=== PATIENT | female | born 1945 | race Caucasian/White ===

== ENCOUNTER 2019-12-23 12:43 | Emergency (ER) | payer MEDICARE ==
--- OUTSIDE RECORDS SUMMARY | 2019-12-23 12:47 | XMS REPORT | Clinical Summary ---
:1945 Author Organization [facility] Address [address] [place] [address] Care Team Providers Name Role Phone Romeo Powell MD Primary Care Provider Allergies No Known Allergies Medications Medication Sig Dispensed Refills Start Date End Date Status Bacillus coagulans Take by mouth 0 Active (PROBIOTIC, B. daily . COAGULANS,) 10 billion cell CpDR ferrous gluconate Take 1 tablet 90 tablet 3 06/13/2018 Active (FERGON) 324 MG (324 mg total) tablet by mouth daily with breakfast. traZODone (DESYREL) Take 100 mg by 0 09/25/2018 Active 100 MG tablet mouth nightly . ZINC ORAL Take 50 mg by 0 Active mouth daily . cholestyramine Take 1 packet by 60 each 5 11/14/2018 Active (QUESTRAN) 4 gram mouth 2 (two) PwPk packet times daily with breakfast and dinner Take other medications 1 hour before or 4-6 hours after cholestyramine. fluticasone 1 spray by Nasal 0 A ctive propionate route daily as (FLONASE) 50 needed . mcg/actuation nasal spray multivitamin Take 1 capsule 0 Ac tive capsule by mouth daily. benzonatate 2 (two) times 0 12/05/2018 Act qing (TESSALON) 100 MG daily as needed capsule . omeprazole Take 20 mg by 0 Activ e (PRILOSEC) 20 MG mouth daily. capsule hydrOXYzine Take 0.5 tablets 30 tablet 2 06/26/2019 Active (ATARAX) 25 MG (12.5 mg total) tablet by mouth every night as needed for Itching. ursodioL (ACTIGALL) Take 0.5 tablets 135 tablet 3 06/26/2019 Active 500 MG tablet (250 mg total) by mouth 3 (three) times daily Take half tablet in the morning and a full tablet in the afternoon.. HYDROcodone-acetami Take 1 tablet by 30 tablet 0 10/22/2019 Active nophen (NORCO mouth every 6 10-325) 10-325 mg (six) hours as per tablet needed. Max Daily Amount: 4 tablets atorvastatin Take 10 mg (1 30 tablet 0 12/11/2019 Ac tive (LIPITOR) 10 MG tablet) daily at tablet bedtime.. ondansetron Take 1 tablet (4 30 tablet 3 12/11/2019 Active (ZOFRAN) 4 MG mg total) by tablet mouth as needed for Nausea. spironolactone Take 1 tablet 30 tablet 3 12/20/2019 12/20/19 Active (ALDACTONE) 25 MG (25 mg total) by 21 tabletIndications: mouth daily. Edema, unspecified type conjugated Place 0.5 g 0 12/19/19 Discont inued estrogens vaginally twice 20 (PREMARIN) 0.625 a week Due on mg/gram vaginal Tuesday. cream HYDROcodone-acetami Take 1 tablet by 0 Discontinued nophen (NORCO mouth every 4 20 10-325) 10-325 mg (four) hours as per tablet needed . ursodiol (ACTIGALL) Take 0.5 tablets 135 tablet 3 06/13/2018 0 06/20/19 Discontinued 500 MG tablet (250 mg total) 20 by mouth 3 (three) times daily Take half tablet three times daily. ondansetron Take 1 tablet (4 30 tablet 3 06/15/2018 06/20/19 Discontinued (ZOFRAN) 4 MG mg total) by 20 tablet mouth as needed for Nausea. hydrOXYzine Take 0.5 tablets 30 tablet 2 11/10/2018 06/20/19 Discontinued (ATARAX) 25 MG (12.5 mg total) 20 tablet by mouth every night as needed for Itching. atorvastatin Take 10 mg (1 30 tablet 6 11/23/2018 06/26/19 Di scontinued (LIPITOR) 10 MG tablet) daily at 20 tablet bedtime.. spironolactone Take 1 tablet 30 tablet 2 12/12/2018 03/27/20 Discontinued (ALDACTONE) 50 MG (50 mg total) by 19 tabletIndications: mouth daily. Edema, unspecified type, Awaiting organ transplant status spironolactone Take 1 tablet 30 tablet 2 03/27/2019 03/29/20 Discontinued (ALDACTONE) 50 MG (50 mg total) by 19 tabletIndications: mouth daily. Edema, unspecified type, Awaiting organ transplant status spironolactone Take 1 tablet 30 tablet 2 03/29/2019 06/20/19 Discontinued (ALDACTONE) 50 MG (50 mg total) by 20 tabletIndications: mouth daily. Edema, unspecified type, Awaiting organ transplant status ondansetron Take 1 tablet (4 30 tablet 3 06/26/2019 12/11/19 Discontinued (ZOFRAN) 4 MG mg total) by 20 tablet mouth as needed for Nausea. spironolactone Take 1 tablet 30 tablet 2 06/26/2019 10/22/19 Discontinued (ALDACTONE) 50 MG (50 mg total) by 20 tabletIndications: mouth daily. Edema, unspecified type, Awaiting organ transplant status atorvastatin Take 10 mg (1 30 tablet 1 06/26/2019 08/31/19 Di scontinued (LIPITOR) 10 MG tablet) daily at 20 tablet bedtime.. atorvastatin Take 10 mg (1 30 tablet 0 08/31/2019 10/05/19 Di scontinued (LIPITOR) 10 MG tablet) daily at 20 tablet bedtime.. atorvastatin Take 10 mg (1 30 tablet 0 10/05/2019 11/09/19 Di scontinued (LIPITOR) 10 MG tablet) daily at 20 tablet bedtime.. amoxicillin-clavula Take 1 tablet by 8 tablet 0 10/22/2019 christine (AUGMENTIN) mouth 2 (two) 20 875-125 mg per times daily for tablet 4 days. spironolactone Take 0.5 tablets 0 10/22/2019 0 Discontinued (ALDACTONE) 50 MG (25 mg total) by 20 tabletIndications: mouth daily. Edema, unspecified type, Awaiting organ transplant status ciprofloxacin-dexam Place 4 drops 7.5 mL 0 10/22/201910/31 ethasone (CIPRODEX) into the right 20 0.3-0.1 % otic ear 2 (two) suspension times daily for 10 days. atorvastatin Take 10 mg (1 30 tablet 0 11/09/2019 12/11/19 Di scontinued (LIPITOR) 10 MG tablet) daily at 20 tablet bedtime.. Active Problems Problem Noted Date Periumbilical abdominal pain 10/20/2019 Fever 10/20/2019 Basal cell carcinoma of skin 08/13/2019 Last Assessment & Plan: She has basal cell carcinoma removed fro m her nose about one year ago. Continue to follow up with Dermatology for skin chec ks as indicated. Pruritus 11/11/2018 Last Assessment & Plan: Due to jaundice. Continued management [facility] Hepatology. Other fatigue 11/11/2018 Last Assessment & Plan: She denies issues with any day to day fu nctioning. She has increased her exercise tolerance to include 30 minutes on the r ecumbent bicycle daily. CMV (cytomegalovirus infection) status negative 2018 Pre-transplant evaluation for liver transplant 019 Last Assessment & Plan: She remains an acceptable candidate for liver transplant, though she is high risk due to age. She was encouraged to continue t o drink supplemental shakes and exercise as tolerated to help with nutritional statu s as she appears thin in clinic. She was able to meet with Lul Galindo in clinic to whitney gomez increasing her weight bearing exercise to increase muscle mass. H/O abdominal surgery 10/18/2018 Last Assessment & Plan: She previously required laparoscopic cho lecystectomy. 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 Hyponatremia 02/22/2018 Elevated alkaline phosphatase level 11/01/2017 Immunity status testing 11/01/2017 Last Assessment & Plan: CDC recommends that all patients with ch ronic liver disease, regardless of etiology, should be immunized to prevent hepatitis A and hepatitis B if they are not already immune. This should be done in addition to other age-appropriate vaccines. We will test for immunity to both viruses - vacc ine recommendations will follow. Screening for malignant neoplasm 11/01/2017 Last Assessment & Plan: She does not currently meet criteria for HCC screening. 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 Elevated liver enzymes 11/01/2017 Last Assessment & Plan: Cholestatic pattern, marked elevated in ALP 1332 (liver isoenzyme 74%) and GGT 683. AMA negative. Unclear etiology suspect DILI vs autoimmune liver disease. MRCP with no evidence of extrahepatic obstr uction. Suspect intrahepatic cholestasis . We ordered comprehensive testing for metabolic, viral, genetic, and autoimmune liver diseases to detect alternative etiologies and all comorbid conditions affec ting hepatic function. We also ordered M RI with and without contrast MRI of the abdomen with and without contrast is ordered to evaluate liver, contours of the liver, the biliary system, rule out liver lesion, and advanced hepatic fibrosis. Losratan is recognized as a causes of elevated liver tests and cholestatic injury. We recommend switching to an alternative class antihypertensive. We also recomm end stopping NSAIDs and all over the cou nter supplements. The maximum daily dose of acetaminophen was discussed with the patient. She was encouraged not to exceed 2,000 mg of acetaminophen during a 24 hour period. Iron deficiency anemia 11/01/2017 Last Assessment & Plan: Microcytic anemia likely iron deficiency anemia. She reports prolonged history of REGLA on iron supplements. Suspect worsening r ecent anemia secondary to blood bowel movements. We sent celiac panel. Plan fo r colonoscopy by Dr. Keen. Encounters Date Type Specialty Care Team Description 12/21/2019 Documentation Transplant Hepatology Annette Suárez 12/20/2019 Orders Only Transplant Hepatology Jacquelyn Babccok Edem a, unspecified RN type (Primary D x) 12/20/2019 Refill Transplant Hepatology Jacquelyn Babcock RN 12/19/2019 Office Visit Cardiology Freddie Denson Pre-operative RMD clearance 12/19/2019 Hospital Encounter Cardiology Pham Slaughter PSC (larry annette sclerosing cholangitis); MD Sebastian Awaiting organ transplant status; Pre-operative c ardiovascular examination, high risk surgery 12/19/2019 Orders Only Lab Freddie Denson PSC (primary sclerosing cholangitis); MD Eusebia Awaiting organ transplant status; Screening for m alignant neoplasm; Hepatic cirrhos is, unspecified hepatic cirrhosis type, unspecified whether ascites present (HCC) 12/19/2019 Travel 12/18/2019 Telephone Transplant Hepatology Bria Suárez (Returned pts c all. Scheduled 12/18 lab appt w/pt. ) 12/18/2019 Orders Only Transplant Hepatology Jacquelyn Babcock PSC (primary sclerosing cholangitis) (Primary Dx); RN Awaiting organ transplant status; Screening for m alignant neoplasm; Hepatic cirrhos is, unspecified hepatic cirrhosis type, unspecified whether ascites present (HCC) 12/14/2019 Documentation Transplant Hepatology Kamini Annette Villalobos 12/11/2019 Refill Transplant Hepatology Robert Terrell MD 12/11/2019 Refill Transplant Hepatology Pham Slaughter MD 12/11/2019 Telephone Transplant Hepatology Bria Suárez Suzanne (Scheduled 04/11 12/30 mri appt w/pt. Also pt said she not go get her meld la bs drawn but she w ill go to [facility] today. Orders released. Bessie carter mailed ot pt.) 12/11/2019 Telephone Central Scheduling Kamini Annette Villalobos 12/11/2019 Orders Only Central Scheduling Kamini PSC (prim josé sclerosing cholangitis); Annette Villalobos Awaiting organ transplant status; Hepatic cirrhos is, unspecified hepatic cirrhosis type, unspecified whether ascites present (HCC) 12/10/2019 Orders Only Transplant Hepatology Jacquelyn Babcock PSC (primary sclerosing cholangitis) (Primary Dx); RN Awaiting organ transplant status; Hepatic cirrhos is, unspecified hepatic cirrhosis type, unspecified whether ascites present (HCC); Screening for m alignant neoplasm 12/10/2019 Orders Only Transplant Hepatology Jacquelyn Babcock PSC (primary sclerosing cholangitis); RN Awaiting organ transplant status; Hepatic cirrhos is, unspecified hepatic cirrhosis type, unspecified whether ascites present (HCC) 12/10/2019 Documentation Transplant Hepatology Dennis Cid 12/03/2019 Telephone Transplant Hepatology Jacquelyn Babcock Foll ow-up RN 11/30/2019 Telephone Transplant Hepatology Jacquelyn Babcock Foll ow-up RN 11/29/2019 Telephone Transplant Hepatology Bria Suárez (Returning pts call. Pt had left a message that aleta villalobos needed to speak w/rn but when she cl d jacquelyn she got a msg that jerry spencer is out. I lvm ask ing the pt to call liver clinic main #[phone] a nd ask to speak wi th the nurse cover ing for jacquelyn.) 11/28/2019 Telephone Transplant Hepatology Jacquelyn Babcock Foll ow-up RN 11/27/2019 Documentation Transplant Hepatology Annette Suárez 11/23/2019 Telephone Transplant Hepatology Kamini Appoin tment Annette Villalobos (Scheduled 9 echo & cardiolo gist appt & 01/21 cl inic appt w/pt. Itinerary arnav ruiz) 11/16/2019 Telephone Transplant Hepatology Jacquelyn Babcock Foll ow-up RN 11/16/2019 Documentation Transplant Hepatology Annette Suárez 11/15/2019 Telephone Hepatology Anneliese Mccallum Procedure (EG D/TIVA) L 11/14/2019 Telephone Transplant Hepatology Jacquelyn Babcock EGD RN 11/13/2019 Follow-Up Transplant Hepatology Pham Slaughter Other cirrhosis of MD Sebastian liver (HCC) 11/13/2019 Telephone Transplant Hepatology Jacquelyn Babcock Foll ow-up RN 11/13/2019 Telephone Transplant Hepatology Jacquelyn Babcock Foll ow-up RN 11/12/2019 Telephone Hepatology Genevieve Ace RN 11/09/2019 Refill Transplant Hepatology Jacquelyn Babcock, POP 11/07/2019 Documentation Transplant Hepatology Annette Suárez 11/07/2019 Documentation Transplant Hepatology Kamini Annette Villalobos 11/06/2019 Telephone Transplant Hepatology Arnaldo Suárezoin tment (Pt Annette Villalobos called and said she needs prescript ion refill for lipi tor. Msg sent to coordinator.) 11/05/2019 Telephone Transplant Hepatology Kamini Appoin tment (Pt Annette Villalobos called and said she is getting labs drawn @ lab [facility] today for meld update. Orders released.) 11/05/2019 Orders Only Transplant Hepatology Kamini, PSC (p rimary sclerosing cholangitis); Annette Villalobos Awaiting organ transplant status; Hepatic cirrhos is, unspecified hepatic cirrhosis type, unspecified whether ascites present (HCC) 11/04/2019 Refill Transplant Hepatology Robert Terrell MD 10/29/2019 Orders Only Transplant Hepatology Kamini, PSC (p rimary sclerosing cholangitis); Annette Villalobos Awaiting organ transplant status; Hepatic cirrhos is, unspecified hepatic cirrhosis type, unspecified whether ascites present (HCC) 10/29/2019 Telephone Transplant Hepatology Kamini Appoin tment (Pt Annette Villalobos called to see i f she is due for meld update. I expl ained she is due now and she said she wo uld go to [facility] on 10/29.) 10/20/2019 Hospital Encounter General Internal Ellisasek, Periu mbilical abdominal pain (Primary Dx); - Medicine MD Jesse Jaundice; 10/22/2019 Dipesh Heard Fever, unspec ified fever cause; MD Guillermo Other cirrhosis of liver (HCC); Jim Dotson In, PSC (primary s clerosing cholangitis); Hyponatremia; Greer Dickey Awaiting organ transplant status; MD Giovana Cholangitis; Changela, Leukocytosis, u nspecified type; Vera Marshall MD Elevated liver enzymes; Edema, unspecif ied type; Biliary strictu re 10/20/2019 Orders Only General Internal Medicine 10/20/2019 Travel 10/19/2019 Travel 10/19/2019 Telephone Transplant Hepatology Cesilia, rtnd c lacho Kaur RN 10/19/2019 Documentation Transplant Hepatology Dennis Cid 10/19/2019 Documentation Transplant Hepatology Dennis Cid 10/05/2019 Refill Transplant Hepatology Robert Terrell MD 09/28/2019 Refill Transplant HepatRobert Stephens MD 09/25/2019 Documentation Transplant Hepatology Dennis Cid 09/25/2019 Orders Only Transplant Hepatology Dennis Cid PSC (primary sclerosing cholangitis); Awaiting organ transplant status; Hepatic cirrhos is, unspecified hepatic cirrhosis type, unspecified whether ascites present (HCC) 09/24/2019 Orders Only Transplant Hepatology Dennis Cid PSC (primary sclerosing cholangitis); Awaiting organ transplant status; Hepatic cirrhos is, unspecified hepatic cirrhosis type, unspecified whether ascites present (HCC) 09/20/2019 Evaluation Transplant Hepatology Pham Slaughter Pre-t ransplant evaluation for liver transplant; MD Sebastian PSC (primary sclerosing cholangitis); Shaun Hernandez Other fatigue Pedro No MD 09/20/2019 Clinic Visit Transplant Hepatology Lul Galindo 09/19/2019 Refill Transplant Hepatology Robert Terrell Edema, unspecified type; MD Marlon Awaiting organ transplant status 09/17/2019 Documentation Transplant Hepatology Nick Pascal, [facility] 09/17/2019 Telephone Transplant Hepatology Kamini, Appoin tment Suzanne (Rescheduled petty rgeon visit appt to 0 09/19 w/Rossi. Itine rary mailed to pt.) 09/14/2019 Telephone Transplant Hepatology Kamini, Appoin tment Suzanne (Rescheduled surgeon visit a ppt w/pt to 09/16. Cov'd Questions done w/pt & Rossi F.) 09/10/2019 Abstract Hepatology Jihan Obregon MA 09/10/2019 Telephone Transplant Hepatology Cid Rocíochente Appo intment 09/04/2019 Telephone Transplant Hepatology Kamini, Arnaldooin sanjaynt Suzanne (Confirmed 1 appt w/pt.) 08/31/2019 Refill Transplant Hepatology Jacquelyn Babcock RN 08/29/2019 Telephone Transplant Hepatology Kamini, Arnaldooin sanjaynt Suzanne (Scheduled 4 appts (clinic & Feghali appt @ 1:30) w/pt. Itinerar y mailed.) 08/27/2019 Orders Only Transplant Hepatology Jacquelyn Babcock, PSC (primary sclerosing cholangitis) (Primary Dx); RN Awaiting organ transplant status; Pre-operative c ardiovascular examination, high risk surgery 08/27/2019 Orders Only Transplant Hepatology Jacquelyn Babcock, PSC (primary sclerosing cholangitis); RN Awaiting organ transplant status; Hepatic cirrhos is, unspecified hepatic cirrhosis type, unspecified whether ascites present (HCC) 08/27/2019 Orders Only Transplant Hepatology Jacquelyn Babcock, PSC (primary sclerosing cholangitis) (Primary Dx); RN Awaiting organ transplant status; Hepatic cirrhos is, unspecified hepatic cirrhosis type, unspecified whether ascites present (HCC) 08/27/2019 Telephone Transplant Hepatology Kamini, Arnaldooin sanjaynt Suzanne (Rescheduled clinic appt w/p t. Scheduled 09/09 surgeon visit a ppt. Itinerary arnav d to pt.) 08/23/2019 Refill Transplant Hepatology Robert Terrell MD 08/20/2019 Telephone Transplant Hepatology Kamini, Arnaldooin sanjaynt Suzanne (Rescheduled appt to 08/26 w/Rossi. Itine rarreta mailed.) 08/17/2019 Telephone Transplant Hepatology Bria Suárez (M. Annette Villalobos Calling to conf irm 08/19 appt w/pt .) 08/14/2019 Telephone Transplant Hepatology Bria Suárez Annette Villalobos (Scheduled 08/09 1 surgeon appt w/ pt. Itinerary arnav ruiz) 08/13/2019 Hospital Encounter Radiology Daquan, Awaiting organ transplant status; Ritchie Melgar MD PSC (primary sc lerosing cholangitis); Screening for m alignant neoplasm; Elevated liver enzymes 08/13/2019 Follow-Up Transplant Hepatology Daquan, Pre-tr ansplant evaluation for liver transplant; Ritchie Melgar MD Pruritus; Enma Woods PSC (primary sc lerosing cholangitis); Desiree Oropeza, H/O abdominal s elizabeth HUSSEIN 08/10/2019 Telephone Transplant Hepatology Bria Suárez Annette Villalobos (Confirmed 4 appts w/pt. ) 08/10/2019 Telephone Transplant Hepatology Bria Suárez Annette Villalobos (Confirmed 4 appt w/pt. ) 07/31/2019 Audio - Transplant Hepatology Logan Chamberlain ensated hepatic cirrhosis (HCC) (Primary Dx); Telemedicine Nancy Woodson MD Hyponatremia; MPH Jaundice; Screening for m alignant neoplasm; Elevated liver enzymes; Portal hyperten christian (HCC); PSC (primary sc lerosing cholangitis); Immunity status testing 07/30/2019 Telephone Transplant Hepatology Bria Suárez (Called Annette Villalobos to confirm 07/11 appt w/pt. Spo rizwana w/Rossi pak pt had requeste d to do a telephone appt because she did not want to risk [place] [facility] so her appt will b e done by telepho radha Richey said she understood.) 07/26/2019 Telephone Transplant Hepatology Bria Suárez (M. Annette Villalobos Called to let p t i spoke w/nurse a nd instead of her rescheduling he r appt they will do a appt by phone.. ) 07/26/2019 Telephone Transplant Hepatology Bria Suárez (See Annette Villalobos Note) 07/23/2019 Documentation Transplant Hepatology Dennis Cid 07/23/2019 Orders Only Transplant Hepatology Dennis Cid Awai ting organ transplant status; Hepatic cirrhos is, unspecified hepatic cirrhosis type, unspecified whether ascites present (HCC) 07/16/2019 Documentation Transplant Hepatology Annette Suárez 07/16/2019 Orders Only Transplant Hepatology Kamini, Awaiti ng organ transplant status; Annette Villalobos Hepatic cirrhos is, unspecified hepatic cirrhosis type, unspecified whether ascites present (HCC) 07/16/2019 Telephone Transplant Hepatology Bria Suárez Annette Villalobos (Scheduled 4 surgeon visit a ppt w/pt. Also explained to pt o'taye is clos ed so 07/30 mri will be done @ [facility] said she did no t want to come to [place] for laura ting so i cancelled mri appt. Pt will be scheduled at a future date.) 07/10/2019 Documentation Transplant Hepatology Quita Christie, RN 07/09/2019 Telephone Transplant Hepatology Bria Suárez Annette Villalobos (Returned pts c all asking to see i f she needed labs dra uriarte for meld spoke w/Rossi explain ed to her pt is due 0 07/10 for her update Rossi said pt would g et labs drawn this afternoon.) 07/09/2019 Orders Only Transplant Hepatology Kamini, Awaiti ng organ transplant status; Annette Villalobos Hepatic cirrhos is, unspecified hepatic cirrhosis type, unspecified whether ascites present (HCC) 07/05/2019 Telephone Transplant Hepatology Bria Suárez (Pt Annette Villalobos called and canc elled 07/08 surgeon v isit appt. She said she would rather wa it right now to co me to this appt but s he will call back to reschedule once she speaks w/lee rubalcava next week.) 07/02/2019 Telephone Transplant Hepatology Bria Suárez Annette Villalobos (Scheduled 06/10 4 meld lab appt w /pt labs to be done @ [facility]. ) 07/02/2019 Orders Only Transplant Hepatology Kamini, Awaiti ng organ transplant status; Annette Villalobos Hepatic cirrhos is, unspecified hepatic cirrhosis type, unspecified whether ascites present (HCC) 06/25/2019 Telephone Transplant Hepatology Kamini, Appoin tment (Pt Annette Villalobos called and rescheduled adrian geon visit appt she said she didn't want to risk coming in today. Appt rescheduled to 07/08. Jonnathan miller. ) 06/25/2019 Orders Only Transplant Hepatology Kamini, Awaiti ng organ transplant status; Annette Villalobos Hepatic cirrhos is, unspecified hepatic cirrhosis type, unspecified whether ascites present (HCC) 06/20/2019 Refill Transplant Hepatology Jacquelyn Babcock Earl a, unspecified type; RN Awaiting organ transplant status 06/20/2019 Orders Only Transplant Hepatology Kamini, Awaiti ng organ transplant status; Annette Villalobos Hepatic cirrhos is, unspecified hepatic cirrhosis type, unspecified whether ascites present (HCC) 06/12/2019 Follow-Up Transplant Hepatology Pham Slaughter Await ing organ transplant status (Primary Dx); MD Sebastian PSC (primary sclerosing cholangitis); Tory De Souza Screening for malignant neoplasm; MD Campos Elevated liver enzymes; Immunity status testing; Other cirrhosis of liver (HCC) 06/12/2019 Documentation Central Scheduling Annette Suárez 06/11/2019 Telephone Transplant Hepatology Kamini, Appoin tment Annette Villalobos (Confirmed 3 appt w/pt.) 06/06/2019 Telephone Transplant Hepatology Jacquelyn Babcock, Card iology follow up RN 05/21/2019 Orders Only Transplant Hepatology Kamini, Awaiti ng organ transplant status; Annette Villalobos Hepatic cirrhos is, unspecified hepatic cirrhosis type, unspecified whether ascites present (HCC) 05/15/2019 Orders Only Lab Pham Slaughter Awaiting organ transplant status; MD Sebastian Other cirrhosis of liver (HCC); PSC (primary sc lerosing cholangitis) 05/15/2019 Telephone Transplant Hepatology Jacquelyn Babcock, MELD RN 05/07/2019 Orders Only Transplant Hepatology Kamini, Awaiti ng organ transplant status; Annette Villalobos Hepatic cirrhos is, unspecified hepatic cirrhosis type, unspecified whether ascites present (HCC) 05/04/2019 Telephone Transplant Hepatology Kamini, Appoin tment (Pt Annette Villalobos called and said she will get meld l abs drawn on sunday 05/07 @ [facility] and also reschedule d 05/15 clinc arnaldo t w/pt (this was cancelled by so meone other than live r clinic) resched uled clinic on 06/11 . itinerary arnav d.) 04/30/2019 Telephone Transplant Hepatology Bria Suárez (LVM. Annette Villalobos Calling to sche dule meld labs due n ow.) 04/25/2019 Orders Only Transplant Hepatology Jacquelyn Babcock Awai ting organ transplant status; RN Hepatic cirrhos is, unspecified hepatic cirrhosis type, unspecified whether ascites present (HCC) 03/29/2019 Refill Transplant Hepatology Jacquelyn Babcock Earl a, unspecified type; RN Awaiting organ transplant status 03/28/2019 Anesthesia Event Gastroenterology Evi Waite, DO 03/28/2019 Surgery Gastroenterology Andrea Lezama,TIMI Allen MD VISUALIZATION S [facility] 03/28/2019 Hospital Encounter Gastroenterology Andrea Lezama MD 03/27/2019 Orders Only Transplant Hepatology Jacquelyn Babcock Edem a, unspecified type; RN Awaiting organ transplant status 03/26/2019 Orders Only Transplant Hepatology Kathi Suárez organ transplant status; Annette Villalobos Hepatic cirrhos is, unspecified hepatic cirrhosis type, unspecified whether ascites present (HCC) 03/05/2019 Telephone Transplant Hepatology Bria Suárez (Called Annette Villalobos to schedule jose francisco d labs due 03/09. Pt said she had la bs drawn today @ [facility].) 03/02/2019 Orders Only Transplant Hepatology Jacquelyn Babcock Awai ting organ transplant status (Primary Dx); RN Hepatic cirrhos is, unspecified hepatic cirrhosis type, unspecified whether ascites present (HCC) 03/02/2019 Orders Only Transplant Hepatology Jacquelyn Babcock, PSC (primary RN sclerosing cholangitis) 03/01/2019 Orders Only Transplant Hepatology Jacquelyn Babcock Awai ting organ transplant status; RN Other cirrhosis of liver (HCC); PSC (primary sc lerosing cholangitis) 02/26/2019 Orders Only Transplant Hepatology Jacquelyn Babcock, Hepa topulmonary shunting (HCC) (Primary Dx); RN Awaiting organ transplant status 02/26/2019 Telephone Transplant Hepatology Jacquelyn Babcock, EGD; Colonoscopy RN 02/26/2019 Orders Only Transplant Hepatology Jacquelyn Babcock, PSC (primary RN sclerosing cholangitis) 02/21/2019 Telephone Transplant Hepatology Bria Suárez Annette Vlilalobos (Scheduled 05/15 appt @ 11 am w/pt. Also confirmed clini c appt on that da y @ 9 am. Pt is peter g to call Miller Garcia to schedule mri ap pt due July.) 02/13/2019 Follow-Up Transplant Hepatology Pham Slaughter Other cirrhosis of liver (HCC) (Primary Dx); MD Sebastian Biliary stricture; Mindurszulaoglu, Elevated liver enzymes; Nancy Woodson MD Pruritus; MPH PSC (primary sc lerosing cholangitis); Screening for m alignant neoplasm; Pedal edema; Jaundice 02/13/2019 Documentation Transplant Hepatology Annette Suárez 02/12/2019 Telephone Transplant Hepatology Bria Suárez Annette Villalobos (Confirmed appt w/[facility].) 02/06/2019 Orders Only Transplant Hepatology Pham Slaughter Await ing organ transplant status; MD Sebastian Other cirrhosis of liver (HCC); PSC (primary sc lerosing cholangitis) 01/31/2019 Hospital Encounter Radiology Pham Slaughter Awaiting organ transplant status; MD Sebastian Other cirrhosis of liver (HCC); PSC (primary sc lerosing cholangitis); Liver disease ; Cancer screenin g 01/30/2019 Orders Only Transplant Hepatology Pham Slaughter Await ing organ transplant status; MD Sebastian Other cirrhosis of liver (HCC); PSC (primary sc lerosing cholangitis) 01/23/2019 Orders Only Transplant Hepatology Pham Slaughter Await ing organ transplant status; MD Sebastian Other cirrhosis of liver (HCC); PSC (primary sc lerosing cholangitis) 01/16/2019 Orders Only Transplant Hepatology Pham Slaughter Await ing organ transplant status; MD Sebastian Other cirrhosis of liver (HCC); PSC (primary sc lerosing cholangitis) 2019 Orders Only Transplant Hepatology Pham Slaughter Await ing organ transplant status; MD Sebastian Other cirrhosis of liver (HCC); PSC (primary sc lerosing cholangitis) 12/27/2018 Telephone Transplant Hepatology Bria Suárez (LVM. Suzanne Need to resched ule 02/13 clinic ap pt to end february also schedule mri ap pt on that day.) 12/27/2018 Orders Only Transplant Hepatology Jacquelyn Babcock Awai ting organ transplant status (Primary Dx); RN Other cirrhosis of liver (HCC); PSC (primary sc lerosing cholangitis) 12/26/2018 Telephone Transplant Hepatology Jacquelyn Babcock Colo noscopy RN 12/26/2018 Orders Only Transplant Hepatology Jacquelyn Babcock Awai ting organ transplant status (Primary Dx); RN Other cirrhosis of liver (HCC); PSC (primary sc lerosing cholangitis); Liver disease ; Cancer screenin g after 12/22/2018 Family History Medical History Relation Name Comments Alcohol abuse Father Alcohol abuse Mother Cancer Mother Hypertension Sister Relation Name Status Comments Father Mother Sister Alive Social History Tobacco Use Types Packs/Day Years Used Date Never Smoker Smokeless Tobacco: Never Used Alcohol Use Drinks/Week oz/Week Comments No quit Sex Assigned at Date Recorded Female 11/05/2018 11:05 AM CDT Job Start Date Occupation Industry Not on file Not on file Not on file Travel History Travel Start Travel End No recent travel history available. Last Filed Vital Signs Vital Sign Reading Time Taken Blood Pressure 117/56 12/19/2019 1:52 PM CDT Pulse 80 12/19/2019 1:52 PM CDT Temperature 36.7 C (98 F) 12/19/2019 1:52 PM CDT Respiratory Rate 18 12/19/2019 1:52 PM CDT Oxygen Saturation 100% 12/19/2019 1:52 PM CDT Inhaled Oxygen Concentration - - Weight 47.6 kg (105 lb) 12/19/2019 1:52 PM CDT Height 162.6 cm (5' 4") 12/19/2019 1:52 PM CDT Body Mass Index 18.02 12/19/2019 1:52 PM CDT Plan of Treatment Date Type Specialty Care Team Description 01/22/2020 Follow-Up Transplant Hepatology Say Slaughter MD [address] [address] [phone] 04/29/2020 Appointment Radiology Pham Slaughter MD [address] [address] [phone] Health Maintenance Due Date Last Done Comments COLON CANCER SCREENING COLONOSCOPY 1945 PNEUMOCOCCAL 65+ HIGH/HIGHEST RISK (1 of 2 - PCV13) 01/08/2009 MEDICARE ANNUAL WELLNESS (YEAR 2 or FIRST YEAR if no 12/11/2009 IPPE) INFLUENZA VACCINE (#1) 2019 Procedures Procedure Name Priority Date/Time Associated Diagnosis Comme nts ECHO W CONTRAST & Routine 12/19/2019 11:55 PSC (primary Result s for this DOPPLER AM CDT sclerosing procedure are i n cholangitis) the results Awaiting organ section. transplant statu s Pre-operative cardiovascular examination, high risk surgery CBC W/PLT COUNT & Routine 12/19/2019 10:44 PSC (primary Result s for this AUTO DIFFERENTIAL AM CDT sclerosing procedure are in cholangitis) the results Awaiting organ section. transplant statu s Hepatic cirrhosis, unspecified hepatic cirrhosis type, unspecified whether ascites present (HCC) CARBOHYDRATE ANTIGEN Routine 12/19/2019 10:44 PSC (primary Res ults for this 19-9 (CA 19-9) AM CDT sclerosing procedure are in cholangitis) the results Awaiting organ section. transplant statu s Screening for malignant neopla sm Hepatic cirrhosis, unspecified hepatic cirrhosis type, unspecified whether ascites present (HCC) PROTHROMBIN TIME/INR Routine 12/19/2019 10:44 PSC (primary Res ults for this AM CDT sclerosing procedure are i n cholangitis) the results Awaiting organ section. transplant statu s Hepatic cirrhosis, unspecified hepatic cirrhosis type, unspecified whether ascites present (HCC) COMPREHENSIVE Routine 12/19/2019 10:44 PSC (primary Results fo r this METABOLIC PANEL AM CDT sclerosing procedure ar e in cholangitis) the results Awaiting organ section. transplant statu s Hepatic cirrhosis, unspecified hepatic cirrhosis type, unspecified whether ascites present (HCC) CBC W/PLT COUNT & Routine 12/19/2019 10:44 PSC (primary Result s for this AUTO DIFFERENTIAL AM CDT sclerosing procedure are in cholangitis) the results Awaiting organ section. transplant statu s Hepatic cirrhosis, unspecified hepatic cirrhosis type, unspecified whether ascites present (HCC) BILIRUBIN, DIRECT Routine 12/19/2019 10:44 PSC (primary Result s for this AM CDT sclerosing procedure are i n cholangitis) the results Awaiting organ section. transplant statu s Hepatic cirrhosis, unspecified hepatic cirrhosis type, unspecified whether ascites present (HCC) ALPHA FETOPROTEIN Routine 12/19/2019 10:44 PSC (primary Result s for this (AFP), TUMOR MARKER AM CDT sclerosing procedur e are in cholangitis) the results Awaiting organ section. transplant statu s Screening for malignant neopla sm Hepatic cirrhosis, unspecified hepatic cirrhosis type, unspecified whether ascites present (HCC) BILIRUBIN, DIRECT Routine 12/11/2019 12:01 PSC (primary Result s for this PM CDT sclerosing procedure are i n cholangitis) the results Awaiting organ section. transplant statu s Hepatic cirrhosis, unspecified hepatic cirrhosis type, unspecified whether ascites present (HCC) CBC W/PLT COUNT & Routine 12/11/2019 12:01 PSC (primary Result s for this AUTO DIFFERENTIAL PM CDT sclerosing procedure are in cholangitis) the results Awaiting organ section. transplant statu s Hepatic cirrhosis, unspecified hepatic cirrhosis type, unspecified whether ascites present (HCC) COMPREHENSIVE Routine 12/11/2019 12:01 PSC (primary Results fo r this METABOLIC PANEL PM CDT sclerosing procedure ar e in cholangitis) the results Awaiting organ section. transplant statu s Hepatic cirrhosis, unspecified hepatic cirrhosis type, unspecified whether ascites present (HCC) PROTHROMBIN TIME/INR Routine 12/11/2019 12:01 PSC (primary Res ults for this PM CDT sclerosing procedure are i n cholangitis) the results Awaiting organ section. transplant statu s Hepatic cirrhosis, unspecified hepatic cirrhosis type, unspecified whether ascites present (HCC) BILIRUBIN, DIRECT Routine 11/05/2019 11:29 PSC (primary Result s for this AM CDT sclerosing procedure are i n cholangitis) the results Awaiting organ section. transplant statu s Hepatic cirrhosis, unspecified hepatic cirrhosis type, unspecified whether ascites present (HCC) CBC W/PLT COUNT & Routine 11/05/2019 11:29 PSC (primary Result s for this AUTO DIFFERENTIAL AM CDT sclerosing procedure are in cholangitis) the results Awaiting organ section. transplant statu s Hepatic cirrhosis, unspecified hepatic cirrhosis type, unspecified whether ascites present (HCC) COMPREHENSIVE Routine 11/05/2019 11:29 PSC (primary Results fo r this METABOLIC PANEL AM CDT sclerosing procedure ar e in cholangitis) the results Awaiting organ section. transplant statu s Hepatic cirrhosis, unspecified hepatic cirrhosis type, unspecified whether ascites present (HCC) PROTHROMBIN TIME/INR Routine 11/05/2019 11:29 PSC (primary Res ults for this AM CDT sclerosing procedure are i n cholangitis) the results Awaiting organ section. transplant statu s Hepatic cirrhosis, unspecified hepatic cirrhosis type, unspecified whether ascites present (HCC) IMMATURE CELLS Routine 10/30/2019 11:11 Results f or this AM CDT procedure are i n the results section. BILIRUBIN, DIRECT Routine 10/30/2019 11:11 PSC (primary Result s for this AM CDT sclerosing procedure are i n cholangitis) the results Awaiting organ section. transplant statu s Hepatic cirrhosis, unspecified hepatic cirrhosis type, unspecified whether ascites present (HCC) CBC W/PLT COUNT & Routine 10/30/2019 11:11 PSC (primary Result s for this AUTO DIFFERENTIAL AM CDT sclerosing procedure are in cholangitis) the results Awaiting organ section. transplant statu s Hepatic cirrhosis, unspecified hepatic cirrhosis type, unspecified whether ascites present (HCC) COMPREHENSIVE Routine 10/30/2019 11:11 PSC (primary Results fo r this METABOLIC PANEL AM CDT sclerosing procedure ar e in cholangitis) the results Awaiting organ section. transplant statu s Hepatic cirrhosis, unspecified hepatic cirrhosis type, unspecified whether ascites present (HCC) PROTHROMBIN TIME/INR Routine 10/30/2019 11:11 PSC (primary Res ults for this AM CDT sclerosing procedure are i n cholangitis) the results Awaiting organ section. transplant statu s Hepatic cirrhosis, unspecified hepatic cirrhosis type, unspecified whether ascites present (HCC) REPORT OF PROCEDURE - 10/22/2019 2:53 ENDOSCOPY SCAN PM CDT CBC W/PLT COUNT & Routine 10/22/2019 8:35 Result s for this AUTO DIFFERENTIAL AM CDT procedure are in the results section. CBC W/PLT COUNT & Routine 10/22/2019 8:35 Result s for this AUTO DIFFERENTIAL AM CDT procedure are in the results section. PROTHROMBIN TIME/INR Routine 10/22/2019 8:35 Res ults for this AM CDT procedure are i n the results section. COMPREHENSIVE Routine 10/22/2019 8:35 Results fo r this METABOLIC PANEL AM CDT procedure ar e in the results section. BLOOD CULTURE Routine 10/21/2019 8:30 Results fo r this PM CDT procedure are i n the results section. BLOOD CULTURE Routine 10/21/2019 1:31 Results fo r this PM CDT procedure are i n the results section. BLOOD CULTURE Routine 10/21/2019 1:27 Results fo r this PM CDT procedure are i n the results section. CBC W/PLT COUNT & Routine 10/21/2019 4:16 Result s for this AUTO DIFFERENTIAL AM CDT procedure are in the results section. CBC W/PLT COUNT & Routine 10/21/2019 4:16 Result s for this AUTO DIFFERENTIAL AM CDT procedure are in the results section. COMPREHENSIVE Routine 10/21/2019 4:16 Results fo r this METABOLIC PANEL AM CDT procedure ar e in the results section. MAGNESIUM Routine 10/21/2019 4:16 Results for this AM CDT procedure are i n the results section. URINALYSIS W/ REFLEX Routine 10/20/2019 11:39 Res ults for this URINE CULTURE AM CDT procedure are in the results section. URINE CULTURE Routine 10/20/2019 11:39 Results fo r this AM CDT procedure are i n the results section. SARS-COV2/RT-PCR STAT 10/20/2019 8:16 Results for this ([facility] & REF LABS) AM CDT procedure are in the results section. AMMONIA STAT 10/20/2019 8:06 Results for this AM CDT procedure are i n the results section. XR CHEST 1 VIEW STAT 10/20/2019 6:20 Results for this PORTABLE/BEDSIDE AM CDT procedure a re in the results section. CT ABDOMEN/PELVIS STAT 10/20/2019 4:53 Result s for this WITH IV CONTRAST AM CDT procedure a re in the results section. BLOOD CULTURE Routine 10/20/2019 1:27 Results fo r this IDENTIFICATION PANEL AM CDT procedu re are in the results section. BLOOD CULTURE STAT 10/20/2019 1:27 Results fo r this AM CDT procedure are i n the results section. BLOOD CULTURE STAT 10/20/2019 12:40 Results fo r this AM CDT procedure are i n the results section. CBC W/PLT COUNT & STAT 10/20/2019 12:39 Result s for this AUTO DIFFERENTIAL AM CDT procedure are in the results section. TROPONIN I STAT 10/20/2019 12:39 Results for this AM CDT procedure are i n the results section. LIPASE STAT 10/20/2019 12:39 Results for this AM CDT procedure are i n the results section. HEPATIC FUNCTION STAT 10/20/2019 12:39 Results for this PANEL AM CDT procedure are i n the results section. BASIC METABOLIC PANEL STAT 10/20/2019 12:39 Re sults for this (7) AM CDT procedure are i n the results section. APTT STAT 10/20/2019 12:39 Results for this AM CDT procedure are i n the results section. PROTHROMBIN TIME/INR STAT 10/20/2019 12:39 Res ults for this AM CDT procedure are i n the results section. LACTIC ACID, VENOUS STAT 10/20/2019 12:39 Resu lts for this AM CDT procedure are i n the results section. CBC W/PLT COUNT & STAT 10/20/2019 12:39 Result s for this AUTO DIFFERENTIAL AM CDT procedure are in the results section. POCT-GLUCOSE METER Routine 10/20/2019 12:26 Resul ts for this AM CDT procedure are i n the results section. ECG 12-LEAD STAT 10/20/2019 12:25 Results for this AM CDT procedure are i n the results section. XR CHEST 2 VIEWS STAT 10/19/2019 8:37 Results for this PM CDT procedure are i n the results section. BILIRUBIN, DIRECT Routine 09/25/2019 11:26 PSC (primary Result s for this AM CDT sclerosing procedure are i n cholangitis) the results Awaiting organ section. transplant statu s Hepatic cirrhosis, unspecified hepatic cirrhosis type, unspecified whether ascites present (HCC) CBC W/PLT COUNT & Routine 09/25/2019 11:26 PSC (primary Result s for this AUTO DIFFERENTIAL AM CDT sclerosing procedure are in cholangitis) the results Awaiting organ section. transplant statu s Hepatic cirrhosis, unspecified hepatic cirrhosis type, unspecified whether ascites present (HCC) COMPREHENSIVE Routine 09/25/2019 11:26 PSC (primary Results fo r this METABOLIC PANEL AM CDT sclerosing procedure ar e in cholangitis) the results Awaiting organ section. transplant statu s Hepatic cirrhosis, unspecified hepatic cirrhosis type, unspecified whether ascites present (HCC) PROTHROMBIN TIME/INR Routine 09/25/2019 11:26 PSC (primary Res ults for this AM CDT sclerosing procedure are i n cholangitis) the results Awaiting organ section. transplant statu s Hepatic cirrhosis, unspecified hepatic cirrhosis type, unspecified whether ascites present (HCC) BILIRUBIN, DIRECT Routine 08/27/2019 9:42 PSC (primary Result s for this AM CDT sclerosing procedure are i n cholangitis) the results Awaiting organ section. transplant statu s Hepatic cirrhosis, unspecified hepatic cirrhosis type, unspecified whether ascites present (HCC) CBC W/PLT COUNT & Routine 08/27/2019 9:42 PSC (primary Result s for this AUTO DIFFERENTIAL AM CDT sclerosing procedure are in cholangitis) the results Awaiting organ section. transplant statu s Hepatic cirrhosis, unspecified hepatic cirrhosis type, unspecified whether ascites present (HCC) COMPREHENSIVE Routine 08/27/2019 9:42 PSC (primary Results fo r this METABOLIC PANEL AM CDT sclerosing procedure ar e in cholangitis) the results Awaiting organ section. transplant statu s Hepatic cirrhosis, unspecified hepatic cirrhosis type, unspecified whether ascites present (HCC) PROTHROMBIN TIME/INR Routine 08/27/2019 9:42 PSC (primary Res ults for this AM CDT sclerosing procedure are i n cholangitis) the results Awaiting organ section. transplant statu s Hepatic cirrhosis, unspecified hepatic cirrhosis type, unspecified whether ascites present (HCC) MR ABDOMEN WITH & Routine 08/13/2019 1:10 Awaiting organ Resu lts for this WITHOUT IV CONTRAST PM CDT transplant s tatus procedure are in PSC (primary the results sclerosing section. cholangitis) Screening for malignant neopla sm Elevated liver enzymes BASIC METABOLIC PANEL Routine 08/06/2019 2:11 Hyponatre dwain Results for this (7) PM CDT Decompensated hepatic proced ure are in cirrhosis (HCC) the results Jaundice section. CBC W/PLT COUNT & Routine 07/23/2019 11:54 Awaiting organ Resu lts for this AUTO DIFFERENTIAL AM CDT transplant sta tus procedure are in Hepatic cirrhosis, the resul ts unspecified hepatic section. cirrhosis type, unspecified whether ascites present (HCC) PROTHROMBIN TIME/INR Routine 07/23/2019 11:54 Awaiting organ R esults for this AM CDT transplant statu s procedure are in Hepatic cirrhosis, the resul ts unspecified hepatic section. cirrhosis type, unspecified whether ascites present (HCC) BASIC METABOLIC PANEL Routine 07/23/2019 11:54 Awaiting organ Results for this (7) AM CDT transplant statu s procedure are in Hepatic cirrhosis, the resul ts unspecified hepatic section. cirrhosis type, unspecified whether ascites present (HCC) HEPATIC FUNCTION Routine 07/23/2019 11:54 Awaiting organ Resul ts for this PANEL AM CDT transplant statu s procedure are in Hepatic cirrhosis, the resul ts unspecified hepatic section. cirrhosis type, unspecified whether ascites present (HCC) HEPATIC FUNCTION Routine 07/17/2019 11:36 Awaiting organ Resul ts for this PANEL AM CDT transplant statu s procedure are in Hepatic cirrhosis, the resul ts unspecified hepatic section. cirrhosis type, unspecified whether ascites present (HCC) BASIC METABOLIC PANEL Routine 07/17/2019 11:36 Awaiting organ Results for this (7) AM CDT transplant statu s procedure are in Hepatic cirrhosis, the resul ts unspecified hepatic section. cirrhosis type, unspecified whether ascites present (HCC) PROTHROMBIN TIME/INR Routine 07/17/2019 11:36 Awaiting organ R esults for this AM CDT transplant statu s procedure are in Hepatic cirrhosis, the resul ts unspecified hepatic section. cirrhosis type, unspecified whether ascites present (HCC) CBC W/PLT COUNT & Routine 07/17/2019 11:36 Awaiting organ Resu lts for this AUTO DIFFERENTIAL AM CDT transplant sta tus procedure are in Hepatic cirrhosis, the resul ts unspecified hepatic section. cirrhosis type, unspecified whether ascites present (HCC) HEPATIC FUNCTION Routine 07/09/2019 2:00 Awaiting organ Resul ts for this PANEL PM CDT transplant statu s procedure are in Hepatic cirrhosis, the resul ts unspecified hepatic section. cirrhosis type, unspecified whether ascites present (HCC) BASIC METABOLIC PANEL Routine 07/09/2019 2:00 Awaiting organ Results for this (7) PM CDT transplant statu s procedure are in Hepatic cirrhosis, the resul ts unspecified hepatic section. cirrhosis type, unspecified whether ascites present (HCC) PROTHROMBIN TIME/INR Routine 07/09/2019 2:00 Awaiting organ R esults for this PM CDT transplant statu s procedure are in Hepatic cirrhosis, the resul ts unspecified hepatic section. cirrhosis type, unspecified whether ascites present (HCC) CBC W/PLT COUNT & Routine 07/09/2019 2:00 Awaiting organ Resu lts for this AUTO DIFFERENTIAL PM CDT transplant sta tus procedure are in Hepatic cirrhosis, the resul ts unspecified hepatic section. cirrhosis type, unspecified whether ascites present (HCC) HEPATIC FUNCTION Routine 07/03/2019 10:41 Awaiting organ Resul ts for this PANEL AM CDT transplant statu s procedure are in Hepatic cirrhosis, the resul ts unspecified hepatic section. cirrhosis type, unspecified whether ascites present (HCC) BASIC METABOLIC PANEL Routine 07/03/2019 10:41 Awaiting organ Results for this (7) AM CDT transplant statu s procedure are in Hepatic cirrhosis, the resul ts unspecified hepatic section. cirrhosis type, unspecified whether ascites present (HCC) PROTHROMBIN TIME/INR Routine 07/03/2019 10:41 Awaiting organ R esults for this AM CDT transplant statu s procedure are in Hepatic cirrhosis, the resul ts unspecified hepatic section. cirrhosis type, unspecified whether ascites present (HCC) CBC W/PLT COUNT & Routine 07/03/2019 10:41 Awaiting organ Resu lts for this AUTO DIFFERENTIAL AM CDT transplant sta tus procedure are in Hepatic cirrhosis, the resul ts unspecified hepatic section. cirrhosis type, unspecified whether ascites present (HCC) HEPATIC FUNCTION Routine 06/25/2019 1:44 Awaiting organ Resul ts for this PANEL PM CDT transplant statu s procedure are in Hepatic cirrhosis, the resul ts unspecified hepatic section. cirrhosis type, unspecified whether ascites present (HCC) BASIC METABOLIC PANEL Routine 06/25/2019 1:44 Awaiting organ Results for this (7) PM CDT transplant statu s procedure are in Hepatic cirrhosis, the resul ts unspecified hepatic section. cirrhosis type, unspecified whether ascites present (HCC) PROTHROMBIN TIME/INR Routine 06/25/2019 1:44 Awaiting organ R esults for this PM CDT transplant statu s procedure are in Hepatic cirrhosis, the resul ts unspecified hepatic section. cirrhosis type, unspecified whether ascites present (HCC) CBC W/PLT COUNT & Routine 06/25/2019 1:44 Awaiting organ Resu lts for this AUTO DIFFERENTIAL PM CDT transplant sta tus procedure are in Hepatic cirrhosis, the resul ts unspecified hepatic section. cirrhosis type, unspecified whether ascites present (HCC) HEPATIC FUNCTION Routine 06/20/2019 2:51 Awaiting organ Resul ts for this PANEL PM CDT transplant statu s procedure are in Hepatic cirrhosis, the resul ts unspecified hepatic section. cirrhosis type, unspecified whether ascites present (HCC) BASIC METABOLIC PANEL Routine 06/20/2019 2:51 Awaiting organ Results for this (7) PM CDT transplant statu s procedure are in Hepatic cirrhosis, the resul ts unspecified hepatic section. cirrhosis type, unspecified whether ascites present (HCC) PROTHROMBIN TIME/INR Routine 06/20/2019 2:51 Awaiting organ R esults for this PM CDT transplant statu s procedure are in Hepatic cirrhosis, the resul ts unspecified hepatic section. cirrhosis type, unspecified whether ascites present (HCC) CBC W/PLT COUNT & Routine 06/20/2019 2:51 Awaiting organ Resu lts for this AUTO DIFFERENTIAL PM CDT transplant sta tus procedure are in Hepatic cirrhosis, the resul ts unspecified hepatic section. cirrhosis type, unspecified whether ascites present (HCC) CBC W/PLT COUNT & Routine 06/12/2019 12:22 Awaiting organ Resu lts for this AUTO DIFFERENTIAL PM MANAGEMENT TECH transplant sta tus procedure are in PSC (primary the results sclerosing section. cholangitis) Elevated liver enzymes CARBOHYDRATE ANTIGEN Routine 06/12/2019 12:22 Awaiting organ R esults for this 19-9 (CA 19-9) PM MANAGEMENT TECH transplant statu s procedure are in PSC (primary the results sclerosing section. cholangitis) Screening for malignant neopla sm Elevated liver enzymes ALPHA FETOPROTEIN Routine 06/12/2019 12:22 Awaiting organ Resu lts for this (AFP), TUMOR MARKER PM MANAGEMENT TECH transplant s tatus procedure are in PSC (primary the results sclerosing section. cholangitis) Screening for malignant neopla sm Elevated liver enzymes PROTHROMBIN TIME/INR Routine 06/12/2019 12:22 Awaiting organ R esults for this PM MANAGEMENT TECH transplant statu s procedure are in PSC (primary the results sclerosing section. cholangitis) Elevated liver enzymes BILIRUBIN, DIRECT Routine 06/12/2019 12:22 Awaiting organ Resu lts for this PM MANAGEMENT TECH transplant statu s procedure are in PSC (primary the results sclerosing section. cholangitis) Elevated liver enzymes CBC W/PLT COUNT & Routine 06/12/2019 12:22 Awaiting organ Resu lts for this AUTO DIFFERENTIAL PM MANAGEMENT TECH transplant sta tus procedure are in PSC (primary the results sclerosing section. cholangitis) Elevated liver enzymes COMPREHENSIVE Routine 06/12/2019 12:22 Awaiting organ Results for this METABOLIC PANEL PM MANAGEMENT TECH transplant statu s procedure are in PSC (primary the results sclerosing section. cholangitis) Elevated liver enzymes HEPATIC FUNCTION Routine 05/21/2019 1:17 Awaiting organ Resul ts for this PANEL PM MANAGEMENT TECH transplant statu s procedure are in Hepatic cirrhosis, the resul ts unspecified hepatic section. cirrhosis type, unspecified whether ascites present (HCC) BASIC METABOLIC PANEL Routine 05/21/2019 1:17 Awaiting organ Results for this (7) PM MANAGEMENT TECH transplant statu s procedure are in Hepatic cirrhosis, the resul ts unspecified hepatic section. cirrhosis type, unspecified whether ascites present (HCC) PROTHROMBIN TIME/INR Routine 05/21/2019 1:17 Awaiting organ R esults for this PM MANAGEMENT TECH transplant statu s procedure are in Hepatic cirrhosis, the resul ts unspecified hepatic section. cirrhosis type, unspecified whether ascites present (HCC) CBC W/PLT COUNT & Routine 05/21/2019 1:17 Awaiting organ Resu lts for this AUTO DIFFERENTIAL PM MANAGEMENT TECH transplant sta tus procedure are in Hepatic cirrhosis, the resul ts unspecified hepatic section. cirrhosis type, unspecified whether ascites present (HCC) CBC W/PLT COUNT & Routine 05/21/2019 1:10 Awaiting organ Resu lts for this AUTO DIFFERENTIAL PM MANAGEMENT TECH transplant sta tus procedure are in Hepatic cirrhosis, the resul ts unspecified hepatic section. 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 PSC (primary sclerosing cholangitis) CBC W/PLT COUNT & Routine 05/15/2019 11:25 Awaiting organ Resu lts for this AUTO DIFFERENTIAL AM MANAGEMENT TECH transplant sta tus procedure are in Other cirrhosis of the resul ts liver (HCC) section. PSC (primary sclerosing cholangitis) COMPREHENSIVE Routine 05/15/2019 11:25 Awaiting organ Results for this METABOLIC PANEL AM MANAGEMENT TECH transplant statu s procedure are in Other cirrhosis of the resul ts liver (HCC) section. PSC (primary sclerosing cholangitis) PROTHROMBIN TIME/INR Routine 05/15/2019 11:25 Awaiting organ R esults for this AM MANAGEMENT TECH transplant statu s procedure are in Other cirrhosis of the resul ts liver (HCC) section. PSC (primary sclerosing cholangitis) HEPATIC FUNCTION Routine 05/08/2019 2:24 Awaiting organ Resul ts for this PANEL PM MANAGEMENT TECH transplant statu s procedure are in Hepatic cirrhosis, the resul ts unspecified hepatic section. cirrhosis type, unspecified whether ascites present (HCC) BASIC METABOLIC PANEL Routine 05/08/2019 2:24 Awaiting organ Results for this (7) PM MANAGEMENT TECH transplant statu s procedure are in Hepatic cirrhosis, the resul ts unspecified hepatic section. cirrhosis type, unspecified whether ascites present (HCC) PROTHROMBIN TIME/INR Routine 05/08/2019 2:24 Awaiting organ R esults for this PM MANAGEMENT TECH transplant statu s procedure are in Hepatic cirrhosis, the resul ts unspecified hepatic section. cirrhosis type, unspecified whether ascites present (HCC) CBC W/PLT COUNT & Routine 05/08/2019 2:24 Awaiting organ Resu lts for this AUTO DIFFERENTIAL PM MANAGEMENT TECH transplant sta tus procedure are in Hepatic cirrhosis, the resul ts unspecified hepatic section. cirrhosis type, unspecified whether ascites present (HCC) BASIC METABOLIC PANEL Routine 04/24/2019 2:34 PSC (primary Re sults for this (7) PM MANAGEMENT TECH sclerosing procedure are i n cholangitis) the results section. HEPATIC FUNCTION Routine 04/24/2019 2:34 PSC (primary Results for this PANEL PM MANAGEMENT TECH sclerosing procedure are i n cholangitis) the results section. CBC W/PLT COUNT & Routine 04/24/2019 2:34 PSC (primary Result s for this AUTO DIFFERENTIAL PM MANAGEMENT TECH sclerosing procedure are in cholangitis) the results section. REPORT OF PROCEDURE - 03/28/2019 3:03 ENDOSCOPY URL PM MANAGEMENT TECH FL ERCP Routine 03/28/2019 2:02 Results for this PM MANAGEMENT TECH procedure are i n the results section. TISSUE EXAM AP Routine 03/28/2019 1:28 Results for this PM MANAGEMENT TECH procedure are i n the results section. ERCP,BALLOON 03/28/2019 11:30 Primary sclerosing DILATATION AM MANAGEMENT TECH cholangitis Special Needs (C-ARM, SPYGLASS) ERCP,BALLOON SWEEPING 03/28/2019 11:30 AM MANAGEMENT TECH Primary sclerosing cholangitis Special Needs (C-ARM, SPYGLASS) PROCEDURE W/ C-ARM 03/28/2019 11:30 AM MANAGEMENT TECH Primary scl erosing cholangitis Special Needs (C-ARM, SPYGLASS) ERCP,DIRECT VISUALIZATION SPY 03/28/2019 11:30 AM MANAGEMENT TECH Primary sclerosing GLASS cholangitis Special Needs (C-ARM, SPYGLASS) BASIC METABOLIC PANEL Routine 03/27/2019 11:03 PSC (primary Re sults for this (7) AM MANAGEMENT TECH sclerosing procedure are i n cholangitis) the results section. HEPATIC FUNCTION PANEL Routine 03/27/2019 11:03 PSC (primary R esults for this AM MANAGEMENT TECH sclerosing procedure are i n cholangitis) the results section. CBC W/PLT COUNT & AUTO Routine 03/27/2019 11:03 PSC (primary R esults for this DIFFERENTIAL AM MANAGEMENT TECH sclerosing procedure are i n cholangitis) the results section. PROTHROMBIN TIME/INR Routine 03/27/2019 11:03 PSC (primary Res ults for this AM MANAGEMENT TECH sclerosing procedure are i n cholangitis) the results section. PROTHROMBIN TIME/INR Routine 03/05/2019 9:49 PSC (primary Res ults for this AM MANAGEMENT TECH sclerosing procedure are i n cholangitis) the results section. HEPATIC FUNCTION PANEL Routine 03/05/2019 9:49 PSC (primary R esults for this AM MANAGEMENT TECH sclerosing procedure are i n cholangitis) the results section. BASIC METABOLIC PANEL Routine 03/05/2019 9:49 PSC (primary Re sults for this (7) AM MANAGEMENT TECH sclerosing procedure are i n cholangitis) the results section. BASIC METABOLIC PANEL Routine 02/26/2019 3:59 PSC (primary Re sults for this (7) PM MANAGEMENT TECH sclerosing procedure are i n cholangitis) the results section. HEPATIC FUNCTION PANEL Routine 02/26/2019 3:59 PSC (primary R esults for this PM MANAGEMENT TECH sclerosing procedure are i n cholangitis) the results section. CBC W/PLT COUNT & AUTO Routine 02/26/2019 3:59 PSC (primary R esults for this DIFFERENTIAL PM MANAGEMENT TECH sclerosing procedure are i n cholangitis) the results section. CBC W/PLT COUNT & AUTO Routine 02/06/2019 3:14 Awaiting organ Results for this DIFFERENTIAL PM CDT transplant statu s procedure are in Other cirrhosis of the resul ts liver (HCC) section. PSC (primary sclerosing cholangitis) BILIRUBIN, DIRECT Routine 02/06/2019 3:14 Awaiting organ Resu lts for this PM CDT transplant statu s procedure are in Other cirrhosis of the resul ts liver (HCC) section. PSC (primary sclerosing cholangitis) PROTHROMBIN TIME/INR Routine 02/06/2019 3:14 Awaiting organ R esults for this PM CDT transplant statu s procedure are in Other cirrhosis of the resul ts liver (HCC) section. PSC (primary sclerosing cholangitis) CBC W/PLT COUNT & AUTO Routine 02/06/2019 3:14 Awaiting organ Results for this DIFFERENTIAL PM CDT transplant statu s procedure are in Other cirrhosis of the resul ts liver (HCC) section. PSC (primary sclerosing cholangitis) COMPREHENSIVE Routine 02/06/2019 3:14 Awaiting organ Results for this METABOLIC PANEL PM CDT transplant statu s procedure are in Other cirrhosis of the resul ts liver (HCC) section. PSC (primary sclerosing cholangitis) MR ABDOMEN WITH & Routine 01/31/2019 2:50 Awaiting organ Resu lts for this WITHOUT IV CONTRAST PM CDT transplant s tatus procedure are in Other cirrhosis of the resul ts liver (HCC) section. PSC (primary sclerosing cholangitis) Liver disease Cancer screening CBC W/PLT COUNT & AUTO Routine 01/30/2019 2:36 Awaiting organ Results for this DIFFERENTIAL PM CDT transplant statu s procedure are in Other cirrhosis of the resul ts liver (HCC) section. PSC (primary sclerosing cholangitis) BILIRUBIN, DIRECT Routine 01/30/2019 2:36 Awaiting organ Resu lts for this PM CDT transplant statu s procedure are in Other cirrhosis of the resul ts liver (HCC) section. PSC (primary sclerosing cholangitis) PROTHROMBIN TIME/INR Routine 01/30/2019 2:36 Awaiting organ R esults for this PM CDT transplant statu s procedure are in Other cirrhosis of the resul ts liver (HCC) section. PSC (primary sclerosing cholangitis) CBC W/PLT COUNT & AUTO Routine 01/30/2019 2:36 Awaiting organ Results for this DIFFERENTIAL PM CDT transplant statu s procedure are in Other cirrhosis of the resul ts liver (HCC) section. PSC (primary sclerosing cholangitis) COMPREHENSIVE Routine 01/30/2019 2:36 Awaiting organ Results for this METABOLIC PANEL PM CDT transplant statu s procedure are in Other cirrhosis of the resul ts liver (HCC) section. PSC (primary sclerosing cholangitis) CBC W/PLT COUNT & AUTO Routine 01/23/2019 2:45 Awaiting organ Results for this DIFFERENTIAL PM CDT transplant statu s procedure are in Other cirrhosis of the resul ts liver (HCC) section. PSC (primary sclerosing cholangitis) BILIRUBIN, DIRECT Routine 01/23/2019 2:45 Awaiting organ Resu lts for this PM CDT transplant statu s procedure are in Other cirrhosis of the resul ts liver (HCC) section. PSC (primary sclerosing cholangitis) PROTHROMBIN TIME/INR Routine 01/23/2019 2:45 Awaiting organ R esults for this PM CDT transplant statu s procedure are in Other cirrhosis of the resul ts liver (HCC) section. PSC (primary sclerosing cholangitis) CBC W/PLT COUNT & AUTO Routine 01/23/2019 2:45 Awaiting organ Results for this DIFFERENTIAL PM CDT transplant statu s procedure are in Other cirrhosis of the resul ts liver (HCC) section. PSC (primary sclerosing cholangitis) COMPREHENSIVE Routine 01/23/2019 2:45 Awaiting organ Results for this METABOLIC PANEL PM CDT transplant statu s procedure are in Other cirrhosis of the resul ts liver (HCC) section. PSC (primary sclerosing cholangitis) CBC W/PLT COUNT & AUTO Routine 01/16/2019 2:05 Awaiting organ Results for this DIFFERENTIAL PM CDT transplant statu s procedure are in Other cirrhosis of the resul ts liver (HCC) section. PSC (primary sclerosing cholangitis) BILIRUBIN, DIRECT Routine 01/16/2019 2:05 Awaiting organ Resu lts for this PM CDT transplant statu s procedure are in Other cirrhosis of the resul ts liver (HCC) section. PSC (primary sclerosing cholangitis) PROTHROMBIN TIME/INR Routine 01/16/2019 2:05 Awaiting organ R esults for this PM CDT transplant statu s procedure are in Other cirrhosis of the resul ts liver (HCC) section. PSC (primary sclerosing cholangitis) CBC W/PLT COUNT & AUTO Routine 01/16/2019 2:05 Awaiting organ Results for this DIFFERENTIAL PM CDT transplant statu s procedure are in Other cirrhosis of the resul ts liver (HCC) section. PSC (primary sclerosing cholangitis) COMPREHENSIVE Routine 01/16/2019 2:05 Awaiting organ Results for this METABOLIC PANEL PM CDT transplant statu s procedure are in Other cirrhosis of the resul ts liver (HCC) section. PSC (primary sclerosing cholangitis) CBC W/PLT COUNT & AUTO Routine 2019 2:29 Awaiting organ Results for this DIFFERENTIAL PM CDT transplant statu s procedure are in Other cirrhosis of the resul ts liver (HCC) section. PSC (primary sclerosing cholangitis) BILIRUBIN, DIRECT Routine 2019 2:29 Awaiting organ Resu lts for this PM CDT transplant statu s procedure are in Other cirrhosis of the resul ts liver (HCC) section. PSC (primary sclerosing cholangitis) PROTHROMBIN TIME/INR Routine 2019 2:29 Awaiting organ R esults for this PM CDT transplant statu s procedure are in Other cirrhosis of the resul ts liver (HCC) section. PSC (primary sclerosing cholangitis) CBC W/PLT COUNT & AUTO Routine 2019 2:29 Awaiting organ Results for this DIFFERENTIAL PM CDT transplant statu s procedure are in Other cirrhosis of the resul ts liver (HCC) section. PSC (primary sclerosing cholangitis) COMPREHENSIVE Routine 2019 2:29 Awaiting organ Results for this METABOLIC PANEL PM CDT transplant statu s procedure are in Other cirrhosis of the resul ts liver (HCC) section. PSC (primary sclerosing cholangitis) after 12/22/2018 Results ECHO W CONTRAST & DOPPLER (12/19/2019 11:55 AM CDT) Ejection Fraction [facility] Specimen Narrative Performed At Transthoracic Echocardiography Report (T TE) [facility] Demographics Patient [place] of Study12/19/2019 FERN Gender Female Visit [id number] Race Unknown Nu mber Number Date of 1945 Mary Cortes Physician Age 74 year(s) SonographerAbed Chas Interpreting Eladio Luna Physician Procedure Type of Study TTE procedure:2DECHO W/CONTRAST & DOPPLER (Routine) Indications:Pre-surgical evaluation of organ transplant. Clinical History HGB 10.2 HCT 30.0 % CIRRHOSIS HTN Contrast Medium: Bubble Study. Height: 64 inches Weight: 47.17 kg (104 lbs) BSA: 1.48 m^2 BMI: 17.85 kg/m^2 HR: 59 bpm BP: 131/64 mmHg Summary The left ventricle is chamber size (by vol index) is normal (female - LVED vol - 29-61ml/m2). All of the LV segments contract normally . LVEF by Jewell's method of disk assessment is normal (>60%) . Estimated peak systolic PA pressure is 20-25 mmHg . IV saline contrast with delayed imaging demonstrates intra pulmonic shunting. The degree of intrapulmonary shunting appears to be slight . Signature Findings Left Ventricle The left ventricle is chamber size (by vol index) is normal (female - LVED vol - 29-61ml/m2). All of th e LV segments contract normally . LVEF b y Si mpson's method of disk assessment is nor mal (> 60%) . Left AtriumLA size is severely enlarged (>48 ml/m2) . Right VentricleThe right ventricular chamber size and systolic fu nction are within normal limits. Right Atrium RA size is normal. Atrial SeptumIV saline contrast injection was negative for a PF O (p atent foramen ovale) at rest and post Va lsalva . IV saline contrast with delayed imaging de monstrates intra pulmonic shunting. The degree of in trapulmonary shunting appears to be slig ht . Aortic Valve Mild AoV cusp thickening. Mitral Valve Mild MV leaflet thickening. Mi ld mitral regurgitation. Tricuspid ValveTV structure is normal. Es timated peak systolic PA pressure is 20- 25 mmHg . Pulmonic Valve Normal PV structure and function by limited views an d Doppler. PericardiumNo pericardial effusion is visualized. IVC/SVC/PA/PV/PleuralThe estimated RA pressure by IVC dynamics 0-5mmHg . Chambers/Structures Left Atrium LA Volume: 86.09 ml LA Area: 24.08 cm^2 LA Vol. Index: 58 ml/m^2 Left Ventricle LVIDd: 3.84 cm LVEDV:63.43 ml LV Septum Diastolic: 0.61 cm LV PW Diastolic: 0.57 cm LVEDV Jewell's:87.75 ml LVESV Jewell's:33.48 ml LVEF Jewell's: 61.9 % LVEDVI: 59 ml/m^2 LVESVI: 23 ml/m^2 LVOT Diameter: 1.97 cm Right Ventricle RVOT VTI: 18.2 cm Doppler/Quantitative Measurements Mitral Valve MV Peak E-Wave: 0.85 m/s MV Peak A-Wave: 0.87 m/s E/A Ratio: 0.98 Peak Gradient: 2.9 mmHg Deceleration Time: 230.9 msec MV Juan David. Peak: Aortic Valve Peak Velocity: 1.02 m/sMean Velocity: 0.59 m/s Peak Gradient: 4.19 mmHg Mean Gradient: 1.73 mmHg AV Area (continuity): 3.2 cm^2 AV VTI: 19.32 cm AV DVI: 1.05 LVOT Peak Velocity: 0.84 m/s Peak Gradient: 2.84 mmHg Mean Velocity: 0.56 m/s Mean Gradient: 1.43 mmHg LVOT Diameter: 1.97 cmLVOT VTI: 20.29 cm LVOT Area: 3.05 cm^2LVOT SV:61.81 ml LVOT CO: 3.65 l/min LVOT CI: 2.47 l/min/m^2 Tricuspid Valve TR Velocity: 2.28 m/s TR Gradient: 20.74 mmHg Procedure Note Interface, External Ris In - 12/20/2019 8:18 AM CDT Transthoracic Echocardiography Report (TTE) Demographics Patient Name OVI BOWENS Date of Study 12/19/2019 [place]ERN [place] Female Visit Number [id number] Race Unknown Room Number Number Date of 1945 Refe ryne vargas Age 74 year(s) Sono grapher Abed Chas Inte rpreting Jani Lopez MD Procedure Type of Study TTE procedure:2DECHO W/CONTRA ST & DOPPLER (Routine) Indications:Pre-surgical evaluation of o rgan transplant. Clinical History HGB 10.2 HCT 30.0 % CIRRHOSIS HTN Contrast Medium: Bubble Study. Height: 64 inches Weight: 47.17 kg (104 lbs) BSA: 1.48 m^2 BMI: 17.85 kg/m^2 HR: 59 bpm BP: 131/64 mmHg Summary The left ventricle is chamber size (by vol index) is normal (female - LVED vol - 29-61ml/m2). All of the LV segmen ts contract normally . LVEF by Jewell's method of disk assessment is normal (>60%) . Estimated peak systolic PA pressure is 20-25 mmHg . IV saline contrast with delayed imaging demonstrates intra pulmonic shunting. The degree of intrapulmonary shunting appears to be slight . Signature Findings Left Ventricle The left ventric le is chamber size (by vol index) is normal (femal e - LVED vol - 29-61ml/m2). All of the LV segments contract normally . LVEF by Jewell's method of disk assessment is normal (>60%) . Left Atrium LA size is sever ricki enlarged (>48 ml/m2) . Right Ventricle The right ventri cular chamber size and systolic function are wit hin normal limits. Right Atrium RA size is gary l. Atrial Septum IV saline contra st injection was negative for a PFO (patent foramen ovale) at rest and post Valsalva . IV saline contra st with delayed imaging demonstrates int ra pulmonic shunting. The degree of intrapulmonary s hunting appears to be slight . Aortic Valve Mild AoV cusp th ickening. Mitral Valve Mild MV leaflet thickening. Mild mitral regu rgitation. Tricuspid Valve TV structure is normal. Estimated peak s ystolic PA pressure is 20-25 mmHg . Pulmonic Valve Normal PV struct ure and function by limited views and Doppler. Pericardium No pericardial e ffusion is visualized. IVC/SVC/PA/PV/Pleural The estimated RA pressure by IVC dynamics 0-5mmHg . Chambers/Structures Left Atrium LA Volume: 86.09 ml LA Area: 24.08 cm^2 LA Vol. Index: 58 ml/m^2 Left Ventricle LVIDd: 3.84 cm LVEDV:63.43 ml LV Septum Diastolic: 0.61 cm LV PW Diastolic: 0.57 cm LVEDV Jewell's:87.75 ml LVESV Jewell's:33.48 ml LVEF Jewell's: 61.9 % LVEDVI: 59 ml/m^2 LVESVI: 23 ml/m^2 LVOT Diameter: 1.97 cm Right Ventricle RVOT VTI: 18.2 cm Doppler/Quantitative Measurements Mitral Valve MV Peak E-Wave: 0.85 m/s MV P eak A-Wave: 0.87 m/s E/A Ratio: 0.98 Peak Gradient: 2.9 mmHg Dece leration Time: 230.9 msec MV Juan David. Peak: Aortic Valve Peak Velocity: 1.02 m/s Mean Velocity: 0.59 m/s Peak Gradient: 4.19 mmHg Mean Gradient: 1.73 mmHg AV Area (continuity): 3.2 cm^2 AV VTI: 19.32 cm AV DVI: 1.05 LVOT Peak Velocity: 0.84 m/s Pea k Gradient: 2.84 mmHg Mean Velocity: 0.56 m/s Nova n Gradient: 1.43 mmHg LVOT Diameter: 1.97 cm LVO T VTI: 20.29 cm LVOT Area: 3.05 cm^2 LVO T SV:61.81 ml LVOT CO: 3.65 l/min LVO T CI: 2.47 l/min/m^2 Tricuspid Valve TR Velocity: 2.28 m/s TR Gradient: 20.74 mmHg Performing Organization Address City/State/Zipcode Phone Number [facility] CBC with platelet count + automated diff (12/19/2019 10:44 AM CDT)Only the most recent of11 resultswithin the time period is included. WBC 10.3 3.5 - 10.5 K/L [facility] RBC 3.19 (L) 3.93 - 5.22 M/L [facility] Hemoglobin 10.2 (L) 11.2 - 15.7 GM/DL [facility] Hematocrit 30.0 (L) 34.1 - 44.9 % [facility] MCV 94.0 79.4 - 94.[address] [facility] MCH 32.0 25.6 - 32.2 pg [facility] MCHC 34.0 32.2 - 35.5 GM/DL [facility] RDW 18.6 (H) 11.7 - 14.4 % [facility] Platelets 167 150 - 450 K/CU MM [facility] MPV 11.1 9.4 - 12.3 fL [facility] nRBC 0 0 - 0 /100 WBC [facility] % Neutros 80 % [facility] % Lymphs 11 % [facility] % Monos 5 % [facility] % Eos 2 % [facility] % Baso 1 % [facility] # Neutros 8.24 (H) 1.56 - 6.13 K/L [facility] # Lymphs 1.12 (L) 1.18 - 3.74 K/L [facility] # Monos 0.56 (H) 0.24 - 0.36 K/L [facility] # Eos 0.22 0.04 - 0.36 K/L [facility] # Baso 0.07 0.01 - 0.08 K/L [facility] Immature Granulocytes-Relative 1 0 - 1 % C [facility] Specimen Blood Performing Organization Address [facility]/Zipcode Phone Number [address] [address] CENTER Carbohydrate antigen 19-9 (CA 19-9) (12/19/2019 10:44 AM CDT)Only the most recent of2 resultswithin the time period is included. CA 19-9 6 <34 U/mL [facility] Comment: This test was performed using the Siemens Chemil uminescent method. Values obtained from different assay methods can not be used interchangeably. CA19-9 levels, regardless of value, should not b e interpreted as absolute evidence of the presence or absence of disease. Specimen Blood Narrative Performed At Performing Lab [facility] [id number] [place] [address] I Christine HUSSEIN, PhD, ROWDY Performing Organization Address [facility] Phone Number [facility] [place] [address] [facility] [id number] [facility] Alpha fetoprotein (AFP), tumor marker (12/19/2019 10:44 AM CDT)Only the most recent of2 resultswithin the time period is included. Alpha-Fetoprotein 6.8 <10.0 ng/mL [facility] Specimen Blood Narrative Performed At Gauge Maker ID - PIAYA L [facility] Performing Organization Address [facility] Hospital[facility] Phone Number [address] [address] CENTER Prothrombin time/INR (12/19/2019 10:44 AM CDT)Only the most recent of25 results within the time period is included. Protime 15.4 (H) 11.9 - 14.2 seconds [facility] INR 1.25 <=5.90 [facility] Specimen Blood Narrative Performed At Effective 09/06/2018: PT Reference Range [facility] Change New: 11.9-14.2Previous: 11.7-14.7 RECOMMENDED COUMADIN/WARFARIN INR THERAPY RANGES STANDARD DOSE: 2.0-3.0Includes: PROPHYLAXIS for venous thrombosis, systemic embolization; TREATMENT for venous thrombosis and/or pulmonary embolus. HIGH RISK: Target INR is 2.5-3.5 for patients wiht mechanical heart valves. Performing Organization Address [facility] Hospital[facility] Phone Number [address] [address] CENTER Bilirubin, direct (12/19/2019 10:44 AM CDT)Only the most recent of13 results within the time period is included. Bilirubin, Direct 10.9 (H) 0.1 - 0.5 mg/dL [facility] Specimen Blood Narrative Performed At Gauge Maker ID - PIAYA L [facility] Performing Organization Address [facility] Phone Number [address] [address] CENTER Comprehensive metabolic panel (12/19/2019 10:44 AM CDT)Only the most recent of15 resultswithin the time period is included. Protein, Total 7.5 6.0 - 8.3 gm/dL [facility] Albumin 3.0 (L) 3.5 - 5.0 g/dL [facility] Alkaline Phosphatase 836 (H) 40 - 150 U/L [facility] Total Bilirubin 14.1 (H) 0.2 - 1.2 mg/dL [facility] Sodium 127 (L) 136 - 145 meq/L [facility] Potassium 4.1 3.5 - 5.1 meq/L [facility] Chloride 95 (L) 98 - 107 meq/L [facility] CO2 25 22 - 29 meq/L [facility] ER BUN 17 7 - 21 mg/dL [facility] ER Creatinine 0.62 0.57 - 1.25 mg/dL [facility] ER Glucose 71 70 - 105 mg/dL [facility] ER Calcium 9.4 8.4 - 10.2 mg/dL [facility] ER AST 183 (H) 5 - 34 U/L [facility] MED[facility] ER ALT 147 (H) 6 - 55 U/L [facility] ER EGFR 94Comment: ESTIMATED GFR mL/min/1.73 sq m [facility] IS NOT ACCURATE [facility] CREATININE CLEARANCE IN PREDICTING GLOMERULAR FILTRATION RATE. ESTIMATED GFR IS NOT APPLICABLE FOR DIALYSIS PATIENTS. Specimen Blood Narrative Performed At Gauge Maker ID - PIAYA Chente [facility] Specimen markedly icteric Performing Organization Address City/State/Zipcode Phone Number [facility] [address] [place] [address] CENTER CBC with platelet count + automated diff (12/11/2019 12:01 PM CDT)Only the most recent of17 resultswithin the time period is included. WBC 8.2 3.4 - 10.8 x10E3/uL [facility] RBC 3.31 (L) 3.77 - 5.28 x10E6/uL [facility] 1 Hemoglobin 10.6 (L) 11.1 - 15.9 g/dL [facility] 1 Hematocrit 30.1 (L) 34.0 - 46.6 % [facility] 1 MCV 91 79 - 97 fL [facility] 1 MCH 32.0 26.6 - 33.0 pg [facility] 1 MCHC 35.2 31.5 - 35.7 g/dL [facility] 1 RDW 15.7 (H) 11.7 - 15.4 % [facility] 1 Platelets 171 150 - 450 x10E3/uL [facility] 1 % Neutros 76 Not Estab. % [facility] 1 % Lymphs 12 Not Estab. % [facility] 1 % Monos 6 Not Estab. % [facility] 1 % Eos 4 Not Estab. % [facility] % Baso 1 Not Estab. % [facility] # Neutros 6.3 1.4 - 7.0 x10E3/uL [facility] # Lymphs 1.0 0.7 - 3.1 x10E3/uL [facility] # Monos 0.5 0.1 - 0.9 x10E3/uL [facility] # Eos 0.4 0.0 - 0.4 x10E3/uL [facility] 1 Baso (Absolute) 0.1 0.0 - 0.2 x10E3/uL [facility] 1 % Immature Grans 1 Not Estab. % [facility] 1 # Immature Grans 0.1 0.0 - 0.1 x10E3/uL [facility] 1 Specimen Blood Narrative Performed At Performed at:[address] [place] [address] Home Health Care Social Worker: James Le MD, Phone:[phone] Performing Organization Address [facility] Phone Number [facility] IMMATURE CELLS (10/30/2019 11:11 AM CDT) % Promyelo (manual) 1 (H) 0 - 0 % [facility] 1 Specimen Narrative Performed At Performed at:[address] [place] [address] Home Health Care Social Worker: James Le MD, Phone:[phone] Performing Organization Address City/[facility]/Zipcode Phone Number [facility] EKG-SCANNED (10/22/2019 2:53 PM CDT) Narrative Performed At This result has an attachment that is no t available. Blood Culture - Routine (Right Venipuncture) (10/21/2019 8:30 PM CDT)Only the most recent of5 resultswithin the time period is included. Result No growth in 5 days [facility] Specimen Blood Performing Organization Address City/[facility]/Zipcode Phone Number [address] [address] CENTER Magnesium (10/21/2019 4:16 AM CDT) Magnesium 1.7 1.6 - 2.6 mg/dL [facility] Specimen Blood Narrative Performed At Gauge Maker ID - BELIARAHUL Chente [facility] Performing Organization Address City/State/Zipcode Phone Number [facility] [address] [place] [address] CENTER Urinalysis w/Microscopic + Reflex to Culture (10/20/2019 11:39 AM CDT) Color, UA Brown [facility] Clarity, UA Hazy [facility] Specific [place], UA 1.047 (H) 1.001 - 1.035 [facility] pH, UA 5.5 5.0 - 8.0 [facility] Protein, UA 20 mg/dL (A) Negative [facility] Glucose, UA Negative Negative [facility] Ketones, UA Negative Negative [facility] Bilirubin, UA Positive (A) Negative [facility] Blood, UA Negative Negative [facility] Nitrite, UA Negative Negative [facility] Leukocytes, UA Moderate (A) Negative [facility] Urobilinogen, UA 2.0 (H) 0.2 - 1.0 mg/dL [facility] RBC, UA 7 /HPF [facility] WBC, UA 13 /HPF [facility] Bacteria, UA Moderate [facility] Mucus Rare [facility] Squam Epithel, UA 7 /HPF [facility] Amorphous Crystals Rare [facility] [place] Specimen Source [facility] Specimen Urine Narrative Performed At Gauge Maker ID - [auto] [facility] Gauge Maker ID - tech Performing Organization Address City/State/Zipcode Phone Number [facility] [address] [place] [address] FELT Urine culture (10/20/2019 11:39 AM CDT) Result See comment [facility] Specimen Urine Narrative Performed At <10,000 col/mL Yeast [facility] Performing Organization Address City/[facility]/Zipcode Phone Number [facility] [address] [place] [address] FELT SARS-CoV2/RT-PCR (Symptomatic ONLY) (10/20/2019 8:16 AM CDT) SARS-COV2/RT-PCR Not Detected Not Detected, Negative [facility] SARS-COV-2 PERFORMING LAB [facility] Specimen Other Narrative Performed At Negative results do not preclude SARS-CoV-2 [facility] infection and should not be used as the sole basis for patient management decisions. Negative results must be combined with clinical observations, patient history, and epidemiological information. A false negative result may occur if a specimen is improperly collected, transported or handled. The limit of detection for this assay is 250 copies/mL. This SARS CoV-2 test is a rapid, real-time RT-PCR test intended for the qualitative detection of nucleic acid from SARS-CoV-2 in a nasopharyngeal swab specimen collected from individuals suspected of COVID-19 by their healthcare provider. This test has not been Food and Drug Administration (FDA) cleared or approved and has been authorized by FDA under an Emergency Use Authorization (EUA). This EUA will be effective until the declaration that circumstances exist justifying the authorization of the emergency use of in vitro diagnostic tests for detection and/or diagnosis of COVID-19 is terminated under Section 564(b)(2) of the Act or the EUA is revoked under Section 564(g) of the Act. Fact Sheet for Healthcare Providers: https://www.[employer].Molecular Templates/Documents/Xpert%20Xpre ss%20SARS%20CoV-2/Fact%20Sheets/302-3802%20SAR S-COV-2%20HEALTHCARE%20PROVIDERS%20FACT%20SHEE T.pdf Fact Sheet for Healthcare Patients: https://www.[employer].Molecular Templates/Documents/Xpert%20Xpre ss%20SARS%20CoV-2/Fact%20Sheets/302-3801%20SAR S-COV-2%20PATIENT%20FACT%20SHEET.pdf Performing Laboratory: [address] [place] [address] Performing Organization Address City/[facility] Phone Number [address] [phone] CENTER Ammonia (10/20/2019 8:06 AM CDT) Ammonia 39 18 - 72 mol/L [facility] Specimen Blood Narrative Performed At Gauge Maker ID - PEREZ Barbosa [facility] Performing Organization Address City/[facility]/Zipcode Phone Number [address] [phone] CENTER XR chest 1 view portable / bedside (10/20/2019 6:20 AM CDT) Specimen Narrative Performed At FINAL REPORT [facility] Chest one view. Clinical history: ABDOMINAL PAIN Comparison: Chest radiograph 10/19/2019. Technique: A single frontal view of the chest was obtained. Findings: The heart is normal size. There is an op acity overlying the left lower hemithorax consistent with a hiata l hernia. There is no focal pulmonary consolidation, pleural effusio n or pneumothorax. There is no pulmonary edema. There are surgical clips in the right up per quadrant. There is a thoracolumbar scoliosis. Impression: Hiatal hernia. No focal pulmonary consol idation. Signed: Brian Garcia MD Report Verified Date/Time:10/20/2019 06:39:59 Procedure Note Interface, External Ris In - 10/20/2019 6:42 AM CDT FINAL REPORT Chest one view. Clinical history: ABDOMINAL PAIN Comparison: Chest radiograph 10/19/2019. Technique: A single frontal view of the chest was obtained. Findings: The heart is normal size. There is an op acity overlying the left lower hemithorax consistent with a hiata l hernia. There is no focal pulmonary consolidation, pleural effusio n or pneumothorax. There is no pulmonary edema. There are surgical clips in the right up per quadrant. There is a thoracolumbar scoliosis. Impression: Hiatal hernia. No focal pulmonary consol idation. Signed: Brian Garcia MD Report Verified Date/Time: 10/20/2019 0 6:39:59 Performing Organization Address City/State/Zipcode Phone Number [facility] CT abdomen pelvis with IV contrast (10/20/2019 4:53 AM CDT) Specimen Narrative Performed At FINAL REPORT [facility] EXAM: CT of the abdomen and pelvis, with contrast CLINICAL HISTORY: Abdominal pain and fev er. TECHNIQUE: CT of the abdomen and pelvis was performed with intravenous contrast administration. This exam was performed according to our departmental dose optim ization program which includes automated exposure control, adj ustment of the mA and/or kV according to patient's size and/or use o f iterative reconstructive technique. COMPARISON:None FINDINGS: LOWER CHEST: Large hiatal hernia. LIVER: Cirrhosis. BILE DUCTS: Within normal limits. GALL BLADDER: Status post cholecystectom y. PANCREAS: Within normal limits. SPLEEN: Splenomegaly. ADRENALS: Within normal limits. KIDNEYS/URETERS: 4.4 cm right parapelvic renal cyst. Subcentimeter left renal hypodensity too small to abena acterize. No hydroureteronephrosis or radiopaque ston es. PELVIC ORGANS: Pessary in place. Unremar kable urinary bladder and uterus. No adnexal mass. BOWEL/MESENTERY: Stool-filled colon. No bowel obstruction or abnormal wall thickening. Normal appendix. PERITONEUM/RETROPERITONEUM: No free air, free fluid or fluid collection. VESSELS: Upper abdominal varices in keep ing with portal hypertension. Calcific atherosclerosis. No abdominal a ortic aneurysm. LYMPH NODES: No abdominal or pelvic lymp hadenopathy. SOFT TISSUES: Within normal limits. BONES: Multilevel degenerative changes o f the visualized spine. Benign-appearing lucent lesion in the L5 vertebral body with mildly sclerotic borders. Lumbar levoscoliosis. IMPRESSION: Status post cholecystectomy. Cirrhosis and evidence of portal hyperte nsion. Large hiatal hernia. Stool-filled colon. Normal appendix. No bowel obstruction, free air or fluid collectio n. Signed: Brian Garcia MD Report Verified Date/Time:10/20/2019 05:06:47 Procedure Note Interface, External Ris In - 10/20/2019 5:10 AM CDT FINAL REPORT EXAM: CT of the abdomen and pelvis, with contrast CLINICAL HISTORY: Abdominal pain and fev er. TECHNIQUE: CT of the abdomen and pelvis was performed with intravenous contrast administration. Th is exam was performed according to our departmental dose optim ization program which includes automated exposure control, adj ustment of the mA and/or kV according to patient's size and/or use o f iterative reconstructive technique. COMPARISON: None FINDINGS: LOWER CHEST: Large hiatal hernia. LIVER: Cirrhosis. BILE DUCTS: Within normal limits. GALL BLADDER: Status post cholecystectom y. PANCREAS: Within normal limits. SPLEEN: Splenomegaly. ADRENALS: Within normal limits. KIDNEYS/URETERS: 4.4 cm right parapelvic renal cyst. Subcentimeter left renal hypodensity too small to abena acterize. No hydroureteronephrosis or radiopaque ston es. PELVIC ORGANS: Pessary in place. Unremar kable urinary bladder and uterus. No adnexal mass. BOWEL/MESENTERY: Stool-filled colon. No bowel obstruction or abnormal wall thickening. Normal appendix. PERITONEUM/RETROPERITONEUM: No free air, free fluid or fluid collection. VESSELS: Upper abdominal varices in keep ing with portal hypertension. Calcific atherosclerosis. No abdominal a ortic aneurysm. LYMPH NODES: No abdominal or pelvic lymp hadenopathy. SOFT TISSUES: Within normal limits. BONES: Multilevel degenerative changes o f the visualized spine. Benign-appearing lucent lesion in the L5 vertebral body with mildly sclerotic borders. Lumbar levoscoliosis. IMPRESSION: Status post cholecystectomy. Cirrhosis and evidence of portal hyperte nsion. Large hiatal hernia. Stool-filled colon. Normal appendix. No bowel obstruction, free air or fluid collectio n. Signed: Brian Garcia MD Report Verified Date/Time: 10/20/2019 0 5:06:47 Performing Organization Address City/State/Zipcode Phone Number [facility] Blood Culture Panel(BioFire) (10/20/2019 1:27 AM CDT) [place] MONOCYTOGENES Not detected Not detected [facility] STAPHYLOCOCCUS Detected (A) Not detected [facility] Comment: [facility] Coagulase negative Staph species (CoNS)- methici llin resistant CENTER First-line therapy: Vancomycin MecA DETECTED Possible contamination. The likelihood of pathogenicity is increased if the organism is observed in multiple blood cultures obtained from separate venipunctures. Reference Range: Not Detected STAPHYLOCOCCUS AUREUS Not detected Not detected [facility] Streptococcus Not detected Not detected [facility] STREPTOCOCCUS AGALACTIAE Not detected Not detected [facility] (GROUP B) [facility] STREPTOCOCCUS PNEUMONIAE Not detected Not detected [facility] Streptococcus pyogenes (Group Not detected Not detected [facility] A) [facility] ACINETOBACTER BAUMANNII Not detected Not detected [facility] HAEMOPHILUS INFLUENZAE Not detected Not detected [facility] NEISSERIA MENINGITIDIS Not detected Not detected [facility] ENTEROBACTERIACEAE Not detected Not detected [facility] ENTEROBACTER CLOACOE COMPLEX Not detected Not detected [facility] KLEBSIELLA OXYTOCA Not detected Not detected [facility] KLEBSIELLA PNEUMONIAE Not detected Not detected [facility] PROTEUS Not detected Not detected [facility] SERRATIA MARCESCENS Not detected Not detected [facility] ANDREINA ALBICANS Not detected Not detected [facility] ANDREINA GLABRATA Not detected Not detected [facility] ANDREINA KRUSEI Not detected Not detected [facility] ANDREINA PARAPSILOSIS Not detected Not detected [facility] ANDREINA TROPICALIS Not detected Not detected [facility] ESCHERICHIA COLI Not detected Not detected [facility] METHICILLIN-RESISTANCE GENE Detected (A) Not detected [facility] VANCOMYCIN-RESISTANCE GENE [facility] CARBAPENEM-RESISTANCE GENE [facility] ENTEROCOCCUS Not detected Not detected [facility] PSEUDOMONAS AERUGINOSA Not detected Not detected [facility] Specimen Blood Narrative Performed At Other bacteria and resistance markers not [facility] targeted by this PCR panel cannot be excluded; therefore clinical correlation and follow up of serology, culture results, and other molecular studies is required. The results are not intended to be used as the sole means for clinical diagnosis or patient management decisions. This sample was tested at the [facility] Molecular Diagnostics Laboratory using the [email or web address] Blood Culture ID Panel. It is FDA cleared and has been verified and approved by the [facility] Molecular Diagnostics Laboratory for clinical use. This laboratory is CLIA-certified and [employer] (CAP)-accredited to perform high complexity testing. Performing Organization Address City/State/Zipcode Phone Number [place] [phone] [place] [address] CENTER Troponin I (not available at [facility] [place]) (10/20/2019 12:39 AM CDT) Troponin I <0.01 0.00 - 0.03 ng/mL [facility] Specimen Blood Narrative Performed At Troponin I (TnI) levels must be interpreted [facility] in the context of the presenting symptoms and the clinical findings. Elevated TnI levels indicate myocardial damage, but are not specific for ischemic heart disease. Elevated TnI levels are seen in patients with other cardiac conditions (including myocarditis and congestive heart failure), and slight TnI elevations occur in patients with other conditions, including sepsis, renal failure, acidosis, acute neurological disease, and persistent tachyarrhythmia. Gauge Maker ID - PEREZ Barbosa Performing Organization Address [facility] Phone Number [address] [phone] [place] Lactic acid, venous TIMED (10/20/2019 12:39 AM CDT) Lactate, Venous 0.91 0.50 - 2.20 mmol/L [facility] Specimen Blood Narrative Performed At Gauge Maker ID - PEREZ L [facility] Specimen markedly icteric Performing Organization Address [facility] Phone Number [address] [address] [place]EL[place] aPTT (10/20/2019 12:39 AM CDT) PTT 39.0 (H) 22.5 - 36.0 seconds [facility] Specimen Blood Performing Organization Address [facility] Phone Number [address] [address] [place]EL[place] Lipase (10/20/2019 12:39 AM CDT) Lipase 23 8 - 78 U/L [facility] Specimen Blood Narrative Performed At Gauge Maker ID - PEREZ L [facility] Specimen markedly icteric Performing Organization Address [facility] Phone Number [address] [address] [place] Liver Panel (10/20/2019 12:39 AM CDT)Only the most recent of13 resultswithin the time period is included. Protein, Total 7.6 6.0 - 8.3 gm/dL [facility] Albumin 3.1 (L) 3.5 - 5.0 g/dL [facility] Total Bilirubin 18.2 (H) 0.2 - 1.2 mg/dL [facility] Bilirubin, Direct 13.6 (H) 0.1 - 0.5 mg/dL [facility] Alkaline Phosphatase 916 (H) 40 - 150 U/L [facility] AST 201 (H) 5 - 34 U/L [facility] ALT 179 (H) 6 - 55 U/L [facility] Specimen Blood Narrative Performed At Gauge Maker ID - PEREZ L [facility] Specimen markedly icteric Performing Organization Address City/[facility]/Zipcode Phone Number [facility] [address] [place] [address] CENTER Basic metabolic panel (Na, K+, Cl, CO2, Glu, Ca, BUN, Cr) (10/20/2019 12:39 AM CDT)Only the most recent of14 resultswithin the time period is included. Sodium 125 (L) 136 - 145 meq/L [facility] Potassium 3.9 3.5 - 5.1 meq/L [facility] Chloride 92 (L) 98 - 107 meq/L [facility] CO2 30 (H) 22 - 29 meq/L [facility] BUN 14 7 - 21 mg/dL [facility] Creatinine 0.69 0.57 - 1.25 mg/dL [facility] Glucose 107 (H) 70 - 105 mg/dL [facility] Calcium 9.4 8.4 - 10.2 mg/dL [facility] EGFR 83Comment: ESTIMATED GFR IS mL/min/1.73 sq m [facility] NOT ACCURATE CREATININE [facility] CLEARANCE IN PREDICTING GLOMERULAR FILTRATION RATE. ESTIMATED GFR IS NOT APPLICABLE FOR DIALYSIS PATIENTS. Specimen Blood Narrative Performed At Gauge Maker ID - PEREZ L [facility] Specimen markedly icteric Performing Organization Address City/[facility]/Zipcode Phone Number [facility] [address] [place] [address] CENTER POC-Glucose meter (10/20/2019 12:26 AM CDT) POC-Glucose Meter 106Comment: : TESTED AT 70 - 110 mg/dL [facility] [address] [facility], [id number]: Gauge Maker/Associate Account Director ID = [id number] for EDWARDO POLLOCK Specimen Blood Performing Organization Address [facility] Phone Number [facility] [address] [place] [address] CENTER ECG 12 lead (10/20/2019 12:25 AM CDT) Specimen Narrative Performed At Ventricular Rate 64 BPM GE MUSE Atrial Rate 64 BPM P-R Interval 152 ms QRS Duration 72 ms Q-T Interval 394 ms QTC Calculation(Bazett) 406 ms P Coker 32 degrees R Coker -20 degrees T Coker 11 degrees Normal sinus rhythm Poor R wave progression No previous ECGs available Confirmed by MD EUBANKS YOCHAI ([id number]) on 10/23/2019 2:06:50 PM Procedure Note Interface, External Ris In - 10/23/2019 2:06 PM CDT Ventricular Rate 64 BPM Atrial Rate 64 BPM P-R Interval 152 ms QRS Duration 72 ms Q-T Interval 394 ms QTC Calculation(Bazett) 406 ms P Coker 32 degrees R Coker -20 degrees T Coker 11 degrees Normal sinus rhythm Poor R wave progression No previous ECGs available Confirmed by MD EUBANKS YOCHAI ([id number]) on 10/23/2019 2:06:50 PM Performing Organization Address City/[facility] Phone Number [facility] [employer] XR chest 2 views (10/19/2019 8:37 PM CDT) Specimen Narrative Performed At FINAL REPORT [facility] RAD, CHEST, 2 VIEWS CLINICAL HISTORY: ABDOMINAL PAIN TECHNIQUE: 2 views of the chest COMPARISON: October 19, 2018 IMPRESSION: Left lung base opacities suggestive of h iatal hernia with basilar scarring or atelectasis is reduced in co nspicuity compared to prior examination. No interval development of suspicious lung consolidation, large effusion or pneumot horax. Cardiomediastinal silhouette is stable. Intact osseous str uctures. Signed: Janak Mccurdy MD Report Verified Date/Time:10/19/2019 21:03:44 Procedure Note Interface, External Ris In - 10/19/2019 9:05 PM CDT FINAL REPORT RAD, CHEST, 2 VIEWS CLINICAL HISTORY: ABDOMINAL PAIN TECHNIQUE: 2 views of the chest COMPARISON: October 19, 2018 IMPRESSION: Left lung base opacities suggestive of h iatal hernia with basilar scarring or atelectasis is reduced in co nspicuity compared to prior examination. No interval development of suspicious lung consolidation, large effusion or pneumot horax. Cardiomediastinal silhouette is stable. Intact osseous str uctures. Signed: Janak Mccurdy MD Report Verified Date/Time: 10/19/2019 2 1:03:44 Performing Organization Address City/State/Zipcode Phone Number [employer] MRI abdomen with and without contrast (08/13/2019 1:10 PM CDT)Only the most recent of2 resultswithin the time period is included. Specimen Narrative Performed At FINAL REPORT [employer] MRI of abdomen dated August 13, 2019 COMPARISON: January 31, 2019 Comment: Multiplanar T1 T2-weighted imag es of the abdomen, postcontrast axial and coronal T1-weight ed images of the abdomen and pelvis were obtained. The large size hiatal hernia is present with herniation segments of the bowel, stomach, and to a segment of the omentum. Liver is cirrhotic in appearance with ir regular margins. No abnormal enhancement or suspicious mass is seen i n the liver. Spleen is enlarged measuring approximately 12.1 x 5.0 x 12 cm. The splenic, superior mesenteric, portal, and hepatic veins are patent. Main portal vein measures 13 mm in diameter. No portal vein thrombosis is seen. Gallbladder is surgically absent. There is minimal intrahepatic and extrahepatic biliary dilatation. 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 Pancreas is normal in caliber. A 6 mm cy stic lesion seen in the neck of the pancreas stable since prior study . No pancreatic duct dilatation or enhancing pancreatic mass is noted. The adrenals are unremarkable. Both kidneys are normal in size and func tioning. A 1.8 x 3.5 cm cyst is seen in the upper pole right kidney. IMPRESSION: 1. Large hiatal hernia. 2. Cirrhosis with splenomegaly without s uspicious hepatic mass. 3. Irregular appearing biliary ducts wit h minimal dilatation compatible with primary sclerosing chola ngitis. 4. Stable cystic lesion in the neck of t he pancreas suggestive of IPMN. 5. Right renal cyst. Signed: Yusef Sultana MD Report Verified Date/Time:08/13/2019 16:34:38 Reading Location: [facility] B1 C013Y CT Body R eading Room Procedure Note Interface, External Ris In - 08/13/2019 4:36 PM CDT FINAL REPORT MRI of abdomen dated August 13, 2019 COMPARISON: January 31, 2019 Comment: Multiplanar T1 T2-weighted imag es of the abdomen, postcontrast axial and coronal T1-weight ed images of the abdomen and pelvis were obtained. The large size hiatal hernia is present with herniation segments of the bowel, stomach, and to a segment of the omentum. Liver is cirrhotic in appearance with ir regular margins. No abnormal enhancement or suspicious mass is seen i n the liver. Spleen is enlarged measuring approximately 12.1 x 5.0 x 12 cm. The splenic, superior mesenteric, portal, and hepatic veins are patent. Main portal vein measures 13 mm in diameter. No portal vein thrombosis is seen. Gallbladder is surgically absent. There is minimal intrahepatic and extrahepatic biliary dilatation. 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 Pancreas is normal in caliber. A 6 mm cy stic lesion seen in the neck of the pancreas stable since prior study . No pancreatic duct dilatation or enhancing pancreatic mass is noted. The adrenals are unremarkable. Both kidneys are normal in size and func tioning. A 1.8 x 3.5 cm cyst is seen in the upper pole right kidney. IMPRESSION: 1. Large hiatal hernia. 2. Cirrhosis with splenomegaly without s uspicious hepatic mass. 3. Irregular appearing biliary ducts wit h minimal dilatation compatible with primary sclerosing chola ngitis. 4. Stable cystic lesion in the neck of t he pancreas suggestive of IPMN. 5. Right renal cyst. Signed: Yusef Sultana MD Report Verified Date/Time: 08/13/2019 1 6:34:38 Reading Location: [facility] B1 C013Y CT Body R eading Room Performing Organization Address City/[facility]/Zipcode Phone Number [facility] REPORT OF PROCEDURE - ENDOSCOPY URL (03/28/2019 3:03 PM MANAGEMENT TECH) Narrative Performed At This result has an attachment that is no t available. [place] Endoscopic Retrograde Cholangiopancreatography (03/28/2019 2:02 PM MANAGEMENT TECH) Specimen Narrative Performed At FINAL REPORT [facility] A fluoroscopic unit was utilized for a p rocedure performed in the operating room. No interpretation was re quested. Please refer to the operative report regarding findings. Ple ase refer to PACS for patient radiation dose information. Signed: Alaina Woody MD Report Verified Date/Time:03/28/2019 16:24:37 Reading Location: [address] Rad[address] Reading Room Procedure Note Interface, External Ris In - 03/28/2019 4:26 PM MANAGEMENT TECH FINAL REPORT A fluoroscopic unit was utilized for a p rocedure performed in the operating room. No interpretation was re quested. Please refer to the operative report regarding findings. Ple ase refer to PACS for patient radiation dose information. Signed: Alaina Woody MD Report Verified Date/Time: 03/28/2019 1 6:24:37 Reading Location: [address] Rad[address] Reading Room Performing Organization Address City/[facility]/Zipcode Phone Number [facility] Tissue Exam (03/28/2019 1:28 PM MANAGEMENT TECH) Case Report Surgical Pathology Report Case: [id number] [facility] Authorizing Provider:Andrea Bledsoe MDCollected: 03/28/2019 1328 [facility]ing [facility] Endoscopy Received:03/28/2019 1446 Services Pathologist: Michael Sosa MD Specimens: A) - Common B ile Duct, CBD stricture bx B) - Hepatic, common hepatic duct bx DIAGNOSIS A. COMMON BILE DUCT STRICTURE CH I [facility] - BLOOD WITH ACUTE AND CHRON IC INFLAMMATION AND EPITHELIAL CELLS WHICH APPEARS TO BE REACTIVE [facility] - FOCAL XANTHOGRANULOMATOUS REACTION - NO ACID FAST BACILLI OR FUNGI IDENTIFIED ON AF B AND GMS STAINS - NEGATIVE FOR DYSPLASIA OR CARCINOMA B. 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 A. [facility] Common bile duct B. Hepatic [facility] GROSS DESCRIPTION A. Received in formalin lab eled with the patient's name, accession number and "common bile duct" is a 0.2 x 0.2 x 0.1 cm beebe-pink tissue fragment which is filtered and submitted in toto in A1. [facility] B. Received in formalin lab eled with the patient's name, accession number and "common hepatic duct" are multiple beebe-pink tissue fragments measuring up to 0.1 cm in greatest dimension which are filtered and submitted in toto in B1. PA/bc MICROSCOPIC DESCRIPTION Microscopic examination is p erformed and the findings are in incorporated in the diagnostic line. [facility] Intradepartmental consultation: Iman Mcpherson MD SPECIAL STUDIES The interpretation of this c ase included the use of immunohistochemistry or special stains. [facility] A. CD68 - stains histiocytes [facility] AE1/AE3- No carcinoma identified AFB - No acid fast bacilli seen GMS - No fungi seen B. CD68 - stains histiocytes AE1/AE3- No carcinoma identified AFB - No acid fast bacilli seen GMS - No fungi seen Control Slides Examined: In -house known positive controls were evaluated along with the test tissue. These control slides run alongside of the patients sample show appropriate staining. Internal posit qing and negative controls when available are ines covarrubias Immunohistochemistry henok neal testing was performed at [facility], Pathology Laboratory where it was developed and its performance characteristics were determined. It has not be en cleared or approved by [facility] [place] Food and Drug Administration. The FDA has determined that such clearance or approval is not necessary. The test is used for clinical purposes. It should not be regarde d as investigational or for research. This laboratory is certified under the Clinical Laboratory Improvement Amendments of 1988 (CLIA-88) as qualified to perform high complexity clinical laboratory testing. Specimen Tissue Tissue - Structure of hepatic vein (body structure) Performing Organization Address City/State/Zipcode Phone Number [facility] [address] [place] [phone] [facility] after 12/22/2018 Insurance Payer Benefit Plan / Subscriber ID Type Phone Address Group [facility] - [facility]/MEDICARE xxxxxxxxx MEDICARE MGD CARE COMPLETE [facility] [place] xxxxxxxxx Transplants [facility] - MEDICARE ONLY MCR REPL MGD CARE CDC REVIEW CDC REVIEW xxxxxxxx [address] [place] [place] [address] Advance Directives Patient has advance care planning documents, and code status on file. For more information, please contact:[address] [phone] Code Status Date Activated Date Inactivated Comments Full Code 10/19/2019 8:01 PM 10/22/2019 8:39 PM This code status was determined by: Patient Full Code 02/22/2018 3:34 PM 04/17/2018 1:07 PM This code status was determined by: Patient
--- OUTSIDE RECORDS SUMMARY | 2019-12-23 12:52 | XMS REPORT | Continuity of Care Document ---
:[address] [facility] [place], [place] t Address [address] [place] [address] Care Team Providers Name Role Phone Romeo Powell MD Primary Care Physician Griselda Suárez Attending Clinician Unavailable Sadiq LORD Attending Clinician Unavailable Sebastian Slaughter MD Attending Clinician Eusebia Denson MD Attending Clinician Eusebia DENSON Attending Clinician Unavailable Giovana Terrell MD. Attending Clinician Jose Roberto Attending Clinician Unavailable Chelsey Mccallum Attending Clinician Unavailable Db LORD, M Attending Clinician Unavailable Yulissa HUSSEIN Attending Clinician Doctor Unassigned, Name Attending Clinician Unavailable VIVI Attending Clinician Unavailable Viiv HUSSEIN Attending Clinician Phani Heard MD. Attending Clinician Nila HUSSEIN, In Attending Clinician Giovana Dickey MD Attending Clinician Darell HUSSEIN, M. Attending Clinician Cesilia LORD Attending Clinician Unavailable Pedro Hernandez MD Attending Clinician Mateo Attending Clinician Unavailable Gwyn LYONS, W Attending Clinician Unavailable Sabas KAMARA Attending Clinician Unavailable Jamie Butt MD. Attending Clinician Peggy HUSSEIN, Desiree Oropeza Attending Clinician Bulmaro HUSSEIN MPH, Kandice Attending Clinician [phone] Pratik LORD, R Attending Clinician Unavailable Campos De Souza MD Attending Clinician SEBASTIAN SLAUGHTER Attending Clinician Unavailable LUIZ CARDOZO Attending Clinician Unavailable Luiz Cardozo MD Attending Clinician Ravindra ENCARNACION Santiago Attending Clinician MIC MEJÍA Attending Clinician Unavailable YUSEF ESPINAL Attending Clinician Unavailable Joanna MURILLO Admitting Clinician Unavailable LUIZ CARDOZO Admitting Clinician Unavailable ALISON Admitting Clinician Unavailable Payers Payer Name Policy Policy Effective Expiration Source Type Number Date Date [facility] - MEDICARE xxxxxxxxx [facility] CAREAARP/MEDICARE Al[facility] - COMPLETExxxxxxxxx [facility] UNITED RESOURCES NETWK - xxxxxxxxx [facility] MEDICARE MGD CAREOPTUM Gwen kes - [facility] Medical REPLxxxxxxxxxTransplants [facility] CDC REVIEWCDC xxxxxxxx [facility] REVIEWxxxxxxxxPO Kris CLAUDIO [facility] [id number] [facility] Problems Condition Condition Condition Status Onset Resolution Last Treating Co mments Source Name Details Category Date Date Treatment Clinician Date Periumbili Periumbili Disease Active [facility] ning ning 10-19 [facility] - abdominal abdominal 00:00: Medi ning pain pain 00 [facility] Fever Fever Disease Active [facility]: Medical 00 Center Basal cell Basal cell Disease Active Last [facility] carcinoma carcinoma 5-04 Ass[facility] Chelsey farias - of skin of skin 00:00: t & Plan: Medic al 00 She has Center basal cell carcinoma removed from her nose about one year ago. Continue to follow up with Dermatolo gy for skin checks as indicated . Pruritus Pruritus Disease Active [facility] & Plan: Medical Due to Center jaundice. Continued managemen t with Hepatolog y. Other Other Disease Active [facility] fatigue fatigue 11-11 [facility] Ponce - 00:00: t & Plan: Medical She Center denies issues with any day to day functioni ng. She has increased her exercise tolerance to include 30 minutes on the recumbent bicycle daily. 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 She was encourage d to continue to drink supplemen kasandra shakes and exercise as tolerated to help with nutrition al status as she appears thin in clinic. She was able to meet with Lul Galindo in clinic to discuss increasin g her weight bearing exercise to increase muscle mass. H/O H/O Disease Active Last [facility] abdominal abdominal 10-18 [facility] farias - surgery surgery 00:00: t & Plan: Medic al 00 She Center previousl y required laparosco pic cholecyst ectomy. 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 Hyponatrem Hyponatrem Disease Active 2017-[address] ia ia 1-14 [facility] - 00:[facility] Medical 00 Center Elevated Elevated Disease Active [facility] alkaline alkaline 11-01 [facility] - phosphatas phosphatas 00:00: Me dical e level e level 00 Center Screening Screening Disease Active Last [facility] for for 11-01 [facility] Ponce - malignant malignant 00:00: t & Plan: M edical neoplasm neoplasm 00 She does Cent er not currently meet criteria for HCC screening . Plan for colon cancer screening with colonosco py by Dr Keen Other Other Disease Active Last [facility] cirrhosis cirrhosis 11-01 Assessleonel farias - of liver of liver 00:00: t & Plan: Med ical 00 Cirrhosis Center secondary to PSC. Elevated Elevated Disease Active [facility] liver liver 11-01 [facility] Ponce - enzymes enzymes 00:00: t & Plan: Medic al 00 Cholestat Center ic pattern, marked elevated in ALP 1332 (liver isoenzyme 74%) and GGT 683. AMA negative. Unclear etiology suspect DILI vs autoimmun e liver disease. MRCP with no evidence of extrahepa tic obstructi on. Suspect intrahepa tic cholestas is. We ordered comprehen sive testing for metabolic , viral, genetic, and autoimmun e liver diseases to detect alternati ve etiologie s and all comorbid condition s affecting hepatic function. We also ordered MRI with and without contrast MRI of the abdomen with and without contrast is ordered to evaluate liver, contours of the liver, the biliary system, rule out liver lesion, and advanced hepatic fibrosis. Losratan is recognize d as a causes of elevated liver tests and cholestat ic injury. We recommend switching to an alternati ve class antihyper tensive. We also recommend stopping NSAIDs and all over the counter supplemen ts. The maximum daily dose of acetamino phen was discussed with the patient. She was encourage d not to exceed 2,000 mg of acetamino phen during a 24 hour period. Iron Iron Disease Active [facility] anemia 00:00: t & Plan: Medical 00 Microcyti Center c anemia likely iron deficienc y anemia. She reports prolonged history of REGLA on iron supplemen ts. Suspect worsening recent anemia secondary to blood bowel movements . We sent celiac panel. Plan for colonosco py by Dr. Keen. Allergies, Adverse Reactions, Alerts This patient has no known allergies or adverse reactions. Family History Family Member Diagnosis Comments Start Date Stop Date Source Natural father Alcohol abuse [facility] Natural mother Alcohol abuse [facility] Natural mother Cancer [facility] Natural sister Hypertension [facility] Social History Social Habit Start Date Stop Date Quantity Comments Source Sex Assigned At F [facility] Alcohol Comment 2018-02-21 2018-02-21 quit [facility] - 00:00:00 00:00:00 [facility] Center Smoking Status Start Date Stop Date Source Never smoker [facility] Medications Ordered Filled Start Stop Current Ordering Indication Dosage Frequency Signature Comments Components Source Medication Medication Date Date Medication? Clinician (SIG) Name Name spironolact 2020- Yes Edema, 25mg QD Take [address] one 12-19 unspecified tablet (25 L ukes - (ALDACTONE) 00:00: 23:59 type mg total) Medical 25 MG 00 :00 by mouth Center tablet daily. conjugated 2019- No .5g Q.5W Place 0.[address] estrogens 12-18 g [facility] - (PREMARIN) 13:54: 00:00 vaginally M edical 0.625 22 :00 twice a Center mg/gram week Due vaginal on Tuesday. cream atorvastati Yes Take [address] n (LIPITOR) 12-10 (1 tablet) Gwen kes - 10 MG 00:00: daily at Medical tablet 00 bedtime.. Center ondansetron Yes 4mg Take [address] [facility] (ZOFRAN) 4 12-10 tablet (4 [facility] - MG tablet 00:00: mg total) Med ical 00 by mouth Center as needed for Nausea. atorvastati 2019- No Take [address] n (LIPITOR) 11-08 (1 tablet) L ukes - 10 MG 00:00: 00:00 daily at Medical tablet 00 :00 bedtime.. Center HYDROcodone 2020- No 1{tbl} Take [address] -acetaminop -10-21 tablet by Gwen lindsay (NORCO 16:34: 00:00 mouth Medic al 10-325) 40 :00 every 4 Center 10-325 mg (four) per tablet hours as needed . HYDROcodone Yes 1{tbl} Take [address] -acetaminop 7-13 tablet by Alida lindsay (NORCO 00:00: mouth Medica l 10-325) 00 every 6 Center 10-325 mg (six) per tablet hours as needed. Max Daily Amount: 4 tablets spironolact 2019- No Awaiting 25mg QD Take 0.[address] [facility] one 10-21 organ tablets [facility] - (ALDACTONE) 00:00: 00:00 transplant (25 mg Medical 50 MG 00 :00 status total) by Center tablet mouth daily. ciprofloxac 2019- No 4[drp] Q.5D Place [address] in-dexameth 10-21 drops into L ukes - asone 00:00: 23:59 the right Medica l (CIPRODEX) 00 :00 ear 2 Center 0.3-0.1 % (two) otic times suspension daily for 10 days. amoxicillin 2019- No 1{tbl} Q.5D Take [address] -clavulanat 10-21 tablet by Gwen wagoners - e 00:00: 23:59 mouth 2 Medical (AUGMENTIN) 00 :00 (two) Center 875-125 mg times per tablet daily for 4 days. atorvastati 2019- No Take [address] [facility] n (LIPITOR) 10-04-31 (1 tablet) L ukes - 10 MG 00:00: 00:00 daily at Medical tablet 00 :00 bedtime.. Center atorvastati 2019- No Take [address] n (LIPITOR) 08-30 06- (1 tablet) L ukes - 10 MG 00:00: 00:00 daily at Medical tablet 00 :00 bedtime.. Center hydrOXYzine Yes 12.5mg Take 0.[address] (ATARAX) 25 3-17 tablets [facility] - MG tablet 00:00: (12.5 mg Medi ning 00 total) by Center mouth every night as needed for Itching. ursodioL Yes 250mg [id number] Take 0.[address] (ACTIGALL) 3-17 [id number] tablets [facility] - 500 MG 00:00: 3D (250 mg Medical tablet 00 total) by Center mouth 3 (three) times daily Take half tablet in the morning and a full tablet in the afternoon. . ondansetron 2019- No 4mg Take [address] [facility] (ZOFRAN) 4 - 09- tablet (4 Alida es - MG tablet 00:00: 00:00 mg total) Me dical 00 :00 by mouth Center as needed for Nausea. spironolact 2019- No Awaiting 50mg QD Take [address] [facility] one 3-17 - organ tablet (50 [facility] - (ALDACTONE) 00:00: 00:00 transplant mg total) Medical 50 MG 00 :00 status by mouth Center tablet daily. atorvastati 2019- No Take [address] [facility] n (LIPITOR) 3-17 05-22 (1 tablet) L ukes - 10 MG 00:00: 00:00 daily at Medical tablet 00 :00 bedtime.. Center spironolact 2018-04- No Awaiting 50mg QD Take [address] [facility] one 2-19 03-11 organ tablet (50 [facility] - (ALDACTONE) 00:00: 00:00 transplant mg total) Medical 50 MG 00 :00 status by mouth Center tablet daily. spironolact 2018-04- No Awaiting 50mg QD Take [address] [facility] one 2-17 12-19 organ tablet (50 [facility] - (ALDACTONE) 00:00: 00:00 transplant mg total) Medical 50 MG 00 :00 status by mouth Center tablet daily. omeprazole 2018-04 Yes 20mg QD Take [address] (PRILOSEC) 1-05 by mouth [facility] - 20 MG 10:00: daily. Medical capsule 07 [facility] ZINC ORAL Yes 50mg QD Take [address] 9- by mouth [facility] - 11:42: daily . Medical 06 [facility] multivitami Yes 1{capsu QD Take [address] n capsule 12-12 le} capsule by [facility] - 11:42: mouth Medical 06 daily. [place] fluticasone Yes 1{spray [address] [facility] propionate 9- } Nasal [facility] - (FLONASE) 11:07: route Medical 50 18 daily as Center mcg/actuati needed . on nasal spray spironolact 2018- No Awaiting 50mg QD Take [address] [facility] one 9-03 12-17 organ tablet (50 [facility] - (ALDACTONE) 00:00: 00:00 transplant mg total) Medical 50 MG 00 :00 status by mouth Center tablet daily. benzonatate Yes 2 (two) [facility] (TESSALON) 8-27 times [facility] - 100 MG 00:00: daily as Medical capsule 00 needed . [facility] atorvastati 2019- No Take [address] n (LIPITOR) 8-15 03-17 (1 tablet) L [facility] - 10 MG 00:00: 00:00 daily at Medical tablet 00 :00 bedtime.. [facility] cholestyram Yes 1{packe Take [address] ine 8-06 t} packet by [facility] - (QUESTRAN) 00:00: mouth 2 Medi ning 4 gram PwPk 00 (two) Center packet times daily with breakfast and dinner Take other medication s 1 hour before or 4-6 hours after cholestyra mine. hydrOXYzine 2020- No 12.5mg Take 0.[address] (ATARAX) 25 8- 03-11 tablets [facility] - MG tablet 00:00: 00:00 (12.5 mg Med ical 00 :00 total) by Center mouth every night as needed for Itching. traZODone Yes 100mg QD Take [address] (DESYREL) 6-17 mg by [facility] - 100 MG 00:00: mouth Medical tablet 00 nightly . Center ondansetron 2020- No 4mg Take [address] [facility] (ZOFRAN) 4 3-10 11-11 tablet (4 [facility] - MG tablet 00:00: 00:00 mg total) Me dical 00 :00 by mouth Center as needed for Nausea. ferrous Yes 324mg Take [address] [facility] gluconate 3-05 tablet [facility] - (FERGON) 00:00: (324 mg Medica l 324 MG 00 total) by Center tablet mouth daily with breakfast. ursodiol 2020- No 250mg Q.[id number] Take 0.[address] (ACTIGALL) 3-05 03-11 [id number] tablets [facility] - 500 MG 00:00: 00:00 3D (250 mg Medical tablet 00 :00 total) by Center mouth 3 (three) times daily Take half tablet three times daily. Bacillus Yes QD Take by [facility] coagulans 1-04 mouth [facility] - (PROBIOTIC, 14:42: daily . Med ical B. 15 Center COAGULANS,) 10 billion cell CpDR Vital Signs Vital Name Observation Time Observation Value Comments Source Systolic blood 2019-12-19 13:52:00 117 mm[Hg] [facility] Diastolic blood 2019-12-19 13:52:00 56 mm[Hg] [facility] Heart rate 2019-12-19 13:52:00 80 /min [facility] Body temperature 2019-12-19 13:52:00 36.67 Maddy [facility] Respiratory rate 2019-12-19 13:52:00 18 /min [facility] Body height 2019-12-19 13:52:00 162.6 cm [facility] Body weight Measured 2019-12-19 13:52:00 47.628 kg [facility] BMI 2019-12-19 13:52:00 18.02 kg/m2 [facility] Oxygen saturation in 2019-12-19 13:52:00 100 /min [facility] Arterial blood by Medical Ce nter Pulse oximetry Procedures Procedure Date / Time Performing Clinician Source Performed ECHO W CONTRAST & DOPPLER 2019-12-19 11:55:30 Pham Slaughter [facility] ALPHA FETOPROTEIN (AFP), 2019-12-19 10:44:00 Pham Slaughter [facility] TUMOR MARKER [facility] BILIRUBIN, DIRECT 2019-12-19 10:44:00 Pham Slaughter [facility] COMPREHENSIVE METABOLIC 2019-12-19 10:44:[address] [facility] PROTHROMBIN TIME/INR 2019-12-19 10:44:00 Pham Slaughter [facility] CARBOHYDRATE ANTIGEN 19-9 2019-12-19 10:44:00 Pham Slaughter [facility] (CA 19-9) [facility] CBC W/PLT COUNT & AUTO 2019-12-19 10:44:00 Pham Slaughter [facility] PROTHROMBIN TIME/INR 2019-12-11 12:01:00 Pham Slaughter [facility] COMPREHENSIVE METABOLIC 2019-12-11 12:01:[address] [facility] CBC W/PLT COUNT & AUTO 2019-12-11 12:01:00 Pham Slaughter [facility] BILIRUBIN, DIRECT 2019-12-11 12:01:00 Pham Slaughter [facility] PROTHROMBIN TIME/INR 2019-11-05 11:29:00 Pham Slaughter [facility] 2019-11-05 11:29:[address] [facility] CBC W/PLT COUNT & AUTO 2019-11-05 11:29:00 Pham Slaughter [facility] BILIRUBIN, DIRECT 2019-11-05 11:29:00 Pham Slaughter [facility] PROTHROMBIN TIME/INR 2019-10-30 11:11:00 Pham Slaughter [facility] 2019-10-30 11:11:[address] [facility] CBC W/PLT COUNT & AUTO 2019-10-30 11:11:00 Pham Slaughter [facility] BILIRUBIN, DIRECT 2019-10-30 11:11:00 Pham Slaughter [facility] IMMATURE CELLS 2019-10-30 11:11:00 Pham Slaughter [facility] REPORT OF PROCEDURE - 2019-10-22 14:53:09 ProviderBeto [facility] ENDOSCOPY SCAN [facility] 2019-10-22 08:35:00 Keri Means [facility] PROTHROMBIN TIME/INR 2019-10-22 08:35:00 [facility] CBC W/PLT COUNT & AUTO 2019-10-22 08:35:00 Keri Means [facility] BLOOD CULTURE 2019-10-21 20:30:00 Kavin Nieto [facility] BLOOD CULTURE 2019-10-21 13:31:00 [facility] 2019-10-21 13:27:00 Ana [facility] MAGNESIUM 2019-10-21 04:16:[address] [facility] 2019-10-21 04:16:[address] [facility] CBC W/PLT COUNT & AUTO 2019-10-21 04:16:00 Dipesh Heard [facility] URINE CULTURE 2019-10-20 11:39:00 Dipesh Heard [facility] URINALYSIS W/ REFLEX URINE 2019-10-20 11:39:00 Dipesh Heard [facility] SARS-COV2/RT-PCR ([facility] & 2019-10-20 08:16:00 Joselito Griffin [facility] - REF LABS) [facility] AMMONIA 2019-10-20 08:06:00 Joselito Griffin [facility] XR CHEST 1 VIEW 2019-10-20 06:20:00 Joselito Griffin [facility] - PORTABLE/BEDSIDE [facility] CT ABDOMEN/PELVIS WITH IV 2019-10-20 04:53:00 [facility] BLOOD CULTURE 2019-10-20 01:27:[address] [facility] BLOOD CULTURE 2019-10-20 01:27:00 Martín [facility] IDENTIFICATION PANEL [facility] BLOOD CULTURE 2019-10-20 00:40:[address] [facility] LACTIC ACID, VENOUS 2019-10-20 00:39:00 [facility] PROTHROMBIN TIME/INR 2019-10-20 00:39:00 [facility] APTT 2019-10-20 00:39:[address] [facility] BASIC METABOLIC PANEL (7) 2019-10-20 00:39:00 [facility] HEPATIC FUNCTION PANEL 2019-10-20 00:39:00 [facility] LIPASE 2019-10-20 00:39:00 [facility] TROPONIN I 2019-10-20 00:39:00 Jesse Trinidad [facility] CBC W/PLT COUNT & AUTO 2019-10-20 00:39:00 Martín [facility] POCT-GLUCOSE METER 2019-10-20 00:26:00 Vivi [facility] ECG 12-LEAD 2019-10-20 00:25:11 Ell[facility]ark[facility]ov[facility] XR CHEST 2 VIEWS 2019-10-19 20:37:[address] [facility] PROTHROMBIN TIME/INR 2019-09-25 11:26:00 Pham Slaughter [facility] COMPREHENSIVE METABOLIC 2019-09-25 11:26:[address] [facility] CBC W/PLT COUNT & AUTO 2019-09-25 11:26:00 Pham Slaughter [facility] BILIRUBIN, DIRECT 2019-09-25 11:26:00 Pham Slaughter [facility] PROTHROMBIN TIME/INR 2019-08-27 09:42:00 Pham Slaughter [facility] COMPREHENSIVE METABOLIC 2019-08-27 09:42:[address] [facility] CBC W/PLT COUNT & AUTO 2019-08-27 09:42:00 Pham Slaughter [facility] BILIRUBIN, DIRECT 2019-08-27 09:42:00 Pham Slaughter [facility] MR ABDOMEN WITH & WITHOUT 2019-08-13 13:10:00 Tory De Souza [facility] BASIC METABOLIC PANEL (7) 2019-08-06 14:11:[address] [facility] HEPATIC FUNCTION PANEL 2019-07-23 11:54:00 Pham Slaughter [facility] BASIC METABOLIC PANEL (7) 2019-07-23 11:54:00 Pham Slaughter [facility] PROTHROMBIN TIME/INR 2019-07-23 11:54:00 Pham Slaughter [facility] CBC W/PLT COUNT & AUTO 2019-07-23 11:54:00 Jalal, Prasun Cortes C [facility] CBC W/PLT COUNT & AUTO 2019-07-17 11:36:00 Pham Slaughter [facility] PROTHROMBIN TIME/INR 2019-07-17 11:36:00 Pham Slaughter [facility] BASIC METABOLIC PANEL (7) 2019-07-17 11:36:00 Pham Slaughter [facility] HEPATIC FUNCTION PANEL 2019-07-17 11:36:00 Pham Slaughter [facility] CBC W/PLT COUNT & AUTO 2019-07-09 14:00:00 Pham Slaughter [facility] PROTHROMBIN TIME/INR 2019-07-09 14:00:00 Pham Slaughter [facility] BASIC METABOLIC PANEL (7) 2019-07-09 14:00:00 Pham Slaughter [facility] HEPATIC FUNCTION PANEL 2019-07-09 14:00:00 Pham Slaughter [facility] CBC W/PLT COUNT & AUTO 2019-07-03 10:41:00 Pham Slaughter [facility] PROTHROMBIN TIME/INR 2019-07-03 10:41:00 Pham Slaughter [facility] BASIC METABOLIC PANEL (7) 2019-07-03 10:41:00 Pham Slaughter [facility] HEPATIC FUNCTION PANEL 2019-07-03 10:41:00 Pham Slaughter [facility] CBC W/PLT COUNT & AUTO 2019-06-25 13:44:00 Pham Slaughter [facility] PROTHROMBIN TIME/INR 2019-06-25 13:44:00 Pham Slaughter [facility] BASIC METABOLIC PANEL (7) 2019-06-25 13:44:00 Pham Slaughter [facility] HEPATIC FUNCTION PANEL 2019-06-25 13:44:00 Pham Slaughter [facility] CBC W/PLT COUNT & AUTO 2019-06-20 14:51:00 Pham Slaughter [facility] PROTHROMBIN TIME/INR 2019-06-20 14:51:00 Pham Slaughter [facility] BASIC METABOLIC PANEL (7) 2019-06-20 14:51:00 Pham Slaughter [facility] HEPATIC FUNCTION PANEL 2019-06-20 14:51:00 Pham Slaughter [facility] COMPREHENSIVE METABOLIC 2019-06-12 12:22:00 Ritchie Butt [facility] BILIRUBIN, DIRECT 2019-06-12 12:22[facility]R 2019-06-12 12:22:00 Ritchie Butt [facility] ALPHA FETOPROTEIN (AFP), 2019-06-12 12:22:[facility] CARBOHYDRATE ANTIGEN 19-9 2019-06-12 12:22:00 [facility] (CA 19-9) [facility] CBC W/PLT COUNT & AUTO 2019-06-12 12:22:00 Ritchie Butt [facility] CBC W/PLT COUNT & AUTO 2019-05-21 13:17:00 Pham Slaughter [facility] PROTHROMBIN TIME/INR 2019-05-21 13:17:00 Pham Slaughter [facility] BASIC METABOLIC PANEL (7) 2019-05-21 13:17:00 Pham Slaughter [facility] HEPATIC FUNCTION PANEL 2019-05-21 13:17:00 Pham Slaughter [facility] CBC W/PLT COUNT & AUTO 2019-05-21 13:10:00 Pham Slaughter [facility] PROTHROMBIN TIME/INR 2019-05-15 11:25:00 Pham Slaughter [facility] COMPREHENSIVE METABOLIC 2019-05-15 11:25:[address] [facility] BILIRUBIN, DIRECT 2019-05-15 11:25:00 Pham Slaughter [facility] CBC W/PLT COUNT & AUTO 2019-05-15 11:25:00 Pham Slaughter [facility] CBC W/PLT COUNT & AUTO 2019-05-08 14:24:00 Pham Slaughter [facility] PROTHROMBIN TIME/INR 2019-05-08 14:24:00 Pham Slaughter [facility] BASIC METABOLIC PANEL (7) 2019-05-08 14:24:00 Pham Slaughter [facility] HEPATIC FUNCTION PANEL 2019-05-08 14:24:00 Pham Slaughter [facility] CBC W/PLT COUNT & AUTO 2019-04-24 14:34:00 Pham Slaughter [facility] HEPATIC FUNCTION PANEL 2019-04-24 14:34:00 Pham Slaughter [facility] BASIC METABOLIC PANEL (7) 2019-04-24 14:34:00 Pham Slaughter [facility] REPORT OF PROCEDURE - 2019-03-28 15:03:08 [facility] [place] [facility]-03-28 14:02[facility] 2019-03-28 13:28:00 [facility],DIRECT VISUALIZATION 2019-03-28 11:30:00 Andrea Cardozo Eugen[facility] PROCEDURE W/ C-ARM 2019-03-28 11:30:00 Mabel Cardozoh Luiz [facility] ERCP,BALLOON SWEEPING 2019-03-28 11:30:00 Andrea Cardozo [facility] ERCP,BALLOON DILATATION 2019-03-28 11:30:00 Andrea Cardozo [facility] PROTHROMBIN TIME/INR 2019-03-27 11:03:00 Pham Slaughter [facility] CBC W/PLT COUNT & AUTO 2019-03-27 11:03:00 Pham Slaughter [facility] HEPATIC FUNCTION PANEL 2019-03-27 11:03:00 Pham Slaughter [facility] [place] BASIC METABOLIC PANEL (7) 2019-03-27 11:03:00 Pham Slaughter [facility] BASIC METABOLIC PANEL (7) 2019-03-05 09:49:00 Pham Slaughter [facility] HEPATIC FUNCTION PANEL 2019-03-05 09:49:00 Pham Slaughter [facility] [place] PROTHROMBIN TIME/INR 2019-03-05 09:49:00 Pham Slaughter [facility] CBC W/PLT COUNT & AUTO 2019-02-26 15:59:00 Pham Slaughter [facility] HEPATIC FUNCTION PANEL 2019-02-26 15:59:00 Pham Slaughter [facility] [place] BASIC METABOLIC PANEL (7) 2019-02-26 15:59:00 Pham Slaughter [facility] COMPREHENSIVE METABOLIC 2019-02-06 15:14:[address] [facility] PROTHROMBIN TIME/INR 2019-02-06 15:14:00 Pham Slaughter [facility] BILIRUBIN, DIRECT 2019-02-06 15:14:00 Pham Slaughter [facility] CBC W/PLT COUNT & AUTO 2019-02-06 15:14:00 Pham Slaughter [facility] MR ABDOMEN WITH & WITHOUT 2019-01-31 14:50:00 Pham Slaughter [facility] COMPREHENSIVE METABOLIC 2019-01-30 14:36:[address] [facility] PROTHROMBIN TIME/INR 2019-01-30 14:36:00 Pham Slaughter [facility] BILIRUBIN, DIRECT 2019-01-30 14:36:00 [facility] CBC W/PLT COUNT & AUTO 2019-01-30 14:36:00 Pham Slaughter [facility] COMPREHENSIVE METABOLIC 2019-01-23 14:45:00 [facility] PROTHROMBIN TIME/INR 2019-01-23 14:45:00 Pham Slaughter [facility] BILIRUBIN, DIRECT 2019-01-23 14:45:00 [facility] CBC W/PLT COUNT & AUTO 2019-01-23 14:45:00 Pham Slaughter [facility] COMPREHENSIVE METABOLIC 2019-01-16 14:05:00 [facility] PROTHROMBIN TIME/INR 2019-01-16 14:05:00 Pham Slaughter [facility] BILIRUBIN, DIRECT 2019-01-16 14:05:00 Pham Slaughter [facility] CBC W/PLT COUNT & AUTO 2019-01-16 14:05:00 Pham Slaughter [facility] COMPREHENSIVE METABOLIC 2019 14:29:00 [facility] PROTHROMBIN TIME/INR 2019 14:29:00 Pham Slaughter [facility] BILIRUBIN, DIRECT 2019 14:29:00 [facility] CBC W/PLT COUNT & AUTO 2019 14:29:00 Pham Slaughter [facility] Plan of Care Planned Activity Planned Date Details Comments Source Future Scheduled 2019-12-11 INFLUENZA VACCINE (#1) [facility]:00 [code = INFLUENZA Medical Ce nter VACCINE (#1)] Future Scheduled 2009-12-[address] [facility] - Test 00:00:00 WELLNESS (YEAR 2 or Medical Center FIRST YEAR if no IPPE) [code = MEDICARE ANNUAL WELLNESS (YEAR 2 or FIRST YEAR if no IPPE)] Future Scheduled 2009-01-08 PNEUMOCOCCAL [address]+ [facility] - Test 00:00:00 HIGH/HIGHEST RISK (1 Medical Center of 2 - PCV13) [code = PNEUMOCOCCAL 65+ HIGH/HIGHEST RISK (1 of 2 - PCV13)] Future Scheduled [address] [facility] - Test 00:00:00 malignant neoplasm [facility] colon (procedure) [code = 062168756] Encounters Start End Encounter Admission Attending Care Care Encounter Source Date/Time Date/Time Type Type Clinicians Facility Department ID 2019-10-29 2019-10-29 Office Yulissa [facility] [id number] 10:25:17 10:40:17 Visit Katarzyna LYONS [id number] [facility] [id number] 2019-10-29 2019-10-29 Orders Doctor CARMITA [id number] 00:00:00 00:00:00 Only Unassigned, ADAN 350.1.13.10 [place] [facility] [id number] Results Test Description Test Time Test Comments Results Result Comments Source Carbohydrate antigen 19-9 (CA 19-9) 2019-12-21 16:36:00 Test Item Value Reference Range Interpretation Comme nts CA 19-9 (test code = 6 U/mL <34 This t est was performed using the 51651-3) Siemens Chemilu minescent method.Values o btained from different assay methods cannot be used interchang eably.CA19-9 levels, regardl ess of value, should not be i nterpreted as absoluteevidenc e of the presence or absence of d isease. JARED (test code = JARED) Performing Lab EZ [facility] [address] [place] [address] Fazal King MD, PhD, ROWDY [facility] W CONTRAST & [id number] 08:18:41 Ejection FractionSLEH ECHO HEARTLAB MKCKESSON CPACSInterface, External Ris In - 12/20/2019 8:18 AM CDTTransthoracic Echocardiography Report (TTE) Demographics Patient Name OVI BOWENS Date of Study 12/19/2019 RADHA Gender Female Visit Number [id number] Race Unknown Room Number Number Date of 1945 Referring Kasandra Cortes Physician Age 74 year(s) Store Protection Specialist Felix Doherty Interpreting Physician JOVITA Lopez Procedure Type of Study TTE procedure:2DECHO W/CONTRAST & DOPPLER (Routine) Indications:Pre-surgical evaluation of organ transplant.Clinical HistoryHGB 10.2HCT 30.0 %CIRRHOSISHTNContrast Medium: Bubble Study.Height: 64 inches Weight: 47.17 kg (104 lbs) BSA:1.48 m^2 BMI: 17.85 kg/m^2HR: 59 bpm BP: 131/64 mmHg Summary The left ventricle is chamber size (by vol index) is normal (female - LVED vol - 29-61ml/m2). All of the LV segments contract normally . LVEF by Jewell's method of disk assessment is normal (>60%) . Estimated peak systolic PA pressure is20-25 mmHg . IV saline contrast with delayed imaging demonstrates intra pulmonic shunting. The degree of intrapulmonary shunting appears to be slight . Signature Findings Left Ventricle The left ventricle is chamber size (by vol index) is normal (female - LVED vol - 29-61ml/m2). All of the LV segments contract normally .LVEF by Jewell's method of disk assessment is normal (>60%) . Left Atrium LA size is severely enlarged (>48 ml/m2) . Right Ventricle The right ventricular chamber size and systolic function are within normal limits. Right Atrium RA size is normal. Atrial Septum IV saline contrast injection was negative for a PFO (patent foramen ovale) at rest and post Valsalva . IV saline contrast with delayed imaging demonstrates intra pulmonic shunting. The degree of intrapulmonary shunting appears to be slight . Aortic Valve Mild AoV cusp thickening. Mitral Valve Mild MV leaflet thickening. Mild mitral regurgitation. Tricuspid Valve TV structure is normal. Estimated peak systolic PA pressure is 20-25 mmHg . Pulmonic Valve Normal PV structure and function by limited views and Doppler. Pericardium No pericardial effusion is visualized. IVC/SVC/PA/PV/Pleural The estimated RA pressure by IVC dynamics 0- 5mmHg . Chambers/Structures Left Atrium LA Volume: 86.09 ml LAArea: 24.08 cm^2 LA Vol. Index: 58 ml/m^2 Left Ventricle LVIDd: 3.84 cm LVEDV:63.43 ml LV Septum Diastolic: 0.61 cm LV PW Diastolic: 0.57 cm LVEDV Jewell's:87.75 ml LVESV Jewell's:33.48 ml LVEF Jewell's: 61.9 % LVEDVI: 59 ml/m^2 LVESVI: 23 ml/m^2 LVOT Diameter: 1.97 cm Right Ventricle RVOTVTI: 18.2 cm Doppler/Quantitative Measurements Mitral Valve MV [...] Mean Gradient: 1.43 mmHg LVOT Diameter: 1.97 cm LVOT VTI: 20.29 cm LVOT Area: 3.05 cm^2 LVOT SV:61.81 ml LVOT CO: 3.65 l/min LVOT CI: 2.47 l/min/m^2 Tricuspid Valve TR Velocity: 2.28 m/s TR Gradient: 20.74 mmHgUCSF Medical CenterAlpha fetoprotein (AFP), tumor [id number] 11:38:00 Test Item Value Reference Range Interpretation Comments Alpha-Fetoprotein (test 6.8 ng/mL <10.0 code = 1834-1) JARED (test code = JARED) Post Doctoral Fellow ID Rio TODD L Lab Interpretation (test Normal code = 37551-8) [facility] Center[facility] FETOP[facility]OTEIN (AFP), TUMOR [id number] 11:38:00 Test Item Value Reference Range Interpretation Comments ALPHA-FETOPROTEIN (BEAKER) (test 6.8 ng/mL <10.0 code = 1094) Post Doctoral Fellow YOSELIN TODD LComprehensive metabolic [id number] 11:21:00 Test Item Value Reference Range Interpretation Comments Protein, Total (test 7.5 6.0- 8.3 gm/dL code = 2885-2) Albumin (test code = 3.0 g/dL 3.5-5 L 94941-7) Alkaline Phosphatase 836 U/L 40-150 H (test code = 6768-6) Total Bilirubin (test 14.1 mg/dL 0.2-1.2 H code = 1974-2) Sodium (test code = 127 meq/L 136-145 L 2951-2) Potassium (test code 4.1 meq/L 3.5-5.1 = 2823-3) Chloride (test code = 95 meq/L 98-107 L 5-0) CO2 (test code = 25 meq/L 22-29 8-9) BUN (test code = 17 mg/dL 7-21 3094-0) Creatinine (test code 0.62 mg/dL 0.57-1.25 = 2160-0) Glucose (test code = 71 mg/dL 70-105 2345-7) Calcium (test code = 9.4 mg/dL 8.4-10.2 69797-2) AST (test code = 183 U/L 5-34 H 1920-8) ALT (test code = 147 U/L 6-55 H 1742-6) EGFR (test code = 94 mL/min/1.73 [place] [address]-2) NOT ACCURATE CREATININE CLEARANCE IN PREDICTING GLOMERULAR FILTRATION RATE . ESTIMATED GFR I S NOT APPLICABLE FOR DIALYSIS PATIENTS. JARED (test code = JARED) Post Doctoral Fellow ID - PEREZ LSpecimen markedly icteric Lab Interpretation Abnormal (test code = 86713-3) [facility] CenterBilirubin, [id number] 11:21:00 Test Item Value Reference Range Interpretation Comments Bilirubin, Direct (test 10.9 mg/dL 0.1-0.5 H code = 1968-7) JARED (test code = JARED) Post Doctoral Fellow ID - PEREZ L Lab Interpretation (test Abnormal code = 77826-9) [facility] Center[facility]PRE[facility]ENSIVE MET[facility]OLIC [id number] 11:21:00 Test Item Value Reference Range Interpretation Comments TOTAL PROTEIN 7.5 gm/dL 6.0-8.3 (BEAKER) (test code = 770) ALBUMIN (BEAKER) 3.0 g/dL 3.5-5.0 L (test code = 1145) ALKALINE PHOSPHATASE 836 U/L 40-150 H (BEAKER) (test code = 346) BILIRUBIN TOTAL 14.1 mg/dL 0.2-1.2 H (BEAKER) (test code = 377) SODIUM (BEAKER) (test 127 meq/L 136-145 L code = 381) POTASSIUM (BEAKER) 4.1 meq/L 3.5-5.1 (test code = 379) CHLORIDE (BEAKER) 95 meq/L 98-107 L (test code = 382) CO2 (BEAKER) (test 25 meq/L 22-29 code = 355) BLOOD UREA NITROGEN 17 mg/dL 7-21 (BEAKER) (test code = 354) CREATININE (BEAKER) 0.62 mg/dL 0.57-1.25 (test code = 358) GLUCOSE RANDOM 71 mg/dL 70-105 (BEAKER) (test code = 652) CALCIUM (BEAKER) 9.4 mg/dL 8.4-10.2 (test code = 697) AST (SGOT) (BEAKER) 183 U/L 5-34 H (test code = 353) ALT (SGPT) (BEAKER) 147 U/L 6-55 H (test code = 347) EGFR (BEAKER) (test 94 mL/min/1.73 ESTIMA TONNY GFR IS code = 1092) sq m NOT ACCURATE CREATININE CLEARANCE IN PREDICTING GLOMERULAR FILTRATION RATE . ESTIMATED GFR I S NOT APPLICABLE FOR DIALYSIS PATIEN TS. Post Doctoral Fellow ID - PEREZ LSpecimen markedly ictericBILIRUBIN, [id number] 11:21:00 Test Item Value Reference Range Interpretation Comments BILIRUBIN DIRECT (BEAKER) (test 10.9 mg/dL 0.1-0.5 H code = 706) Post Doctoral Fellow ID Rio TODD LProthrombin time/[id number] 11:05:00 Test Item Value Reference Range Interpretation Comments Protime (test code = 15.4 11.9- 14.2 H 5902-2) seconds INR (test code = 1.25 <=5.90 6301-6) JARED (test code = JARED) Effective 09/06/2018: PT Reference Range ChangeNew: 11.9-14.2 Previous: 11.7-14.7 RECOMMENDED COUMADIN/WARFARIN INR THERAPY RANGESSTANDARD DOSE: 2.0-3.0 Includes: PROPHYLAXIS for venous thrombosis, systemic embolization; TREATMENT for venous thrombosis and/or pulmonary embolus.HIGH RISK: Target INR is 2.5-3.5 for patients wiht mechanical heart valves. Lab Interpretation Abnormal (test code = 54809-2) [facility] CenterPROTHROMBIN TIME/[id number] 11:05:00 Test Item Value Reference Range Interpretation Comments PROTIME (BEAKER) (test code = 15.4 seconds 11.9-14.2 H 759) INR (BEAKER) (test code = 370) 1.25 <=5.90 Effective 09/06/2018: PT Reference Range ChangeNew: 11.9-14.2 Previous: 11.7- 14.7RECOMMENDED COUMADIN/WARFARIN INR THERAPY RANGESSTANDARD DOSE: 2.0-3.0 Includes: PROPHYLAXIS for venous thrombosis, systemic embolization; TREATMENT for venous thrombosis and/or pulmonary embolus.HIGH RISK: Target INR is2.5-3.5 for patients wiht mechanical heart valves.CBC with platelet count + automated [id number] 11:01:00 Test Item Value Reference Range Interpretation Comments WBC (test code = 6690-2) 10.3 3.5- 10.5 K/L RBC (test code = 789-8) 3.19 3.93- 5.22 M/L L MCHC (test code = 786-4) 34.0 32.2- 35.5 GM/DL L Hematocrit (test code = 4544-3) 30.0 % 34.1-44.9 L MCV (test code = 787-2) 94.0 fL 79.4-94.8 MCH (test code = 785-6) 32.0 pg 25.6-32.2 RDW (test code = 788-0) 18.6 % 11.7-14.4 H Platelets (test code = 777-3) 167 150- 450 K/CU MM MPV (test code = 65424-1) 11.1 fL 9.4-12.3 nRBC (test code = 413) 0 0- 0 /100 WBC % Neutros (test code = 429) 80 % % Lymphs (test code = 430) 11 % % Monos (test code = 431) 5 % % Eos (test code = 432) 2 % % Baso (test code = 437) 1 % # Neutros (test code = 670) 8.24 1.56- 6.13 K/L H # Lymphs (test code = 414) 1.12 1.18- 3.74 K/L L # Monos (test code = 415) 0.56 0.24- 0.36 K/L H # Eos (test code = 416) 0.22 0.04- 0.36 K/L # Baso (test code = 417) 0.07 0.01- 0.08 K/L Immature Granulocytes-Relative 1 % 0-1 (test code = 2801) Lab Interpretation (test code = Abnormal 70297-7) [facility] W/PLT COUNT & AUTO [id number] 11:01:00 Test Item Value Reference Range Interpretation Comments WHITE BLOOD CELL COUNT (BEAKER) 10.3 K/ L 3.5-10.5 (test code = 775) RED BLOOD CELL COUNT (BEAKER) 3.19 M/ L 3.93-5.22 L (test code = 761) HEMOGLOBIN (BEAKER) (test code = 10.2 GM/DL 11.2-15.7 L 410) HEMATOCRIT (BEAKER) (test code = 30.0 % 34.1-44.9 L 411) MEAN CORPUSCULAR VOLUME (BEAKER) 94.0 fL 79.4-94.8 (test code = 753) MEAN CORPUSCULAR HEMOGLOBIN 32.0 pg 25.6-32.2 (BEAKER) (test code = 751) MEAN CORPUSCULAR HEMOGLOBIN CONC 34.0 GM/DL 32.2-35.5 (BEAKER) (test code = 752) RED CELL DISTRIBUTION WIDTH 18.6 % 11.7-14.4 H (BEAKER) (test code = 412) PLATELET COUNT (BEAKER) (test 167 K/CU MM 150-450 code = 756) MEAN PLATELET VOLUME (BEAKER) 11.1 fL 9.4-12.3 (test code = 754) NUCLEATED RED BLOOD CELLS 0 /100 WBC 0-0 (BEAKER) (test code = 413) NEUTROPHILS RELATIVE PERCENT 80 % (BEAKER) (test code = 429) LYMPHOCYTES RELATIVE PERCENT 11 % (BEAKER) (test code = 430) MONOCYTES RELATIVE PERCENT 5 % (BEAKER) (test code = 431) EOSINOPHILS RELATIVE PERCENT 2 % (BEAKER) (test code = 432) BASOPHILS RELATIVE PERCENT 1 % (BEAKER) (test code = 437) NEUTROPHILS ABSOLUTE COUNT 8.24 K/ L 1.56-6.13 H (BEAKER) (test code = 670) LYMPHOCYTES ABSOLUTE COUNT 1.12 K/ L 1.18-3.74 L (BEAKER) (test code = 414) MONOCYTES ABSOLUTE COUNT (BEAKER) 0.56 K/ L 0.24-0.36 H (test code = 415) EOSINOPHILS ABSOLUTE COUNT 0.22 K/ L 0.04-0.36 (BEAKER) (test code = 416) BASOPHILS ABSOLUTE COUNT (BEAKER) 0.07 K/ L 0.01-0.08 (test code = 417) IMMATURE GRANULOCYTES-RELATIVE 1 % 0-1 PERCENT (BEAKER) (test code = 2801) CBC with platelet count + automated [id number] 08:36:00 Test Item Value Reference Range Interpretation Comments WBC (test code = 8.2 3.4- 10.8 x10E3/uL 6121708) RBC (test code = 789-8) 3.31 3.77- 5.28 L x10E6/uL Hemoglobin (test code = 10.6 g/dL 11.1-15.9 L ) Hematocrit (test code = 30.1 % 34-46.6 L ) MCV (test code = 91 fL 79-97 ) MCH (test code = 32.0 pg 26.6-33 ) MCHC (test code = 35.2 g/dL 31.5-35.7 ) RDW (test code = 15.7 % 11.7-15.4 H ) Platelets (test code = 171 150- 450 x10E3/uL ) % Neutros (test code = 76 % Not Estab. ) % Lymphs (test code = 12 % Not Estab. ) % Monos (test code = 6 % Not Estab. ) % Eos (test code = 4 % Not Estab. ) % Baso (test code = 1 % Not Estab. ) # Neutros (test code = 6.3 1.4- 7.0 x10E3/uL ) # Lymphs (test code = 1.0 0.7- 3.1 x10E3/uL ) # Monos (test code = 0.5 0.1- 0.9 x10E3/uL ) # Eos (test code = 0.4 0.0- 0.4 x10E3/uL ) Baso (Absolute) (test 0.1 0.0- 0.2 x10E3/uL code = ) % Immature Grans (test 1 % Not Estab. code = ) # Immature Grans (test 0.1 0.0- 0.1 x10E3/uL code = ) JARED (test code = JARED) Performed at: [address] [place] [address] [id number] Director: James Le MD, Phone: [phone] Lab Interpretation (test Abnormal code = 24259-7) [facility] [id number] 12:09:00 Test Item Value Reference Range Interpretation Comments % Promyelo (manual) (test 1 % 0-0 H code = 7032166) JARED (test code = JARED) Performed at: [facility] [place], [place] [id number] Director: James Le MD, Phone: [phone] Lab Interpretation (test Abnormal code = 19920-2) [facility] Culture - Routine (Right Venipuncture) 2019-10-26 21:00:00 Test Item Value Reference Range Interpretation Comments Result (test code = No growth in 5 days 6463-4) [facility] [id number] 21:00:00 Test Item Value Reference Range Interpretation Comments CULTURE (BEAKER) (test No growth in 5 days code = 1095) BLOOD [id number] 16:01:00 Test Item Value Reference Range Interpretation Comments CULTURE (BEAKER) (test No growth in 5 days code = 1095) BLOOD [id number] 15:00:00 Test Item Value Reference Range Interpretation Comments CULTURE (BEAKER) (test No growth in 5 days code = 1095) BLOOD [id number] 02:01:00 Test Item Value Reference Range Interpretation Comments CULTURE (BEAKER) (test No growth in 5 days code = 1095) ECG 12 [id number] 14:06:52Interface, External Ris In - 10/23/2019 2:06 PM CDTVentricular Rate 64 BPMAtrial Rate 64 BPMP-R Interval 152 msQRS Duration 72 msQ-T Interval 394 msQTC Calculation(Bazett) 406 msP [place] 32 degreesR [place] -20 degreesT [place] 11 degreesNormal sinus rhythmPoor R wave progressionNo previous ECGs availableConfirmed by MD CHA, EDITH ([id number]) on 10/23/2019 2:06:50 PM [facility] [id number] 11:58:00 Test Item Value Reference Range Interpretation Comments CULTURE Positive; see A From Aerobic A nd (BEAKER) (test gram stain Anaerobic Bot tles code = 1095) results. Coagulase negat qing Staphylococcus GRAM STAIN From aerobic and RESULT (BEAKER) anaerobic (test code = bottles: gram 1123) positive cocci in clusters COMPREHENSIVE METABOLIC [id number] 09:09:00 Test Item Value Reference Range Interpretation Comments TOTAL PROTEIN 6.5 gm/dL 6.0-8.3 (BEAKER) (test code = 770) ALBUMIN (BEAKER) 2.6 g/dL 3.5-5.0 L (test code = 1145) ALKALINE PHOSPHATASE 762 U/L 40-150 H (BEAKER) (test code = 346) BILIRUBIN TOTAL 16.4 mg/dL 0.2-1.2 H (BEAKER) (test code = 377) SODIUM (BEAKER) (test 129 meq/L 136-145 L code = 381) POTASSIUM (BEAKER) 4.2 meq/L 3.5-5.1 (test code = 379) CHLORIDE (BEAKER) 99 meq/L 98-107 (test code = 382) CO2 (BEAKER) (test 24 meq/L 22-29 code = 355) BLOOD UREA NITROGEN 10 mg/dL 7-21 (BEAKER) (test code = 354) CREATININE (BEAKER) 0.63 mg/dL 0.57-1.25 (test code = 358) GLUCOSE RANDOM 83 mg/dL 70-105 (BEAKER) (test code = 652) CALCIUM (BEAKER) 9.0 mg/dL 8.4-10.2 (test code = 697) AST (SGOT) (BEAKER) 145 U/L 5-34 H (test code = 353) ALT (SGPT) (BEAKER) 138 U/L 6-55 H (test code = 347) EGFR (BEAKER) (test 92 mL/min/1.73 ESTIMA TONNY GFR IS code = 1092) sq m NOT ACCURATE CREATININE CLEARANCE IN PREDICTING GLOMERULAR FILTRATION RATE . ESTIMATED GFR I S NOT APPLICABLE FOR DIALYSIS PATIEN TS. Post Doctoral Fellow ID - PIAYA LSpecimen markedly ictericPROTHROMBIN [id number] 08:58:00 Test Item Value Reference Range Interpretation Comments PROTIME (BEAKER) (test code = 16.5 seconds 11.9-14.2 H 759) INR (BEAKER) (test code = 370) 1.4 <=5.9 Effective 09/06/2018: PT Reference Range ChangeNew: 11.9-14.2 Previous: 11.7- 14.7RECOMMENDED COUMADIN/WARFARIN INR THERAPY RANGESSTANDARD DOSE: 2.0-3.0 Includes: PROPHYLAXIS for venous thrombosis, systemic embolization; TREATMENT for venous thrombosis and/or pulmonary embolus.HIGH RISK: Target INR is2.5-3.5 for patients wiht mechanical heart valves.CBC W/PLT COUNT & AUTO [id number] 08:51:00 Test Item Value Reference Range Interpretation Comments WHITE BLOOD CELL COUNT (BEAKER) 4.6 K/ L 3.5-10.5 (test code = 775) RED BLOOD CELL COUNT (BEAKER) 3.13 M/ L 3.93-5.22 L (test code = 761) HEMOGLOBIN (BEAKER) (test code = 10.0 GM/DL 11.2-15.7 L 410) HEMATOCRIT (BEAKER) (test code = 29.2 % 34.1-44.9 L 411) MEAN CORPUSCULAR VOLUME (BEAKER) 93.3 fL 79.4-94.8 (test code = 753) MEAN CORPUSCULAR HEMOGLOBIN 31.9 pg 25.6-32.2 (BEAKER) (test code = 751) MEAN CORPUSCULAR HEMOGLOBIN CONC 34.2 GM/DL 32.2-35.5 (BEAKER) (test code = 752) RED CELL DISTRIBUTION WIDTH 17.9 % 11.7-14.4 H (BEAKER) (test code = 412) PLATELET COUNT (BEAKER) (test 119 K/CU MM 150-450 L code = 756) MEAN PLATELET VOLUME (BEAKER) 9.9 fL 9.4-12.3 (test code = 754) NUCLEATED RED BLOOD CELLS 0 /100 WBC 0-0 (BEAKER) (test code = 413) NEUTROPHILS RELATIVE PERCENT 68 % (BEAKER) (test code = 429) LYMPHOCYTES RELATIVE PERCENT 20 % (BEAKER) (test code = 430) MONOCYTES RELATIVE PERCENT 6 % (BEAKER) (test code = 431) EOSINOPHILS RELATIVE PERCENT 4 % (BEAKER) (test code = 432) BASOPHILS RELATIVE PERCENT 1 % (BEAKER) (test code = 437) NEUTROPHILS ABSOLUTE COUNT 3.14 K/ L 1.56-6.13 (BEAKER) (test code = 670) LYMPHOCYTES ABSOLUTE COUNT 0.92 K/ L 1.18-3.74 L (BEAKER) (test code = 414) MONOCYTES ABSOLUTE COUNT (BEAKER) 0.28 K/ L 0.24-0.36 (test code = 415) EOSINOPHILS ABSOLUTE COUNT 0.20 K/ L 0.04-0.36 (BEAKER) (test code = 416) BASOPHILS ABSOLUTE COUNT (BEAKER) 0.04 K/ L 0.01-0.08 (test code = 417) IMMATURE GRANULOCYTES-RELATIVE 1 % 0-1 PERCENT (BEAKER) (test code = 2801) Urine [id number] 14:11:00 Test Item Value Reference Range Interpretation Comments Result (test code = See comment 6463-4) JARED (test code = JARED) <10,000 col/mL [facility] 05:34:00 Test Item Value Reference Range Interpretation Comments Magnesium (test code = 1.7 mg/dL 1.6-2.6 56050-7) JARED (test code = JARED) Post Doctoral Fellow ID - PEREZ L Lab Interpretation (test Normal code = 16853-4) [facility]2020-07-12 05:34:00 Test Item Value Reference Range Interpretation Comments MAGNESIUM (BEAKER) (test code = 1.7 mg/dL 1.6-2.6 627) Post Doctoral Fellow ID - PIAYA LCOMPREHENSIVE METABOLIC [id number] 05:34:00 Test Item Value Reference Range Interpretation Comments TOTAL PROTEIN 6.0 gm/dL 6.0-8.3 (BEAKER) (test code = 770) ALBUMIN (BEAKER) 2.5 g/dL 3.5-5.0 L (test code = 1145) ALKALINE PHOSPHATASE 725 U/L 40-150 H (BEAKER) (test code = 346) BILIRUBIN TOTAL 15.6 mg/dL 0.2-1.2 H (BEAKER) (test code = 377) SODIUM (BEAKER) (test 125 meq/L 136-145 L code = 381) POTASSIUM (BEAKER) 4.0 meq/L 3.5-5.1 (test code = 379) CHLORIDE (BEAKER) 95 meq/L 98-107 L (test code = 382) CO2 (BEAKER) (test 24 meq/L 22-29 code = 355) BLOOD UREA NITROGEN 12 mg/dL 7-21 (BEAKER) (test code = 354) CREATININE (BEAKER) 0.60 mg/dL 0.57-1.25 (test code = 358) GLUCOSE RANDOM 87 mg/dL 70-105 (BEAKER) (test code = 652) CALCIUM (BEAKER) 8.7 mg/dL 8.4-10.2 (test code = 697) AST (SGOT) (BEAKER) 172 U/L 5-34 H (test code = 353) ALT (SGPT) (BEAKER) 152 U/L 6-55 H (test code = 347) EGFR (BEAKER) (test 97 mL/min/1.73 ESTIMA TONNY GFR IS code = 1092) sq m NOT ACCURATE CREATININE CLEARANCE IN PREDICTING GLOMERULAR FILTRATION RATE . ESTIMATED GFR I S NOT APPLICABLE FOR DIALYSIS PATIEN TS. Post Doctoral Fellow ID - PIAYA LSpecimen markedly ictericCBC W/PLT COUNT & AUTO [id number] 04:52:00 Test Item Value Reference Range Interpretation Comments WHITE BLOOD CELL COUNT (BEAKER) 6.6 K/ L 3.5-10.5 (test code = 775) RED BLOOD CELL COUNT (BEAKER) 2.76 M/ L 3.93-5.22 L (test code = 761) HEMOGLOBIN (BEAKER) (test code = 9.2 GM/DL 11.2-15.7 L 410) HEMATOCRIT (BEAKER) (test code = 25.6 % 34.1-44.9 L 411) MEAN CORPUSCULAR VOLUME (BEAKER) 92.8 fL 79.4-94.8 (test code = 753) MEAN CORPUSCULAR HEMOGLOBIN 33.3 pg 25.6-32.2 H (BEAKER) (test code = 751) MEAN CORPUSCULAR HEMOGLOBIN CONC 35.9 GM/DL 32.2-35.5 H (BEAKER) (test code = 752) RED CELL DISTRIBUTION WIDTH 17.8 % 11.7-14.4 H (BEAKER) (test code = 412) PLATELET COUNT (BEAKER) (test 111 K/CU MM 150-450 L code = 756) MEAN PLATELET VOLUME (BEAKER) 10.4 fL 9.4-12.3 (test code = 754) NUCLEATED RED BLOOD CELLS 0 /100 WBC 0-0 (BEAKER) (test code = 413) NEUTROPHILS RELATIVE PERCENT 74 % (BEAKER) (test code = 429) LYMPHOCYTES RELATIVE PERCENT 15 % (BEAKER) (test code = 430) MONOCYTES RELATIVE PERCENT 7 % (BEAKER) (test code = 431) EOSINOPHILS RELATIVE PERCENT 3 % (BEAKER) (test code = 432) BASOPHILS RELATIVE PERCENT 1 % (BEAKER) (test code = 437) NEUTROPHILS ABSOLUTE COUNT 4.90 K/ L 1.56-6.13 (BEAKER) (test code = 670) LYMPHOCYTES ABSOLUTE COUNT 0.96 K/ L 1.18-3.74 L (BEAKER) (test code = 414) MONOCYTES ABSOLUTE COUNT (BEAKER) 0.47 K/ L 0.24-0.36 H (test code = 415) EOSINOPHILS ABSOLUTE COUNT 0.22 K/ L 0.04-0.36 (BEAKER) (test code = 416) BASOPHILS ABSOLUTE COUNT (BEAKER) 0.04 K/ L 0.01-0.08 (test code = 417) IMMATURE GRANULOCYTES-RELATIVE 1 % 0-1 PERCENT (BEAKER) (test code = 2801) Blood Culture Panel([employer])2019-10-21 01:08:00 Test Item Value Reference Interpretation Comments Range LISTERIA MONOCYTOGENES Not detected Not detected (test code = 68173-0) STAPHYLOCOCCUS (test Detected Not detected A Coagula se code = 43080-1) negative Sta ph species (CoNS)- methicillin resistantFirst- li ne therapy: Vancomycin MecA DETECTED Possib le contamination. The likelihood of pathogenicity i s increased if th e organism is observed in multiple blood cultures obtain ed from separate venipunctures. Reference Range : Not Detected STAPHYLOCOCCUS AUREUS Not detected Not detected (test code = 21428-4) Streptococcus (test Not detected Not detected code = 34499-8) STREPTOCOCCUS Not detected Not detected AGALACTIAE (GROUP B) (test code = 41626-7) STREPTOCOCCUS Not detected Not detected PNEUMONIAE (test code = 14434-4) Streptococcus pyogenes Not detected Not detected (Group A) (test code = 85076-6) ACINETOBACTER BAUMANNII Not detected Not detected (test code = 96301-0) HAEMOPHILUS INFLUENZAE Not detected Not detected (test code = 01308-7) NEISSERIA MENINGITIDIS Not detected Not detected (test code = 52867-6) ENTEROBACTERIACEAE Not detected Not detected (test code = 77886-0) ENTEROBACTER CLOACOE Not detected Not detected COMPLEX (test code = 04177-8) KLEBSIELLA OXYTOCA Not detected Not detected (test code = 60531-6) KLEBSIELLA PNEUMONIAE Not detected Not detected (test code = 93377-3) PROTEUS (test code = Not detected Not detected 82980-3) SERRATIA MARCESCENS Not detected Not detected (test code = 62148-5) ANDREINA ALBICANS (test Not detected Not detected code = 84995-2) ANDREINA GLABRATA (test Not detected Not detected code = 83024-9) ANDREINA KRUSEI (test Not detected Not detected code = 43349-3) ANDREINA PARAPSILOSIS Not detected Not detected (test code = 02982-4) ANDREINA TROPICALIS Not detected Not detected (test code = 12536-4) ESCHERICHIA COLI (test Not detected Not detected code = 01986-8) METHICILLIN-RESISTANCE Detected Not detected A GENE (test code = 79456-5) VANCOMYCIN-RESISTANCE GENE (test code = 68087-1) CARBAPENEM-RESISTANCE GENE (test code = 59112-6) ENTEROCOCCUS (test code Not detected Not detected = 36235-5) PSEUDOMONAS AERUGINOSA Not detected Not detected (test code = 02041-3) JARED (test code = JARED) Other bacteria and resistance markers not targeted by this PCR panel cannot be excluded; therefore clinical correlation and follow up of serology, culture results, and other molecular studies is required. The results are not intended to be used as the sole means for clinical diagnosis or patient management decisions. This sample was tested at the [facility] using the [employer] Blood Culture ID Panel. It is FDA cleared and has been verified and approved by the [facility] for clinical use. This laboratory is CLIA-certified and [employer] [place] [employer] (CAP)-accredited to perform high complexity testing. Lab Interpretation Abnormal (test code = 51410-3) [facility] [id number] 01:08:00 Test Item Value Reference Range Interpretation Comments LISTERIA MONOCYTOGENES Not detected Not detected (test code = 6649727) STAPHYLOCOCCUS (test Detected Not detected A Coagula se negative code = 3866986) Staph specie s (CoNS)- methicillin resistantFirst- genesis e therapy: Vancomycin MecA DETECTED Possib le contamination. The likelihood of pathogenicity i s increased if th e organism is observed in multiple blood cultures obtain ed from separate venipunctures. Reference Range : Not Detected STAPHYLOCOCCUS AUREUS Not detected Not detected (test code = 9050750) STREPTOCOCCUS (test code Not detected Not detected = 7054915) STREPTOCOCCUS AGALACTIAE Not detected Not detected (GROUP B) (test code = 4646900) STREPTOCOCCUS PNEUMONIAE Not detected Not detected (test code = 5243847) STREPTOCOCCUS PYOGENES Not detected Not detected (GROUP A) (test code = 1231983) ACINETOBACTER BAUMANNII Not detected Not detected (test code = 5587879) HAEMOPHILUS INFLUENZAE Not detected Not detected (test code = 3276200) NEISSERIA MENINGITIDIS Not detected Not detected (test code = 2387496) ENTEROBACTERIACEAE (test Not detected Not detected code = 1774279) ENTEROBACTER CLOACOE Not detected Not detected COMPLEX (test code = 1421830) KLEBSIELLA OXYTOCA (test Not detected Not detected code = 7550880) KLEBSIELLA PNEUMONIAE Not detected Not detected (test code = 1650) PROTEUS (test code = Not detected Not detected 8858021) SERRATIA MARCESCENS Not detected Not detected (test code = 4800781) ANDREINA ALBICANS (test Not detected Not detected code = 8810749) ANDREINA GLABRATA (test Not detected Not detected code = 5884457) ANDREINA KRUSEI (test Not detected Not detected code = 2612798) ANDREINA PARAPSILOSIS Not detected Not detected (test code = 1241126) ANDREINA TROPICALIS (test Not detected Not detected code = 0081168) ESCHERICHIA COLI (test Not detected Not detected code = 0022480) METHICILLIN-RESISTANCE Detected Not detected A GENE (test code = 2921293) VANCOMYCIN-RESISTANCE GENE (test code = 4831733) CARBAPENEM-RESISTANCE GENE (test code = 6637060) ENTEROCOCCUS-BEAKER Not detected Not detected (test code = 4350916) PSEUDOMONAS Not detected Not detected AERUGINOSA-BEAKER (test code = 0857284) Other bacteria and resistance markers not targeted by this PCR panel cannot be excluded; therefore clinical correlation and follow up of serology, culture results, and other molecular studies is required. The results are not intended to be used as the sole means for clinical diagnosis or patient management decisions. This sample was tested at the [facility] using the [employer] Blood Culture ID Panel. It is FDA cleared and has been verified and approved by the [facility] for clinical use. This laboratory is CLIA-certified and College ofAmerican Pathologists (CAP)-accredited to perform high complexity testing.Urinalysis w/Microscopic + Reflex to [id number] 12:08:00 Test Item Value Reference Range Interpretation Comments Color, UA (test code = Brown 5778-6) Clarity, UA (test code = Hazy 5767-9) Specific Baskin, UA (test 1.047 1.001-1.035 H code = 5811-5) pH, UA (test code = 5.5 5.0-8.0 5803-2) Protein, UA (test code = 20 mg/dL Negative A 72902-1) Glucose, UA (test code = Negative Negative 365) Ketones, UA (test code = Negative Negative 2514-8) Bilirubin, UA (test code = Positive Negative A 98135-8) Blood, UA (test code = Negative Negative 06855-8) Nitrite, UA (test code = Negative Negative 5802-4) Leukocytes, UA (test code Moderate Negative A = 5799-2) Urobilinogen, UA (test 2.0 mg/dL 0.2-1 H code = 91114-7) RBC, UA (test code = 7 /HPF 28728-2) WBC, UA (test code = 13 /HPF 5821-4) Bacteria, UA (test code = Moderate 55798-9) Mucus (test code = 8247-9) Rare Squam Epithel, UA (test 7 /HPF code = 59132-6) Amorphous Crystals (test Rare code = 43776-7) Specimen Source (test code = 2795) JARED (test code = JARED) Post Doctoral Fellow ID - [auto]Post Doctoral Fellow ID - tech Lab Interpretation (test Abnormal code = 08696-8) [facility] URINE [id number] 12:08:00 Test Item Value Reference Range Interpretation Comments COLOR (BEAKER) (test code = 470) Brown CLARITY (BEAKER) (test code = 469) Hazy SPECIFIC GRAVITY UA (BEAKER) (test 1.047 1.001-1.035 H code = 468) PH UA (BEAKER) (test code = 467) 5.5 5.0-8.0 PROTEIN UA (BEAKER) (test code = 20 mg/dL Negative A 464) GLUCOSE UA (BEAKER) (test code = Negative Negative 365) KETONES UA (BEAKER) (test code = Negative Negative 371) BILIRUBIN UA (BEAKER) (test code = Positive Negative A 462) BLOOD UA (BEAKER) (test code = 461) Negative Negative NITRITE UA (BEAKER) (test code = Negative Negative 465) LEUKOCYTE ESTERASE UA (BEAKER) Moderate Negative A (test code = 466) UROBILINOGEN UA (BEAKER) (test code 2.0 mg/dL 0.2-1.0 H = 463) RBC UA (BEAKER) (test code = 519) 7 /HPF WBC UA (BEAKER) (test code = 520) 13 /HPF BACTERIA (BEAKER) (test code = 517) Moderate MUCUS (BEAKER) (test code = 1574) Rare SQUAMOUS EPITHELIAL (BEAKER) (test 7 /HPF code = 516) AMORPHOUS CRYSTALS (BEAKER) (test Rare code = 1584) SOURCE(BEAKER) (test code = 2795) Post Doctoral Fellow ID - [auto]Post Doctoral Fellow ID - techSARS-CoV2/RT-PCR (Symptomatic ONLY) 2019-10-20 09:48:00 Test Item Value Reference Range Interpretation Comments SARS-COV2/RT-PCR Not Detected Not Detected, (test code = Negative 02622-7) SARS-COV-2 [facility] (test code = 31305-0) JARED (test code = Negative results do not JARED) preclude SARS-CoV-2 infection and should not be used as [...] of the Act. Fact Sheet for Healthcare Providers:https://www.[employer]/Documents/Xper t%20Xpress%20SARS%20CoV- 2/Fact%20Sheets/302-3802 %48TIDU-VPY-0%20HEALTHCA RE%20PROVIDERS%20FACT%20 SHEET.pdf Fact Sheet for Healthcare Patients:https://www.[employer]/Documents/Xpert %20Xpress%20SARS%20CoV-2 /Fact%20Sheets/302-3801% 23GAGU-VCG-0%20PATIENT%2 0FACT%20SHEET.pdf Performing Laboratory:[facility] [address] [facility])2019-10-20 09:48:00 Test Item Value Reference Range Interpretation Comments SARS-COV2/RT-PCR (test Not Detected Not Detected, Negative code = 8223386) SARS-COV-[address] [facility] (test code = 6527062) Negative results do not preclude SARS-CoV-2 infection and should not be used as the sole basis for patient management decisions. Negative results must be combined with clinical observations, patient history, and epidemiological information. A false negative result may occur if a specimen is improperly collected, transported or handled.The limit of detection for this assay is 250 copies/mL.This SARS CoV-2 test is a rapid, real-time RT-PCR test intended for the qualitative detection of nucleic acid from SARS-CoV-2 in a nasopharyngeal swab specimen collected from individuals suspected of COVID-19 by their healthcare provider.This test has not been Food and Drug [...] is revoked under Section 564(g) of the Act.Fact Sheet for Healthcare Pro viders:https://www.[employer]Documents/Xpert%20Xpress%20SARS%20CoV-2/Fact%20Sh eets/302-3802%02CGCA-FJD-5%20HEALTHCARE%20PROVIDERS%20FACT%20SHEET.pdfFact Sheet for Healthcare Patients:https://www.[employer]/Documents/Xpert%20Xpress%20SARS%20CoV-2/Fact%20Sheets/302-3801%20SARS-COV -2%20PATIENT%20FACT%20SHEET.pdfPerforming Laboratory:[facility], [place] [id number] 08:30:00 Test Item Value Reference Range Interpretation Comments Ammonia (test code = 39 18- 72 mol/L 77800-6) JARED (test code = JARED) Post Doctoral Fellow ID - PEREZ L Lab Interpretation (test Normal code = 75259-8) [facility]2020-07-11 08:30:00 Test Item Value Reference Range Interpretation Comments AMMONIA (BEAKER) (test code = 348) 39 mol/L 18-72 Post Doctoral Fellow ID - PEREZ LRAD, CHEST, 1 VIEW, NON [id number] 06:39:00Referring: Dr. Casper Allen for exam:->ABDOMINAL PAINShould this be performed at the bedside?->YesFINAL REPORT Chest one view. Clinical history: ABDOMINAL PAIN Comparison: Chest radiograph 10/19/2019. Technique: A single frontal view of the chest was obtained. Findings: The heart is normal size. There is an opacity overlying the left lower hemithorax consistent with a hiatal hernia. There is no focal pulmonary consolidation, pleural effusion or pneumothorax. There is no pulmonary edema.There are surgical clips in the right upper quadrant.There is a thoracolumbar scoliosis. Impression:Hiatal hernia. No focal pulmonary consolidation. Signed: Brian Garcia MDReport VerifiedDate/Time: 10/20/2019 06:39:59 06:39 AMXR chest 1 view portable / [id number] 06:39:00Interface, External Ris In - 10/20/2019 6:42 AM CDTFINAL REPORT Chest one view. Clinical history: ABDOMINAL PAIN Comparison: Chest radiograph 10/19/2019. Technique: A single frontal view of the chest was obtained. Findings: The heart is normal size. There is an opacity overlying the left lower hemithorax consistent with a hiatal hernia. There is no focal pulmonary consolidation, pleural effusion or pneumothorax. There is no pulmonary edema.There are surgical clips in the right upper quadrant.There is a thoracolumbar scoliosis. Impression:Hiatal hernia. No focal pulmonary consolidation. Signed: Brian Garcia MDReport Verified Date/Time: 10/20/2019 06:39:59 [facility] 05:06:00Referring: Dr. Casper Allen for exam:- >ABDOMINAL PAINWhat is the patient's sedation requirement?->No Sedation FINAL REPORT EXAM: CT of the abdomen and pelvis, with contrast CLINICAL HISTORY: Abdominal pain and fever. TECHNIQUE: CT of the abdomen and pelvis was performed with intravenous contrast administration. This exam was performed according to our departmental dose optimization program which includes automated exposure control, adjustment of the mA and/or kV according to patient'ssize and/or use of iterative reconstructive technique. COMPARISON: None FINDINGS: LOWER CHEST: Large hiatal hernia.LIVER: Cirrhosis.BILE DUCTS: Within normal limits.GALL BLADDER: Status post cholecyste ctomy.PANCREAS: Within normal limits.SPLEEN: Splenomegaly.ADRENALS: Within normal limits.KIDNEYS/URETERS: 4.4 cm right parapelvic renal cyst. Subcentimeter left renal hypodensity too small to characterize. No hydroureteronephrosis or radiopaque stones. PELVIC ORGANS: Pessary in place. Unremarkable urinary bladder and uterus. No adnexal mass. BOWEL/MESENTERY: Stool-filled colon. No bowel obstruction or abnormal wall thickening. Normal appendix.PERITONEUM/RETROPERITONEUM: No free air, free fluid or fluid collection. VESSELS: Upper abdominal varices in keeping with portal hypertension. Calcific atherosclerosis. No abdominal aortic aneurysm. LYMPH NODES: No abdominal or pelvic lymphadenopathy.SOFT TISSUES: Within normal limits.BONES: Multilevel degenerative changes of the visualized spine. Benign-appearing lucent lesion in the L5 vertebral body with mildly sclerotic borders. Lumbar levoscoliosis.IMPRESSION:Status post cholecystectomy.Cirrhosis and evidence of portal hypertension.Large hiatal hernia. Stool-filled colon. Normal appendix. No bowel obstruction, free air or fluid collection. Signed: Brian Garcia Verified Date/Time: 10/20/2019 05:06:47 CT abdomen pelvis with IV [id number] 05:06:00Interface, External Ris In - 10/20/2019 5:10 AM CDTFINAL REPORT EXAM: CT of the abdomen and pelvis, with contrast CLINICAL HISTORY: Abdominal pain and fever. TECHNIQUE: CT of the abdomen and pelvis was performed with intravenous contrast administration. This exam was performedaccording to our departmental dose optimization program which includes automated exposure control, adjustment of the mA and/or kV according to patient's size and/or use of iterative reconstructive technique. COMPARISON: None FINDINGS: LOWER CHEST: Large hiatal hernia.LIVER: Cirrhosis.BILE DUCTS: Within normal limits.GALL BLADDER: Status post cholecystectomy.PANCREAS: Within normal limits.SPLEEN: Sple nomegaly.ADRENALS: Within normal limits.KIDNEYS/URETERS: 4.4 cm right parapelvic renal cyst. Subcentimeter left renal hypodensity too small to characterize. No hydroureteronephrosis or radiopaque stones. PELVIC ORGANS: Pessary in place. Unremarkable urinary bladder and uterus. No adnexal mass. BOWEL/MESENTERY: Stool-filled colon. No bowel obstruction or abnormal wall thickening. Normal appendix.PERITONEUM/RETROPERITONEUM: No free air, free fluid or fluid collection. VESSELS: Upper abdominal varicesin keeping with portal hypertension. Calcific atherosclerosis. No abdominal aortic aneurysm. LYMPH NODES: No abdominal or pelvic lymphadenopathy.SOFT TISSUES: Within normal limits.BONES: Multilevel degenerative changes of the visualized spine. Benign-appearing lucent lesion in the L5 vertebral body with mildly sclerotic borders. Lumbar levoscoliosis. IMPRESSION:Status post cholecystectomy.Cirrhosisand evidence of portal hypertension.Large hiatal hernia. Stool-filled colon. Normal appendix. No bowel obstruction, free air or fluid collection. Signed: Brian Garcia Verified Date/Time: 10/20/2019 05:06:47 [facility] Troponin I (not available at [facility] [place])2019-10-20 01:36:00 Test Item Value Reference Range Interpretation Comments Troponin I (test code = <0.01 0-0.03 69800-8) JARED (test code = JARED) Troponin I (TnI) levels must be interpreted in the context of the presenting symptoms and the clinical findings. Elevated TnI levels indicate myocardial damage, but are not specific for ischemic heart disease. Elevated TnI levels are seen in patients with other cardiac conditions (including myocarditis and congestive heart failure), and slight TnI elevations occur in patients with other conditions, including sepsis, renal failure, acidosis, acute neurological disease, and persistent tachyarrhythmia.Opera tor ID - PIAYA L Lab Interpretation (test Normal code = 53366-4) [facility]OP[facility] [id number] 01:36:00 Test Item Value Reference Range Interpretation Comments TROPONIN I (BEAKER) (test code = 397) < ng/mL 0.00-0.03 Troponin I (TnI) levels must be interpreted in the context of the presenting symptoms and the clinical findings. Elevated TnI levels indicate myocardial damage, but are not specific for ischemic heart disease. Elevated TnI levels are seen in patients with other cardiac conditions (including myocarditis and congestive heart failure), and slight TnI elevations occur in patients with other conditions, including sepsis, renal failure, acidosis, acute neurological disease, and persistent tachyarrhythmia.Post Doctoral Fellow ID - PIAYA LBasic metabolic panel (Na, K+, Cl, CO2, Glu, Ca, BUN, Cr)2019-10-20 01:29:00 Test Item Value Reference Range Interpretation Comments Sodium (test code = 125 meq/L 136-145 L 2951-2) Potassium (test code 3.9 meq/L 3.5-5.1 = 2823-3) Chloride (test code = 92 meq/L 98-107 L 2075-0) CO2 (test code = 30 meq/L 22-29 H 8-9) BUN (test code = 14 mg/dL 7-21 3094-0) Creatinine (test code 0.69 mg/dL 0.57-1.25 = 2160-0) Glucose (test code = 107 mg/dL 70-105 H 2345-7) Calcium (test code = 9.4 mg/dL 8.4-10.2 17748-9) EGFR (test code = 83 mL/min/1.73 [place] [address]-2) NOT ACCURATE CREATININE CLEARANCE IN PREDICTING GLOMERULAR FILTRATION RATE . ESTIMATED GFR I S NOT APPLICABLE FOR DIALYSIS PATIENTS. JARED (test code = JARED) Post Doctoral Fellow ID - PEREZ Malik markedly icteric Lab Interpretation Abnormal (test code = 50905-4) [facility] CenterLiver [id number] 01:29:00 Test Item Value Reference Range Interpretation Comments Protein, Total (test code 7.6 6.0- 8.3 gm/dL = 2885-2) Albumin (test code = 3.1 g/dL 3.5-5 L 08955-9) Total Bilirubin (test 18.2 mg/dL 0.2-1.2 H code = 1974-2) Bilirubin, Direct (test 13.6 mg/dL 0.1-0.5 H code = 1967-7) Alkaline Phosphatase 916 U/L 40-150 H (test code = 6768-6) AST (test code = 1920-8) 201 U/L 5-34 H ALT (test code = 1742-6) 179 U/L 6-55 H JARED (test code = JARED) Post Doctoral Fellow ID - PEREZ Malik markedly icteric Lab Interpretation (test Abnormal code = 38646-6) [facility] 01:29:00 Test Item Value Reference Range Interpretation Comments Lipase (test code = 23 U/L 8-78 3040-3) JARED (test code = JARED) Post Doctoral Fellow ID - PEREZ JUNEpecimetj markedly icteric Lab Interpretation (test Normal code = 00245-9) [facility] Center[facility]IC METABOLIC [id number] 01:29:00 Test Item Value Reference Range Interpretation Comments SODIUM (BEAKER) 125 meq/L 136-145 L (test code = 381) POTASSIUM (BEAKER) 3.9 meq/L 3.5-5.1 (test code = 379) CHLORIDE (BEAKER) 92 meq/L 98-107 L (test code = 382) CO2 (BEAKER) (test 30 meq/L 22-29 H code = 355) BLOOD UREA NITROGEN 14 mg/dL 7-21 (BEAKER) (test code = 354) CREATININE (BEAKER) 0.69 mg/dL 0.57-1.25 (test code = 358) GLUCOSE RANDOM 107 mg/dL 70-105 H (BEAKER) (test code = 652) CALCIUM (BEAKER) 9.4 mg/dL 8.4-10.2 (test code = 697) EGFR (BEAKER) (test 83 mL/min/1.73 ESTIMA TONNY GFR IS code = 1092) sq m NOT ACCURATE CREATININE CLEARANCE IN PREDICTING GLOMERULAR FILTRATION RATE . ESTIMATED GFR I S NOT APPLICABLE FOR DIALYSIS PATIEN TS. Post Doctoral Fellow ID Rio Malik markedly ictericHEPATIC FUNCTION [id number] 01:29:00 Test Item Value Reference Range Interpretation Comments TOTAL PROTEIN (BEAKER) (test code 7.6 gm/dL 6.0-8.3 = 770) ALBUMIN (BEAKER) (test code = 3.1 g/dL 3.5-5.0 L 1145) BILIRUBIN TOTAL (BEAKER) (test 18.2 mg/dL 0.2-1.2 H code = 377) BILIRUBIN DIRECT (BEAKER) (test 13.6 mg/dL 0.1-0.5 H code = 706) ALKALINE PHOSPHATASE (BEAKER) 916 U/L 40-150 H (test code = 346) AST (SGOT) (BEAKER) (test code = 201 U/L 5-34 H 353) ALT (SGPT) (BEAKER) (test code = 179 U/L 6-55 H 347) Post Doctoral Fellow ID - PEREZ Malik markedly [id number] 01:29:00 Test Item Value Reference Range Interpretation Comments LIPASE (BEAKER) (test code = 749) 23 U/L 8-78 Post Doctoral Fellow ID iRo Anthonyimen markedly [id number] 01:13:00 Test Item Value Reference Range Interpretation Comments PTT (test code = 34613-4) 39.0 22.5- 36.0 seconds H Lab Interpretation (test code = Abnormal 59795-3) [facility] 01:13:00 Test Item Value Reference Range Interpretation Comments PARTIAL THROMBOPLASTIN TIME 39.0 seconds 22.5-36.0 H (BEAKER) (test code = 760) Lactic acid, venous [id number] 01:12:00 Test Item Value Reference Range Interpretation Comments Lactate, Venous (test 0.91 mmol/L 0.5-2.2 code = 2872) JARED (test code = JARED) Post Doctoral Fellow ID - PEREZ JUNEarnollali markedly icteric Lab Interpretation (test Normal code = 38711-3) [facility] CenterPROTHROMBIN TIME/[id number] 01:12:00 Test Item Value Reference Range Interpretation Comments PROTIME (BEAKER) (test code = 19.0 seconds 11.9-14.2 H 759) INR (BEAKER) (test code = 370) 1.6 <=5.9 Effective 09/06/2018: PT Reference Range ChangeNew: 11.9-14.2 Previous: 11.7- 14.7RECOMMENDED COUMADIN/WARFARIN INR THERAPY RANGESSTANDARD DOSE: 2.0-3.0 Includes: PROPHYLAXIS for venous thrombosis, systemic embolization; TREATMENT for venous thrombosis and/or pulmonary embolus.HIGH RISK: Target INR is2.5-3.5 for patients wiht mechanical heart valves.LACTIC ACID, [id number] 01:12:00 Test Item Value Reference Range Interpretation Comments LACTATE BLOOD VENOUS (2) (BEAKER) 0.91 mmol/L 0.50-2.20 (test code = 2872) Post Doctoral Fellow ID - PEREZ Malik markedly ictericCBC W/PLT COUNT & AUTO [id number] 01:06:00 Test Item Value Reference Range Interpretation Comments WHITE BLOOD CELL COUNT (BEAKER) 14.0 K/ L 3.5-10.5 H (test code = 775) RED BLOOD CELL COUNT (BEAKER) 3.52 M/ L 3.93-5.22 L (test code = 761) HEMOGLOBIN (BEAKER) (test code = 11.5 GM/DL 11.2-15.7 410) HEMATOCRIT (BEAKER) (test code = 33.0 % 34.1-44.9 L 411) MEAN CORPUSCULAR VOLUME (BEAKER) 93.8 fL 79.4-94.8 (test code = 753) MEAN CORPUSCULAR HEMOGLOBIN 32.7 pg 25.6-32.2 H (BEAKER) (test code = 751) MEAN CORPUSCULAR HEMOGLOBIN CONC 34.8 GM/DL 32.2-35.5 (BEAKER) (test code = 752) RED CELL DISTRIBUTION WIDTH 18.1 % 11.7-14.4 H (BEAKER) (test code = 412) PLATELET COUNT (BEAKER) (test 154 K/CU MM 150-450 code = 756) MEAN PLATELET VOLUME (BEAKER) 10.7 fL 9.4-12.3 (test code = 754) NUCLEATED RED BLOOD CELLS 0 /100 WBC 0-0 (BEAKER) (test code = 413) NEUTROPHILS RELATIVE PERCENT 85 % (BEAKER) (test code = 429) LYMPHOCYTES RELATIVE PERCENT 7 % (BEAKER) (test code = 430) MONOCYTES RELATIVE PERCENT 5 % (BEAKER) (test code = 431) EOSINOPHILS RELATIVE PERCENT 1 % (BEAKER) (test code = 432) BASOPHILS RELATIVE PERCENT 0 % (BEAKER) (test code = 437) NEUTROPHILS ABSOLUTE COUNT 11.96 K/ L 1.56-6.13 H (BEAKER) (test code = 670) LYMPHOCYTES ABSOLUTE COUNT 1.04 K/ L 1.18-3.74 L (BEAKER) (test code = 414) MONOCYTES ABSOLUTE COUNT (BEAKER) 0.73 K/ L 0.24-0.36 H (test code = 415) EOSINOPHILS ABSOLUTE COUNT 0.08 K/ L 0.04-0.36 (BEAKER) (test code = 416) BASOPHILS ABSOLUTE COUNT (BEAKER) 0.05 K/ L 0.01-0.08 (test code = 417) IMMATURE GRANULOCYTES-RELATIVE 1 % 0-1 PERCENT (BEAKER) (test code = 2801) POC-Glucose [id number] 00:37:00 Test Item Value Reference Range Interpretation Comments POC-Glucose Meter (test 106 mg/dL 70-110 : TE STED AT [facility] code = 1538) [address] [facility], 770 30: Post Doctoral Fellow/Techni santhosh ID = [id number] for EDGAR POLLOCK Lab Interpretation (test Normal code = 94306-0) [facility] [id number] 00:37:00 Test Item Value Reference Range Interpretation Comments POC-GLUCOSE METER 106 mg/dL 70-110 : TESTED A T [facility] 67[address] ([place]) (test code = [place], 1538) [address]: Post Doctoral Fellow/Techni santhosh ID = [id number] for EDWARDO JACOBSON RAD, CHEST, 2 [id number] 21:03:00Referring: Dr. Casper Allen for exam:->ABDOMINAL PAINFINAL REPORT RAD, CHEST, 2 VIEWS CLINICAL HISTORY: ABDOMINAL PAIN TECHNIQUE: 2 views of the chest COMPARISON: October 19, 2018 IMPRESSION: Left lung base opacities suggestive of hiatal hernia with basilar scarring or atelectasis is reduced in conspicuity compared to prior examination. No interval development of suspicious lung consolidation, large effusion or pneumothorax. Cardiomediastinal silhouette is stable. Intact osseous structures. Signed: Janak Mccurdy MDReport VerifiedDate/Time: 10/19/2019 21:03:44 XR chest 2 [id number] 21:03:00Interface, External Ris In - 10/19/2019 9:05 PM CDTFINAL REPORT RAD, CHEST, 2 VIEWS CLINICAL HISTORY: ABDOMINAL PAIN TECHNIQUE: 2 views of the chest COMPARISON: October 19, 2018 IMPRESSION: Left lung base opacities suggestive of hiatal hernia with basilar scarring or atelectasis is reduced in conspicuity compared to prior examination. No interval development of suspicious lung consolidation, large effusion or pneumothorax. Cardiomediastinal silhouette is stable. Intact osseous structures. Signed: Janak Mccurdy MDReport Verified Date/Time: 10/19/2019 21:03:44 [facility] [id number] 16:34:00 Referring: Dr. Casper KeenWITH MRCPInclude Abdominal VesselsWITH MRCPLocation: For [place] Only->WITH MRCPFINAL REPORT MRI of abdomen dated August 13, 2019 COMPARISON: January 31, 2019 Comment: Multiplanar T1 T2-weighted images of the abdomen, postcontrast axial and coronal T1-weighted images of the abdomen and pelvis were obtained. The large size hiatal hernia is present with herniation segments of the bowel, stomach, and to a segment of the omentum. Liver is cirrhotic in appearance with irregular margins. No abnormal enhancement or suspicious mass is seen in the liver. Spleen is enlarged measuring approximately 12.1 x 5.0 x 12 cm. The splenic, superior mesenteric, portal, and hepatic veins are patent. Main portal vein measures 13 mm in diameter. No portal vein thrombosis is seen. Gallbladder is surgically absent. There is minimal intrahepatic and extrahepatic biliary dilatation. 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 Pancreas is normal in caliber. A 6 mm cystic lesion seen in the neck of the pancreas stable sinceprior study. No pancreatic duct dilatation or enhancing pancreatic mass is noted. The adrenals are unremarkable. Both kidneys are normal in size and functioning. A 1.8 x 3.5 cm cyst is seen in the upper pole right kidney. IMPRESSION:1. Large hiatal hernia.2. Cirrhosis with splenomegaly without suspicious hepatic mass.3. Irregular appearing biliary ducts with minimal dilatation compatible with primarysclerosing cholangitis.4. Stable cystic lesion in the neck of the pancreas suggestive of IPMN.5. Right renal cyst. Signed: Yusef Sultana MDReport Verified Date/Time: 08/13/2019 16:34:38 Reading Location: [address] Body Reading Room MRI abdomen with and without [id number] 16:34:00Interface, External Ris In - 08/13/2019 4:36 PM CDTFINAL REPORT MRI of abdomen dated August 13, 2019 COMPARISON: January 31, 2019 Comment: Multiplanar T1 T2-weighted images of the abdomen, postcontrast axial and coronal T1-weighted images of the abdomen and pelvis were obtained. The large size hiatal hernia is present with herniation segments of the bowel, stomach, and to a segment of the omentum. Liver is cirrhotic in appearance with irregular margins. No abnormal enhancement or suspicious mass is seen in the liver. Spleen is enlarged measuring approximately 12.1 x 5.0 x 12 cm.The splenic, superior mesenteric, portal, and hepatic veins are patent. Main portal vein measures 13mm in diameter. No portal vein thrombosis is seen. Gallbladder is surgically absent. There is minimal intrahepatic and extrahepatic biliary dilatation. 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 Pancreas is normal in caliber. A 6 mm cystic lesion seen in the neck of the pancreas stable since prior study. No pancreatic duct dilatation or enhancing pancreatic mass is noted. The adrenals are unremarkable. Both kidneys are normal in size and functioning. A 1.8 x 3.5 cm cyst is seen in the upper pole right kidney. IMPRESSION:1. Large hiatal hernia.2. Cirrhosis with splenomegaly without suspicious hepatic mass.3. Irregular appearing biliary du cts with minimal dilatation compatible with primary sclerosing cholangitis.4. Stable cystic lesion in the neck of the pancreas suggestive of IPMN.5. Right renal cyst. Signed: Yusef Sultana MDReport Verified Date/Time: 08/13/2019 16:34:38 Reading Location: [address] Body Reading Room [facility]AL[facility]ET[facility] (AFP), TUMOR [id number] 14:29:00 Test Item Value Reference Range Interpretation Comments ALPHA-FETOPROTEIN (BEAKER) (test 5.9 ng/mL <10.0 code = 1094) Post Doctoral Fellow ID - NTPCOMPREHENSIVE METABOLIC [id number] 14:05:00 Test Item Value Reference Range Interpretation Comments TOTAL PROTEIN 8.1 gm/dL 6.0-8.3 (BEAKER) (test code = 770) ALBUMIN (BEAKER) 3.2 g/dL 3.5-5.0 L (test code = 1145) ALKALINE PHOSPHATASE 971 U/L 40-150 H (BEAKER) (test code = 346) BILIRUBIN TOTAL 15.1 mg/dL 0.2-1.2 H (BEAKER) (test code = 377) SODIUM (BEAKER) (test 127 meq/L 136-145 L code = 381) POTASSIUM (BEAKER) 4.4 meq/L 3.5-5.1 (test code = 379) CHLORIDE (BEAKER) 95 meq/L 98-107 L (test code = 382) CO2 (BEAKER) (test 22 meq/L 22-29 code = 355) BLOOD UREA NITROGEN 16 mg/dL 7-21 (BEAKER) (test code = 354) CREATININE (BEAKER) 0.65 mg/dL 0.57-1.25 (test code = 358) GLUCOSE RANDOM 85 mg/dL 70-105 (BEAKER) (test code = 652) CALCIUM (BEAKER) 9.8 mg/dL 8.4-10.2 (test code = 697) AST (SGOT) (BEAKER) 194 U/L 5-34 H (test code = 353) ALT (SGPT) (BEAKER) 165 U/L 6-55 H (test code = 347) EGFR (BEAKER) (test 89 mL/min/1.73 ESTIMA TONNY GFR IS code = 1092) sq m NOT ACCURATE CREATININE CLEARANCE IN PREDICTING GLOMERULAR FILTRATION RATE . ESTIMATED GFR I S NOT APPLICABLE FOR DIALYSIS PATIEN TS. Post Doctoral Fellow ID - NTPSpecimen markedly ictericBILIRUBIN, [id number] 14:05:00 Test Item Value Reference Range Interpretation Comments BILIRUBIN DIRECT (BEAKER) (test 11.2 mg/dL 0.1-0.5 H code = 706) Post Doctoral Fellow ID - NTPPROTHROMBIN TIME/[id number] 13:58:00 Test Item Value Reference Range Interpretation Comments PROTIME (BEAKER) (test code = 15.1 seconds 11.9-14.2 H 759) INR (BEAKER) (test code = 370) 1.2 <=5.9 Effective 09/06/2018: PT Reference Range ChangeNew: 11.9-14.2 Previous: 11.7- 14.7RECOMMENDED COUMADIN/WARFARIN INR THERAPY RANGESSTANDARD DOSE: 2.0-3.0 Includes: PROPHYLAXIS for venous thrombosis, systemic embolization; TREATMENT for venous thrombosis and/or pulmonary embolus.HIGH RISK: Target INR is2.5-3.5 for patients wiht mechanical heart valves.CBC W/PLT COUNT & AUTO [id number] 13:46:00 Test Item Value Reference Range Interpretation Comments WHITE BLOOD CELL COUNT (BEAKER) 8.5 K/ L 3.5-10.5 (test code = 775) RED BLOOD CELL COUNT (BEAKER) 3.53 M/ L 3.93-5.22 L (test code = 761) HEMOGLOBIN (BEAKER) (test code = 11.3 GM/DL 11.2-15.7 410) HEMATOCRIT (BEAKER) (test code = 33.3 % 34.1-44.9 L 411) MEAN CORPUSCULAR VOLUME (BEAKER) 94.3 fL 79.4-94.8 (test code = 753) MEAN CORPUSCULAR HEMOGLOBIN 32.0 pg 25.6-32.2 (BEAKER) (test code = 751) MEAN CORPUSCULAR HEMOGLOBIN CONC 33.9 GM/DL 32.2-35.5 (BEAKER) (test code = 752) RED CELL DISTRIBUTION WIDTH 18.6 % 11.7-14.4 H (BEAKER) (test code = 412) PLATELET COUNT (BEAKER) (test 167 K/CU MM 150-450 code = 756) MEAN PLATELET VOLUME (BEAKER) 11.0 fL 9.4-12.3 (test code = 754) NUCLEATED RED BLOOD CELLS 0 /100 WBC 0-0 (BEAKER) (test code = 413) NEUTROPHILS RELATIVE PERCENT 81 % (BEAKER) (test code = 429) LYMPHOCYTES RELATIVE PERCENT 11 % (BEAKER) (test code = 430) MONOCYTES RELATIVE PERCENT 6 % (BEAKER) (test code = 431) EOSINOPHILS RELATIVE PERCENT 1 % (BEAKER) (test code = 432) BASOPHILS RELATIVE PERCENT 1 % (BEAKER) (test code = 437) NEUTROPHILS ABSOLUTE COUNT 6.89 K/ L 1.56-6.13 H (BEAKER) (test code = 670) LYMPHOCYTES ABSOLUTE COUNT 0.91 K/ L 1.18-3.74 L (BEAKER) (test code = 414) MONOCYTES ABSOLUTE COUNT (BEAKER) 0.54 K/ L 0.24-0.36 H (test code = 415) EOSINOPHILS ABSOLUTE COUNT 0.08 K/ L 0.04-0.36 (BEAKER) (test code = 416) BASOPHILS ABSOLUTE COUNT (BEAKER) 0.04 K/ L 0.01-0.08 (test code = 417) IMMATURE GRANULOCYTES-RELATIVE 1 % 0-1 PERCENT (BEAKER) (test code = 2801) COMPREHENSIVE METABOLIC [id number] 12:09:00 Test Item Value Reference Range Interpretation Comments TOTAL PROTEIN 7.7 gm/dL 6.0-8.3 (BEAKER) (test code = 770) ALBUMIN (BEAKER) 3.0 g/dL 3.5-5.0 L (test code = 1145) ALKALINE PHOSPHATASE 853 U/L 40-150 H (BEAKER) (test code = 346) BILIRUBIN TOTAL 13.0 mg/dL 0.2-1.2 H (BEAKER) (test code = 377) SODIUM (BEAKER) (test 127 meq/L 136-145 L code = 381) POTASSIUM (BEAKER) 4.4 meq/L 3.5-5.1 (test code = 379) CHLORIDE (BEAKER) 95 meq/L 98-107 L (test code = 382) CO2 (BEAKER) (test 24 meq/L 22-29 code = 355) BLOOD UREA NITROGEN 16 mg/dL 7-21 (BEAKER) (test code = 354) CREATININE (BEAKER) 0.60 mg/dL 0.57-1.25 (test code = 358) GLUCOSE RANDOM 80 mg/dL 70-105 (BEAKER) (test code = 652) CALCIUM (BEAKER) 9.7 mg/dL 8.4-10.2 (test code = 697) AST (SGOT) (BEAKER) 162 U/L 5-34 H (test code = 353) ALT (SGPT) (BEAKER) 142 U/L 6-55 H (test code = 347) EGFR (BEAKER) (test 97 mL/min/1.73 ESTIMA TONNY GFR IS code = 1092) sq m NOT ACCURATE CREATININE CLEARANCE IN PREDICTING GLOMERULAR FILTRATION RATE . ESTIMATED GFR I S NOT APPLICABLE FOR DIALYSIS PATIEN TS. Post Doctoral Fellow ID - SALVADOR MSpecimen markedly ictericBILIRUBIN, [id number] 11:57:00 Test Item Value Reference Range Interpretation Comments BILIRUBIN DIRECT (BEAKER) (test 9.5 mg/dL 0.1-0.5 H code = 706) Post Doctoral Fellow ID - SALVADOR MPROTHROMBIN TIME/[id number] 11:46:00 Test Item Value Reference Range Interpretation Comments PROTIME (BEAKER) (test code = 16.5 seconds 11.9-14.2 H 759) INR (BEAKER) (test code = 370) 1.4 <=5.9 Effective 09/06/2018: PT Reference Range ChangeNew: 11.9-14.2 Previous: 11.7- 14.7RECOMMENDED COUMADIN/WARFARIN INR THERAPY RANGESSTANDARD DOSE: 2.0-3.0 Includes: PROPHYLAXIS for venous thrombosis, systemic embolization; TREATMENT for venous thrombosis and/or pulmonary embolus.HIGH RISK: Target INR is2.5-3.5 for patients wiht mechanical heart valves.CBC W/PLT COUNT & AUTO [id number] 11:44:00 Test Item Value Reference Range Interpretation Comments WHITE BLOOD CELL COUNT (BEAKER) 7.3 K/ L 3.5-10.5 (test code = 775) RED BLOOD CELL COUNT (BEAKER) 3.54 M/ L 3.93-5.22 L (test code = 761) HEMOGLOBIN (BEAKER) (test code = 11.1 GM/DL 11.2-15.7 L 410) HEMATOCRIT (BEAKER) (test code = 32.5 % 34.1-44.9 L 411) MEAN CORPUSCULAR VOLUME (BEAKER) 91.8 fL 79.4-94.8 (test code = 753) MEAN CORPUSCULAR HEMOGLOBIN 31.4 pg 25.6-32.2 (BEAKER) (test code = 751) MEAN CORPUSCULAR HEMOGLOBIN CONC 34.2 GM/DL 32.2-35.5 (BEAKER) (test code = 752) RED CELL DISTRIBUTION WIDTH 19.1 % 11.7-14.4 H (BEAKER) (test code = 412) PLATELET COUNT (BEAKER) (test 171 K/CU MM 150-450 code = 756) MEAN PLATELET VOLUME (BEAKER) 11.1 fL 9.4-12.3 (test code = 754) NUCLEATED RED BLOOD CELLS 0 /100 WBC 0-0 (BEAKER) (test code = 413) NEUTROPHILS RELATIVE PERCENT 79 % (BEAKER) (test code = 429) LYMPHOCYTES RELATIVE PERCENT 11 % (BEAKER) (test code = 430) MONOCYTES RELATIVE PERCENT 7 % (BEAKER) (test code = 431) EOSINOPHILS RELATIVE PERCENT 1 % (BEAKER) (test code = 432) BASOPHILS RELATIVE PERCENT 1 % (BEAKER) (test code = 437) NEUTROPHILS ABSOLUTE COUNT 5.76 K/ L 1.56-6.13 (BEAKER) (test code = 670) LYMPHOCYTES ABSOLUTE COUNT 0.83 K/ L 1.18-3.74 L (BEAKER) (test code = 414) MONOCYTES ABSOLUTE COUNT (BEAKER) 0.51 K/ L 0.24-0.36 H (test code = 415) EOSINOPHILS ABSOLUTE COUNT 0.09 K/ L 0.04-0.36 (BEAKER) (test code = 416) BASOPHILS ABSOLUTE COUNT (BEAKER) 0.05 K/ L 0.01-0.08 (test code = 417) IMMATURE GRANULOCYTES-RELATIVE 1 % 0-1 PERCENT (BEAKER) (test code = 2801) Tissue [id number] 12:30:00 Test Item Value Reference Range Interpretation Comments Case Report (test code Surgical Pathology = 104) Report Case: [id number] Authorizing Provider: Andrea Cardozo MD Collected: 03/28/2019 1328 Ordering Location: [facility] Endoscopy Received: 03/28/2019 1446 Services Pathologist: Michael Sosa MD Specimens: A) - Common Bile Duct, CBD stricture bx B) - Hepatic, common hepatic duct bx DIAGNOSIS (test code = [id number] 3220) FuZzEwMzNcZnRuYmpcdWMx UMkemmNqKFlln9LjW7EbZa AwMFxhbnNpXGRlZmxhbmcx PVMyMUT5juCdWRFuKKnzNQ GmSVhhYg6gfIBqdJyiRiYs FCMhi3ogrtXLkdlobKb4e6 taYBXzOiFueBBcGErsN6wz chBmvCMaDVHpJQv8wXdoMu LzFEUxl8tbzoJcObLoNEDv BNFrFTHlpBNdN126PETpKB wiwyflGMBxoHUwDN5yrqCT a78fjnv4vCbgZ06in7A0Ni qcY4buZEUpTWNwK5EhKZ1c HHCaMbn6MYI2PBX2VUQkGG SjI4SoDM2vXXXsgPMsPBw4 l9kmhTauWILeSPM8e2pqSB eqdoNpGA8ahb1phBi9u6pm czEgRGVmYXVsdCBQYXJhZ3 OxzZntOu8nbAs9h7opJeho lyM7fXShEpUmClGzYJlokL fcMHwpaBZqR96umEP7vEAr fBTtWPCiGBvux1VxNPLmMP ptRFJvS777b3tjPZYfgpRf tTfMxdxzh5heB603OPKanU VydzEyMjQwXHBhcGVyaDE1 AIUiZL5uxohzViSsIH8kgy umAzYmSG6vfzt5WnNlKQ0d cmdiNzIwXGhlYWRlcnkwXG Jdo6LjsvxvVZ3gT5Tpq7Y8 oC5xdCGoOWFskYNaErVxTJ Plhf5czKBbBKomk7RtMFD2 smK7uFTsaCHrAITuUB10Vt wom7IgEtkog8DeK93puVF4 OKvbm5baDS5gNgK7tuSrBU glj4mdaI4nKhL1FMqbDT6w wr84JKLwNLB3tb0mcGKbbU jkowJbfLRnJDmhO3NqKLOl t948FVPcL5UaWMFco3Z6hj DzXoFmSXBxgYT7tuB6RWBx YEn4gJGunzZ5ccYglBHrR8 hobR07YlZajKZlB7WnwW27 NkHzaAMnC8SqvG42BoJzsP EdM5EbsI81TgGmeOTqDQMe kKDsYt1fwQXzzANcf1VrcQ LdKAqwE99ae929RSTcjyTv K9oszBKdckdetPJqxxvpUG fssvH5IYKpegZgt5WsEIEp RNG0WGbyVodcwJCuFWYsdJ zkP90uaHN0aFCblHQtAKRy MCklCEB6pYSpmjcbsWEbjd xmMVxmczIwXGxhbmcxMDMz CVmaR0rhOzHdKWNrhNliLR oul5KqJHKsVTBgCkUgOR6w XHBsYWluXGYxXGZzMjBcbG FuZzEwMzNcaGljaFxmMVxk PyFkMRWrINkkI5adRiTjS6 LwISDuDsOgkZAkT4oeM21Y XA8EXWRQOCLeJPLTRHPXJE GMV5OLDnIhPWQfzdbssXBl blxmMVxmczIwXGxhbmcxMD YdNUwpH6zsXgVaIXUrlXey BAnff3KwZLNyQKUgErAkYV ShbPlqrB8lPyBxYhCvEPfo MQ6fENCxL4oadNEmYJMiVX ReN6oyFfIckC4ihUkuIUla ZjJcZnMyMFxsdHJjaCBCTE 9PRCBXSVRIIEFDVVRFIEFO RCBDSFJPTklDIElORkxBTU 1BVElPTiBBTkQgRVBJVEhF TElBTCBDRUxMUyBXSElDSC BBUFBFQVJTIFRPIEJFXHBs YWluXGYxXGZzMjBcbGFuZz EwMzNcaGljaFxmMVxkYmNo TJYwVElwW2qoVrAiHiLjKL AgXHBsYWluXGYxXGZzMjBc bGFuZzEwMzNcaGljaFxmMV xqSyQvXMGwKPibY4cgDrWh F5KjHQCmFzQfeIMdG3ncUr GEE7PXTpHeOHVeuhufIYSp ITAckZHtMGF6qFArnpCmvR y9DBAksRWbeOBvYZUkMTSj ppSmfWK5KXanuSDwFOj8lB PjcRdzZSOlsLiteC2vFyOm ZnMyNFxwbGFpblxmMVxmcz YrMCtiogfwCCOgZVeyV2ie PvGoJNYqpLjtUAoos3QzMT UcZKRgHmQaDLLymGnhdY2z PhElUwCsXIriXU1cWTAfU6 rfgKMdGIZiTGUwO2adHwSb lC7iqOkfCDbtHtUzRhUiHG imxBIqtYBFQ5TOXAPYYJ5R VS7KNpSMOIcTSGKDW4WWKM ZUCIKVFB0VCWlnhVJyzpoe MVxmczIwXGxhbmcxMDMzXG dtG4okNcTcDXZglYtaWEbp a9DdAEEjEWWsXtQgnGAePL 0gXHBsYWluXGYxXGZzMjBc bGFuZzEwMzNcaGljaFxmMV afFqCvGDUfCUghU1mzAmLp J6HfLEWiHpWmhSZsV7kqXc 8gXHBsYWluXGYxXGZzMjBc bGFuZzEwMzNcaGljaFxmMV ovVnJhXUZdWRmxP6hnRhCg HqRmGJERY4jBBNZGW5GdWm CSQYkYJBRKQbNgyQganX8c CdBnXpFuOXcuMF7aFLMfG1 akyNNrRTBeXKPaS3uhNvDi sL2erTxbCLxzQuYuXvVpHJ ivmOOqqEFPFS5EADOaVIgh XGYxXGZzMjBcbGFuZzEwMz NcaGljaFxmMVxkYmNoXGYx JUviB8ruVuMfPkQrBSCLNJ BsYWluXGYxXGZzMjBcbGFu ZzEwMzNcaGljaFxmMVxkYm KwAGYaOBjmM2orLeRvE5Zd QWHiSyCelEOdM7kbTBjRAB 3OYLRJMIWqP69nQMIxHOps XGYxXGZzMjBcbGFuZzEwMz NcaGljaFxmMVxkYmNoXGYx ODdpC4nzLbWaPxRjFHPGEs JkEQ1JKYsyvKUkwhqgQYjf czIwXGxhbmcxMDMzXGhpY2 klDpQzIHYbaKbcQArim8Nr CRHrXBMwKfffvzQtEFi5dg NoIEdNUyBTVEFJTlxwbGFp blxmMVxmczIwXGxhbmcxMD JzQAwaI0xsMzUlYQCspNse ISvhy8OxNJVtSWSgFtSdQ5 xwbGFpblxmMVxmczIwXGxh dndkVLOxXFoxV9tjFmOkTP GndBjwALtsp5FiGHFnHUHf KboazbArFBh1igXpPLQlfa ycQCJiDJLziHOaWPG9nOSu uaMjcCx9FPTbbHMyhIJySC IgHZLuucBjaPJ2EBcugXHs QJh3mEWurGezOWJuiTypyM 5cZjBcZnMyNFxwbGFpblxm MVxmczIwXGxhbmcxMDMzXG paU8gaNyUfRAHgnKhwFYdu o2XfXLMlQEQiUpEhCBTkiU sgbO4vGwXoIbEhIGrnEU1i RNYfX7hoqOJoKBVeIMVjL6 esKcAkjR7ioUdpBGbnHjGq ZnMyMFxsdHJjaCBORUdBVE aSNJPGV8GzIRoBILrYS8gN RK7DPQZHWwEZFr5JKPMcgU uqhG0xDgHcBfLvKWpgAU2u JEDrQ0qtrFDhGRNlHSDpW6 qhMpBmeC8djHsoGXzyqwMi XHBhclxwYXJkXHNzcGFyYW F1yFHrqlQznBw3WSRaeIYk kIZgLGOaCDSfhlUlaZI3SF nymTKkVJi1oLCxtMnoEXVx gIzcvK2lDoSmXhNfPBhauK FpblxmMVxmczIwXGxhbmcx HZBrGXivG9dlOkTuGBXyjB hxFJdtk1DkSIQfCSRcPbXl cGFyXGxpMFxwbGFpblxmMF blsmX5MSVwDRblWOOrNDPh MjBcbGFuZzEwMzNcaGljaF biQVaiNeNdLAXhJPivX1mv ZjFcZnMyMCBCLiBccGxhaW 0aLrGcQzKeCJkvTY7yIJCl M8btsGYqTOWyESFiD4gdWb GjfF1psAkpPNuvSlMjCmIq MBgryHDjwNULQ70ER84iTZ IXCPDAYvSHYNTPQBRHEF6U O1nnUBImueZbXZ6NEyhSSK BDSFJPTklDIEFDVElWRSBY WZ9GBT8HDaOVJEcWTS7TFD MBBGFnBpWQE8YLB48jI0fT SCBTVVJGQUNFIERFTlVEQV BDF42fEMNuWQhnEBXjBCTb BcbGFuZzEwMzNcaGljaF qyKWywJyHdAOEzAPerS1iz ZjFcZnMyMFxwYXJccGFyZF uhzLPhbpdqSAejorN3WOMq YWluXGYxXGZzMjBcbGFuZz EwMzNcaGljaFxmMVxkYmNo TWXqXQgeK1fcZbNeGrHsPQ AtIFxwbGFpblxmMlxmczIw WVyafdixDACiCCryJ1rdUf VzYFRljEveJjvlo0VxESFy SKDkYwomhqGcDDy0trHsMA 5PIFxwbGFpblxmMVxmczIw PWwnevwwFOLdBVsaN6shTu ZkOMRvfUkoLCkss8FyMDPc XGZzMjAgQUNJRCBGQVNUIE FXX4sCYRhqX7ZaHVFsRHlf XGYyXGZzMjBcbGFuZzEwMz NcaGljaFxmMlxkYmNoXGYy NYuaS1gqJjXmL8ZcYNDxFk ZjjCOpW3tiGxZJS9bmlXFt blxmMVxmczIwXGxhbmcxMD MsKMufF5xsHbVdKMPdvNfd YGcvb6PoUUYhSILyUwRgBB xwbGFpblxmMlxmczIwXGxh fksaBCPjMMnjI3osFlTgCG GzrNrbQacic4HdGKHbAOGj QpkifgAlOYx6wzMbRKRMWN GDSEbJPMZPVX1DSPohjCVa blxmMVxmczIwXGxhbmcxMD DePJjpR6egSvGoDXMeoSdj MLwqk1FrZFAxVPWnOySaQD HLXHTRXQNoaMlpsP5hVxKw MzGmSYloPX4mIBKsK7mtvH FzHRYpODRkJ4kpSjBkhS0z aFxmMlxjZjJcZnMyMFxsdH HxeTHRKCEtG4VSLC7btIns jH1pXtAsPsQlPJuvRG6wEE LrZ7uzmPDqQSWvUEOnN6zt DgNfdG1gaQylPGdfukAdKZ JmeGlqyF1yNjNbVcMaPTyz BT4sTXIwH1kwdHNwKBUxBH PiG4vuSgYnzA4pxKaoXtxb ZjJcZnMyMFxsdHJjaFxwYX XruWPxBVgyg9LdxfZpcJrw SVJxFNu6gvUpmpoxtOcqj2 72VCj2qUQjc1PoW4Wve7qn R9WsfQMtASNtSGvhCCAjEJ UpWkKmsZcwlU7iLhYmVhEc GEcbRK8xLCKoY3nukFWpRW GcQRSdM6vsSaHqkB7koDip MVxjZjJcZnMyMFxsdHJjaC OzHM2ML7FXSVALMBXYGzLV CQZADJHEJBCqZ6ZnG2WPE6 pPK68YHQUsiu99OOA6JcGb j6H3YMM8UCPsBBAin7lbHY VmbGFuZzEwMzNcZnRuYmpc sFJsOOLrAsUoy5ocv637lU Ilz8pwCTHzXsT3uFVvIASz cYRgN212GGFxELdpq3gji8 YcFQNemXEvg1N8TFBLjlib eKv0tNigT05pa7O6EhshL3 sgSXYqPCWuE7XyUV5rXUQp Cmo3YSF9NRT3NLHgWHTdB4 PgUM2qOJLphETgTXw7t3vo uGorIXLrTWV0g8qiFXlwiq AcNI6ako2slQj5l8gppjFp FODgHWZrhANWQCKfI3DrrB ckOm6mwKc4iRupMkaqOST4 Xkb0RY5pyd91prm2uIzsST GjticbIqQ5PRxbWZPgesfm XEx2AUfxHYRmzFD8MJZwlQ EzJ1FfQNUeLQ2huvg6UYY1 GIeeOFEuNsX0MGOepYOiBZ XelYiyVHtqf601YTF4OjUb MW2hT3Gyi9N1kA9qpGKkJA IgmJLdYqBiPYVghh2mwTIe JMmad7EaKHW5jvR3jSNmdL TcGUKuBaJ3JVtnNZ6zgf57 HQLiXQC4zh2hlZKppQrznm KzhZYkOCamV7WhYFAzx122 TQRqK9DzPXUdh6O9rwLrTb OfHIExkRW5xiB8CYFrWE4n lfkfq0ulRLfmJYrqQRXjto Q7abJ3YVPikZUpS8QlmC0s ZREgXO4viviwz3eoORR6GX emUEDrAZP9OsDbXCClo5St rcn8ZdUhx4FemODaVSprO9 9wa300JPPhpaBmX6mjaTEn oubonEXkneqvBPupmcM0GM PeQBftguwcHNVcNJfyM2hk RsXyXPWzjAhdORswc8EpLJ YxXGZzMjJcdGFiXHRhYlx0 UXMiiUXuLYNsIdEqI3sbzq ihLdHRKGDkh0rbR0gguPOF gDHzB4DjRHxqzzHkFIveCF rhZrirZLSwJq38LTHxUIUo cn19 CPT Code(s) (test code v1tldKAdAHVrnTQkXjXpIY = 3358) GdZNIhc9xgLURstSNuFhUh MzNcZnRuYmpcdWMxXGRlZm Wss9tpv454mTUwc6rsJPPr RwY8hZKoITZpcONfF093y5 rgo3vbakHobMU6CHNbFMF7 MXezmkDcusL7KPuhsIWaOn M1VXzldjSpYMyqyfXezfKd Dau8JFYeV085TRA5fFapw9 rkPLH1HTPgZILgQqDuLi7b cLTaM791JINjRSAPDDRjbA h5AHCmzcCzzqQfcFQSo715 L721c0ekEZIrlqKbqTcCwy vph7jrZ765LEMzzZTrxkQq MjLzBMBmiNRbgVH9NNDcGM 3smcdjPmPtUX5xqonaUfKo SC2fpdm4NyLlEN6dnuqqDx OwVXwhILYbvtmeOUNlg3Mp yyedRJ1qT5Vae6O6bT6suD CoMCCfwYPfYlNiSNDbuq0u jHZzTNtje4LzDVY3xoM6iR AzpXMjCVBjTY09Qghvm9Zf VphcJCZ9NFHhjaZtx5Ohx0 pgKuNzyxBkS5kxU6AyTPLa TEPxAIAjVxFpowQsf3Bsv2 NgzLSwfUl3n9imYCNuAZYg gGssu7ttYAD1YWOxN3Z7cT Elp0hwTMybKAZwpIQ5tttb QZycAAPluzO9bzhfYDogHC JgeLV6hpuyDVhlMIIjXjW0 wuvgTWzoJDLwIVH1BNdrh2 83CGR2VKovZjlmRVusPUJf bmNvbnRccGduZGVjXHBsYW luXHBsYWluXGYwXGZzMjRc vSzzkQehuR9hJgTmNkDkSZ oyIK4iTLRdJ6picWEzZIPh LDPsC6wkSsKcyW4zjZyoEO vgawYvEIj7QmL3AAquCvsf JSobDCCilWEbLBI7NSV2DH F3YVHeQXt4SlEcFHwrMWfi YXJ9 CLINICAL HISTORY (test x8hdrQApGRQicXRbFwFwFC code = 3356) TeTYLoo2leSZChjZNwNtMo MzNcZnRuYmpcdWMxXGRlZm Cul4bdd177qPNod6dqCUIw YlX8jZJzSQWsqQByE661l2 qlv0hsjqHoxYN3PUDiISR7 CCecgxBaydH7ZJkrtYBsFm M7URpshvDgVSrfamDgftMr Icr8BZNwS837OUG9pWufs1 hsUCN1KEVfHNYwPpJwTv4b nEDyM343KHCiYEWNUKPytP m5HXJqpdEsnsTvwUCRn648 I292r4hbXNTgnsCicImXut env4mjF907GGUraOGbmiRc KjMsQBLxlYTozFB3UVKhTI 0hfzbhApErYX2jbwoeHiXz PH3ggqj4LrSwXY1knvdcBb BgXAikKLEcfnwiEINud4Gd fdnyKX7yM9Xta6B8kW9bwV ScRKOzkQGaFoIjKBPsta9l aDLwZRjmt8XjHAI2abF7cL MgcEPqQDZgJS43Cdsfp3Sd LyvcSYJ8ZAYwzyFao6Dnv8 loXtFdvyAgU5wdV1IzFJGs KFWuRLUmYvRfmrZpx4Usl1 DecDLbkUr8z0lfMOHuCXTu qAqco7ccCSR9EXErJ6F7rT Rzc9ukATldQLAafER1rymo TJqgTMOhuxF5rmqaGCnkIJ EwqCK4bmhvLUqlNJZqGgG1 iewhVMmzQHJjQIC4BRmzc2 80GRX9WPbkRepjVJimQZVs bmNvbnRccGduZGVjXHBsYW luXHBsYWluXGYwXGZzMjRc iWebiMdbbN0lIlSzSrGyUB ilDA6pPUCyP3jcdTKoRKPx UUHoV6kqKoZykK2ssOgbPV lgqeLpIWGuWZ7gZSCcOGqi n2WrhhvePIXpkV3ifkrct3 FfFKVxv3mzEwXbzW2mXP5h yQOcn4odJYF4 SPECIMEN SOURCE (test j5weaZVvNXEkcXUhGbWaRC code = 3377) UvTOIim8ofSHYhlXUrLcKc MzNcZnRuYmpcdWMxXGRlZm Ibf2wkn523nLWax3emNXPx NnB5pQCxNAXyfKQbR503z8 cwh1xyxsLbaVN6WCUsQAT4 OGqguwJjzxU2XOrucXAjGn O9FVeoksLpYXdwjsUsspVh Adj1CBRnH453NGL2tIdzh2 weFFN4IEVkORWnTbOpOm8s rHPiA302GWLhEDSIBNVrnO m9NMKeerCcqqXakXMCx593 J761u1ulZXMnfmBfrDnCuf sej8fbO219MLUnaTSxnbBg LoSkRRFogIOacJL1ODLnWA 5jdxouAnOcDY9lrgedSrFt SI9hbxy1WwFdJE9vvdgcAk BsCXmuWKCyzzbtQTBzo5Cp wrqgLB2wW8Rqq5G5sH2gzE EsSTBtuBGbBmBrENPbyr9r sDKlWYxsy5OcYIU3zsN0cG YygSGuGVGmJE49Nycju0Qy WlerSGF4SYMmluWzc6Jhl3 dfKfDmkvAwK5peA7OiIKOq USTiZITxRwEcefGfk3Oix9 SjgWJcqJk4g7jpRZIkFBHv jDgfn7zkPZR8MYJkH8C5zM Gfe7gzAIgcWIXawEX6lcft SUljPCJwcuB7pzxoNKmzWX ExtCR8ugenIBvrHPJtNfK1 hremJEokIISxGEM6VFkui4 77AUD1IWcuBvowBDfsNVHg bmNvbnRccGduZGVjXHBsYW luXHBsYWluXGYwXGZzMjRc tCittRzzoW9xQmFnHiDxBG owJT7qHJBlY6cbjVEzVVFb SDQjI6zbLcZtoW5atJtpYQ tcjmFqEREhfUCnY7BkNAUa YXMgdHdvIHBhcnRzLiBBLi TBz56vt78nZeziAFYhyYX5 ICBCLiAgSGVwYXRpYyBccG FyfQ== GROSS DESCRIPTION (test y9mxvPMmSXDcyYNpLgSbIE code = 3366) AaHGHgb3tfEVWvgIGnZxUd MzNcZnRuYmpcdWMxXGRlZm Ztx6dod639dAOpt9vmBKEf QzN6xRBcGASwiBYhS961r9 wev2bdjvQrnIP3UAYdSMC5 TZqwbaQuqfF0OSyitRVeJp P4KGxajkFpGGbgphLnilXc Muh0USEoX218RZM5zDamj5 hnREW1AKLmIOVaQsLuSd8v xIMnT887YEUuUTGMMSSnzF p9ITSfdvLlncLpxDBSy327 S464n5uvDGPwcaHgqHtXte lmy2jlY140UHZrgMZzwySd OoPcCCZhbUFvkNE2HGCfVV 5ricctDdZlQQ7tbjatLoSk UH4pidq0OzUdBO1qyxddFq AeUWvuUQSmuvwjOCAwi7Aw buraJB2kR0Cfr3B2dP0utO HnCSBihYSdStDvDJKfax8j uMXpJJawm4JtGVG1cbT8wO UphWJeTHXfFR38Zmjmu0Cq DcuaDRF0QYDobzRyj8Xee5 ekUqEnqhWhQ2jnI1LjVRGj ITLpXWYkEqRdsdArn9Jyb9 RdeWEzlVd9y1anMWKlEEEe yRfqi2qqZUE3QTKzX4E7iR Gnd5dmNFanVUVhlAC8effn QPsdGDZxkfK9gjawLOnmVX PhoBH7plcnAVixLBLpUjB8 hhixOOucXUNvGHF3ZXdpt5 09FLY4XHjnXrpkRIrqDVVh bmNvbnRccGduZGVjXHBsYW luXHBsYWluXGYwXGZzMjRc yQywkDjvaB1wDqAeTqIeKB uaQV0wMXTiZ6xsaHDoETEg ATEmD1ooAwGpsI2ooQpkJG xmczIwIEEuICBSZWNlaXZl NOOmxpPfa4MbOEiwdwCsIT JlbGVkIHdpdGggdGhlIHBh xIandpBanzUpGG0jSAQeS8 Ucg6Uhn13pjzAlGxYfLAJy ZOYsW71ylC0jAPLlwMWkMS VjdCIgaXMgYSAwLjIgeCAw GvNomLZcBvVfU29ssBHgZL YlhlrzwImln0UvCFQrZGpa WT71BGkfpEDsPBsdLBZqdW RlcmVkIGFuZCBzdWJtaXR0 IEPpxK5imA07gmLpyrRBZI 4gIFxwYXJccGFyIEIuICBS MAXvhLOvAKLojcTjh4NdGZ xpbiBsYWJlbGVkIHdpdGgg dGhlIHBhdGllbnQncyBuYW 6bDVZsF8Sdx3Ntw78vnsLs QfVaEDGnXTXwD00fnQ0vLI ttpLS6hNZbAFKhcLHcRSPg IO66aXTlkTdySGCvsn4uvY 0lPPFnj1E7FJJilzUgkXFz jBMjuMAvf3JyjM2dZTUcPD RvIDAuMSBjbSBpbiBncmVh kVXwtCWpyB8eheXsg58km8 taU7ieBJVvHOWbiSJrcaRu ZBMiWBBhfDUohKJ4HMZgqV 9obM84fsNondZLKI7sAZGZ B4XgUNglYSL1 MICROSCOPIC DESCRIPTION s8spdHTbWFLgkZZiEzMoGK (test code = 3371) DpZCYfh3viXOIevSSyHgFe MzNcZnRuYmpcdWMxXGRlZm Rgz7ogg302kCKyd9moUVOk FpK1pPMtYCHphGTuR005PE ZlJBsfa5zgd0WuJFTwlYRp m6U2NNDIbbickBo4cHsoR5 8fc3F4JwuoE5ypQKMbLLXu A0DlSR0dRZMhFuj1DTT7GQ P1NLIuGTWmQ0MiUN0xJVPd wDDvRXf2s7gaiBzyXEBtUF L1j4apYMhbfrWcGY2ccv7x iCt5h9qjgkQpOAOeKCSpxO NNGZXaY4AvtGomZl5doDq3 gOqlMtwmVRD5Mje0BF2euq 72brt8cBblWWRuorfaCbG5 EEowCMKloqbvZYf0CNbqVB JnbDcyMFxtYXJncjcyMFxt YXJndDcyMFxtYXJnYjcyMF jfQPTmPXE0RFufv568CRG7 UNalg0fxg8avgILxWhs2CU YlUuTkDaqiIInxq0Agr2il NYAbnd1bOAJ4dZHovGdan2 V8cWXtRFWysNTqdqEiIYDf BmG8VKayXM3uez67EXUmSF V3ls2roQYrpNpscrVojBIj GXktQ0CmXPLpt181ASPfI3 HcENHdw9K2zoDcWgAcWXEp lFN3szX5RGLdXGe5yQXtau J7eeXtySCwL5vobB25ExZm qZWdK7YrxY38WpGflFAzJ4 YzlS99LrXebOMnB6PafR44 TpJkhOEmBRLbbXPhXz4wgL XmdLLqt4IfvSMuXBppL41r z828ZIKgqpIoT4mfiIBygz snhIJnvfnlALjknwZ2MOIk XHBsYWluXGYxXGZzMjBcbG FuZzEwMzNcaGljaFxmMVxk DnHsFRRxIYwbI3rrJbNeHz BlJMXRqMPwc3Axw3MmFzAf cXVvzU8iaVwwatChhfPdGL Tsd9CgKIDkLB1dQLEcMDTe cS7qhM8onmMmfvAsmL2bnV 8uj3Lfj3CxfHAoIQekVMWa QPSrpHSezz9vmXmuFFqaqe UuICBccGFyXHBhciBJbnRy BAZlnJCddG4abvLquIYum9 8uvUy8JKHci165WAWijIeg YSBKYWluLCBNRFxwYXJ9 SPECIAL STUDIES (test j2mrqYUvKUMwkQOgSzYhPB code = 3376) WcRAQhp5bgLIByrVJbYyIy MzNcZnRuYmpcdWMxXGRlZm Zph0npu999lJSho5puLESt PdJ4dGZhSDRkySLhN440NZ GrBUbml7kzy5DuVBEllUVh h7V2URXVRPrdInRtP474HY IfTGmch4npd3KfDQNzfOAs e2V5WLOLrtqguPj5pJvcC3 2xz5O2JeneR4qjHTBfIQNc H0NpGZ5lLLTrKmj5XKD3AA F3AJGnWJLnV0EvTC6vKBTl oBZiONm1t5izqVkrTHAnRT D6v5bfGDgjhrT0DG1hsj1b pKo1x7xclxOgVDJgEZJcqR GUOGOoE2ExwCjcWb9cwFh6 o9myWgbexcA9pBHkRqXnMd MyMFxsaTBccmkwIENvUGF0 nHGDWZh8P964l1whFTTtgo YibIiZtitxv6cjJ532MPPy cGVydzEyMjQwXHBhcGVyaD P0RCWqQG3dqdwsLoHkIQ1r egegRsBiTB5uyez6NyKsGR 1hcmdiNzIwXGhlYWRlcnkw RLVot1QqhtcfWN2rZ7Bdo0 P8dT5mzAMwPZWqrFEkEtAg SLWaso6apKZoLXyyUCI4OE WundApk6Jbs6fwSoOnebGm F5enS7JzAGIaZPSdFJNfGm ZrmgEdq3Cbb2McpIHhrXj7 u9hnTTNrDVJekVvin4efXM T8OGJjV7J8iVQnl8eoOUpo GDXenOS8ycfwRGptDREkdl F6vizzKKhkTEGofPM2rgop DWiiDOFgIkL1keonOGxtTJ FqDBI4MEeun587QTE1IYsa YmtwYWdlXHBnbmNvbnRccG duZGVjXHBsYWluXHBsYWlu XGYwXGZzMjRccWxccGxhaW 9uNjJgFiLcYmtwSV6vICOz O2xymUXvDSQdPYWeT5gdEc QeeC9ttDefXZyoBtZhZoAw MvQHjCTnrM98UZHjrkZ3ZL Qcc47uy8TtuUntbeBcHXMp IZvxC6n9STEhLBCxLMN6y2 Kkd4GxaT5qiU6tzMmezN9e uKPkjZY1wfesq0Fij2VdD7 lhbCBzdGFpbnMuXHBhciBB XkRWAUO1WO4qd6ZqlA7nVA yyn2Orb8D0uBYeCJDznuWo EZMfTAIWZY2MBSJeZW3jJU CgdmPpyb9yUJGpPPCviYhq aWVkXHBhciAgICAgIEFGQi ShDE7gRPWlgZGdMoPrnJAl RFWhqOyrGPSaWK2qpHNfCJ TzRLHyPAbOWqZjWF8rIFH0 brtiSRNfVF0oxVUpIZDgJJ NENjggLSBzdGFpbnMgaGlz mFgsW6u8NJFxvFIuSOGwDU RfCNRxG7QFCf6eBy0bE5Rk L3mnv23kKHwvFP84pKZnVT ZxxJFcTEPmNWKzZDHZSI2p Hi4dFOAhUBOiCSQ2EVPyU2 ntgLlda4AoiwrzKWAcRMKz CSYrI25TKZ0iXf4aSaMxX8 ztm5RpjxarcIOjtmotSWxb czIyXGxhbmcxMDMzXGhpY2 dpIvLnAYFaeLpgJHcjk3Bd AREhUMZsCyyxmoPwPSv6ba NoXHBhclxwbGFpblxmMVxm czIyXGxhbmcxMDMzXGhpY2 gxNcZoFGZsuMcgTDnxb1Qk XGYxXGNmMlxmczIyIENvbn Eoa0hqX6peWKVnFEU2HH0s hlEgGeQgMT4vwB76v0Oec0 9mw81huM8dzDVkrlBqM60x rSTiwHOgh2VhZLMdxtNeeX K7CSRhRByvvdqph3y4zKL5 gUTicTHesNP1dFDdvWOgOZ EGpUErSZGux990lk8lGDZq hNPxwmWupO2aKWuashtxkU GjCA2aLFVxJEVoRPXrDX99 onGzJK0kmWPxq6ltyxAucV Gkm1PfiAT6IMLlpESkqyyl Zk1dSS23JNVrAKhzjU5csU PfsqTaIO0nHF9jM6Q5qYQc LQQwazJmo8bvWKosBY7eKV ZhaWxhYmxlIGFyZSBldmFs lCK2GHZbxRbyxI1rNnFbKf YyKhhvUH8yLLTzD2krmCOw QLLkDKDqK5jnUaOwlP6gcJ xmMVxjZjJcZnMyMlxsdHJj eXkjNNXrlIrrqJ3nJuItZq LfXbjcWS6uKFSjU4palFKi VJKjQOQzU8zuXzVgbC6rdT xmMVxjZjJcZnMyMiAgXHBs YWluXGYxXGZzMjJcbGFuZz EwMzNcaGljaFxmMVxkYmNo FVBcIJwtG7ksThSvV1YeCT RtVfFenCZhJ5ybfIIcZIFb YWluXGYxXGZzMjJcbGFuZz EwMzNcaGljaFxmMVxkYmNo FTFtOZjaE5wyQbQwA6IwBS YrFrWsAA3pfK1qjRxbdY0m oPGdcSI9yutxkEAuaK0zI8 HwJNTry0Kogjedq8RqQYZo wuIemf2lZILbyAUFJByzo9 ArG9KvUPp1x4LwsRkajM5p YuUyEzUgOnpbFQ0zMIXuZ1 tplJJsTMYiCQAzJ4keQqTy fX9ttZeoRPtdPlUqZuZqFn d7SYJgMtLuMjqnZBAbMFuu XGYxXGZzMjJcbGFuZzEwMz NcaGljaFxmMVxkYmNoXGYx NLyaZ9txWvZkT4RsKETvAn YhomHIDQXwR3SzLVQznzNs zttqQNA2aQ2sy6e4HHzcFh 7iZHPuaflem0hahiEfbHAj t6ZsEKGckeToe6NtZWPnxv CcpKOmAYZvymOthn5iwrHv UWSrWHVdE1HsaaxifTipra X4UUOlQGPciVEacTglPAKs DOa6LAmkkqQcw9ZfAdXhrg HenVTvdbIcQR2pATBtxSVc tzQrKNA7HPJaLSPTBfZuMD Ijk8FxVH3eSSBijQwjGMYq cU5lz2JpXFHsu37iSNOfFW BGREEgaGFzIGRldGVybWlu ZWQgdGhhdCBzdWNoIGNsZW FjOY0uTDErhtMzkPEmt8Kh lVAncsVdy9OrzpTwBVMuMY M5XqQBnPTawJWefXWnziG8 b7XzZUVadcHybJlakKBztX SslEYef2Vhre3gHJFms3vp xFazYM8wsIFiKNQkNIkuwp QxULIztxOtgyLbv4VbH1P7 cM3gMMbhv3KzBn7zUPQqn5 HdtiHqRpNOjXwbXNuhHw6x IDShbvvbwMGwH8CjjPbyyV VkIHVuZGVyIHRoZSBDbGlu fNCstMCAQADkjcB4w6F7UM bacEEwcuLgPY00VHPxVD0w sIIkmRMqh3GaCYa2RIWjG7 dCBX37MHmfEHVsoBOuwPym xZIqOXOjPGHafyHneq2ibU hasOTrb09vbON2xTO1LVWd lL1qB0ZmRDdlHg3eQSLgfj ixeEHdjHybGb0imMqhkC2f LuOcEkVgRmseGZ1uAKFqY2 ojwNTtRPApMJGfE8gqYkAl hM4snBsaYticehZkPCYmmg 0= [facility] [id number] 12:30:00Surgical Pathology Report Case: [id number] Authorizing Provider: Andrea Cardozo MD Collected: 03/28/2019 1328 Ordering Location: [facility] Endoscopy Received: 03/28/2019 1446 Services Pathologist: Michael Sosa MD Specimens: A) - Common Bile Duct, CBD stricture bx B) -Hepatic, common hepatic duct bx A. COMMON BILE DUCT STRICTURE - BLOOD WITH ACUTE AND CHRONIC INFLAMMATION AND EPITHELIAL CELLS WHICH APPEARS TO BE REACTIVE - FOCAL XANTHOGRANULOMATOUS REACTION - NO ACID FAST BACILLI OR FUNGI IDENTIFIED ON AFB AND GMS STAINS- NEGATIVE FOR DYSPLASIA OR CARCINOMA B. COMMON HEPATIC DUCT, BIOPSY - MARKED CHRONIC ACTIVE XANTHOGRANULATOMATOUS REACTION WITH SURFACE DENUDATION - NO ACID FAST BACILLI OR FUNGI IDENTIFIED ON AFB AND GMS STAINS- NEGATIVE FOR DYSPLASIA OR CARCINOMA Signing Pathologist Direct Phone Line: [phone] signed by Michael Sosa MD on 04/05/2019 at 12:30 [id number] x 2, [id number] x 2, 36922 x 2, 11065 x 4Preop Diagnosis: Primary sclerosing cholangitisThis case has two parts. A. Commonbile duct B. Hepatic A. Received in formalin labeled with the patient's name, accession number and "common bile duct" is a 0.2 x 0.2 x 0.1 cm beebe-pink tissue fragment which is filtered and submittedin toto in A1. B. Received in formalin labeled with the patient's name, accession number and "common hepatic duct" are multiple beebe-pink tissue fragments measuring up to 0.1 cm in greatest dimension which are filtered and submitted in toto in B1. PA/bc Microscopic examination is performed and the findings are in incorporated in the diagnostic line. Intradepartmental consultation: Iman Mcpherson MDThe interpretation of this case included the use of immunohistochemistry or special stains.A. CD68 - stains histiocytes AE1/AE3- No carcinoma identified AFB - No acid fast bacilli seen GMS -No fungi seenB. CD68 - stains histiocytes AE1/AE3- No carcinoma identified AFB - No acid fast bacilli seen GMS - No fungi seenControl Slides Examined: In-house known positive controls were evaluated along with the test tissue. These control slides run alongside of the patients sample show appropriate staining. Internal positive and negative controls when available are evaluated Immunohistochemistry technical testing was performed at [facility], Pathology Laboratory where it was developed and its performance characteristics were determined. It has not been cleared or approved by the U.S. Food and Drug Administration. The FDA has determined that such clearance orapproval is not necessary. The test is used for clinical purposes. It should not be regarded as investigational or for research. This laboratory is certified under the Clinical Laboratory Improvement Amendments of 1988 (CLIA-88) as qualified to perform high complexity clinical laboratory testing.PA, [id number] 16:24:00Referring: Dr. Casper Allen for exam:->abnormal ct scanFINAL REPORT A fluoroscopic unit was utilized for a procedure performed in the operating room. No interpretation was requested. Please refer to the operative report regarding findings. Please refer to PACS for patient radiation dose information. Signed: Alaina Woody MDReport Verified Date/Time: 03/28/2019 16:24:37 Reading Location: [address] Radiology Reading Room [place] Endoscopic Retrograde [id number] 16:24:00Interface, External Ris In - 03/28/2019 4:26 PM CSTFINAL REPORT A fluoroscopic unit was utilized for a procedure performed in the operating room. No interpretation was requested. Please refer to the operative report regarding findings. Please refer to PACS for patient radiationdose information. Signed: Alaina Woody Verified Date/Time: 03/28/2019 16:24:37 Reading Location: [address] Radiology Reading Room [facility] [id number] 17:44:00 Test Item Value Reference Range Interpretation Comments TOTAL PROTEIN 7.8 gm/dL 6.0-8.3 (BEAKER) (test code = 770) ALBUMIN (BEAKER) 3.1 g/dL 3.5-5.0 L (test code = 1145) ALKALINE PHOSPHATASE 986 U/L 40-150 H (BEAKER) (test code = 346) BILIRUBIN TOTAL 13.4 mg/dL 0.2-1.2 H (BEAKER) (test code = 377) SODIUM (BEAKER) (test 132 meq/L 136-145 L code = 381) POTASSIUM (BEAKER) 4.0 meq/L 3.5-5.1 (test code = 379) CHLORIDE (BEAKER) 100 meq/L 98-107 (test code = 382) CO2 (BEAKER) (test 25 meq/L 22-29 code = 355) BLOOD UREA NITROGEN 13 mg/dL 7-21 (BEAKER) (test code = 354) CREATININE (BEAKER) 0.63 mg/dL 0.57-1.25 (test code = 358) GLUCOSE RANDOM 89 mg/dL 70-105 (BEAKER) (test code = 652) CALCIUM (BEAKER) 9.7 mg/dL 8.4-10.2 (test code = 697) AST (SGOT) (BEAKER) 226 U/L 5-34 H (test code = 353) ALT (SGPT) (BEAKER) 176 U/L 6-55 H (test code = 347) EGFR (BEAKER) (test 92 mL/min/1.73 ESTIMA TONNY GFR IS code = 1092) sq m NOT ACCURATE CREATININE CLEARANCE IN PREDICTING GLOMERULAR FILTRATION RATE . ESTIMATED GFR I S NOT APPLICABLE FOR DIALYSIS PATIEN TS. Specimen markedly ictericBILIRUBIN, [id number] 17:44:00 Test Item Value Reference Range Interpretation Comments BILIRUBIN DIRECT (BEAKER) (test 10.1 mg/dL 0.1-0.5 H code = 706) PROTHROMBIN TIME/[id number] 17:32:00 Test Item Value Reference Range Interpretation Comments PROTIME (BEAKER) (test code = 16.5 seconds 11.9-14.2 H 759) INR (BEAKER) (test code = 370) 1.4 <=5.9 Effective 09/06/2018: PT Reference Range ChangeNew: 11.9-14.2 Previous: 11.7- 14.7RECOMMENDED COUMADIN/WARFARIN INR THERAPY RANGESSTANDARD DOSE: 2.0-3.0 Includes: PROPHYLAXIS for venous thrombosis, systemic embolization; TREATMENT for venous thrombosis and/or pulmonary embolus.HIGH RISK: Target INR is2.5-3.5 for patients wiht mechanical heart valves.CBC W/PLT COUNT & AUTO [id number] 17:22:00 Test Item Value Reference Range Interpretation Comments WHITE BLOOD CELL COUNT (BEAKER) 8.6 K/ L 3.5-10.5 (test code = 775) RED BLOOD CELL COUNT (BEAKER) 3.61 M/ L 3.93-5.22 L (test code = 761) HEMOGLOBIN (BEAKER) (test code = 11.0 GM/DL 11.2-15.7 L 410) HEMATOCRIT (BEAKER) (test code = 33.4 % 34.1-44.9 L 411) MEAN CORPUSCULAR VOLUME (BEAKER) 92.5 fL 79.4-94.8 (test code = 753) MEAN CORPUSCULAR HEMOGLOBIN 30.5 pg 25.6-32.2 (BEAKER) (test code = 751) MEAN CORPUSCULAR HEMOGLOBIN CONC 32.9 GM/DL 32.2-35.5 (BEAKER) (test code = 752) RED CELL DISTRIBUTION WIDTH 17.4 % 11.7-14.4 H (BEAKER) (test code = 412) PLATELET COUNT (BEAKER) (test 229 K/CU MM 150-450 code = 756) MEAN PLATELET VOLUME (BEAKER) 11.1 fL 9.4-12.3 (test code = 754) NUCLEATED RED BLOOD CELLS 0 /100 WBC 0-0 (BEAKER) (test code = 413) NEUTROPHILS RELATIVE PERCENT 79 % (BEAKER) (test code = 429) LYMPHOCYTES RELATIVE PERCENT 14 % (BEAKER) (test code = 430) MONOCYTES RELATIVE PERCENT 5 % (BEAKER) (test code = 431) EOSINOPHILS RELATIVE PERCENT 1 % (BEAKER) (test code = 432) BASOPHILS RELATIVE PERCENT 1 % (BEAKER) (test code = 437) NEUTROPHILS ABSOLUTE COUNT 6.75 K/ L 1.56-6.13 H (BEAKER) (test code = 670) LYMPHOCYTES ABSOLUTE COUNT 1.16 K/ L 1.18-3.74 L (BEAKER) (test code = 414) MONOCYTES ABSOLUTE COUNT (BEAKER) 0.44 K/ L 0.24-0.36 H (test code = 415) EOSINOPHILS ABSOLUTE COUNT 0.10 K/ L 0.04-0.36 (BEAKER) (test code = 416) BASOPHILS ABSOLUTE COUNT (BEAKER) 0.06 K/ L 0.01-0.08 (test code = 417) IMMATURE GRANULOCYTES-RELATIVE 1 % 0-1 PERCENT (BEAKER) (test code = 2801) MR, ABDOMEN, [id number] 20:56:00Referring: Dr. Casper Keen Include Abdominal Vessels Reason for Exam:->cirrhosis, on liver transplant listFINAL REPORT TECHNIQUE: MRI of the abdomen WITHOUT and WITH intravenous contrast. INDICATION: cirrhosis, on liver transplant listcirrhosis, on liver transplant list. COMPARISON: MRI from 59 06/28/2018. FINDINGS: LOWER THORAX: Unremarkable. LIVER: Nodular, cirrhotic liver. No focal hepatic lesions. BILIARY: Prior cholecystectomy. The appearance of the intrahepatic bile ducts is unchanged from the prior with an area of stricture at the hepatic hilum. The dilation of the common bile duct has increased to 0.8 cm from 0.3 cm. In addition, there is new dilation of the cystic duct.SPLEEN: The spleen measures near the upper limit of normal in size.PANCREAS: No focal masses or ductal dilatation. ADRENALS: No adrenal nodules.KIDNEYS/URETERS: No hydronephrosis or solid mass lesions. Aright upper pole parapelvic renal cyst measures 4.3 cm. A left upper pole simple renal cyst measures0.7 cm. PERITONEUM/RETROPERITONEUM: No free fluid.LYMPH NODES: No lymphadenopathy.VESSELS: Prominentcollateral vessels around the stomach. The main portal vein is patent and measures 1.3 cm in diameter. GI TRACT: No distention or wall thickening. A large hiatal hernia contains nearly the entire stomach. BONES AND SOFT TISSUES: Several lesions in the lower lumbar spine which are hyperintense on T2-weighted imaging appears nonaggressive and are most likely hemangiomas. The for convex curvature of the lumbar spine. 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 Consider further evaluation with ERCP. 2.No suspicious focal hepatic lesions. 3.Cirrhosis with prominent collateral vessels around the stomach, suggesting portal hypertension. Signed: Kiara Humphreys MDReport Verified Date/Time: 01/31/2019 20:56:35 Reading Location: [facility] C013Y CT Body Reading Room COMPREHENSIVE METABOLIC [id number] 16:33:00 Test Item Value Reference Range Interpretation Comments TOTAL PROTEIN 7.4 gm/dL 6.0-8.3 (BEAKER) (test code = 770) ALBUMIN (BEAKER) 3.0 g/dL 3.5-5.0 L (test code = 1145) ALKALINE PHOSPHATASE 968 U/L 40-150 H (BEAKER) (test code = 346) BILIRUBIN TOTAL 12.5 mg/dL 0.2-1.2 H (BEAKER) (test code = 377) SODIUM (BEAKER) (test 129 meq/L 136-145 L code = 381) POTASSIUM (BEAKER) 3.9 meq/L 3.5-5.1 (test code = 379) CHLORIDE (BEAKER) 98 meq/L 98-107 (test code = 382) CO2 (BEAKER) (test 25 meq/L 22-29 code = 355) BLOOD UREA NITROGEN 12 mg/dL 7-21 (BEAKER) (test code = 354) CREATININE (BEAKER) 0.61 mg/dL 0.57-1.25 (test code = 358) GLUCOSE RANDOM 116 mg/dL 70-105 H (BEAKER) (test code = 652) CALCIUM (BEAKER) 9.4 mg/dL 8.4-10.2 (test code = 697) AST (SGOT) (BEAKER) 198 U/L 5-34 H (test code = 353) ALT (SGPT) (BEAKER) 141 U/L 6-55 H (test code = 347) EGFR (BEAKER) (test 96 mL/min/1.73 ESTIMA TONNY GFR IS code = 1092) sq m NOT ACCURATE CREATININE CLEARANCE IN PREDICTING GLOMERULAR FILTRATION RATE . ESTIMATED GFR I S NOT APPLICABLE FOR DIALYSIS PATIEN TS. Specimen moderately ictericBILIRUBIN, [id number] 16:33:00 Test Item Value Reference Range Interpretation Comments BILIRUBIN DIRECT (BEAKER) (test 9.5 mg/dL 0.1-0.5 H code = 706) PROTHROMBIN TIME/[id number] 16:12:00 Test Item Value Reference Range Interpretation Comments PROTIME (BEAKER) (test code = 16.1 seconds 11.9-14.2 H 759) INR (BEAKER) (test code = 370) 1.4 <=5.9 Effective 09/06/2018: PT Reference Range ChangeNew: 11.9-14.2 Previous: 11.7- 14.7RECOMMENDED COUMADIN/WARFARIN INR THERAPY RANGESSTANDARD DOSE: 2.0-3.0 Includes: PROPHYLAXIS for venous thrombosis, systemic embolization; TREATMENT for venous thrombosis and/or pulmonary embolus.HIGH RISK: Target INR is2.5-3.5 for patients wiht mechanical heart valves.CBC W/PLT COUNT & AUTO [id number] 16:02:00 Test Item Value Reference Range Interpretation Comments WHITE BLOOD CELL COUNT (BEAKER) 8.0 K/ L 3.5-10.5 (test code = 775) RED BLOOD CELL COUNT (BEAKER) 3.44 M/ L 3.93-5.22 L (test code = 761) HEMOGLOBIN (BEAKER) (test code = 11.0 GM/DL 11.2-15.7 L 410) HEMATOCRIT (BEAKER) (test code = 32.4 % 34.1-44.9 L 411) MEAN CORPUSCULAR VOLUME (BEAKER) 94.2 fL 79.4-94.8 (test code = 753) MEAN CORPUSCULAR HEMOGLOBIN 32.0 pg 25.6-32.2 (BEAKER) (test code = 751) MEAN CORPUSCULAR HEMOGLOBIN CONC 34.0 GM/DL 32.2-35.5 (BEAKER) (test code = 752) RED CELL DISTRIBUTION WIDTH 17.8 % 11.7-14.4 H (BEAKER) (test code = 412) PLATELET COUNT (BEAKER) (test 220 K/CU MM 150-450 code = 756) MEAN PLATELET VOLUME (BEAKER) 10.8 fL 9.4-12.3 (test code = 754) NUCLEATED RED BLOOD CELLS 0 /100 WBC 0-0 (BEAKER) (test code = 413) NEUTROPHILS RELATIVE PERCENT 79 % (BEAKER) (test code = 429) LYMPHOCYTES RELATIVE PERCENT 11 % (BEAKER) (test code = 430) MONOCYTES RELATIVE PERCENT 6 % (BEAKER) (test code = 431) EOSINOPHILS RELATIVE PERCENT 2 % (BEAKER) (test code = 432) BASOPHILS RELATIVE PERCENT 1 % (BEAKER) (test code = 437) NEUTROPHILS ABSOLUTE COUNT 6.36 K/ L 1.56-6.13 H (BEAKER) (test code = 670) LYMPHOCYTES ABSOLUTE COUNT 0.89 K/ L 1.18-3.74 L (BEAKER) (test code = 414) MONOCYTES ABSOLUTE COUNT (BEAKER) 0.49 K/ L 0.24-0.36 H (test code = 415) EOSINOPHILS ABSOLUTE COUNT 0.15 K/ L 0.04-0.36 (BEAKER) (test code = 416) BASOPHILS ABSOLUTE COUNT (BEAKER) 0.05 K/ L 0.01-0.08 (test code = 417) IMMATURE GRANULOCYTES-RELATIVE 1 % 0-1 PERCENT (BEAKER) (test code = 2801) COMPREHENSIVE METABOLIC [id number] 16:14:00 Test Item Value Reference Range Interpretation Comments TOTAL PROTEIN 7.0 gm/dL 6.0-8.3 (BEAKER) (test code = 770) ALBUMIN (BEAKER) 2.8 g/dL 3.5-5.0 L (test code = 1145) ALKALINE PHOSPHATASE 892 U/L 40-150 H (BEAKER) (test code = 346) BILIRUBIN TOTAL 11.1 mg/dL 0.2-1.2 H (BEAKER) (test code = 377) SODIUM (BEAKER) (test 128 meq/L 136-145 L code = 381) POTASSIUM (BEAKER) 4.1 meq/L 3.5-5.1 (test code = 379) CHLORIDE (BEAKER) 98 meq/L 98-107 (test code = 382) CO2 (BEAKER) (test 25 meq/L 22-29 code = 355) BLOOD UREA NITROGEN 7 mg/dL 7-21 (BEAKER) (test code = 354) CREATININE (BEAKER) 0.65 mg/dL 0.57-1.25 (test code = 358) GLUCOSE RANDOM 114 mg/dL 70-105 H (BEAKER) (test code = 652) CALCIUM (BEAKER) 9.3 mg/dL 8.4-10.2 (test code = 697) AST (SGOT) (BEAKER) 172 U/L 5-34 H (test code = 353) ALT (SGPT) (BEAKER) 116 U/L 6-55 H (test code = 347) EGFR (BEAKER) (test 89 mL/min/1.73 ESTIMA TONNY GFR IS code = 1092) sq m NOT ACCURATE CREATININE CLEARANCE IN PREDICTING GLOMERULAR FILTRATION RATE . ESTIMATED GFR I S NOT APPLICABLE FOR DIALYSIS PATIEN TS. Specimen moderately ictericBILIRUBIN, [id number] 16:14:00 Test Item Value Reference Range Interpretation Comments BILIRUBIN DIRECT (BEAKER) (test 8.6 mg/dL 0.1-0.5 H code = 706) PROTHROMBIN [id number] 16:02:00 Test Item Value Reference Range Interpretation Comments PROTIME (BEAKER) (test code = 18.6 seconds 11.9-14.2 H 759) INR (BEAKER) (test code = 370) 1.6 <=5.9 Effective 09/06/2018: PT Reference Range ChangeNew: 11.9-14.2 Previous: 11.7- 14.7RECOMMENDED COUMADIN/WARFARIN INR THERAPY RANGESSTANDARD DOSE: 2.0-3.0 Includes: PROPHYLAXIS for venous thrombosis, systemic embolization; TREATMENT for venous thrombosis and/or pulmonary embolus.HIGH RISK: Target INR is2.5-3.5 for patients wiht mechanical heart valves.CBC W/PLT COUNT & AUTO [id number] 15:41:00 Test Item Value Reference Range Interpretation Comments WHITE BLOOD CELL COUNT (BEAKER) 6.8 K/ L 3.5-10.5 (test code = 775) RED BLOOD CELL COUNT (BEAKER) 3.43 M/ L 3.93-5.22 L (test code = 761) HEMOGLOBIN (BEAKER) (test code = 10.8 GM/DL 11.2-15.7 L 410) HEMATOCRIT (BEAKER) (test code = 31.7 % 34.1-44.9 L 411) MEAN CORPUSCULAR VOLUME (BEAKER) 92.4 fL 79.4-94.8 (test code = 753) MEAN CORPUSCULAR HEMOGLOBIN 31.5 pg 25.6-32.2 (BEAKER) (test code = 751) MEAN CORPUSCULAR HEMOGLOBIN CONC 34.1 GM/DL 32.2-35.5 (BEAKER) (test code = 752) RED CELL DISTRIBUTION WIDTH 18.0 % 11.7-14.4 H (BEAKER) (test code = 412) PLATELET COUNT (BEAKER) (test 215 K/CU MM 150-450 code = 756) MEAN PLATELET VOLUME (BEAKER) 10.2 fL 9.4-12.3 (test code = 754) NUCLEATED RED BLOOD CELLS 0 /100 WBC 0-0 (BEAKER) (test code = 413) NEUTROPHILS RELATIVE PERCENT 79 % (BEAKER) (test code = 429) LYMPHOCYTES RELATIVE PERCENT 13 % (BEAKER) (test code = 430) MONOCYTES RELATIVE PERCENT 7 % (BEAKER) (test code = 431) EOSINOPHILS RELATIVE PERCENT 2 % (BEAKER) (test code = 432) BASOPHILS RELATIVE PERCENT 0 % (BEAKER) (test code = 437) NEUTROPHILS ABSOLUTE COUNT 5.34 K/ L 1.56-6.13 (BEAKER) (test code = 670) LYMPHOCYTES ABSOLUTE COUNT 0.85 K/ L 1.18-3.74 L (BEAKER) (test code = 414) MONOCYTES ABSOLUTE COUNT (BEAKER) 0.45 K/ L 0.24-0.36 H (test code = 415) EOSINOPHILS ABSOLUTE COUNT 0.10 K/ L 0.04-0.36 (BEAKER) (test code = 416) BASOPHILS ABSOLUTE COUNT (BEAKER) 0.03 K/ L 0.01-0.08 (test code = 417) IMMATURE GRANULOCYTES-RELATIVE 0 % 0-1 PERCENT (BEAKER) (test code = 2801) COMPREHENSIVE METABOLIC [id number] 16:06:00 Test Item Value Reference Range Interpretation Comments TOTAL PROTEIN 7.7 gm/dL 6.0-8.3 (BEAKER) (test code = 770) ALBUMIN (BEAKER) 3.1 g/dL 3.5-5.0 L (test code = 1145) ALKALINE PHOSPHATASE 884 U/L 40-150 H (BEAKER) (test code = 346) BILIRUBIN TOTAL 12.5 mg/dL 0.2-1.2 H (BEAKER) (test code = 377) SODIUM (BEAKER) (test 126 meq/L 136-145 L code = 381) POTASSIUM (BEAKER) 3.6 meq/L 3.5-5.1 (test code = 379) CHLORIDE (BEAKER) 96 meq/L 98-107 L (test code = 382) CO2 (BEAKER) (test 24 meq/L 22-29 code = 355) BLOOD UREA NITROGEN 9 mg/dL 7-21 (BEAKER) (test code = 354) CREATININE (BEAKER) 0.60 mg/dL 0.57-1.25 (test code = 358) GLUCOSE RANDOM 97 mg/dL 70-105 (BEAKER) (test code = 652) CALCIUM (BEAKER) 9.6 mg/dL 8.4-10.2 (test code = 697) AST (SGOT) (BEAKER) 154 U/L 5-34 H (test code = 353) ALT (SGPT) (BEAKER) 128 U/L 6-55 H (test code = 347) EGFR (BEAKER) (test 97 mL/min/1.73 ESTIMA TONNY GFR IS code = 1092) sq m NOT ACCURATE CREATININE CLEARANCE IN PREDICTING GLOMERULAR FILTRATION RATE . ESTIMATED GFR I S NOT APPLICABLE FOR DIALYSIS PATIEN TS. Specimen moderately ictericBILIRUBIN, [id number] 16:06:00 Test Item Value Reference Range Interpretation Comments BILIRUBIN DIRECT (BEAKER) (test 9.3 mg/dL 0.1-0.5 H code = 706) PROTHROMBIN [id number] 15:52:00 Test Item Value Reference Range Interpretation Comments PROTIME (BEAKER) (test code = 19.1 seconds 11.9-14.2 H 759) INR (BEAKER) (test code = 370) 1.7 <=5.9 Effective 09/06/2018: PT Reference Range ChangeNew: 11.9-14.2 Previous: 11.7- 14.7RECOMMENDED COUMADIN/WARFARIN INR THERAPY RANGESSTANDARD DOSE: 2.0-3.0 Includes: PROPHYLAXIS for venous thrombosis, systemic embolization; TREATMENT for venous thrombosis and/or pulmonary embolus.HIGH RISK: Target INR is2.5-3.5 for patients wiht mechanical heart valves.CBC W/PLT COUNT & AUTO [id number] 15:44:00 Test Item Value Reference Range Interpretation Comments WHITE BLOOD CELL COUNT (BEAKER) 7.9 K/ L 3.5-10.5 (test code = 775) RED BLOOD CELL COUNT (BEAKER) 3.47 M/ L 3.93-5.22 L (test code = 761) HEMOGLOBIN (BEAKER) (test code = 10.8 GM/DL 11.2-15.7 L 410) HEMATOCRIT (BEAKER) (test code = 31.9 % 34.1-44.9 L 411) MEAN CORPUSCULAR VOLUME (BEAKER) 91.9 fL 79.4-94.8 (test code = 753) MEAN CORPUSCULAR HEMOGLOBIN 31.1 pg 25.6-32.2 (BEAKER) (test code = 751) MEAN CORPUSCULAR HEMOGLOBIN CONC 33.9 GM/DL 32.2-35.5 (BEAKER) (test code = 752) RED CELL DISTRIBUTION WIDTH 18.2 % 11.7-14.4 H (BEAKER) (test code = 412) PLATELET COUNT (BEAKER) (test 231 K/CU MM 150-450 code = 756) MEAN PLATELET VOLUME (BEAKER) 11.0 fL 9.4-12.3 (test code = 754) NUCLEATED RED BLOOD CELLS 0 /100 WBC 0-0 (BEAKER) (test code = 413) NEUTROPHILS RELATIVE PERCENT 79 % (BEAKER) (test code = 429) LYMPHOCYTES RELATIVE PERCENT 11 % (BEAKER) (test code = 430) MONOCYTES RELATIVE PERCENT 6 % (BEAKER) (test code = 431) EOSINOPHILS RELATIVE PERCENT 2 % (BEAKER) (test code = 432) BASOPHILS RELATIVE PERCENT 1 % (BEAKER) (test code = 437) NEUTROPHILS ABSOLUTE COUNT 6.22 K/ L 1.56-6.13 H (BEAKER) (test code = 670) LYMPHOCYTES ABSOLUTE COUNT 0.88 K/ L 1.18-3.74 L (BEAKER) (test code = 414) MONOCYTES ABSOLUTE COUNT (BEAKER) 0.50 K/ L 0.24-0.36 H (test code = 415) EOSINOPHILS ABSOLUTE COUNT 0.18 K/ L 0.04-0.36 (BEAKER) (test code = 416) BASOPHILS ABSOLUTE COUNT (BEAKER) 0.05 K/ L 0.01-0.08 (test code = 417) IMMATURE GRANULOCYTES-RELATIVE 1 % 0-1 PERCENT (BEAKER) (test code = 2801) PROTHROMBIN TIME/[id number] 18:48:00 Test Item Value Reference Range Interpretation Comments PROTIME (BEAKER) 15.8 seconds 11.9-14.2 H Test perfor med at (test code = 759) TCH. See s canned report. Referen ce 10.5-15.7 sec INR (BEAKER) (test 1.3 <=5.9 code = 370) Effective 09/06/2018: PT Reference Range ChangeNew: 11.9-14.2 Previous: 11.7- 14.7RECOMMENDED COUMADIN/WARFARIN INR THERAPY RANGESSTANDARD DOSE: 2.0-3.0 Includes: PROPHYLAXIS for venous thrombosis, systemic embolization; TREATMENT for venous thrombosis and/or pulmonary embolus.HIGH RISK: Target INR is2.5-3.5 for patients wiht mechanical heart valves.COMPREHENSIVE METABOLIC PANEL 2019 16:37:00 Test Item Value Reference Range Interpretation Comments TOTAL PROTEIN 7.7 gm/dL 6.0-8.3 (BEAKER) (test code = 770) ALBUMIN (BEAKER) 3.1 g/dL 3.5-5.0 L (test code = 1145) ALKALINE PHOSPHATASE 836 U/L 40-150 H (BEAKER) (test code = 346) BILIRUBIN TOTAL 13.0 mg/dL 0.2-1.2 H (BEAKER) (test code = 377) SODIUM (BEAKER) (test 127 meq/L 136-145 L code = 381) POTASSIUM (BEAKER) 4.4 meq/L 3.5-5.1 (test code = 379) CHLORIDE (BEAKER) 95 meq/L 98-107 L (test code = 382) CO2 (BEAKER) (test 23 meq/L 22-29 code = 355) BLOOD UREA NITROGEN 11 mg/dL 7-21 (BEAKER) (test code = 354) CREATININE (BEAKER) 0.63 mg/dL 0.57-1.25 (test code = 358) GLUCOSE RANDOM 79 mg/dL 70-105 (BEAKER) (test code = 652) CALCIUM (BEAKER) 9.8 mg/dL 8.4-10.2 (test code = 697) AST (SGOT) (BEAKER) 165 U/L 5-34 H (test code = 353) ALT (SGPT) (BEAKER) 142 U/L 6-55 H (test code = 347) EGFR (BEAKER) (test 92 mL/min/1.73 ESTIMA TONNY GFR IS code = 1092) sq m NOT ACCURATE CREATININE CLEARANCE IN PREDICTING GLOMERULAR FILTRATION RATE . ESTIMATED GFR I S NOT APPLICABLE FOR DIALYSIS PATIEN TS. Specimen markedly ictericBILIRUBIN, [id number] 16:37:00 Test Item Value Reference Range Interpretation Comments BILIRUBIN DIRECT (BEAKER) (test 9.7 mg/dL 0.1-0.5 H code = 706) CBC W/PLT COUNT & AUTO [id number] 15:45:00 Test Item Value Reference Range Interpretation Comments WHITE BLOOD CELL COUNT (BEAKER) 10.3 K/ L 3.5-10.5 (test code = 775) RED BLOOD CELL COUNT (BEAKER) 3.26 M/ L 3.93-5.22 L (test code = 761) HEMOGLOBIN (BEAKER) (test code = 10.4 GM/DL 11.2-15.7 L 410) HEMATOCRIT (BEAKER) (test code = 30.3 % 34.1-44.9 L 411) MEAN CORPUSCULAR VOLUME (BEAKER) 92.9 fL 79.4-94.8 (test code = 753) MEAN CORPUSCULAR HEMOGLOBIN 31.9 pg 25.6-32.2 (BEAKER) (test code = 751) MEAN CORPUSCULAR HEMOGLOBIN CONC 34.3 GM/DL 32.2-35.5 (BEAKER) (test code = 752) RED CELL DISTRIBUTION WIDTH 18.9 % 11.7-14.4 H (BEAKER) (test code = 412) PLATELET COUNT (BEAKER) (test 221 K/CU MM 150-450 code = 756) MEAN PLATELET VOLUME (BEAKER) 11.3 fL 9.4-12.3 (test code = 754) NUCLEATED RED BLOOD CELLS 0 /100 WBC 0-0 (BEAKER) (test code = 413) NEUTROPHILS RELATIVE PERCENT 81 % (BEAKER) (test code = 429) LYMPHOCYTES RELATIVE PERCENT 10 % (BEAKER) (test code = 430) MONOCYTES RELATIVE PERCENT 5 % (BEAKER) (test code = 431) EOSINOPHILS RELATIVE PERCENT 2 % (BEAKER) (test code = 432) BASOPHILS RELATIVE PERCENT 1 % (BEAKER) (test code = 437) NEUTROPHILS ABSOLUTE COUNT 8.37 K/ L 1.56-6.13 H (BEAKER) (test code = 670) LYMPHOCYTES ABSOLUTE COUNT 1.04 K/ L 1.18-3.74 L (BEAKER) (test code = 414) MONOCYTES ABSOLUTE COUNT (BEAKER) 0.54 K/ L 0.24-0.36 H (test code = 415) EOSINOPHILS ABSOLUTE COUNT 0.18 K/ L 0.04-0.36 (BEAKER) (test code = 416) BASOPHILS ABSOLUTE COUNT (BEAKER) 0.07 K/ L 0.01-0.08 (test code = 417) IMMATURE GRANULOCYTES-RELATIVE 1 % 0-1 PERCENT (BEAKER) (test code = 2801) BASIC METABOLIC [id number] 12:50:00 Test Item Value Reference Range Interpretation Comments SODIUM (BEAKER) 130 meq/L 136-145 L (test code = 381) POTASSIUM (BEAKER) 3.5 meq/L 3.5-5.1 (test code = 379) CHLORIDE (BEAKER) 97 meq/L 98-107 L (test code = 382) CO2 (BEAKER) (test 24 meq/L 22-29 code = 355) BLOOD UREA NITROGEN 10 mg/dL 7-21 (BEAKER) (test code = 354) CREATININE (BEAKER) 0.57 mg/dL 0.57-1.25 (test code = 358) GLUCOSE RANDOM 119 mg/dL 70-105 H (BEAKER) (test code = 652) CALCIUM (BEAKER) 9.5 mg/dL 8.4-10.2 (test code = 697) EGFR (BEAKER) (test 104 mL/min/1.73 ESTIM ATED GFR IS code = 1092) sq m NOT ACCURATE CREATININE CLEARANCE IN PREDICTING GLOMERULAR FILTRATION RATE . ESTIMATED GFR I S NOT APPLICABLE FOR DIALYSIS PATIEN TS. Specimen markedly ictericHEPATIC FUNCTION [id number] 12:50:00 Test Item Value Reference Range Interpretation Comments TOTAL PROTEIN (BEAKER) (test code 7.9 gm/dL 6.0-8.3 = 770) ALBUMIN (BEAKER) (test code = 3.2 g/dL 3.5-5.0 L 1145) BILIRUBIN TOTAL (BEAKER) (test 11.6 mg/dL 0.2-1.2 H code = 377) BILIRUBIN DIRECT (BEAKER) (test 9.3 mg/dL 0.1-0.5 H code = 706) ALKALINE PHOSPHATASE (BEAKER) 898 U/L 40-150 H (test code = 346) AST (SGOT) (BEAKER) (test code = 231 U/L 5-34 H 353) ALT (SGPT) (BEAKER) (test code = 148 U/L 6-55 H 347) Specimen markedly ictericPROTHROMBIN TIME/[id number] 12:33:00 Test Item Value Reference Range Interpretation Comments PROTIME (BEAKER) (test code = 15.4 seconds 11.9-14.2 H 759) INR (BEAKER) (test code = 370) 1.3 <=5.9 Effective 09/06/2018: PT Reference Range ChangeNew: 11.9-14.2 Previous: 11.7- 14.7RECOMMENDED COUMADIN/WARFARIN INR THERAPY RANGESSTANDARD DOSE: 2.0-3.0 Includes: PROPHYLAXIS for venous thrombosis, systemic embolization; TREATMENT for venous thrombosis and/or pulmonary embolus.HIGH RISK: Target INR is2.5-3.5 for patients wiht mechanical heart valves.RAD, SPINE, CERVICAL, 2 OR 3 VIEWS 2018-11-23 16:58:00Referring: Dr. Casper Allen for Exam:->cervical dystoniaLocation->[facility] HospitalFINAL REPORT TECHNIQUE: Frontal and lateral views of the cervical spine. INDICATION: 73-year-old woman with cervical dystonia. COMPARISON: None. FINDINGS:Normal cervical lordosis.No acute fractures.Disc space narrowing at at C4-C5 and C5-C6 with anterior osteophyte and posteriordisc osteophyte complex formation at these levels.Questionable mild retrolisthesis of C5 on C6.Mild bilateral facet arthrosis throughout the cervical spine.Soft tissues are grossly unremarkable. IMPRESSION:No acute osseous abnormalities of the cervical spine. Degenerative changes of the cervical spine, as detailed above. Signed: Alaina Woody MDReport Verified Date/Time: 11/23/2018 16:58:03 Reading Location: [address] Radiology Reading Room URINE [id number] 08:16:00 Test Item Value Reference Range Interpretation Comments CULTURE (BEAKER) (test >100,000 col/mL skin code = 1095) basilio <10,000 col/mL Gram Negative RodsVITAMIN D, [id number] 16:05:00 Test Item Value Reference Range Interpretation Comments VITAMIN D 25-OH (BEAKER) (test 28.3 ng/mL 6.6-49.9 code = 2764) Effective 01/19/2017: Reference Range ChangeNew: 6.6-49.9 ng/mL Previous: 13.0-47.8 ng/mLRecommended Vitamin D Target Range: 30.0-40.0 ng/mLCOMPREHENSIVE METABOLIC [id number] 15:16:00 Test Item Value Reference Range Interpretation Comments TOTAL PROTEIN 7.8 gm/dL 6.0-8.3 (BEAKER) (test code = 770) ALBUMIN (BEAKER) 3.1 g/dL 3.5-5.0 L (test code = 1145) ALKALINE PHOSPHATASE 885 U/L 40-150 H (BEAKER) (test code = 346) BILIRUBIN TOTAL 11.8 mg/dL 0.2-1.2 H (BEAKER) (test code = 377) SODIUM (BEAKER) (test 125 meq/L 136-145 L code = 381) POTASSIUM (BEAKER) 3.5 meq/L 3.5-5.1 (test code = 379) CHLORIDE (BEAKER) 94 meq/L 98-107 L (test code = 382) CO2 (BEAKER) (test 23 meq/L 22-29 code = 355) BLOOD UREA NITROGEN 13 mg/dL 7-21 (BEAKER) (test code = 354) CREATININE (BEAKER) 0.59 mg/dL 0.57-1.25 (test code = 358) GLUCOSE RANDOM 79 mg/dL 70-105 (BEAKER) (test code = 652) CALCIUM (BEAKER) 9.9 mg/dL 8.4-10.2 (test code = 697) AST (SGOT) (BEAKER) 162 U/L 5-34 H (test code = 353) ALT (SGPT) (BEAKER) 148 U/L 6-55 H (test code = 347) EGFR (BEAKER) (test 100 ESTIMATE D GFR IS code = 1092) mL/min/1.73 sq NOT ACCURA TE m CREATININE CLEARANCE IN PREDICTING GLOMERULAR FILTRATION RATE . ESTIMATED GFR I S NOT APPLICABLE FOR DIALYSIS PATIEN TS. Specimen moderately ictericBILIRUBIN, [id number] 15:16:00 Test Item Value Reference Range Interpretation Comments BILIRUBIN DIRECT (BEAKER) (test 8.6 mg/dL 0.1-0.5 H code = 706) CBC W/PLT COUNT & AUTO [id number] 14:57:00 Test Item Value Reference Range Interpretation Comments WHITE BLOOD CELL COUNT (BEAKER) 14.1 K/ L 3.5-10.5 H (test code = 775) RED BLOOD CELL COUNT (BEAKER) 3.40 M/ L 3.93-5.22 L (test code = 761) HEMOGLOBIN (BEAKER) (test code = 10.7 GM/DL 11.2-15.7 L 410) HEMATOCRIT (BEAKER) (test code = 32.0 % 34.1-44.9 L 411) MEAN CORPUSCULAR VOLUME (BEAKER) 94.1 fL 79.4-94.8 (test code = 753) MEAN CORPUSCULAR HEMOGLOBIN 31.5 pg 25.6-32.2 (BEAKER) (test code = 751) MEAN CORPUSCULAR HEMOGLOBIN CONC 33.4 GM/DL 32.2-35.5 (BEAKER) (test code = 752) RED CELL DISTRIBUTION WIDTH 17.2 % 11.7-14.4 H (BEAKER) (test code = 412) PLATELET COUNT (BEAKER) (test 315 K/CU MM 150-450 code = 756) MEAN PLATELET VOLUME (BEAKER) 10.5 fL 9.4-12.3 (test code = 754) NUCLEATED RED BLOOD CELLS 0 /100 WBC 0-0 (BEAKER) (test code = 413) NEUTROPHILS RELATIVE PERCENT 79 % (BEAKER) (test code = 429) LYMPHOCYTES RELATIVE PERCENT 11 % (BEAKER) (test code = 430) MONOCYTES RELATIVE PERCENT 5 % (BEAKER) (test code = 431) EOSINOPHILS RELATIVE PERCENT 1 % (BEAKER) (test code = 432) BASOPHILS RELATIVE PERCENT 1 % (BEAKER) (test code = 437) NEUTROPHILS ABSOLUTE COUNT 11.10 K/ L 1.56-6.13 H (BEAKER) (test code = 670) LYMPHOCYTES ABSOLUTE COUNT 1.48 K/ L 1.18-3.74 (BEAKER) (test code = 414) MONOCYTES ABSOLUTE COUNT (BEAKER) 0.74 K/ L 0.24-0.36 H (test code = 415) EOSINOPHILS ABSOLUTE COUNT 0.17 K/ L 0.04-0.36 (BEAKER) (test code = 416) BASOPHILS ABSOLUTE COUNT (BEAKER) 0.10 K/ L 0.01-0.08 H (test code = 417) IMMATURE GRANULOCYTES-RELATIVE 3 % 0-1 H PERCENT (BEAKER) (test code = 2801) PROTHROMBIN [id number] 14:57:00 Test Item Value Reference Range Interpretation Comments PROTIME (BEAKER) (test code = 13.7 seconds 11.9-14.2 759) INR (BEAKER) (test code = 370) 1.1 <=5.9 Effective 09/06/2018: PT Reference Range ChangeNew: 11.9-14.2 Previous: 11.7- 14.7RECOMMENDED COUMADIN/WARFARIN INR THERAPY RANGESSTANDARD DOSE: 2.0-3.0 Includes: PROPHYLAXIS for venous thrombosis, systemic embolization; TREATMENT for venous thrombosis and/or pulmonary embolus.HIGH RISK: Target INR is2.5-3.5 for patients wiht mechanical heart valves.URINALYSIS W/ [id number] 14:54:00 Test Item Value Reference Range Interpretation Comments COLOR (BEAKER) (test code = 470) Yellow CLARITY (BEAKER) (test code = 469) Clear SPECIFIC GRAVITY UA (BEAKER) (test 1.003 1.001-1.035 code = 468) PH UA (BEAKER) (test code = 467) 6.0 5.0-8.0 PROTEIN UA (BEAKER) (test code = Negative Negative 464) GLUCOSE UA (BEAKER) (test code = Negative Negative 365) KETONES UA (BEAKER) (test code = Negative Negative 371) BILIRUBIN UA (BEAKER) (test code = Positive Negative A 462) BLOOD UA (BEAKER) (test code = 461) Negative Negative NITRITE UA (BEAKER) (test code = Negative Negative 465) LEUKOCYTE ESTERASE UA (BEAKER) Negative Negative (test code = 466) UROBILINOGEN UA (BEAKER) (test code 0.2 mg/dL 0.2-1.0 = 463) RBC UA (BEAKER) (test code = 519) < /HPF WBC UA (BEAKER) (test code = 520) 4 /HPF SQUAMOUS EPITHELIAL (BEAKER) (test 1 /HPF code = 516) SOURCE(BEAKER) (test code = 2795) MM, U/S, BREAST, UNILATERAL, [id number] 14:15:00Referring: Dr. Casper KeenDiagnostic workup per radiologist?->YesReason for Exam:->R92.8N#: [id number] - MM, U/S, BREAST, UNILATERAL, LEFTULTRASOUND OF LEFT BREAST: 11/06/2018Comparison is made to exams dated: 11/06/2018 mammogram and 10/19/2018 mammogram - [facility]. Ultrasound of all four quadrants and the retroareolar right breast was performed. Ultrasound of the right axilla was also performed. There is normal fibroglandular tissue without evidence of a suspicious solid or cystic mass. No abnormal lymph nodes are seen in the right axilla. IMPRESSION: NEGATIVE There is no sonographic evidence of malignancy. A 1 year screening mammogram is recommended. Talia Rizvi M.D. /:11/06/2018 14:15:30 Normal Exam Ultrasound BI-RADS: 1 Negative [id number] MM, DIGITAL MAMMO, DIAGNOSTIC, WITH GE, LEFT INCLUDING [id number] 13:56:00Referring: Dr. Casper KeenDiagnostic workup per radiologist?->YesReason for Exam:->R92.8N#: [id number] - MM, DIGITAL MAMMO, DIAGNOSTIC, WITH GE, LEFT INCLUDING CADUNILATERAL LEFT DIGITAL DIAGNOSTIC MAMMOGRAM 3D/2D WITH CAD: 11/06/2018Comparison is made to exam dated: 10/19/2018 mammogram - [facility]. There are scattered fibroglandular elements in the left breast that could obscure a lesion on mammography. Tomosynthesis 3D imaging of the breast was also performed. Current study was also evaluated with a Computer Aided Detection (CAD) system. Additional imaging was obtained. Focal area in question in the left breast in prior mammography is not reproduced and presumably represents superimposed breast tissue. No significant masses, calcifications, or other findings are seen in the breast. IMPRESSION: BENIGNThere is no mammographic evidence of malignancy. Talia Rizvi M.D. /penrad:11/06/2018 13:56:12 [place] Opener: Florecita TRACEY(Eusebia)(Jana), [facility] Mammogram BI-RADS: 2 Benign [id number] 14:12:00 Test Item Value Reference Range Interpretation Comments T3 TOTAL (BEAKER) (test code = 656) 133 ng/dL 48-159 [id number] 22:07:00 Test Item Value Reference Range Interpretation Comments FERRITIN (BEAKER) (test code = 361) 212 ng/mL 5-275 CYTOMEGALOVIRUS ANTIBODY, [id number] 13:01:00 Test Item Value Reference Range Interpretation Comments CYTOMEGALOVIRUS, IGG (BEAKER) Negative Negative, Equivocal (test code = 3429) CMV IgG Result Interpretation: </= 0.8 Al Negative 0.9-1.0 Al Equivocal >/=1.1 Al PositiveCYTOMEGALOVIRUS ANTIBODY, [id number] 13:01:00 Test Item Value Reference Range Interpretation Comments CYTOMEGALOVIRUS IGM ANTIBODY Negative Negative, Equivocal (BEAKER) (test code = 3437) CMV IgM Result Interpretation: </= 0.8 Al Negative 0.9-1.0 Al Equivocal >/= 1.1 Al PositiveEBV ANTIBODY, [id number] 12:59:00 Test Item Value Reference Range Interpretation Comments SAW HASKINS VIRAL CAPSID Positive Negative, Equivocal A ANTIGEN IGG (BEAKER) (test code = 3415) Saw Haskins Viral Capsid Antigen IgG Result Interpretation: </= 0.8 Al Negative 0.9-1.0 Al Equivocal >/= 1.1 Al PositiveEBV ANTIBODY, IGM 2018-10-19 12:59:00 Test Item Value Reference Range Interpretation Comments SAW HASKINS VIRAL CAPSID Negative Negative, Equivocal ANTIGEN IGM (BEAKER) (test code = 3418) Saw Haskins Viral Capsid Antigen IgM Result Interpretation: </= 0.8 Al Negative 0.9-1.0 Al Equivocal >/= 1.1 Al PositiveVARICELLA ZOSTER ANTIBODY, [id number] 12:59:00 Test Item Value Reference Range Interpretation Comments VARICELLA ZOSTER IGG (AL) (BEAKER) 8.0 (test code = 3197) VARICELLA ZOSTER RESULT INTERPRETATIONS: <=0.8 Al Nonreactive: Presumed non-immune to VZV 0.9-1.0 Al Equivocal >=1.1 Al Reactive: Presumed immune to [id number] 12:02:00 Test Item Value Reference Range Interpretation Comments T4 TOTAL (BEAKER) (test code = 10.5 ug/dL 4.9-11.7 895) HEMOGLOBIN [id number] 12:00:00 Test Item Value Reference Range Interpretation Comments HEMOGLOBIN A1C (BEAKER) (test code = 4.4 % 4.3-6.1 368) CRYPTOCOCCAL [id number] 11:53:00 Test Item Value Reference Range Interpretation Comments CRYPTOCOCCAL ANTIGEN, SERUM Negative Negative, Interference (BEAKER) (test code = 1828) [id number] 11:52:00 Test Item Value Reference Range Interpretation Comments RPR SCREEN (BEAKER) (test code = Nonreactive Nonreactive 420) CALCIUM, [id number] 11:25:00 Test Item Value Reference Range Interpretation Comments CALCIUM IONIZED (BEAKER) (test 1.17 mmol/L 1.12-1.27 code = 698) PH, BLOOD (BEAKER) (test code = 7.34 1810) [id number] 11:25:00 Test Item Value Reference Range Interpretation Comments THYROID STIMULATING HORMONE 1.50 uIU/mL 0.35-4.94 (BEAKER) (test code = 772) CARCINOEMBRYONIC ANTIGEN (CEA)2018-10-19 11:22:00 Test Item Value Reference Range Interpretation Comments CARCINOEMBRYONIC ANTIGEN (BEAKER) 4.7 ng/mL 0.0-5.0 (test code = 685) HEPATITIS B CORE ANTIBODY, [id number] 11:22:00 Test Item Value Reference Range Interpretation Comments HEPATITIS B CORE IGM ANTIBODY Nonreactive Nonreactive (BEAKER) (test code = 645) HEPATITIS A ANTIBODY, [id number] 11:22:00 Test Item Value Reference Range Interpretation Comments HEPATITIS A IGM ANTIBODY (BEAKER) Nonreactive Nonreactive (test code = 498) HIV-1 ANTIGEN WITH HIV-1/2 [id number] 11:22:00 Test Item Value Reference Range Interpretation Comments HIV-1 ANTIGEN WITH HIV 1\\T\\2 Nonreactive Nonreactive ANTIBODY (2) (BEAKER) (test code = 2586) BLOOD GAS, [id number] 11:14:00 Test Item Value Reference Range Interpretation Comments PH ARTERIAL (BEAKER) (test code = 7.48 7.35-7.45 H 383) PCO2 ARTERIAL (BEAKER) (test code 33 mmHg 35-45 L = 384) PO2 ARTERIAL (BEAKER) (test code = 116 mmHg 80-90 H 385) O2 SATURATION ARTERIAL (BEAKER) 98.5 % 96.0-97.0 H (test code = 386) HCO3 ARTERIAL (BEAKER) (test code 24 mmol/L 21-29 = 388) BASE EXCESS ARTERIAL (BEAKER) 1.0 mmol/L -2.0-3.0 (test code = 387) PATIENT TEMPERATURE (BEAKER) (test 37.0 C code = 1818) FIO2 (BEAKER) (test code = 1819) 21.0 % [id number] 11:04:00 Test Item Value Reference Range Interpretation Comments TRANSFERRIN (BEAKER) (test code = 362 mg/dL 174-382 541) Specimen moderately ictericIRON, TIBC, % SAT. (WITHOUT FERRITIN)2018-10-19 11:04:00 Test Item Value Reference Range Interpretation Comments IRON (BEAKER) (test code = 547) 82.0 ug/dL 40.0-160.0 TOTAL IRON BINDING CAPACITY 453 ug/dL 250-450 H (BEAKER) (test code = 769) IRON % SATURATION (2) (BEAKER) 18 % 20-55 L (test code = 2590) LIPID [id number] 11:03:00 Test Item Value Reference Range Interpretation Comments TRIGLYCERIDES (BEAKER) (test code = 78 mg/dL 540) CHOLESTEROL (BEAKER) (test code = 354 mg/dL 631) HDL CHOLESTEROL (BEAKER) (test code 30 mg/dL = 976) LDL CHOLESTEROL CALCULATED (BEAKER) 308 mg/dL (test code = 633) Triglyceride Reference Range: Low Risk <150 Borderline 150-199 High Risk 200-499 Very High Risk >=500Cholesterol Reference Range: Low Risk <200 Borderline 200-239 High Risk >240HDL Cholesterol Reference Range: Low Risk >=60 High Risk <40LDL Cholesterol Reference Range: Optimal <100 Near Optimal 100-129 Borderline 130-159 High 160-189 Very High >=190 Specimen [id number] 11:00:00 Test Item Value Reference Range Interpretation Comments ETHANOL (BEAKER) (test code = 400) < mg/dL <=10 MM, DIGITAL, MAMMO, SCREENING, BILATERAL INCLUDING [id number] 10:59:00 Referring: Dr. Casper KeenDiagnostic workup per radiologist?->YesReason for Exam:->screening for malignant neoplasmMRN#: [id number] - MM, DIGITAL, MAMMO, SCREENING, BILATERAL INCLUDING CADBILATERAL DIGITAL SCREENING MAMMOGRAM WITH CAD: 10/19/2018No prior exams were available for comparison. The tissue of both breasts is heterogeneously dense. This may lower the sensitivity of mammography. Current study wasalso evaluated with a Computer Aided Detection (CAD) system. Benign appearing vascular calcifications and benign appearing calcifications are present in both breasts. Examination indicates an intramam annette lymph node in the right breast. There is ?architectural distortion in the left breast middle depth lateral region seen on the craniocaudal view only. No other significant findings are seen in either breast. IMPRESSION: INCOMPLETE: NEEDS ADDITIONAL IMAGING EVALUATIONThe ?architectural distortion in the left breast is indeterminate. 3D imaging (CC, ML views) as well as an ultrasound are recommended. Amrik Nichols M.D. pth/:10/19/2018 10:59:42 Addional Imaging Needed Mammogram BI-RADS: 0 Indeterminate G0202 [id number] 10:57:00 Test Item Value Reference Range Interpretation Comments MAGNESIUM (BEAKER) (test code = 1.9 mg/dL 1.6-2.6 627) [id number] 10:57:00 Test Item Value Reference Range Interpretation Comments PHOSPHORUS (BEAKER) (test code = 3.3 mg/dL 2.3-4.7 604) URIC [id number] 10:57:00 Test Item Value Reference Range Interpretation Comments URIC ACID (BEAKER) (test code = 2.4 mg/dL 2.6-7.2 L 773) Specimen moderately ictericCOMPREHENSIVE METABOLIC [id number] 10:57:00 Test Item Value Reference Range Interpretation Comments TOTAL PROTEIN 7.9 gm/dL 6.0-8.3 (BEAKER) (test code = 770) ALBUMIN (BEAKER) 3.5 g/dL 3.5-5.0 (test code = 1145) ALKALINE PHOSPHATASE 1003 U/L 40-150 H (BEAKER) (test code = 346) BILIRUBIN TOTAL 7.4 mg/dL 0.2-1.2 H (BEAKER) (test code = 377) SODIUM (BEAKER) (test 125 meq/L 136-145 L code = 381) POTASSIUM (BEAKER) 3.9 meq/L 3.5-5.1 (test code = 379) CHLORIDE (BEAKER) 91 meq/L 98-107 L (test code = 382) CO2 (BEAKER) (test 24 meq/L 22-29 code = 355) BLOOD UREA NITROGEN 9 mg/dL 7-21 (BEAKER) (test code = 354) CREATININE (BEAKER) 0.61 mg/dL 0.57-1.25 (test code = 358) GLUCOSE RANDOM 98 mg/dL 70-105 (BEAKER) (test code = 652) CALCIUM (BEAKER) 10.3 mg/dL 8.4-10.2 H (test code = 697) AST (SGOT) (BEAKER) 173 U/L 5-34 H (test code = 353) ALT (SGPT) (BEAKER) 204 U/L 6-55 H (test code = 347) EGFR (BEAKER) (test 96 mL/min/1.73 ESTIMA TONNY GFR IS code = 1092) sq m NOT ACCURATE CREATININE CLEARANCE IN PREDICTING GLOMERULAR FILTRATION RATE . ESTIMATED GFR I S NOT APPLICABLE FOR DIALYSIS PATIEN TS. Specimen moderately ictericBILIRUBIN, [id number] 10:57:00 Test Item Value Reference Range Interpretation Comments BILIRUBIN DIRECT (BEAKER) (test 5.6 mg/dL 0.1-0.5 H code = 706) GAMMA GLUTAMYL TRANSFERASE (GGT)2018-10-19 10:57:00 Test Item Value Reference Range Interpretation Comments GAMMA GLUTAMYL TRANSFERASE (BEAKER) 512 U/L 9-64 H (test code = 364) Specimen moderately [id number] 10:51:00 Test Item Value Reference Range Interpretation Comments PARTIAL THROMBOPLASTIN TIME 32.8 seconds 22.5-36.0 (BEAKER) (test code = 760) PROTHROMBIN TIME/[id number] 10:50:00 Test Item Value Reference Range Interpretation Comments PROTIME (BEAKER) (test code = 12.7 seconds 11.9-14.2 759) INR (BEAKER) (test code = 370) 1.0 <=5.9 Effective 09/06/2018: PT Reference Range ChangeNew: 11.9-14.2 Previous: 11.7- 14.7RECOMMENDED COUMADIN/WARFARIN INR THERAPY RANGESSTANDARD DOSE: 2.0-3.0 Includes: PROPHYLAXIS for venous thrombosis, systemic embolization; TREATMENT for venous thrombosis and/or pulmonary embolus.HIGH RISK: Target INR is2.5-3.5 for patients wiht mechanical heart valves.[id number] 10:50:00 Test Item Value Reference Range Interpretation Comments FIBRINOGEN LEVEL (BEAKER) (test 708 mg/dl 225-434 H code = 658) CBC W/PLT COUNT & AUTO [id number] 10:47:00 Test Item Value Reference Range Interpretation Comments WHITE BLOOD CELL COUNT (BEAKER) 8.2 K/ L 3.5-10.5 (test code = 775) RED BLOOD CELL COUNT (BEAKER) 3.56 M/ L 3.93-5.22 L (test code = 761) HEMOGLOBIN (BEAKER) (test code = 11.2 GM/DL 11.2-15.7 410) HEMATOCRIT (BEAKER) (test code = 33.3 % 34.1-44.9 L 411) MEAN CORPUSCULAR VOLUME (BEAKER) 93.5 fL 79.4-94.8 (test code = 753) MEAN CORPUSCULAR HEMOGLOBIN 31.5 pg 25.6-32.2 (BEAKER) (test code = 751) MEAN CORPUSCULAR HEMOGLOBIN CONC 33.6 GM/DL 32.2-35.5 (BEAKER) (test code = 752) RED CELL DISTRIBUTION WIDTH 16.1 % 11.7-14.4 H (BEAKER) (test code = 412) PLATELET COUNT (BEAKER) (test 196 K/CU MM 150-450 code = 756) MEAN PLATELET VOLUME (BEAKER) 10.9 fL 9.4-12.3 (test code = 754) NUCLEATED RED BLOOD CELLS 0 /100 WBC 0-0 (BEAKER) (test code = 413) NEUTROPHILS RELATIVE PERCENT 76 % (BEAKER) (test code = 429) LYMPHOCYTES RELATIVE PERCENT 12 % (BEAKER) (test code = 430) MONOCYTES RELATIVE PERCENT 8 % (BEAKER) (test code = 431) EOSINOPHILS RELATIVE PERCENT 2 % (BEAKER) (test code = 432) BASOPHILS RELATIVE PERCENT 1 % (BEAKER) (test code = 437) NEUTROPHILS ABSOLUTE COUNT 6.26 K/ L 1.56-6.13 H (BEAKER) (test code = 670) LYMPHOCYTES ABSOLUTE COUNT 1.01 K/ L 1.18-3.74 L (BEAKER) (test code = 414) MONOCYTES ABSOLUTE COUNT (BEAKER) 0.62 K/ L 0.24-0.36 H (test code = 415) EOSINOPHILS ABSOLUTE COUNT 0.15 K/ L 0.04-0.36 (BEAKER) (test code = 416) BASOPHILS ABSOLUTE COUNT (BEAKER) 0.06 K/ L 0.01-0.08 (test code = 417) IMMATURE GRANULOCYTES-RELATIVE 2 % 0-1 H PERCENT (BEAKER) (test code = 2801) RAD, BONE DENSITY [id number] 10:29:00Referring: Dr. Casper Allen for Exam:->screening for malinant neoplasm, Pre-transplantevaluation for liver transplantFINAL REPORT Bone mineral density study, 10/19/2018. CLINICAL INDICATION: Liver transplant evaluation. COMPARISON: None. FINDINGS: Bone densitometry of the femoral necks was performed. The left femoral neck bone mineral density is 0.638 gm/cm2, the T-score is -2.9, and the Z-score is 0.7. The right femoral neck total bone mineral density is 0.752 gm/cm2, the T-score is -2.1, and the Z-score is 0.1. Evaluation of the lumbar spine is nondiagnostic due to scoliosis and associated degenerative changes. IMPRESSION: 1. WHO classification of osteoporosis for the left femoral neck with a high risk of fracture. 2. WHO classification of osteopenia for the right femoral neck with an increased risk of fracture. Signed: Talia Rizvi MDReport Verified Date/Time: 10/19/2018 10:29:03 Reading Location: [facility] Mammo Reading Room Electronically signed by: TALIA RIZVI M.D.on 10/19/2018 10:29 AMRAD, CHEST, 2 [id number] 10:25:00Referring: Dr. Casper Allen for Exam:->screening for malignant neoplasmFINAL REPORT TECHNIQUE: Frontal and lateral views of the chest. INDICATION: screening for malignant neoplasm. COMPARISON: None. FINDINGS: LINES/TUBES: None. LUNGS: There is somemild patchy opacity adjacent to lateral hernia. No consolidation or pulmonary edema. Mild biapical scarring. PLEURA: No pleural effusion or pneumothorax. HEART AND MEDIASTINUM: The cardiomediastinal silhouette is within normal limits. There is a structure with an air-fluid level in the middle mediastinum SOFT TISSUES AND BONES: Cholecystectomy clips in the right upper quadrant. S-shaped curvature of the thoracolumbar spine IMPRESSION: Moderate to large hiatal hernia with some adjacent atelectasis. Signed: Kiara Humphreys Verified Date/Time: 10/19/2018 10:25:38 Reading Location: [address] adiology Reading Room RAD, MANDIBLE, MIN 4 [id number] 10:19:00Referring: Dr. Casper Allen for Exam:->Screening for malignant neoplasmFINAL REPORT TECHNIQUE: Minimal four views of the mandible. INDICATION: Screening for malignant neoplasm. COMPARISON: None. FINDINGS:No fracture or dislocation. Large amount of dental amalgam. No periapical lucencies.At least moderate degenerative changes of the cervical spine with grade 1 anterolisthesis of C3 on C4. 4 mm retrolisthesis of C5 on C6. There is a nonaggressive appearing sclerotic density over the left skull which measures 0.8 cm. IMPRESSION: No periapical lucencies. There is a nonaggressive appearing sclerotic density of the left skull which measures 0.8 cm. This is most likely a bone island. However, if the patient does have a known primary malignancy, a bonescan could be considered for confirmation. Signed: Kiara Humphreysort Verified Date/Time: 10/19/2018 10:19:41 Reading Location: [address] Radiology Reading Room URINALYSIS W/ [id number] 10:12:00 Test Item Value Reference Range Interpretation Comments COLOR (BEAKER) (test code = 470) Dark Yellow CLARITY (BEAKER) (test code = Hazy 469) SPECIFIC GRAVITY UA (BEAKER) 1.013 1.001-1.035 (test code = 468) PH UA (BEAKER) (test code = 467) 7.0 5.0-8.0 PROTEIN UA (BEAKER) (test code = 10 mg/dL Negative A 464) GLUCOSE UA (BEAKER) (test code = Negative Negative 365) KETONES UA (BEAKER) (test code = Negative Negative 371) BILIRUBIN UA (BEAKER) (test code Positive Negative A = 462) BLOOD UA (BEAKER) (test code = Negative Negative 461) NITRITE UA (BEAKER) (test code = Negative Negative 465) LEUKOCYTE ESTERASE UA (BEAKER) Negative Negative (test code = 466) UROBILINOGEN UA (BEAKER) (test 6.0 mg/dL 0.2-1.0 H code = 463) RBC UA (BEAKER) (test code = 519) 2 /HPF WBC UA (BEAKER) (test code = 520) 0 /HPF SQUAMOUS EPITHELIAL (BEAKER) 14 /HPF (test code = 516) HYALINE CASTS (BEAKER) (test code 2 /LPF = 514) CALCIUM OXALATE CRYSTALS (BEAKER) Rare (test code = 518) SOURCE(BEAKER) (test code = 2795) MR, ABDOMEN, [id number] 14:07:00Referring: Dr. Casper Mccain SweattFINAL REPORT TECHNIQUE: MRI of the abdomen and MRCP WITHOUT and WITH intravenous contrast. 3-D volume reconstructions were obtained to evaluate the biliary ductal system. INDICATION: 73-year-old woman with primary sclerosing cholangitis. COMPARISON: Abdomen MRI 05/16/2018. FINDINGS: LOWER THORAX: Unremarkable. LIVER: Chronic morphology of the liver. No suspicious hepatic lesions. BILIARY: Prior cholecystectomy. No significant change in caliber or beaded appearance of the intrahepatic and extrahepatic bile ducts.SPLEEN: No splenomegaly.PANCREAS: No focal masses or ductal dilatation. ADRENALS: No adrenal nodules.KIDNEYS/URETERS: No hydronephrosis or solid mass lesions. Unchanged right parapelvic cyst measures 1.6 x 3.5 cm. Unchanged subcentimeter left renal cyst. PERITONEUM/RETROPERITONEUM: No free fluid.LYMPH NODES: No lymphadenopathy.VESSELS: Portal system and hepatic veinsare patent. Main portal vein measures 1.3 cm in diameter. Abdominal aorta is normal in caliber. GI TR ACT: No distention or wall thickening. Large hiatal hernia. BONES AND SOFT TISSUES: Degenerative changes of the visualized spine with leftward convex curvature of the lumbar spine. Soft tissues are unremarkable. IMPRESSION:Cirrhosis. No suspicious liver lesion. Unchanged appearance of the biliary system, consistent with primary sclerosing cholangitis. Large hiatal hernia. Signed: Alaina Woody MDReport Verified Date/Time: 09/11/2018 14:07:32 Reading Location: [facility] B1 C013Y CT Body Reading Room CARBOHYDRATE ANTIGEN 19-9 (CA 19-9)2018-08-21 09:02:00 Test Item Value Reference Range Interpretation Comments SCAN RESULT (test code = 2722945) CA 19-9 (test code = 2554349) CARCINOEMBRYONIC ANTIGEN (CEA)2018-08-15 16:23:00 Test Item Value Reference Range Interpretation Comments CARCINOEMBRYONIC ANTIGEN (BEAKER) 4.1 ng/mL 0.0-5.0 (test code = 685) ALPHA FETOPROTEIN (AFP), TUMOR [id number] 16:23:00 Test Item Value Reference Range Interpretation Comments ALPHA-FETOPROTEIN (BEAKER) (test 6.7 ng/mL <10.0 code = 1094) BASIC METABOLIC [id number] 16:22:00 Test Item Value Reference Range Interpretation Comments SODIUM (BEAKER) 127 meq/L 136-145 L (test code = 381) POTASSIUM (BEAKER) 4.0 meq/L 3.5-5.1 (test code = 379) CHLORIDE (BEAKER) 94 meq/L 98-107 L (test code = 382) CO2 (BEAKER) (test 27 meq/L 22-29 code = 355) BLOOD UREA NITROGEN 17 mg/dL 7-21 (BEAKER) (test code = 354) CREATININE (BEAKER) 0.57 mg/dL 0.57-1.25 (test code = 358) GLUCOSE RANDOM 88 mg/dL 70-105 (BEAKER) (test code = 652) CALCIUM (BEAKER) 10.2 mg/dL 8.4-10.2 (test code = 697) EGFR (BEAKER) (test 104 mL/min/1.73 ESTIM ATED GFR IS code = 1092) sq m NOT ACCURATE CREATININE CLEARANCE IN PREDICTING GLOMERULAR FILTRATION RATE . ESTIMATED GFR I S NOT APPLICABLE FOR DIALYSIS PATIEN TS. Specimen slightly ictericHEPATIC FUNCTION [id number] 16:22:00 Test Item Value Reference Range Interpretation Comments TOTAL PROTEIN (BEAKER) (test code = 8.4 gm/dL 6.0-8.3 H 770) ALBUMIN (BEAKER) (test code = 1145) 3.5 g/dL 3.5-5.0 BILIRUBIN TOTAL (BEAKER) (test code 5.9 mg/dL 0.2-1.2 H = 377) BILIRUBIN DIRECT (BEAKER) (test 4.6 mg/dL 0.1-0.5 H code = 706) ALKALINE PHOSPHATASE (BEAKER) (test 947 U/L 40-150 H code = 346) AST (SGOT) (BEAKER) (test code = 135 U/L 5-34 H 353) ALT (SGPT) (BEAKER) (test code = 143 U/L 6-55 H 347) Specimen slightly ictericPROTHROMBIN [id number] 16:00:00 Test Item Value Reference Range Interpretation Comments PROTIME (BEAKER) (test code = 12.7 seconds 11.7-14.7 759) INR (BEAKER) (test code = 370) 1.0 <=5.9 RECOMMENDED COUMADIN/WARFARIN INR THERAPY RANGESSTANDARD DOSE: 2.0 - 3.0 Includes: PROPHYLAXIS forvenous thrombosis, systemic embolization; TREATMENT for venous thrombosis and/or pulmonary embolus.HIGH RISK: Target INR is 2.5-3.5 for patients with mechanical heart valves.CBC W/PLT COUNT & AUTO DIFFERENTIAL 2018-08-15 15:47:00 Test Item Value Reference Range Interpretation Comments WHITE BLOOD CELL COUNT (BEAKER) 6.6 K/ L 3.5-10.5 (test code = 775) RED BLOOD CELL COUNT (BEAKER) 3.52 M/ L 3.93-5.22 L (test code = 761) HEMOGLOBIN (BEAKER) (test code = 11.3 GM/DL 11.2-15.7 410) HEMATOCRIT (BEAKER) (test code = 33.5 % 34.1-44.9 L 411) MEAN CORPUSCULAR VOLUME (BEAKER) 95.2 fL 79.4-94.8 H (test code = 753) MEAN CORPUSCULAR HEMOGLOBIN 32.1 pg 25.6-32.2 (BEAKER) (test code = 751) MEAN CORPUSCULAR HEMOGLOBIN CONC 33.7 GM/DL 32.2-35.5 (BEAKER) (test code = 752) RED CELL DISTRIBUTION WIDTH 14.8 % 11.7-14.4 H (BEAKER) (test code = 412) PLATELET COUNT (BEAKER) (test 223 K/CU MM 150-450 code = 756) MEAN PLATELET VOLUME (BEAKER) 10.7 fL 9.4-12.3 (test code = 754) NUCLEATED RED BLOOD CELLS 0 /100 WBC 0-0 (BEAKER) (test code = 413) NEUTROPHILS RELATIVE PERCENT 69 % (BEAKER) (test code = 429) LYMPHOCYTES RELATIVE PERCENT 20 % (BEAKER) (test code = 430) MONOCYTES RELATIVE PERCENT 7 % (BEAKER) (test code = 431) EOSINOPHILS RELATIVE PERCENT 3 % (BEAKER) (test code = 432) BASOPHILS RELATIVE PERCENT 1 % (BEAKER) (test code = 437) NEUTROPHILS ABSOLUTE COUNT 4.59 K/ L 1.56-6.13 (BEAKER) (test code = 670) LYMPHOCYTES ABSOLUTE COUNT 1.29 K/ L 1.18-3.74 (BEAKER) (test code = 414) MONOCYTES ABSOLUTE COUNT (BEAKER) 0.43 K/ L 0.24-0.36 H (test code = 415) EOSINOPHILS ABSOLUTE COUNT 0.21 K/ L 0.04-0.36 (BEAKER) (test code = 416) BASOPHILS ABSOLUTE COUNT (BEAKER) 0.04 K/ L 0.01-0.08 (test code = 417) IMMATURE GRANULOCYTES-RELATIVE 1 % 0-1 PERCENT (BEAKER) (test code = 2801) BASIC METABOLIC [id number] 14:11:00 Test Item Value Reference Range Interpretation Comments SODIUM (BEAKER) 128 meq/L 136-145 L (test code = 381) POTASSIUM (BEAKER) 3.6 meq/L 3.5-5.1 (test code = 379) CHLORIDE (BEAKER) 94 meq/L 98-107 L (test code = 382) CO2 (BEAKER) (test 28 meq/L 22-29 code = 355) BLOOD UREA NITROGEN 16 mg/dL 7-21 (BEAKER) (test code = 354) CREATININE (BEAKER) 0.58 mg/dL 0.57-1.25 (test code = 358) GLUCOSE RANDOM 92 mg/dL 70-105 (BEAKER) (test code = 652) CALCIUM (BEAKER) 10.1 mg/dL 8.4-10.2 (test code = 697) EGFR (BEAKER) (test 102 mL/min/1.73 ESTIM ATED GFR IS code = 1092) sq m NOT ACCURATE CREATININE CLEARANCE IN PREDICTING GLOMERULAR FILTRATION RATE . ESTIMATED GFR I S NOT APPLICABLE FOR DIALYSIS PATIEN TS. Specimen moderately ictericHEPATIC FUNCTION [id number] 14:11:00 Test Item Value Reference Range Interpretation Comments TOTAL PROTEIN (BEAKER) (test code = 8.1 gm/dL 6.0-8.3 770) ALBUMIN (BEAKER) (test code = 1145) 3.5 g/dL 3.5-5.0 BILIRUBIN TOTAL (BEAKER) (test code 4.9 mg/dL 0.2-1.2 H = 377) BILIRUBIN DIRECT (BEAKER) (test 3.8 mg/dL 0.1-0.5 H code = 706) ALKALINE PHOSPHATASE (BEAKER) (test 949 U/L 40-150 H code = 346) AST (SGOT) (BEAKER) (test code = 169 U/L 5-34 H 353) ALT (SGPT) (BEAKER) (test code = 162 U/L 6-55 H 347) Specimen moderately ictericPROTHROMBIN [id number] 14:09:00 Test Item Value Reference Range Interpretation Comments PROTIME (BEAKER) (test code = 12.6 seconds 11.7-14.7 759) INR (BEAKER) (test code = 370) 0.9 <=5.9 RECOMMENDED COUMADIN/WARFARIN INR THERAPY RANGESSTANDARD DOSE: 2.0 - 3.0 Includes: PROPHYLAXIS forvenous thrombosis, systemic embolization; TREATMENT for venous thrombosis and/or pulmonary embolus.HIGH RISK: Target INR is 2.5-3.5 for patients with mechanical heart valves.CBC W/PLT COUNT & AUTO DIFFERENTIAL 2018-06-15 14:05:00 Test Item Value Reference Range Interpretation Comments WHITE BLOOD CELL COUNT (BEAKER) 6.2 K/ L 3.5-10.5 (test code = 775) RED BLOOD CELL COUNT (BEAKER) 3.67 M/ L 3.93-5.22 L (test code = 761) HEMOGLOBIN (BEAKER) (test code = 11.4 GM/DL 11.2-15.7 410) HEMATOCRIT (BEAKER) (test code = 34.6 % 34.1-44.9 411) MEAN CORPUSCULAR VOLUME (BEAKER) 94.3 fL 79.4-94.8 (test code = 753) MEAN CORPUSCULAR HEMOGLOBIN 31.1 pg 25.6-32.2 (BEAKER) (test code = 751) MEAN CORPUSCULAR HEMOGLOBIN CONC 32.9 GM/DL 32.2-35.5 (BEAKER) (test code = 752) RED CELL DISTRIBUTION WIDTH 15.9 % 11.7-14.4 H (BEAKER) (test code = 412) PLATELET COUNT (BEAKER) (test 183 K/CU MM 150-450 code = 756) MEAN PLATELET VOLUME (BEAKER) 10.7 fL 9.4-12.3 (test code = 754) NUCLEATED RED BLOOD CELLS 0 /100 WBC 0-0 (BEAKER) (test code = 413) NEUTROPHILS RELATIVE PERCENT 72 % (BEAKER) (test code = 429) LYMPHOCYTES RELATIVE PERCENT 18 % (BEAKER) (test code = 430) MONOCYTES RELATIVE PERCENT 6 % (BEAKER) (test code = 431) EOSINOPHILS RELATIVE PERCENT 2 % (BEAKER) (test code = 432) BASOPHILS RELATIVE PERCENT 1 % (BEAKER) (test code = 437) NEUTROPHILS ABSOLUTE COUNT 4.46 K/ L 1.56-6.13 (BEAKER) (test code = 670) LYMPHOCYTES ABSOLUTE COUNT 1.13 K/ L 1.18-3.74 L (BEAKER) (test code = 414) MONOCYTES ABSOLUTE COUNT (BEAKER) 0.39 K/ L 0.24-0.36 H (test code = 415) EOSINOPHILS ABSOLUTE COUNT 0.12 K/ L 0.04-0.36 (BEAKER) (test code = 416) BASOPHILS ABSOLUTE COUNT (BEAKER) 0.04 K/ L 0.01-0.08 (test code = 417) IMMATURE GRANULOCYTES-RELATIVE 1 % 0-1 PERCENT (BEAKER) (test code = 2801) MR, ABDOMEN, [id number] 13:26:00Referring: Dr. Casper Keen Please evaluated with MRCPFINAL REPORT MRI abdomen without and with contrast. MRCP. INDICATION: PSC w jaundice COMPARISON: 11/11/2017 TECHNIQUE: Multiplanar multisequence MRI examination of the abdomen was performed before and after the administration of intravenous contrast in a dynamic fashion. 3 dimensional reconstructions of the hepatobiliary system were generated on an independent workstation for optimal visualization of the hepatobiliary anatomy and pathology. FINDINGS: The liver demonstrates cirrhotic morphology. No suspicious enhancing hepatic mass is visualized. The gallbladder is absent. Thereis no biliary dilatation. The hepatic veins, portal vein, SMV, and splenic vein are patent. The mainportal vein measures 13 mm in maximum diameter. The spleen is prominent measuring 13 cm. The pancreas and adrenal glands are unremarkable. Again seen are prominent right parapelvic renal cysts. The osseous structures demonstrate degenerative changes. There is no ascites. There is no fluid collection or hematoma. There is no lymphadenopathy. There is no bowel obstruction. MRCP demonstrate areas of stricture and beaded appearance of the intrahepatic extrahepatic biliary system, consistent with patient's known primary sclerosing cholangitis. Again seen is a large hiatus hernia. The osseous structures demonstrate degenerative changes and scoliosis. IMPRESSION:1. Cirrhosis without suspicious hepatic mass.2. MRCP findings consistent with primary sclerosing cholangitis as above.3. Large hiatus hernia. Signed: Goldy Antonio MDReport Verified Date/Time: 05/16/2018 13:26:36 Reading Location: [address] Ortho Consult Reading Room [id number] 11:20:00 Test Item Value Reference Range Interpretation Comments POC-CREATININE 0.4 mg/dL 0.6-1.3 L TESTED AT [facility] ([facility]) (test [address] [facility] code = 1859) [facility] 7703 0 POC-EGFR 156 mL/min/1.73M2 (BEAKER) (test code = 1860) TISSUE [id number] 12:33:00Surgical Pathology Report Case: [id number] Authorizing Provider: Andrea Cardozo MD Collected: 04/17/2018 1438 Ordering Location: [facility] Endoscopy Received: 04/17/2018 1554 Services Pathologist: Jean Paul Walker MD Specimens: A) - Common Bile Duct, RIGHT HEPATIC DUCT SPYBITE BX FOR REGULAR PATHOLOGY B) -Common Bile Duct, COMMON HEPATIC DUCT SPYBITE BX FOR REGULAR PATHOLOGY C) - Common Bile Duct, CBD SPYBITE BX FOR REGULAR PATHOLOGY PART A RIGHT HEPATIC DUCT, ENDOSCOPIC BIOPSY:ULCERATED GLANDULAR TISSUE WITH ACUTE INFLAMMATION.NEGATIVE FOR DYSPLASIA OR INVASIVE CARCINOMA.PART B COMMON HEPATIC DUCT, ENDOSCOPIC BIOPSY:ULCERATED GLANDULAR TISSUE WITH ACUTE I NFLAMMATION.NEGATIVE FOR DYSPLASIA OR INVASIVE CARCINOMA.PART C COMMON BILE DUCT, ENDOSCOPIC BIOPSY:ULCERATED GLANDULAR TISSUE WITH ACUTE INFLAMMATION.NEGATIVE FOR DYSPLASIA OR INVASIVE CARCINOMA.Signing Pathologist Direct Phone Line: [phone] signed by Jean Paul Walker MD on 04/19/2018 at 12:33 [id number] of the liver without ascites. Primary sclerosing cholangitis. Biliary obstruction.A. Right hepatic duct spybite biopsy B. Common hepatic duct spybite biopsy C. Common bile duct spybite biopsy Specimens are received in three containers of formalin all labeledwith the patient's information.Part A labeled "right hepatic duct spybite biopsy" consists of two fragments of red soft tissue ranging from less than 0.1 to 0.1 cm submitted A1.Part B labeled "common hepatic duct spybite biopsy" consists of two ragged fragments of red soft tissue measuring less than 0.1 to 0.2 cm subm B1.Part C labeled "common bile duct spybite biopsy" consists of three fragments of red soft tissue ranging from less than 0.1 to 0.1 cm submitted entirely C1. CG/bc PERFORMED.PA, [id number] 15:29:00Referring: Dr. Casper Willoughby OP IMAGINGReason for exam:->primary sclerosing cholangitisFINAL REPORT ERCP, 04/17/2018 Clinical History: Primary sclerosing cholangitisImpression: Intraoperative images are obtained. The radiologist is not present during the procedure.Fluoroscopy was not performed by the undersigned. Images are presented for interpretation at the completion of the procedure. Please refer to the procedure report for more details. 10 images are submitted demonstrating interrogation of the biliary system. Fluoroscopy time is 7.1 minutes. Signed: Talia Rizvi MDReport Verified Date/Time: 04/17/2018 15:29:54 Reading Location: [address] Radiology Reading Room CARCINOEMBRYONIC ANTIGEN (CEA)2018-04-13 19:43:00 Test Item Value Reference Range Interpretation Comments CARCINOEMBRYONIC ANTIGEN (BEAKER) 3.9 ng/mL 0.0-5.0 (test code = 685) ALPHA FETOPROTEIN (AFP), TUMOR [id number] 19:43:00 Test Item Value Reference Range Interpretation Comments ALPHA-FETOPROTEIN (BEAKER) (test 6.4 ng/mL <10.0 code = 1094) BASIC METABOLIC [id number] 18:52:00 Test Item Value Reference Range Interpretation Comments SODIUM (BEAKER) 133 meq/L 136-145 L (test code = 381) POTASSIUM (BEAKER) 3.8 meq/L 3.5-5.1 (test code = 379) CHLORIDE (BEAKER) 95 meq/L 98-107 L (test code = 382) CO2 (BEAKER) (test 28 meq/L 22-29 code = 355) BLOOD UREA NITROGEN 15 mg/dL 7-21 (BEAKER) (test code = 354) CREATININE (BEAKER) 0.61 mg/dL 0.57-1.25 (test code = 358) GLUCOSE RANDOM 80 mg/dL 70-105 (BEAKER) (test code = 652) CALCIUM (BEAKER) 10.3 mg/dL 8.4-10.2 H (test code = 697) EGFR (BEAKER) (test 96 mL/min/1.73 ESTIMA TONNY GFR IS code = 1092) sq m NOT ACCURATE CREATININE CLEARANCE IN PREDICTING GLOMERULAR FILTRATION RATE . ESTIMATED GFR I S NOT APPLICABLE FOR DIALYSIS PATIEN TS. Specimen slightly ictericHEPATIC FUNCTION [id number] 18:52:00 Test Item Value Reference Range Interpretation Comments TOTAL PROTEIN (BEAKER) (test code = 8.1 gm/dL 6.0-8.3 770) ALBUMIN (BEAKER) (test code = 1145) 3.5 g/dL 3.5-5.0 BILIRUBIN TOTAL (BEAKER) (test code 4.1 mg/dL 0.2-1.2 H = 377) BILIRUBIN DIRECT (BEAKER) (test 3.1 mg/dL 0.1-0.5 H code = 706) ALKALINE PHOSPHATASE (BEAKER) (test 722 U/L 40-150 H code = 346) AST (SGOT) (BEAKER) (test code = 115 U/L 5-34 H 353) ALT (SGPT) (BEAKER) (test code = 110 U/L 6-55 H 347) Specimen slightly ictericPROTHROMBIN [id number] 18:48:00 Test Item Value Reference Range Interpretation Comments PROTIME (BEAKER) (test code = 12.7 seconds 11.7-14.7 759) INR (BEAKER) (test code = 370) 0.9 <=5.9 RECOMMENDED COUMADIN/WARFARIN INR THERAPY RANGESSTANDARD DOSE: 2.0 - 3.0 Includes: PROPHYLAXIS forvenous thrombosis, systemic embolization; TREATMENT for venous thrombosis and/or pulmonary embolus.HIGH RISK: Target INR is 2.5-3.5 for patients with mechanical heart valves.CBC W/PLT COUNT & AUTO DIFFERENTIAL 2018-04-13 18:34:00 Test Item Value Reference Range Interpretation Comments WHITE BLOOD CELL COUNT (BEAKER) 6.1 K/ L 3.5-10.5 (test code = 775) RED BLOOD CELL COUNT (BEAKER) 3.66 M/ L 3.93-5.22 L (test code = 761) HEMOGLOBIN (BEAKER) (test code = 11.6 GM/DL 11.2-15.7 410) HEMATOCRIT (BEAKER) (test code = 35.8 % 34.1-44.9 411) MEAN CORPUSCULAR VOLUME (BEAKER) 97.8 fL 79.4-94.8 H (test code = 753) MEAN CORPUSCULAR HEMOGLOBIN 31.7 pg 25.6-32.2 (BEAKER) (test code = 751) MEAN CORPUSCULAR HEMOGLOBIN CONC 32.4 GM/DL 32.2-35.5 (BEAKER) (test code = 752) RED CELL DISTRIBUTION WIDTH 14.6 % 11.7-14.4 H (BEAKER) (test code = 412) PLATELET COUNT (BEAKER) (test 242 K/CU MM 150-450 code = 756) MEAN PLATELET VOLUME (BEAKER) 11.3 fL 9.4-12.3 (test code = 754) NUCLEATED RED BLOOD CELLS 0 /100 WBC 0-0 (BEAKER) (test code = 413) NEUTROPHILS RELATIVE PERCENT 67 % (BEAKER) (test code = 429) LYMPHOCYTES RELATIVE PERCENT 23 % (BEAKER) (test code = 430) MONOCYTES RELATIVE PERCENT 7 % (BEAKER) (test code = 431) EOSINOPHILS RELATIVE PERCENT 2 % (BEAKER) (test code = 432) BASOPHILS RELATIVE PERCENT 1 % (BEAKER) (test code = 437) NEUTROPHILS ABSOLUTE COUNT 4.07 K/ L 1.56-6.13 (BEAKER) (test code = 670) LYMPHOCYTES ABSOLUTE COUNT 1.38 K/ L 1.18-3.74 (BEAKER) (test code = 414) MONOCYTES ABSOLUTE COUNT (BEAKER) 0.40 K/ L 0.24-0.36 H (test code = 415) EOSINOPHILS ABSOLUTE COUNT 0.12 K/ L 0.04-0.36 (BEAKER) (test code = 416) BASOPHILS ABSOLUTE COUNT (BEAKER) 0.05 K/ L 0.01-0.08 (test code = 417) IMMATURE GRANULOCYTES-RELATIVE 1 % 0-1 PERCENT (BEAKER) (test code = 2801) BASIC METABOLIC [id number] 18:21:00 Test Item Value Reference Range Interpretation Comments SODIUM (BEAKER) 130 meq/L 136-145 L (test code = 381) POTASSIUM (BEAKER) 3.6 meq/L 3.5-5.1 (test code = 379) CHLORIDE (BEAKER) 98 meq/L 98-107 (test code = 382) CO2 (BEAKER) (test 24 meq/L 22-29 code = 355) BLOOD UREA NITROGEN 8 mg/dL 7-21 (BEAKER) (test code = 354) CREATININE (BEAKER) 0.57 mg/dL 0.57-1.25 (test code = 358) GLUCOSE RANDOM 95 mg/dL 70-105 (BEAKER) (test code = 652) CALCIUM (BEAKER) 9.7 mg/dL 8.4-10.2 (test code = 697) EGFR (BEAKER) (test 104 mL/min/1.73 ESTIM ATED GFR IS code = 1092) sq m NOT ACCURATE CREATININE CLEARANCE IN PREDICTING GLOMERULAR FILTRATION RATE . ESTIMATED GFR I S NOT APPLICABLE FOR DIALYSIS PATIEN TS. Specimen moderately ictericHEPATIC FUNCTION [id number] 18:21:00 Test Item Value Reference Range Interpretation Comments TOTAL PROTEIN (BEAKER) (test code 7.1 gm/dL 6.0-8.3 = 770) ALBUMIN (BEAKER) (test code = 3.1 g/dL 3.5-5.0 L 1145) BILIRUBIN TOTAL (BEAKER) (test 10.1 mg/dL 0.2-1.2 H code = 377) BILIRUBIN DIRECT (BEAKER) (test 7.2 mg/dL 0.1-0.5 H code = 706) ALKALINE PHOSPHATASE (BEAKER) 852 U/L 40-150 H (test code = 346) AST (SGOT) (BEAKER) (test code = 172 U/L 5-34 H 353) ALT (SGPT) (BEAKER) (test code = 134 U/L 6-55 H 347) Specimen moderately ictericCBC W/PLT COUNT & AUTO [id number] 17:56:00 Test Item Value Reference Range Interpretation Comments WHITE BLOOD CELL COUNT (BEAKER) 8.7 K/ L 3.5-10.5 (test code = 775) RED BLOOD CELL COUNT (BEAKER) 2.85 M/ L 3.93-5.22 L (test code = 761) HEMOGLOBIN (BEAKER) (test code = 9.0 GM/DL 11.2-15.7 L 410) HEMATOCRIT (BEAKER) (test code = 27.5 % 34.1-44.9 L 411) MEAN CORPUSCULAR VOLUME (BEAKER) 96.5 fL 79.4-94.8 H (test code = 753) MEAN CORPUSCULAR HEMOGLOBIN 31.6 pg 25.6-32.2 (BEAKER) (test code = 751) MEAN CORPUSCULAR HEMOGLOBIN CONC 32.7 GM/DL 32.2-35.5 (BEAKER) (test code = 752) RED CELL DISTRIBUTION WIDTH 18.7 % 11.7-14.4 H (BEAKER) (test code = 412) PLATELET COUNT (BEAKER) (test 269 K/CU MM 150-450 code = 756) MEAN PLATELET VOLUME (BEAKER) 10.8 fL 9.4-12.3 (test code = 754) NUCLEATED RED BLOOD CELLS 0 /100 WBC 0-0 (BEAKER) (test code = 413) NEUTROPHILS RELATIVE PERCENT 75 % (BEAKER) (test code = 429) LYMPHOCYTES RELATIVE PERCENT 16 % (BEAKER) (test code = 430) MONOCYTES RELATIVE PERCENT 6 % (BEAKER) (test code = 431) EOSINOPHILS RELATIVE PERCENT 1 % (BEAKER) (test code = 432) BASOPHILS RELATIVE PERCENT 1 % (BEAKER) (test code = 437) NEUTROPHILS ABSOLUTE COUNT 6.56 K/ L 1.56-6.13 H (BEAKER) (test code = 670) LYMPHOCYTES ABSOLUTE COUNT 1.36 K/ L 1.18-3.74 (BEAKER) (test code = 414) MONOCYTES ABSOLUTE COUNT (BEAKER) 0.51 K/ L 0.24-0.36 H (test code = 415) EOSINOPHILS ABSOLUTE COUNT 0.11 K/ L 0.04-0.36 (BEAKER) (test code = 416) BASOPHILS ABSOLUTE COUNT (BEAKER) 0.06 K/ L 0.01-0.08 (test code = 417) IMMATURE GRANULOCYTES-RELATIVE 2 % 0-1 H PERCENT (BEAKER) (test code = 2801) TISSUE [id number] 16:20:00Surgical Pathology Report Case: [id number] Authorizing Provider: Andrea Cardozo MD Collected: 02/23/2018 1517 Ordering Location: [address] Received: 02/24/2018 0834 Service Pathologist: Annette Cavazos MD Specimens: A) - Hepatic, COMMON HEPATIC DUCT BX - SPY BITE B) -Common Bile Duct, COMMON BILE DUCT BX - SPY BITE A. COMMON HEPATIC DUCT, BIOPSY: - ACUTE INFLAMMATORY COAGULUM, PROMINENT ELEMENT REACTIVE BILE DUCT -TYPE EPITHELIUM, CONSISTENT WITH ULCER (SEE COMMENT) - NEGATIVE FOR MALIGNANCY B. COMMON BILE DUCT, BIOPSY: - SCANT AND MINIMALLY REACTIVE BILE DUCT EPITHELIUM; - FRAGMENT FIBROSIS AND LYMPHOPLASMACYTIC INFILTRATE (SEE COMMENT) - NEGATIVE FOR MALIGNANCY Signing Pathologist Direct Phone Line: [phone] signed by Annette Cavazos MD on 02/27/2018 at 4:20 PMA-B. These findings areconsistent with clinical picture of primary sclerosing cholangitis, a common bile duct stricture andwith an ulcerated, and/or inflamed mucosa.. No atypia, dysplasia or malignancy is identified in examined sections. Most of the material consists of an inflammatory type coagulum.The features here and are identical to those noted in the corresponding cytologic study, [id number] m6Hegownug LFTsA. Common hepatic duct SpyBite biopsy.Part A. Labeled "common hepatic duct SpyBite biopsy" consists of five fragments of beebe soft tissue ranging from less than 0.1 to 0.2 cm submitted in A1.Part B. Labeled "common bile duct SpyBite biopsy" consists of five fragments of beebe tissue ranging from less than 0.1 to 0.1 cm submitted in B1. CG/Diane-B. Performed.[id number] 17:20:00Medical Cytology Report Case: [id number] Authorizing Provider: Andrea Cardozo MD Collected: 02/23/2018 1531 Ordering Location: [address] Received: 02/24/2018 0855 Service Pathologist: Sanjay Mujica MD Specimen: Common Bile Duct, common bile duct stricture brushing COMMON BILE DUCT B RUSHING (CYTOSPINS): - NEGATIVE FOR MALIGNANCY - REACTIVE CHANGES Signing Pathologist Direct Phone Line: [phone] signed by Sanjay Mujica MD on 02/24/2018 at 5:20 PMFew distorted and crushed cells are also present with benign epithelium.[id number] bile duct stricture, elevated LFTsCOMMON BILE DUCT BRUSHING1 brush tip in cytorich red; 2 cytospinsCollected: [id number]: [id number].[facility], Department of Pathology, [address] [place] [address], [facility], Department of [facility], [address] [place] [address], [facility], Department of Pathology, [address] [place] [address], TRJIMYHO [id number] 10:00:00 Test Item Value Reference Range Interpretation Comments CYTOLOGY RESULT POINTER See Separate Report (BEAKER) (test code = 2629) [place], [id number] 06:57:00Referring: Dr. Casper Willoughby OP IMAGINGReason for exam:->jaundice, cirrhosisFLUOROSCOPIC UNIT UTILIZED-NO INTERPRETATION REQUESTED. [id number] 03:47:00 Test Item Value Reference Range Interpretation Comments MAGNESIUM (BEAKER) 1.8 mg/dL 1.6-2.6 Specimen slightly (test code = 627) hemolyzed BASIC METABOLIC [id number] 03:47:00 Test Item Value Reference Range Interpretation Comments SODIUM (BEAKER) 127 meq/L 136-145 L (test code = 381) POTASSIUM (BEAKER) 3.7 meq/L 3.5-5.1 Specimen slightly (test code = 379) hemolyzed CHLORIDE (BEAKER) 97 meq/L 98-107 L (test code = 382) CO2 (BEAKER) (test 19 meq/L 22-29 L code = 355) BLOOD UREA NITROGEN 10 mg/dL 7-21 (BEAKER) (test code = 354) CREATININE (BEAKER) 0.50 mg/dL 0.57-1.25 L Specimen slightly (test code = 358) hemolyzed GLUCOSE RANDOM 94 mg/dL 70-105 (BEAKER) (test code = 652) CALCIUM (BEAKER) 9.2 mg/dL 8.4-10.2 (test code = 697) EGFR (BEAKER) (test 121 mL/min/1.73 ESTIM ATED GFR IS code = 1092) sq m NOT ACCURATE CREATININE CLEARANCE IN PREDICTING GLOMERULAR FILTRATION RATE . ESTIMATED GFR I S NOT APPLICABLE FOR DIALYSIS PATIEN TS. Specimen moderately ictericHEPATIC FUNCTION [id number] 03:47:00 Test Item Value Reference Range Interpretation Comments TOTAL PROTEIN (BEAKER) 6.6 gm/dL 6.0-8.3 Speci men slightly (test code = 770) hemolyzed ALBUMIN (BEAKER) (test 2.7 g/dL 3.5-5.0 L Speci men slightly code = 1145) hemolyzed BILIRUBIN TOTAL 9.9 mg/dL 0.2-1.2 H Specimen sli ghtly (BEAKER) (test code = hemoly zed 377) BILIRUBIN DIRECT 6.8 mg/dL 0.1-0.5 H Specimen sl ightly (BEAKER) (test code = hemoly zed 706) ALKALINE PHOSPHATASE 769 U/L 40-150 H (BEAKER) (test code = 346) AST (SGOT) (BEAKER) 175 U/L 5-34 H Specimen slightly (test code = 353) hemolyzed ALT (SGPT) (BEAKER) 141 U/L 6-55 H Specimen slightly (test code = 347) hemolyzed Specimen moderately ictericPROTHROMBIN [id number] 03:45:00 Test Item Value Reference Range Interpretation Comments PROTIME (BEAKER) (test code = 15.0 seconds 11.7-14.7 H 759) INR (BEAKER) (test code = 370) 1.2 <=5.9 RECOMMENDED COUMADIN/WARFARIN INR THERAPY RANGESSTANDARD DOSE: 2.0 - 3.0 Includes: PROPHYLAXIS forvenous thrombosis, systemic embolization; TREATMENT for venous thrombosis and/or pulmonary embolus.HIGH RISK: Target INR is 2.5-3.5 for patients with mechanical heart valves.CBC W/PLT COUNT & AUTO DIFFERENTIAL 2018-02-24 03:34:00 Test Item Value Reference Range Interpretation Comments WHITE BLOOD CELL COUNT (BEAKER) 10.6 K/ L 3.5-10.5 H (test code = 775) RED BLOOD CELL COUNT (BEAKER) 2.70 M/ L 3.93-5.22 L (test code = 761) HEMOGLOBIN (BEAKER) (test code = 8.6 GM/DL 11.2-15.7 L 410) HEMATOCRIT (BEAKER) (test code = 24.8 % 34.1-44.9 L 411) MEAN CORPUSCULAR VOLUME (BEAKER) 91.9 fL 79.4-94.8 (test code = 753) MEAN CORPUSCULAR HEMOGLOBIN 31.9 pg 25.6-32.2 (BEAKER) (test code = 751) MEAN CORPUSCULAR HEMOGLOBIN CONC 34.7 GM/DL 32.2-35.5 (BEAKER) (test code = 752) RED CELL DISTRIBUTION WIDTH 17.0 % 11.7-14.4 H (BEAKER) (test code = 412) PLATELET COUNT (BEAKER) (test 286 K/CU MM 150-450 code = 756) MEAN PLATELET VOLUME (BEAKER) 10.6 fL 9.4-12.3 (test code = 754) NUCLEATED RED BLOOD CELLS 0 /100 WBC 0-0 (BEAKER) (test code = 413) NEUTROPHILS RELATIVE PERCENT 84 % (BEAKER) (test code = 429) LYMPHOCYTES RELATIVE PERCENT 10 % (BEAKER) (test code = 430) MONOCYTES RELATIVE PERCENT 5 % (BEAKER) (test code = 431) EOSINOPHILS RELATIVE PERCENT 0 % (BEAKER) (test code = 432) BASOPHILS RELATIVE PERCENT 0 % (BEAKER) (test code = 437) NEUTROPHILS ABSOLUTE COUNT 8.92 K/ L 1.56-6.13 H (BEAKER) (test code = 670) LYMPHOCYTES ABSOLUTE COUNT 1.01 K/ L 1.18-3.74 L (BEAKER) (test code = 414) MONOCYTES ABSOLUTE COUNT (BEAKER) 0.53 K/ L 0.24-0.36 H (test code = 415) EOSINOPHILS ABSOLUTE COUNT 0.02 K/ L 0.04-0.36 L (BEAKER) (test code = 416) BASOPHILS ABSOLUTE COUNT (BEAKER) 0.03 K/ L 0.01-0.08 (test code = 417) IMMATURE GRANULOCYTES-RELATIVE 1 % 0-1 PERCENT (BEAKER) (test code = 2801) HEMOGLOBIN [id number] 11:58:00 Test Item Value Reference Range Interpretation Comments HEMOGLOBIN A1C (BEAKER) (test code = 4.1 % 4.3-6.1 L 368) [id number] 06:45:00 Test Item Value Reference Range Interpretation Comments MAGNESIUM (BEAKER) (test code = 1.6 mg/dL 1.6-2.6 627) BASIC METABOLIC [id number] 06:45:00 Test Item Value Reference Range Interpretation Comments SODIUM (BEAKER) 130 meq/L 136-145 L (test code = 381) POTASSIUM (BEAKER) 3.8 meq/L 3.5-5.1 (test code = 379) CHLORIDE (BEAKER) 101 meq/L 98-107 (test code = 382) CO2 (BEAKER) (test 21 meq/L 22-29 L code = 355) BLOOD UREA NITROGEN 14 mg/dL 7-21 (BEAKER) (test code = 354) CREATININE (BEAKER) 0.49 mg/dL 0.57-1.25 L (test code = 358) GLUCOSE RANDOM 89 mg/dL 70-105 (BEAKER) (test code = 652) CALCIUM (BEAKER) 9.8 mg/dL 8.4-10.2 (test code = 697) EGFR (BEAKER) (test 123 mL/min/1.73 ESTIM ATED GFR IS code = 1092) sq m NOT ACCURATE CREATININE CLEARANCE IN PREDICTING GLOMERULAR FILTRATION RATE . ESTIMATED GFR I S NOT APPLICABLE FOR DIALYSIS PATIEN TS. Specimen moderately ictericHEPATIC FUNCTION [id number] 06:45:00 Test Item Value Reference Range Interpretation Comments TOTAL PROTEIN (BEAKER) (test code = 6.7 gm/dL 6.0-8.3 770) ALBUMIN (BEAKER) (test code = 1145) 2.8 g/dL 3.5-5.0 L BILIRUBIN TOTAL (BEAKER) (test code 8.3 mg/dL 0.2-1.2 H = 377) BILIRUBIN DIRECT (BEAKER) (test 6.3 mg/dL 0.1-0.5 H code = 706) ALKALINE PHOSPHATASE (BEAKER) (test 757 U/L 40-150 H code = 346) AST (SGOT) (BEAKER) (test code = 138 U/L 5-34 H 353) ALT (SGPT) (BEAKER) (test code = 130 U/L 6-55 H 347) Specimen moderately ictericPROTHROMBIN [id number] 06:28:00 Test Item Value Reference Range Interpretation Comments PROTIME (BEAKER) (test code = 14.0 seconds 11.7-14.7 759) INR (BEAKER) (test code = 370) 1.1 <=5.9 RECOMMENDED COUMADIN/WARFARIN INR THERAPY RANGESSTANDARD DOSE: 2.0 - 3.0 Includes: PROPHYLAXIS forvenous thrombosis, systemic embolization; TREATMENT for venous thrombosis and/or pulmonary embolus.HIGH RISK: Target INR is 2.5-3.5 for patients with mechanical heart valves.CBC W/PLT COUNT & AUTO DIFFERENTIAL 2018-02-23 06:18:00 Test Item Value Reference Range Interpretation Comments WHITE BLOOD CELL COUNT (BEAKER) 6.9 K/ L 3.5-10.5 (test code = 775) RED BLOOD CELL COUNT (BEAKER) 2.88 M/ L 3.93-5.22 L (test code = 761) HEMOGLOBIN (BEAKER) (test code = 9.1 GM/DL 11.2-15.7 L 410) HEMATOCRIT (BEAKER) (test code = 26.7 % 34.1-44.9 L 411) MEAN CORPUSCULAR VOLUME (BEAKER) 92.7 fL 79.4-94.8 (test code = 753) MEAN CORPUSCULAR HEMOGLOBIN 31.6 pg 25.6-32.2 (BEAKER) (test code = 751) MEAN CORPUSCULAR HEMOGLOBIN CONC 34.1 GM/DL 32.2-35.5 (BEAKER) (test code = 752) RED CELL DISTRIBUTION WIDTH 17.0 % 11.7-14.4 H (BEAKER) (test code = 412) PLATELET COUNT (BEAKER) (test 280 K/CU MM 150-450 code = 756) MEAN PLATELET VOLUME (BEAKER) 10.4 fL 9.4-12.3 (test code = 754) NUCLEATED RED BLOOD CELLS 0 /100 WBC 0-0 (BEAKER) (test code = 413) NEUTROPHILS RELATIVE PERCENT 70 % (BEAKER) (test code = 429) LYMPHOCYTES RELATIVE PERCENT 20 % (BEAKER) (test code = 430) MONOCYTES RELATIVE PERCENT 6 % (BEAKER) (test code = 431) EOSINOPHILS RELATIVE PERCENT 2 % (BEAKER) (test code = 432) BASOPHILS RELATIVE PERCENT 1 % (BEAKER) (test code = 437) NEUTROPHILS ABSOLUTE COUNT 4.82 K/ L 1.56-6.13 (BEAKER) (test code = 670) LYMPHOCYTES ABSOLUTE COUNT 1.38 K/ L 1.18-3.74 (BEAKER) (test code = 414) MONOCYTES ABSOLUTE COUNT (BEAKER) 0.43 K/ L 0.24-0.36 H (test code = 415) EOSINOPHILS ABSOLUTE COUNT 0.14 K/ L 0.04-0.36 (BEAKER) (test code = 416) BASOPHILS ABSOLUTE COUNT (BEAKER) 0.06 K/ L 0.01-0.08 (test code = 417) IMMATURE GRANULOCYTES-RELATIVE 1 % 0-1 PERCENT (BEAKER) (test code = 2801) BASIC METABOLIC [id number] 14:31:00 Test Item Value Reference Range Interpretation Comments SODIUM (BEAKER) 127 meq/L 136-145 L (test code = 381) POTASSIUM (BEAKER) 3.6 meq/L 3.5-5.1 (test code = 379) CHLORIDE (BEAKER) 94 meq/L 98-107 L (test code = 382) CO2 (BEAKER) (test 25 meq/L 22-29 code = 355) BLOOD UREA NITROGEN 15 mg/dL 7-21 (BEAKER) (test code = 354) CREATININE (BEAKER) 0.61 mg/dL 0.57-1.25 (test code = 358) GLUCOSE RANDOM 112 mg/dL 70-105 H (BEAKER) (test code = 652) CALCIUM (BEAKER) 10.4 mg/dL 8.4-10.2 H (test code = 697) EGFR (BEAKER) (test 96 mL/min/1.73 ESTIMA TONNY GFR IS code = 1092) sq m NOT ACCURATE CREATININE CLEARANCE IN PREDICTING GLOMERULAR FILTRATION RATE . ESTIMATED GFR I S NOT APPLICABLE FOR DIALYSIS PATIEN TS. Specimen moderately ictericHEPATIC FUNCTION [id number] 14:31:00 Test Item Value Reference Range Interpretation Comments TOTAL PROTEIN (BEAKER) (test code 8.2 gm/dL 6.0-8.3 = 770) ALBUMIN (BEAKER) (test code = 3.4 g/dL 3.5-5.0 L 1145) BILIRUBIN TOTAL (BEAKER) (test 10.1 mg/dL 0.2-1.2 H code = 377) BILIRUBIN DIRECT (BEAKER) (test 7.7 mg/dL 0.1-0.5 H code = 706) ALKALINE PHOSPHATASE (BEAKER) 930 U/L 40-150 H (test code = 346) AST (SGOT) (BEAKER) (test code = 176 U/L 5-34 H 353) ALT (SGPT) (BEAKER) (test code = 167 U/L 6-55 H 347) Specimen moderately [id number] 14:31:00 Test Item Value Reference Range Interpretation Comments LIPASE (BEAKER) (test code = 749) 18 U/L 8-78 Specimen moderately ictericURINALYSIS W/ [id number] 14:28:00 Test Item Value Reference Range Interpretation Comments COLOR (BEAKER) (test code Dark Yellow = 470) CLARITY (BEAKER) (test Clear code = 469) SPECIFIC GRAVITY UA 1.015 1.001-1.035 (BEAKER) (test code = 468) PH UA (BEAKER) (test code 6.5 5.0-8.0 = 467) PROTEIN UA (BEAKER) (test Negative Negative code = 464) GLUCOSE UA (BEAKER) (test Negative Negative code = 365) KETONES UA (BEAKER) (test Negative Negative code = 371) BILIRUBIN UA (BEAKER) Positive Negative A (test code = 462) BLOOD UA (BEAKER) (test Negative Negative code = 461) NITRITE UA (BEAKER) (test Negative Negative code = 465) LEUKOCYTE ESTERASE UA Negative Negative (BEAKER) (test code = 466) UROBILINOGEN UA (BEAKER) 0.2 mg/dL 0.2-1.0 (test code = 463) RBC UA (BEAKER) (test code < /HPF = 519) WBC UA (BEAKER) (test code 2 /HPF = 520) BACTERIA (BEAKER) (test Few code = 517) MUCUS (BEAKER) (test code Rare = 1574) SQUAMOUS EPITHELIAL 2 /HPF (BEAKER) (test code = 516) SOURCE(BEAKER) (test code Urine, Clean Catch = 2795) [id number] 14:28:00 Test Item Value Reference Range Interpretation Comments PROTIME (BEAKER) (test code = 13.7 seconds 11.7-14.7 759) INR (BEAKER) (test code = 370) 1.1 <=5.9 PARTIAL THROMBOPLASTIN TIME 26.9 seconds 22.5-36.0 (BEAKER) (test code = 760) RECOMMENDED COUMADIN/WARFARIN INR THERAPY RANGESSTANDARD DOSE: 2.0 - 3.0 Includes: PROPHYLAXIS forvenous thrombosis, systemic embolization; TREATMENT for venous thrombosis and/or pulmonary embolus.HIGH RISK: Target INR is 2.5-3.5 for patients with mechanical heart valves.CBC W/PLT COUNT & AUTO DIFFERENTIAL 2018-02-22 14:12:00 Test Item Value Reference Range Interpretation Comments WHITE BLOOD CELL COUNT (BEAKER) 9.4 K/ L 3.5-10.5 (test code = 775) RED BLOOD CELL COUNT (BEAKER) 3.33 M/ L 3.93-5.22 L (test code = 761) HEMOGLOBIN (BEAKER) (test code = 10.6 GM/DL 11.2-15.7 L 410) HEMATOCRIT (BEAKER) (test code = 30.7 % 34.1-44.9 L 411) MEAN CORPUSCULAR VOLUME (BEAKER) 92.2 fL 79.4-94.8 (test code = 753) MEAN CORPUSCULAR HEMOGLOBIN 31.8 pg 25.6-32.2 (BEAKER) (test code = 751) MEAN CORPUSCULAR HEMOGLOBIN CONC 34.5 GM/DL 32.2-35.5 (BEAKER) (test code = 752) RED CELL DISTRIBUTION WIDTH 16.9 % 11.7-14.4 H (BEAKER) (test code = 412) PLATELET COUNT (BEAKER) (test 370 K/CU MM 150-450 code = 756) MEAN PLATELET VOLUME (BEAKER) 10.2 fL 9.4-12.3 (test code = 754) NUCLEATED RED BLOOD CELLS 0 /100 WBC 0-0 (BEAKER) (test code = 413) NEUTROPHILS RELATIVE PERCENT 77 % (BEAKER) (test code = 429) LYMPHOCYTES RELATIVE PERCENT 14 % (BEAKER) (test code = 430) MONOCYTES RELATIVE PERCENT 6 % (BEAKER) (test code = 431) EOSINOPHILS RELATIVE PERCENT 1 % (BEAKER) (test code = 432) BASOPHILS RELATIVE PERCENT 1 % (BEAKER) (test code = 437) NEUTROPHILS ABSOLUTE COUNT 7.25 K/ L 1.56-6.13 H (BEAKER) (test code = 670) LYMPHOCYTES ABSOLUTE COUNT 1.35 K/ L 1.18-3.74 (BEAKER) (test code = 414) MONOCYTES ABSOLUTE COUNT (BEAKER) 0.54 K/ L 0.24-0.36 H (test code = 415) EOSINOPHILS ABSOLUTE COUNT 0.10 K/ L 0.04-0.36 (BEAKER) (test code = 416) BASOPHILS ABSOLUTE COUNT (BEAKER) 0.06 K/ L 0.01-0.08 (test code = 417) IMMATURE GRANULOCYTES-RELATIVE 1 % 0-1 PERCENT (BEAKER) (test code = 2801) MR, ABDOMEN, [id number] 13:15:00Referring: Dr. Casper Keen Include Abdominal VesselsFINAL REPORT History: Elevated alkaline phosphatase, evaluate for intrahepatic cholestasis Comparison: None Technique : Multiplanar imaging with multiple sequences of the abdomenwas performed utilizing a 1.0 ellen magnet with and without the administration of gadolinium contrast. In addition, thin and thick slab 3-D MRCP images were obtained. Comment: The lung bases are clear.There is levoscoliosis of the lumbar spine. The subcutaneous soft tissues as well as the musculatureare within normal limits. The spleen, adrenal glands, pancreas, stomach, and duodenum are within normal limits. There is no abdominal or retroperitoneal lymphadenopathy. The visualized portions of the large and small bowel are within normal limits. There is a right renal cyst. There is cirrhotic morphology of the liver. The patient is status post cholecystectomy. No ascites is identified. The portal vein measures up to a maximum of 1.4 cm in diameter. There is no portal, splenic, or superior mesenteric vein thrombosis. There is a large sized hiatal hernia containing the entire stomach as well as a portion of the colon. There is no extrahepatic ductal dilatation. The common bile duct measures up to0.5 cm in diameter. There is irregularity of both the intrahepatic and extrahepatic delivery ducts with areas of some narrowing/stricturing. The findings are nonspecific. Findings could be due to a process such as primary sclerosing cholangitis among other cholangitis process. The findings can be bestassessed with ERCP. Underlying masses cannot be entirely excluded. Impression: 1. Cirrhotic morphology of the liver. No suspicious enhancing hepatic lesions are seen. 2. Irregularity with areas of suspected stricturing of the intrahepatic and extrahepatic biliary system. Correlation with an ERCP is advised. A process such as primary sclerosing cholangitis is a consideration. 3. Hiatal hernia containing a large portion of the stomach as well as a portion of the colon. Signed: Brittni Avilez MDReport Verified Date/Time: 11/11/2017 13:15:08 Reading Location: [facility] C0Y CT Body Reading Room ANA TITER AND [id number] 05:34:00 Test Item Value Reference Range Interpretation Comments GUSTAVO TITER >:2560 (BEAKER) (test code = 1541) GUSTAVO PATTERN Cytoplasmic/Anti-mi Cytoplas vijaya (BEAKER) (test tochondrial staining is p resent code = 1781) antibodies - see suggestive of comment Anti-mitochondr ial antibodies. If clinically indicated, recommend testi ng for Anti-mitochondr ial antibodies. ANTI-NUCLEAR ANTIBODY (GUSTAVO)2017-11-03 05:33:00 Test Item Value Reference Range Interpretation Comments ANTI-NUCLEAR ANTIBODY (GUSTAVO) (BEAKER) Negative Negative (test code = 418) Test performed by IFA method.[id number] 17:36:00 Test Item Value Reference Range Interpretation Comments THYROID STIMULATING HORMONE 1.25 uIU/mL 0.35-4.94 (BEAKER) (test code = 772) [id number] 17:36:00 Test Item Value Reference Range Interpretation Comments FERRITIN (BEAKER) (test code = 361) 44 ng/mL 5-275 HEPATITIS B SURFACE [id number] 16:46:00 Test Item Value Reference Range Interpretation Comments HEPATITIS B SURFACE ANTIGEN (2) Nonreactive Nonreactive (BEAKER) (test code = 2585) HEPATITIS B SURFACE [id number] 16:46:00 Test Item Value Reference Range Interpretation Comments HEPATITIS B SURFACE ANTIBODY 165.8 mIU/mL <8.0 H (BEAKER) (test code = 647) HEPATITIS B CORE ANTIBODY, [id number] 16:46:00 Test Item Value Reference Range Interpretation Comments HEPATITIS B CORE TOTAL ANTIBODY Nonreactive Nonreactive (BEAKER) (test code = 497) HEPATITIS A ANTIBODY, [id number] 16:46:00 Test Item Value Reference Range Interpretation Comments HEPATITIS A IGG ANTIBODY (BEAKER) Nonreactive Nonreactive (test code = 2797) HEPATITIS C [id number] 16:45:00 Test Item Value Reference Range Interpretation Comments HEPATITIS C ANTIBODY (BEAKER) Nonreactive Nonreactive (test code = 367) VITAMIN D, [id number] 16:32:00 Test Item Value Reference Range Interpretation Comments VITAMIN D 25-OH (BEAKER) (test 45.4 ng/mL 6.6-49.9 code = 2764) Effective 01/19/2017: Reference Range ChangeNew: 6.6-49.9 ng/mL Previous: 13.0-47.8 ng/mLRecommended Vitamin D Target Range: 30.0-40.0 ng/mLIMMUNOGLOBULIN G (IGG)2017-11-01 16:20:00 Test Item Value Reference Range Interpretation Comments IMMUNOGLOBULIN G (IGG) (BEAKER) 1323 mg/dL 540-1822 (test code = 427) IMMUNOGLOBULIN M (IGM)2017-11-01 16:20:00 Test Item Value Reference Range Interpretation Comments IMMUNOGLOBULIN M (IGM) (BEAKER) 157 mg/dL 22-293 (test code = 638) IRON, TIBC, % SAT. (WITHOUT FERRITIN)2017-11-01 16:20:00 Test Item Value Reference Range Interpretation Comments IRON (BEAKER) (test code = 547) 31 ug/dL 40-160 L TOTAL IRON BINDING CAPACITY 536 ug/dL 250-450 H (BEAKER) (test code = 769) IRON % SATURATION (2) (BEAKER) 6 % 20-55 L (test code = 2590) [id number] 16:17:00 Test Item Value Reference Range Interpretation Comments ALPHA-1 ANTITRYPSIN (BEAKER) 230.90 mg/dL 90.00-200.00 H (test code = 502) COMPREHENSIVE METABOLIC [id number] 16:16:00 Test Item Value Reference Range Interpretation Comments TOTAL PROTEIN 8.0 gm/dL 6.0-8.3 (BEAKER) (test code = 770) ALBUMIN (BEAKER) 3.8 g/dL 3.5-5.0 (test code = 1145) ALKALINE PHOSPHATASE 1466 U/L 40-150 H (BEAKER) (test code = 346) BILIRUBIN TOTAL 1.5 mg/dL 0.2-1.2 H (BEAKER) (test code = 377) SODIUM (BEAKER) (test 128 meq/L 136-145 L code = 381) POTASSIUM (BEAKER) 3.7 meq/L 3.5-5.1 (test code = 379) CHLORIDE (BEAKER) 95 meq/L 98-107 L (test code = 382) CO2 (BEAKER) (test 22 meq/L 22-29 code = 355) BLOOD UREA NITROGEN 12 mg/dL 7-21 (BEAKER) (test code = 354) CREATININE (BEAKER) 0.63 mg/dL 0.57-1.25 (test code = 358) GLUCOSE RANDOM 83 mg/dL 70-105 (BEAKER) (test code = 652) CALCIUM (BEAKER) 10.2 mg/dL 8.4-10.2 (test code = 697) AST (SGOT) (BEAKER) 214 U/L 5-34 H (test code = 353) ALT (SGPT) (BEAKER) 217 U/L 6-55 H (test code = 347) EGFR (BEAKER) (test 93 mL/min/1.73 ESTIMA TONNY GFR IS code = 1092) sq m NOT ACCURATE CREATININE CLEARANCE IN PREDICTING GLOMERULAR FILTRATION RATE . ESTIMATED GFR I S NOT APPLICABLE FOR DIALYSIS PATIEN TS. BILIRUBIN, [id number] 16:16:00 Test Item Value Reference Range Interpretation Comments BILIRUBIN DIRECT (BEAKER) (test 1.0 mg/dL 0.1-0.5 H code = 706) PROTHROMBIN TIME/[id number] 16:06:00 Test Item Value Reference Range Interpretation Comments PROTIME (BEAKER) (test code = 13.2 seconds 11.7-14.7 759) INR (BEAKER) (test code = 370) 1.0 <=5.9 RECOMMENDED COUMADIN/WARFARIN INR THERAPY RANGESSTANDARD DOSE: 2.0 - 3.0 Includes: PROPHYLAXIS forvenous thrombosis, systemic embolization; TREATMENT for venous thrombosis and/or pulmonary embolus.HIGH RISK: Target INR is 2.5-3.5 for patients with mechanical heart valves.CBC W/PLT COUNT & AUTO DIFFERENTIAL 2017-11-01 15:58:00 Test Item Value Reference Range Interpretation Comments WHITE BLOOD CELL COUNT (BEAKER) 8.7 K/ L 3.5-10.5 (test code = 775) RED BLOOD CELL COUNT (BEAKER) 3.45 M/ L 3.93-5.22 L (test code = 761) HEMOGLOBIN (BEAKER) (test code = 10.4 GM/DL 11.2-15.7 L 410) HEMATOCRIT (BEAKER) (test code = 32.4 % 34.1-44.9 L 411) MEAN CORPUSCULAR VOLUME (BEAKER) 93.9 fL 79.4-94.8 (test code = 753) MEAN CORPUSCULAR HEMOGLOBIN 30.1 pg 25.6-32.2 (BEAKER) (test code = 751) MEAN CORPUSCULAR HEMOGLOBIN CONC 32.1 GM/DL 32.2-35.5 L (BEAKER) (test code = 752) RED CELL DISTRIBUTION WIDTH 15.2 % 11.7-14.4 H (BEAKER) (test code = 412) PLATELET COUNT (BEAKER) (test 387 K/CU MM 150-450 code = 756) MEAN PLATELET VOLUME (BEAKER) 10.6 fL 9.4-12.3 (test code = 754) NUCLEATED RED BLOOD CELLS 0 /100 WBC 0-0 (BEAKER) (test code = 413) NEUTROPHILS RELATIVE PERCENT 70 % (BEAKER) (test code = 429) LYMPHOCYTES RELATIVE PERCENT 20 % (BEAKER) (test code = 430) MONOCYTES RELATIVE PERCENT 6 % (BEAKER) (test code = 431) EOSINOPHILS RELATIVE PERCENT 2 % (BEAKER) (test code = 432) BASOPHILS RELATIVE PERCENT 1 % (BEAKER) (test code = 437) NEUTROPHILS ABSOLUTE COUNT 6.09 K/ L 1.56-6.13 (BEAKER) (test code = 670) LYMPHOCYTES ABSOLUTE COUNT 1.75 K/ L 1.18-3.74 (BEAKER) (test code = 414) MONOCYTES ABSOLUTE COUNT (BEAKER) 0.50 K/ L 0.24-0.36 H (test code = 415) EOSINOPHILS ABSOLUTE COUNT 0.21 K/ L 0.04-0.36 (BEAKER) (test code = 416) BASOPHILS ABSOLUTE COUNT (BEAKER) 0.06 K/ L 0.01-0.08 (test code = 417) IMMATURE GRANULOCYTES-RELATIVE 1 % 0-1 PERCENT (BEAKER) (test code = 6456)
--- OUTSIDE RECORDS SUMMARY | 2019-12-23 12:53 | XMS REPORT | Summary of Care ---
:1945 Author Organization [facility] Address [address] [place] [address] Care Team Providers Name Role Phone Pcp, Does Not Have A Primary Care Provider Aileen Conrad MD Unavailable Unavailable Reason for Visit Reason Comments New Evaluation right ear clogged/ can't hea r x 2 wks (Routine) Status Reason Specialty Diagnoses / Referred By Referred To Procedures Contact Contact Authorized [facility]-OTOLARYNGOLOGY / Diagnoses Ears clogged *screening cleared, visitor & mask policy noted (caregiver to come in due to memory issues) [id number] // mcs Casper Powell, Otolaryngology Procedures CONSULT/REFERRAL OTOLARYNGOLOGY NEW VISIT E MD Katarzyna [address] [address] [address] [place] [id number] [place] [address] Phone: Fax: Encounter Details Date Type Department Care Team Description 10/29/2019 Office Visit [facility] Ear, Nose Makishima, Other infective acute otitis externa of both ears (Primary Dx); and Throat-League ty MD Katarzyna Bilateral impacted cerumen; [address] Otorrhea of both ears; [place] [address] [id number] Sensation of [place] [address] Allergies No Known Allergiesdocumented as of this encounter (statuses as of 10/29/2019) Medications Medication Sig Dispensed Refills Start Date End Date Status traZODONE 100 mg tablet 0 05/24/2017 Active ferrous gluconate 324 Take 324 mg by 0 Active mg (38 mg iron) tablet mouth. HYDROcodone-acetaminoph Take 1 tablet 0 Active en 10-325 mg tablet by mouth. URSODIOL ORAL Take 750 mg by 0 A ctive mouth. ZINC ORAL Take by mouth. 0 Acti ve atorvastatin 10 mg Take 10 mg (1 0 11/23/2018 Active tablet tablet) daily at bedtime.. BACILLUS COAGULANS ORAL Take by mouth. 0 Active fluticasone propionate Use 1 [place] in 0 Active 50 mcg/actuation nasal each nostril. spray hydrOXYzine 25 mg Take 12.5 mg by 0 11/10/2018 Active tablet mouth. Multivitamins-Iron Tab Take 1 tablet 0 Active by mouth. ondansetron 4 mg tablet Take 4 mg by 0 06/15/2018 Active mouth. ZINC ORAL Take 50 mg by 0 Active mouth. gabapentin 100 mg 0 05/18/2019 A ctive capsule NARCAN 4 mg/actuation 0 05/18/2019 Active [place] omeprazole 20 mg Take 20 mg by 0 Active capsule mouth. spironolactone Take 50 mg by 0 03/29/2019 Active (ALDACTONE) 50 mg mouth. tablet triamcinolone acetonide 0 04/16/2019 Active 0.1 % cream multivitamin capsule Take 1 capsule 0 Active by mouth. benzonatate 100 mg 2 (two) times 0 12/05/2018 Active capsule daily as needed . PREMARIN 0.625 mg/gram INSERT ONE (1) 30 g 0 09/17/2019 Active creamIndications: GRAM INTO Recurrent UTI, VAGINA TWO Uterovaginal prolapse, TIMES PER WEEK incomplete FOR ITCHING. psyllium seed (PSYLLIUM Take by mouth. 0 Active ORAL) ciprofloxacin-dexametha 4 Drops. 0 10/22/201910/31 Active sone 0.3-0.1 % otic drops ciprofloxacin-dexametha Place 4 Drops 1 Bottle 0 10/29/2019 Active sone (CIPRODEX) 0.3-0.1 in both ears 2 % otic (two) times dropsIndications: Other daily. infective acute otitis externa of both ears documented as of this encounter (statuses as of 10/29/2019) Active Problems Problem Noted Date Senile nuclear cataract, left 07/06/2017 Overview: Added automatically from request for adrian fulton [id number] Senile nuclear cataract, right 05/06/2017 Overview: Added automatically from request for adrian fulton [id number] documented as of this encounter (statuses as of 10/29/2019) Social History Tobacco Use Types Packs/Day Years Used Date Never Smoker Smokeless Tobacco: Never Used Sex Assigned at Date Recorded Not on file Job Start Date Occupation Industry Not on file Not on file Not on file Travel History Travel Start Travel End No recent travel history available. COVID-19 Exposure Response Date Recorded In the last month, have you been in contact with No / Unsure 10/29/2019 10:23 AM CDT someone who was confirmed or suspected to have Coronavirus / COVID-19? documented as of this encounter Last Filed Vital Signs Vital Sign Reading Time Taken Comments Blood Pressure - - Pulse - - Temperature 37.1 C (98.7 F) 10/29/2019 10:43 AM CDT Respiratory Rate - - Oxygen Saturation - - Inhaled Oxygen Concentration - - Weight 47.9 kg (105 lb 8 oz) 10/29/2019 10:43 AM CDT Height 162.6 cm (5' 4") 10/29/2019 10:43 AM CDT Body Mass Index 18.11 10/29/2019 10:43 AM CDT documented in this encounter Progress Notes Daly Martinez PA-C - 10/29/2019 10:15 AM CDT Otolaryngology New Patient Clinic Visit Name: Yokasta Winter Date: 10/29/2019 12:00 Chief Complaint: Clogged ear History of Present Illness: Yokasta Winter is a 74 year old 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 Patient reports onset of sx a few weeks ago. Sx are in the R ear primarily. She reports some muffled hearing. Denies otorrhea, otalgia, tinnitus or vertigo. She did see her PCP 2 weeks ago who prescribed Ciprodex which hasn't seemed to make much difference. No other ENT complaints or concerns voiced bypatient today. No history of ear surgeries. No FHx of ear issues. Past Medical Hx: Past Medical History: Diagnosis Date Cervical dystonia Primary sclerosing cholangitis 2017 Past Surgical Hx: Past Surgical History: Procedure Laterality Date CHG PERCUT TRANSHEPAT DILAT,BILE DUCT STRICT 2018 PHACOEMULSIFICATION OF CATARACT WITH INTRAOCULAR LENS IMPLANT Right 07/05/2017 Surgeon: Gaby Hernandez; Location: [place] [facility] PHACOEMULSIFICATION OF CATARACT WITH INTRAOCULAR LENS IMPLANT Left 08/02/2017 Surgeon: Gaby Hernandez; Location: [place] [facility] Social History: Social History Tobacco Use Smoking status: Never Smoker Smokeless tobacco: Never Used Substance Use Topics Alcohol use: Not on file Drug use: Not on file Family History: No family history on file. Allergies: Patient has no known allergies. Medications: Current Outpatient Medications Medication Sig ciprofloxacin-dexamethasone (CIPRODEX) 0.3-0.1 % otic drops Place 4 Drops in both ears 2 (two) times daily. ciprofloxacin-dexamethasone 0.3-0.1 % otic drops 4 Drops. psyllium seed (PSYLLIUM ORAL) Take by mouth. multivitamin capsule Take 1 capsule by mouth. PREMARIN 0.625 mg/gram cream INSERT ONE (1) GRAM INTO VAGINA TWO TIMES PER WEEK FOR ITCHING. benzonatate 100 mg capsule 2 (two) times daily as needed . gabapentin 100 mg capsule NARCAN 4 mg/actuation [place] omeprazole 20 mg capsule Take 20 mg by mouth. spironolactone (ALDACTONE) 50 mg tablet Take 50 mg by mouth. triamcinolone acetonide 0.1 % cream ZINC ORAL Take 50 mg by mouth. atorvastatin 10 mg tablet Take 10 mg (1 tablet) daily at bedtime.. BACILLUS COAGULANS ORAL Take by mouth. fluticasone propionate 50 mcg/actuation nasal spray Use 1 [place] in each nostril. hydrOXYzine 25 mg tablet Take 12.5 mg by mouth. Multivitamins-Iron Tab Take 1 tablet by mouth. ondansetron 4 mg tablet Take 4 mg by mouth. ZINC ORAL Take by mouth. ferrous gluconate 324 mg (38 mg iron) tablet Take 324 mg by mouth. HYDROcodone-acetaminophen 10-325 mg tablet Take 1 tablet by mouth. URSODIOL ORAL Take 750 mg by mouth. traZODONE 100 mg tablet Review of Systems Positive issues in the Review of Systems will be BOLD Constitutional: fevers, chills, sweats, fatigue, weight loss, change in appetite Eyes: vision changes, diplopia, eye pain Ears: hearing loss, otalgia, otorrhea, tinnitus, vertigo, ear fullness, muffled hearing Nose: rhinorrhea, nasal congestion, epistaxis Throat: dysphagia, odynophagia, dysphonia Cardiovascular: chest pain, palpitations, dyspnea on exertion Respiratory: cough, wheeze, shortness of breath; hx asthma or COPD Gastrointestinal: nausea, vomiting, diarrhea, abdominal pain, heartburn, indigestion Genitourinary: recent infections, ESRD, dysuria, oliguria, frequent urination Musculoskeletal: arthritis, joint pain, mobility problems Integumentary: skin infection, rashes or skin changes Neurologic: seizures, headaches, weakness Psychiatric: ADHD, anxiety, depressed mood, substance abuse Endocrine: thyroid problems, diabetes Hematologic: bleeding disorders, easy bruising Allergy/Immunology: food allergy, environmental allergy, immunosuppressed, eczema Physical Exam: Temp 37.1 C (98.7 F) (Tympanic) | Ht 5' 4" (1.626 m) | Wt 105 lb 8 oz (47.9 kg) | LMP (LMP Unknown) | BMI 18.11 kg/m GENERAL: 74 year old female in NAD. Normal voice. No dyspnea or stridor. Jaundiced HEAD/FACE: Normocephalic, atraumatic. Facial nerve intact and bilaterally symmetric. Submandibular and parotid glands non-tender and without masses. EYES: EOMI; conjunctivae clear EARS: binocular microscopy Right: Auricle normal. Canal coated with soft cerumen-- -- see procedure note Left: Auricle normal. Canal with dense cerumen impaction-- see procedure note NOSE: no external deviation; nares patent, nasal mucosa normal; septum midline; inferior turbinates not hypertrophied. No polyps, purulence, or mass. OC/OP: No trismus; oral mucosa is wnl, no mass or lesion; normal dentition, normal tongue mobility;no erythema or exudate; tonsils present and not enlarged; uvula midline; palate intact and elevates symmetrically. NECK: Neck is supple; trachea midline; no obvious goiter or thyroid nodules appreciated. LYMPH: Unable to appreciate gross cervical lymphadenopathy. SKIN: No concerning rash, lesion, pigmentation changes on head/neck. NEUROLOGICAL: Cranial nerves II-XII grossly intact. PSYCHIATRIC: Oriented to person, place, time. Appropriate affect for age. RESPIRATORY: Good respiratory effort; symmetrical expansion of thoracic cavity. CARDIOVASCULAR: Extremities well perfused. No cyanosis. Cerumen removal under Microscopy: Binocular microscopy was performed for better visualization of the tympanic membrane and middle ear.Patient was seen to have significant cerumen impaction of the ear canal bilaterally. Cerumen was removed as noted below: Right: Canal irritated with scant purulent otorrhea; TM intact, middle ear clear Left: Canal irritated with some purulent otorrhea. TM intact, middle ear clear DATA REVIEW: Comprehensive chart review performed today of clinic notes, labs, imaging, and referrals. DIAGNOSES: ICD-10-CM ICD-9-CM 1. Other infective acute otitis externa of both ears H60.393 380.10 2. Bilateral impacted cerumen H61.23 380.4 3. Otorrhea of both ears H92.13 388.60 4. Sensation of plugged ear on right side H93.8X1 388.8 Assessment/Plan: Yokasta Winter is a 74 year old female with PMHx as listed above who presents for R clogged ear. On PE she had bilateral cerumen impactions which were cleaned in-office. Patient noted resolution of ear fullness and muffled hearing after cleaning. She did have some scant purulent otorrhea and irritation of the bilateral canals after cleaning. Advised her to continue Ciprodex drops to bilateral canals for ~5 more days to resolve infection. She should follow-up with us as needed if she reaccumulates ear wax or any new ear problems arise. - Ear cleaned in-clinic - C/W Ciprodex for 5 more days RTC PRN if she needs an ear cleaning or sooner if new problems arise I discussed at length the exam findings, diagnoses, and treatment options with the patient. Questions have been answered to satisfaction. PA Attestation: Daly Diehl PA-C was involved in this patient's care as directed by the physician, who evaluated the patient, performed the services, participated in the procedure(s) and formulatedthe plan of care. Daly Martinez PA-C [facility] Department of Otolaryngology documented in this encounter Plan of Treatment Date Type Specialty Care Team Description 11/29/2019 Office Visit Obstetrics & Gynecology Dionne Saucedo, DNP, HIGH VOLTAGE ELECTRICIAN, CNP -BC [address] [place] [address] 12/06/2019 Office Visit Ophthalmology Avinash Hernandez MD [address] [facility] [address] [place], [place] [address] Health Maintenance Due Date Last Done Comments Breast Cancer Screening 1984 (MAMMOGRAM) COLONOSCOPY 05/21/2020 Postponed from 0 01/08/1994 (Refused) DTaP,Tdap,and Td Vaccines (1 - 05/21/2020 P ostponed from 01/08/1955 Tdap) (Refused) INFLUENZA VACCINE (#1) 2020 Postponed from 12/11/2019 (Refused) Medicare Wellness Visit 05/21/2020 Postpone d from 01/08/2009 (Refused) Osteoporosis Screening 05/21/2020 Postponed from 01/08/2009 (Refused) PNEUMOCOCCAL VACCINES 65+ (1 of 2 05/21/2020 Postponed from 01/08/2009 - PCV13) (Refused) Zoster Recombinant Vaccine 05/21/2020 Postp oned from 01/08/1994 (SHINGRIX) (1 of 2) (Refused) Depression Screening 06/07/2020 06/07/2019 documented as of this encounter Implants Implanted Type Area Associate Professor Of Biblical Studies Device Shelf Model / Serial Identifier Expiration / Lot Date Lens, Roosevelt #Sn60wf 14.5d - [id number] LENS Right: [place] 06/08/2021 SN60WF 14.5D / Implanted: Qty: 1 on 07/05/2017 by Gaby Uriostegui MD at [facility] [place] [facility] Eye [id number] / 0 Lens, [place] #Sn60wf 15.5d - [id number] LENS Left: Eye [place] 12/09/2020 SN60WF 15.5D / Implanted: Qty: 1 on 08/02/2017 by Gaby Uriostegui MD at [facility] [id number] / NA documented as of this encounter Results Not on filedocumented in this encounter Visit Diagnoses Diagnosis Other infective acute otitis externa of both ears - Primary Bilateral impacted cerumen Impacted cerumen Otorrhea of both ears Otorrhea, unspecified Sensation of plugged ear on right side documented in this encounter Insurance Payer Benefit Plan / Subscriber ID Effective Phone Address T e Group [facility] [id number] 2019-Sarah Beth tipton [facility] - MEDICARE HMO MANAGED MEDICARE ADVANTAGE documented as of this encounter
--- OUTSIDE RECORDS SUMMARY | 2019-12-23 12:53 | XMS REPORT | Summary of Care ---
:1945 Author Organization [facility] - Health Address [address] [place] [address] Care Team Providers Name Role Phone Pcp, Does Not Have A Primary Care Provider Aileen Conrad MD Unavailable Unavailable Encounter Details Date Type Department Care Team Description 10/29/2019 Orders Only [facility] Doctor Unassigned, No 301 [facility] [place] [address] [address] [place] [address] Allergies No Known Allergiesdocumented as of this encounter (statuses as of 10/31/2019) Medications Medication Sig Dispensed Refills Start Date [...] mouth. 0 Active fluticasone propionate Use 1 [place] in 0 Active 50 mcg/actuation nasal each [...] capsule NARCAN 4 mg/actuation 0 05/18/2019 Active [place] omeprazole 20 mg Take 20 mg by [...] as of this encounter (statuses as of 10/31/2019) Active Problems Problem Noted Date Senile nuclear cataract, left 07/06/2017 Overview: Added automatically from request for adrian fulton [id number] Senile nuclear cataract, right 05/06/2017 Overview: Added automatically from request for adrian fulton [id number] documented as of this encounter (statuses as of 10/31/2019) Social History Tobacco Use Types Packs/Day Years [...] of this encounter Last Filed Vital Signs Not on filedocumented in this encounter Plan of Treatment Date Type Specialty Care Team Description 11/29/2019 Office Visit Obstetrics & Gynecology Dionne Saucedo, DNP, LIBRARY SERVICES ASSISTANT, WHCNP -BC [address] [place] [address] [phone] 12/06/2019 Office Visit Ophthalmology Avinash Hernandez MD [address] [place], [place] [address] Health Maintenance Due Date [...] of this encounter Implants Implanted Type Area Operating Room Specialist Device Shelf Model / Serial Identifier Expiration / Lot Date Lens, [place] #Sn60wf 14.5d - [id number] LENS Right: [place] 06/08/2021 SN60WF 14.5D / Implanted: Qty: 1 on 07/05/2017 by Gaby Uriostegui MD at [facility] Eye [id number] / 0 Lens, [place] #Sn60wf 15.5d - [id number] LENS Left: Eye [place] 12/09/2020 SN60WF 15.5D / Implanted: Qty: 1 on 08/02/2017 by Gaby Uriostegui MD at [facility] [id number] / NA documented as of this encounter Procedures Procedure Name Priority Date/Time Associated Diagnosis Comme nts REFERRAL- Routine 10/29/2019 12:01 AM CDT REQUEST/RESPONSE documented in this encounter Results Not on filedocumented in this encounter Insurance Payer Benefit Plan / Subscriber ID Effective Phone Address T [facility] Dates [facility] [id number] 2019-Sarah Beth tipton [facility] - MEDICARE nt HMO MANAGED MEDICARE ADVANTAGE documented as of this encounter
--- OUTSIDE RECORDS SUMMARY | 2019-12-23 12:53 | XMS REPORT | Summary of Care ---
:1945 Author Organization [facility] Address [address] [place] [id number] Care Team Providers Name Role Phone Pcp, [...] to come in due to memory issues) [id number] // mcs Casper Powell, Otolaryngology Procedures CONSULT/REFERRAL OTOLARYNGOLOGY NEW VISIT E MD Katarzyna [address] [address] [address] [place] [id number] [place] [address] Phone: Fax: Encounter Details Date Type Department Care Team Description 10/29/2019 Office Visit [facility] Ear, Nose Makishima, Other infective acute otitis externa of both ears (Primary Dx); and Throat-League ty MD Katarzyna Bilateral impacted cerumen; [address] Otorrhea of both ears; [place] [address] [id number] Sensation of plugged [place] [address] Allergies No Known Allergiesdocumented [...] mouth. 0 Active fluticasone propionate Use 1 [place] in 0 Active 50 mcg/actuation nasal each [...] capsule NARCAN 4 mg/actuation 0 05/18/2019 Active [place] omeprazole 20 mg Take 20 mg by [...] Added automatically from request for adrian fulton [id number] Senile nuclear cataract, right 05/06/2017 Overview: Added automatically from request for adrian fulton [id number] documented as of this encounter (statuses as [...] IMPLANT Right 07/05/2017 Surgeon: Gaby Hernandez; Location: [place] [facility] PHACOEMULSIFICATION OF CATARACT WITH INTRAOCULAR LENS IMPLANT Left 08/02/2017 Surgeon: Gaby Hernandez; Location: [place] [facility] Social History: Social History Tobacco Use [...] gabapentin 100 mg capsule NARCAN 4 mg/actuation [place] omeprazole 20 mg capsule Take 20 mg by mouth. spironolactone (ALDACTONE) 50 mg tablet Take 50 mg by mouth. triamcinolone acetonide 0.1 % cream ZINC ORAL Take 50 mg by mouth. atorvastatin 10 mg tablet Take 10 mg (1 tablet) daily at bedtime.. BACILLUS COAGULANS ORAL Take by mouth. fluticasone propionate 50 mcg/actuation nasal spray Use 1 [place] in each nostril. hydrOXYzine 25 mg tablet [...] formulatedthe plan of care. Daly Martinez PA-C [facility] Department of Otolaryngology documented in this encounter Plan of Treatment Date Type Specialty Care Team Description 11/29/2019 Office Visit Obstetrics & Gynecology Dionne Saucedo, DNP, CREPE LAMINATOR OPERATOR, CNP -BC [address] [place] [address] 12/06/2019 Office Visit Ophthalmology Avinash Hernandez MD [address] [facility] [address] [place], [place] [address] Health Maintenance Due Date [...] of this encounter Implants Implanted Type Area Feed Mill Supervisor Device Shelf Model / Serial Identifier Expiration / Lot Date Lens, [place] #Sn60wf 14.5d - [id number] LENS Right: [place] 06/08/2021 SN60WF 14.5D / Implanted: Qty: 1 on 07/05/2017 by Gaby Uriostegui MD at [facility] [place] [facility] Eye [id number] / 0 Lens, [place] #Sn60wf 15.5d - [id number] LENS Left: Eye [place] 12/09/2020 SN60WF 15.5D / Implanted: Qty: 1 on 08/02/2017 by Gaby Uriostegui MD at [facility] [id number] / NA documented as of this encounter Results Not on filedocumented in this encounter Visit Diagnoses Diagnosis Other infective acute otitis externa of both ears - Primary Bilateral impacted cerumen Impacted cerumen Otorrhea of both ears Otorrhea, unspecified Sensation of plugged ear on right side documented in this encounter Insurance Payer Benefit Plan / Subscriber ID Effective Phone Address T e Group [facility] [id number] 2019-Sarah Beth tipton [facility] - MEDICARE HMO MANAGED MEDICARE ADVANTAGE documented as of this encounter
[2019-12-23] MEDS ORDERED: PANTOPRAZOLE 40 MG INJ ONE (13:27)
[2019-12-23] MEDS ORDERED: ONDANSETRON 4 MG/2 ML VIAL ONE (13:27)
[2019-12-23] MEDS ORDERED: NA CHLORIDE 0.9% 250 ML ONE (13:27)
[2019-12-23] MEDS ORDERED: OCTREOTIDE ACETATE 100 MCG/ML ONE (13:28)
[2019-12-23] MEDS ORDERED: NA CHLORIDE 0.9% 1,000 ML ONE ×2 (13:28→15:37)
[2019-12-23] MEDS ORDERED: NA CHLORIDE 0.9% 100 ML IV ONE (13:29)
[2019-12-23 13:31] LABS: Absolute Lymphocytes (CBC) 2.2 K/uL (0.7-4.9); Basophils % 0.4 % (0-1.3); Hematocrit 26.4 % (36.0-45.0); Lymphocytes % 16.7 % (15.3-44.8); RBC Red Blood Cell Count 2.76 M/uL (3.86-4.86)
[2019-12-23 13:36] LABS: Protime INR 1.45
[2019-12-23 14:21] LABS: AST/SGOT 192 U/L (15-37); Albumin 1.8 g/dL (3.4-5.0); Alkaline Phosphatase 776 U/L (45-117); BUN Blood Urea Nitrogen 25 mg/dL (7-18); Bicarbonate 23 mmol/L (21-32); Glucose Level 151 mg/dL (74-106); Lipase 155 U/L (73-393); Potassium 4.2 mmol/L (3.5-5.1); Protein, Total 6.4 g/dL (6.4-8.2); Sodium Level 134 mmol/L (136-145)
--- NOTE | 2019-12-23 14:37 | EDPHYS ---
Physician Documentation [facility] Name: Yokasta Winter Age: 74 yrs Sex: Female : 1945 Arrival Date: 12/23/2019 Time: 12:43 Bed 18 Private MD: LEYDA Physician Chaparro Mast HPI: 12/22 12:54 This 74 yrs old Female presents to ER via EMS with complaints of pm1 Nausea/Vomiting. 12:54 The patient presents to the emergency department with nausea, vomiting. Onset: The pm1 symptoms/episode began/occurred just prior to arrival. Possible causes: unknown, history of primary biliary cirrhosis. The symptoms are aggravated by nothing. The symptoms are alleviated by nothing. Associated signs and symptoms: Pertinent positives: vomiting, blood, Pertinent negatives: abdominal pain, dysuria, fever. Severity of symptoms: in the emergency department the symptoms have improved. The patient has not experienced similar symptoms in the past, denies any history of esophageal varices. Historical: - Allergies: 12:54 No Known Drug Allergies; ls4 - PSHx: 12:54 Cholecystectomy; Tonsillectomy; ls4 - Immunization history:: Adult Immunizations up to date. - Social history:: Smoking status: Patient denies any tobacco usage or history of. ROS: 12:54 Constitutional: Negative for fever, chills, and weight loss, Eyes: Negative for injury, pm1 pain, redness, and discharge, ENT: Negative for injury, pain, and discharge, Cardiovascular: Negative for chest pain, palpitations, and edema. 12:54 Respiratory: Negative for shortness of breath, cough, wheezing, and pleuritic chest pain. 12:54 Back: Negative for injury and pain, : Negative for injury, bleeding, discharge, and swelling, MS/Extremity: Negative for injury and deformity, Skin: Negative for injury, rash, and discoloration, Neuro: Negative for headache, weakness, numbness, tingling, and seizure. 12:54 Neck: Positive for baseline chronic neck pain, Negative for injury or acute deformity, stiffness. 12:54 Abdomen/GI: Positive for nausea, hematemesis, Negative for abdominal pain, diarrhea, constipation, black/tarry stool. Exam: 12:54 Head/Face: Normocephalic, atraumatic. pm1 12:54 Back: No spinal tenderness. No costovertebral tenderness. Full range of motion. 12:54 Constitutional: The patient appears alert, awake, non-diaphoretic, non-toxic, well developed, well groomed, frail. 12:54 Eyes: Extraocular movements: intact throughout, Sclera: icterus, is present. 12:54 Cardiovascular: Exam negative for acute changes, Rate: normal, Rhythm: regular, Pulses: no pulse deficits are appreciated. 12:54 Respiratory: Exam negative for acute changes, respiratory distress, shortness of breath, wheezing. 12:54 Abdomen/GI: Inspection: abdomen appears normal, Palpation: abdomen is soft and non-tender, in all quadrants, mass, is not appreciated. 12:54 Skin: Appearance: normal except for affected area, Color: jaundiced. 12:54 Neuro: Exam negative for acute changes, Orientation: is normal, Mentation: is normal, Motor: is normal, moves all fours. 13:54 Abdomen/GI: Rectal exam: Stool: guaiac negative, small, hard, grayish balls of fecal pm1 matter. Vital Signs: 12:46 BP 80 / 42; Pulse 87; Resp 16; Temp 97.5(O); Pulse Ox 99% on R/A; Weight 47.63 kg; ls4 Height 5 ft. 4 in. (162.56 cm); Pain 5/10; 13:42 BP 120 / 59; Pulse 77; Resp 16; Pulse Ox 99% on R/A; Pain 5/10; ls4 19:49 BP 96 / 47; Pulse 74; Resp 16; Temp 97.6(O); Pulse Ox 100% ; Pain 3/10; ls4 12:46 Body Mass Index 18.02 (47.63 kg, 162.56 cm) ls4 MDM: 12:47 Patient medically screened. pm1 14:34 Data reviewed: vital signs. Data interpreted: Pulse oximetry: on room air is 99 %. pm1 Interpretation: normal. 14:34 Counseling: I had a detailed discussion with the patient and/or guardian regarding: the pm1 historical points, exam findings, and any diagnostic results supporting the discharge/admit diagnosis, lab results, the need to transfer to another facility, [facility] does not immediately have the required specialist, Patient sees Dr. Slaughter at [facility]. 15:25 Physician consultation: Ellis Manager Community Development [facility] was contacted at 15:26, pm1 regarding regarding transfer, patient's condition, and will see patient No blood transfusion at the moment since patient's is not actively vomiting blood now and vital signs stable. Patient's hemoglobin is 9.2 with recommendations of transfusion below 7.0. I will continue to monitor patient and update physicians with any changes in stability and treatment. 12/22 12:53 Order name: Basic Metabolic Panel; Complete Time: 15:32 pm12/22 12:53 Order name: CBC with Diff; Complete Time: 13:44 pm1 12/22 12:53 Order name: Hepatic Function; Complete Time: 15:32 pm12/22 12:53 Order name: Lipase; Complete Time: 15:32 pm12/22 12:53 Order name: PT-INR; Complete Time: 13:44 pm1 12/22 12:53 Order name: Ptt, Activated; Complete Time: 13:44 pm1 12/22 12:53 Order name: Type And Screen [facility] 12/22 16:08 Order name: ABO/RH no charge [facility] 12/22 16:08 Order name: Antibody Identification [facility] 12/22 17:40 Order name: Direct Antiglobulin Test [facility] 12/22 12:53 Order name: IV Saline Lock; Complete Time: 13:27 pm1 12/22 12:53 Order name: Labs collected and sent; Complete Time: 13:27 pm1 Administered Medications: 13:20 Drug: ProTONIX 40 mg Route: IVP; Site: right wrist; ls4 14:00 Follow up: BP 96 / 47; Pulse 74 bpm; Resp 16 bpm; Temp 97.6 Oral; Pulse Ox 100% ; Pain ls4 3/10 Adult 19:49 Follow up: BP 96 / 47; Pulse 74 bpm; Resp 16 bpm; Temp 97.6 Oral; Pulse Ox 100% ; Pain ls4 3/10; Response: No adverse reaction; Marked relief of symptoms 13:20 Drug: ProTONIX 8 mg/hr Route: IV; Rate: 25 ml/hr; Site: right wrist; ls4 19:49 Follow up: IV Status: Completed infusion; IV Intake: 70ml ls4 13:20 Drug: SandoSTATIN 100 mcg Route: IV; Rate: calculated rate; Site: right wrist; ls4 15:20 Follow up: Response: No adverse reaction; Marked relief of symptoms; IV Status: ls4 Completed infusion; IV Intake: 100ml 13:20 Drug: SandoSTATIN 50 mcg Route: IV; Rate: calculated rate; Site: right wrist; ls4 19:48 Follow up: Response: No adverse reaction ls4 13:20 Drug: Zofran (Ondansetron) 4 mg Route: IVP; Site: right wrist; ls4 13:40 Follow up: Response: No adverse reaction; Marked relief of symptoms ls4 13:20 Drug: NS 0.9% 1000 ml Route: IV; Rate: 1000 ml; Site: right wrist; ls4 14:20 Follow up: IV Status: Completed infusion; IV Intake: 1000ml ls4 14:52 CANCELLED (Physician Discretion): Lactated Ringers Solution 1000 ml IV at 100 ml/hr pm1 continuous 14:59 Drug: NS 0.9% 1000 ml Route: IV; Rate: 100 ml/hr; Site: right antecubital; ls4 18:00 Follow up: IV Status: Completed infusion; IV Intake: 300ml ls4 Point of Care Testing: Guaiac: 13:43 Stool Guaiac: Negative; Stool Hemoccult Control: Pass; ls4 Disposition: 12/23 10:58 Co-signature as Attending Physician, Chaparro Mast MD I agree with the assessment and kayley plan of care. Disposition: 12/23/19 14:36 Transfer ordered to [facility]. Diagnosis is Gastrointestinal hemorrhage, unspecified. - Reason for transfer: Higher level of care. - Accepting physician is [facility]. - Condition is Stable. - Problem is new. - Symptoms have improved. Signatures: Dispatcher [employer] Chaparro Barreto MD MD cha Marinas, Patrick, TRUST MANAGER ASSISTANT TRUST MANAGER ASSISTANT pm1 Zuleima Dunham, POP RN hb Morenita Resendiz RN RN ls4 Corrections: (The following items were deleted from the chart) 12/22 14:52 14:51 Lactated Ringers Solution 1000 ml IV at 100 ml/hr continuous ordered. pm1 pm1 17:56 14:36 12/23/2019 14:36 Transfer ordered to [facility]. hb Diagnosis is Gastrointestinal hemorrhage, unspecified. Reason for transfer: Higher level of care. Accepting physician is [facility]. Condition is Stable. Problem is new. Symptoms have improved. pm1
--- NOTE | 2019-12-23 14:37 | ER ---
Nurse's Notes [facility] Name: Yokasta Winter Age: 74 yrs Sex: Female : 1945 Arrival Date: 12/23/2019 Time: 12:43 Bed 18 Private MD: Diagnosis: Gastrointestinal hemorrhage, unspecified Presentation: 12/22 12:46 Chief complaint: EMS states: CALLED TO PT HOME. PT STATES SHE BEGAN FEELING ILL LAST ls4 NIGHT. WOKE UP STILL NAUSEATED. TOOK ZOFRAN WITH NO RELIEF. Coronavirus screen: At this time, the client does not indicate any symptoms associated with coronavirus-19. Ebola Screen: No symptoms or risks identified at this time. Initial Sepsis Screen: Does the patient meet any 2 criteria? No. Patient's initial sepsis screen is negative. Does the patient have a suspected source of infection? No. Patient's initial sepsis screen is negative. Risk Assessment: Do you want to hurt yourself or someone else? Patient reports no desire to harm self or others. Onset of symptoms was December 22, 2019 at 21:00. Care prior to arrival: None. Activity prior to arrival: vomiting. 12:46 Method Of Arrival: EMS: [facility] ls4 12:46 Acuity: CEFERINO 2 ls4 Triage Assessment: 12:54 General: Appears distressed, uncomfortable, cachectic, Behavior is cooperative, flat. ls4 Pain:. Neuro: Level of Consciousness is awake, alert, obeys commands, Oriented to person, place, time, situation, Frame Tender are weak bilaterally Moves all extremities. Weakness Gait is ataxic, Speech is normal, Facial symmetry appears normal, Pupils are PERRLA, Intact. Respiratory: Airway is patent Respiratory effort is even, unlabored, Respiratory pattern is regular, Breath sounds are clear bilaterally. GI: Reports nausea, vomiting, since NAUSEA SINCE LAST NIGHT, VOMITTING EN ROUTE TO HOSPITAL, 30 ML MATA BLOOD IN EMESIS. : No deficits noted. No signs and/or symptoms were reported regarding the genitourinary system. Derm: Skin is dry, Skin is icteric, jaundiced, Skin temperature is warm. Musculoskeletal: Reports weakness in GENERALIZED. Historical: - Allergies: 12:54 No Known Drug Allergies; ls4 - PSHx: 12:54 Cholecystectomy; Tonsillectomy; ls4 - Immunization history:: Adult Immunizations up to date. - Social history:: Smoking status: Patient denies any tobacco usage or history of. Screenin:42 Abuse screen: Denies threats or abuse. Denies injuries from another. Nutritional ls4 screening: No deficits noted. Tuberculosis screening: No symptoms or risk factors identified. Fall Risk None identified. Assessment: 12:45 General: See TRIAGE NOTE . ls4 12:45 GI: Reports vomiting. ls4 19:51 GI: Abd is soft and non tender X 4 quads. Abd is non tender. ls4 Vital Signs: 12:46 BP 80 / 42; Pulse 87; Resp 16; Temp 97.5(O); Pulse Ox 99% on R/A; Weight 47.63 kg; ls4 Height 5 ft. 4 in. (162.56 cm); Pain 5/10; 13:42 BP 120 / 59; Pulse 77; Resp 16; Pulse Ox 99% on R/A; Pain 5/10; ls4 19:49 BP 96 / 47; Pulse 74; Resp 16; Temp 97.6(O); Pulse Ox 100% ; Pain 3/10; ls4 12:46 Body Mass Index 18.02 (47.63 kg, 162.56 cm) ls4 ED Course: 12:43 Patient arrived in ED. ls4 12:45 Morenita Resendiz RN is Primary Nurse. ls4 12:47 Alex Barrientos NP is PHCP. pm1 12:47 Chaparro Mast MD is Attending Physician. pm1 12:52 Triage completed. ls4 13:26 Placed in gown. Bed in low position. Call light in reach. Side rails up X2. Warm jp3 blanket given. Pillow given. Oral care given. Verbal reassurance given. lap machine tender on. Pulse ox on. NIBP on. Assisted with bedpan. Oral care given. 13:26 Initial lab(s) drawn, by me, sent to lab. Inserted saline lock: 20 gauge in right jp3 wrist, using aseptic technique. Blood collected. Patient maintains SpO2 saturation greater than 95% on room air. 13:26 T\T\S collected, blood band applied to patient. jp3 13:42 No provider procedures requiring assistance completed. ls4 14:33 initiated a transfer with Nayeli Mujica Rn from the [facility]. eb 14:35 Repeat lab(s) drawn. by me, sent to lab. jp3 14:55 Arm band placed on. ls4 14:59 Inserted saline lock: 18 gauge in right upper arm, using aseptic technique. ls4 15:06 per Nayeli at the [facility] she is still waiting to hear back from eb the doctor's talent acquisition assistant. 15:[address] Vazquez the GI talent acquisition assistant and Dr. Corral's the bed bug exterminator talent acquisition assistant for [facility] with Alex Leger for patient transfer consultation. 15:23 administrative approval given by Nayeli Mujica Rn/ patient has been accepted to [facility] [address] [id number] bed [id number]/ Dr. Corral has accepted the patient in transfer/ report to be called through the transfer center at [phone]. 17:59 Patient transferred, IV remains in place. intact. ls4 Administered Medications: 13:20 Drug: ProTONIX 40 mg Route: IVP; Site: right wrist; ls4 14:00 Follow up: BP 96 / 47; Pulse 74 bpm; Resp 16 bpm; Temp 97.6 Oral; Pulse Ox 100% ; Pain ls4 3/10 Adult 19:49 Follow up: BP 96 / 47; Pulse 74 bpm; Resp 16 bpm; Temp 97.6 Oral; Pulse Ox 100% ; Pain ls4 3/10; Response: No adverse reaction; Marked relief of symptoms 13:20 Drug: ProTONIX 8 mg/hr Route: IV; Rate: 25 ml/hr; Site: right wrist; ls4 19:49 Follow up: IV Status: Completed infusion; IV Intake: 70ml ls4 13:20 Drug: SandoSTATIN 100 mcg Route: IV; Rate: calculated rate; Site: right wrist; ls4 15:20 Follow up: Response: No adverse reaction; Marked relief of symptoms; IV Status: ls4 Completed infusion; IV Intake: 100ml 13:20 Drug: SandoSTATIN 50 mcg Route: IV; Rate: calculated rate; Site: right wrist; ls4 19:48 Follow up: Response: No adverse reaction ls4 13:20 Drug: Zofran (Ondansetron) 4 mg Route: IVP; Site: right wrist; ls4 13:40 Follow up: Response: No adverse reaction; Marked relief of symptoms ls4 13:20 Drug: NS 0.9% 1000 ml Route: IV; Rate: 1000 ml; Site: right wrist; ls4 14:20 Follow up: IV Status: Completed infusion; IV Intake: 1000ml ls4 14:52 CANCELLED (Physician Discretion): Lactated Ringers Solution 1000 ml IV at 100 ml/hr pm1 continuous 14:59 Drug: NS 0.9% 1000 ml Route: IV; Rate: 100 ml/hr; Site: right antecubital; ls4 18:00 Follow up: IV Status: Completed infusion; IV Intake: 300ml ls4 Point of Care Testing: Guaiac: 13:43 Stool Guaiac: Negative; Stool Hemoccult Control: Pass; ls4 Intake: 14:20 IV: 1000ml; Total: 1000ml. ls4 15:20 IV: 100ml; Total: 1100ml. ls4 18:00 IV: 300ml; Total: 1400ml. ls4 19:49 IV: 70ml; Total: 1470ml. ls4 Outcome: 14:36 ER care complete, transfer ordered by . pm1 16:19 Discharged to home ambulatory. ls4 16:19 Condition: stable 16:19 Discharge instructions given to family. 17:56 Patient left the ED. Signatures: Alex Barrientos NP KNITTED CLOTH EXAMINER pm1 Zuleima Dunham RN RN Evelyn Khanna Jacob jp3 Morenita Resendiz RN RN ls4 Corrections: (The following items were deleted from the chart) 19:48 16:01 IV Status: Completed infusion; IV Intake: 1000ml ls4 ls4 19:49 14:00 BP 96 / 47; Pulse 74 bpm; Resp 16 bpm; Temp 97.6 Oral; Pulse Ox 100% ; Pain 3/10 ls4 Adult ls4 19:52 19:51 General: See TRIAGE NOTE . ls4 ls4
[2019-12-23 15:02] LABS: ALT/SGPT 156 U/L (12-78)
[2019-12-23 15:18] LABS: Bilirubin Total 10.4 mg/dL (0.2-1.0)
[2019-12-23 19:05] VITALS: BP 96/47; TEMP 97.6; O2SAT 100
[2019-12-23] MEDS ORDERED: CEFTRIAXONE 250 MG/VIAL ONE (19:38)
[2019-12-23] MEDS ORDERED: LIDOCAINE 1% MPF 2 ML AMPULE ONE (19:38)
[2019-12-23] MEDS ORDERED: AZITHROMYCIN 250 MG TAB ONE (19:38)
== END 2019-12-23 17:56 | disposition short-term general hospital (02) ==
LOC: ER 12:43
DX: K92.0 Hematemesis (principal)
CPT/HCPCS: 96365; 96368; 85025; 80048; 36415; 86900; 86880; 86850; 85610; 86870; 86901; 80076; 85730; 83690; 96375; 99285; 96366; J2354; C9113; J2001; J7050; J7030 ×2; J2405; J0696

== ENCOUNTER 2020-05-27 12:15 | Emergency (ER) | payer MEDICARE ==
--- NOTE | 2020-05-27 14:08 | ER ---
Nurse's Notes [facility] Name: Yokasta Winter Age: 75 yrs Sex: Female : 1945 Arrival Date: 05/27/2020 Time: 12:19 Bed 5 Private MD: Diagnosis: Weakness;Unspecified cirrhosis of liver-PCS;Biliary cirrhosis, unspecified;Anemia, unspecified;Gastrointestinal hemorrhage, unspecified;Coagulation defect, unspecified-LIVER FAILURE Presentation: 05/27 12:30 Chief complaint: Patient states: "weakness over the past couple of days. liver jd3 transplant pt through [facility]. increased shortness.". Coronavirus screen: At this time, the client does not indicate any symptoms associated with coronavirus-19. Ebola Screen: Patient negative for fever greater than or equal to 101.5 degrees Fahrenheit, and additional compatible Ebola Virus Disease symptoms. Initial Sepsis Screen: Does the patient meet any 2 criteria? No. Patient's initial sepsis screen is negative. Does the patient have a suspected source of infection? No. Patient's initial sepsis screen is negative. Risk Assessment: Do you want to hurt yourself or someone else? Patient reports no desire to harm self or others. Onset of symptoms was May 27, 2020. 12:30 Method Of Arrival: Wheelchair jd3 12:30 Acuity: CEFERINO 2 jd3 Historical: - Allergies: 12:34 No Known Allergies; jd3 - Home Meds: 17:00 Hydroxyzine Oral [Active]; Spironolactone Oral [Active]; Lasix Oral [Active]; Trazodone aa5 Oral [Active]; rifampin Oral [Active]; Zofran Oral [Active]; ursodiol Oral [Active]; vicodin [Active]; - PMHx: 17:00 Liver transplant waiting list; aa5 - PSHx: 12:34 Cholecystectomy; Tonsillectomy; jd3 - Immunization history:: Adult Immunizations up to date. - Social history:: Smoking status: Patient denies any tobacco usage or history of. - Family history:: not pertinent. Screenin:18 Abuse screen: Denies threats or abuse. Denies injuries from another. Nutritional zb screening: Has had N/V for 3 or more days. Tuberculosis screening: No symptoms or risk factors identified. Fall Risk None identified. Assessment: 13:14 General: Appears in no apparent distress. uncomfortable, slender, Behavior is calm, zb cooperative, appropriate for age, Reports feeling ill for > 3 days, fatigue for >3 days. Neuro: Level of Consciousness is awake, alert, obeys commands, Oriented to person, place, time, situation, Railroad Track Inspector are equal bilaterally Moves all extremities. Weakness Gait is steady, Speech is normal, Facial symmetry appears normal, Pupils are PERRLA, Reports weakness since 3-4 days. Cardiovascular: Capillary refill is > 3 seconds is sluggish in bilateral Patient's skin is warm and dry. Respiratory: Airway is patent Respiratory effort is even, unlabored, Respiratory pattern is regular, symmetrical. GI: Abdomen is round non-distended, Reports nausea, Patient currently denies constipation, diarrhea. : No signs and/or symptoms were reported regarding the genitourinary system. EENT: Sclera/Cornea yellow . Derm: Skin is fragile, is thin, Skin is dry, Skin is jaundiced. Musculoskeletal: Circulation, motion, and sensation intact. Range of motion: intact in all extremities. 14:00 Reassessment: Patient appears in no apparent distress at this time. Patient and/or zb family updated on plan of care and expected duration. Pain level reassessed. Patient is alert, oriented x 3, equal unlabored respirations, skin warm/dry/pink. pt able to ambulated to restroom w/ assistance. Reassessment: Patient appears in no apparent distress at this time. Patient and/or family updated on plan of care and expected duration. Pain level reassessed. Patient is alert, oriented x 3, equal unlabored respirations, skin warm/dry/pink. 15:33 Reassessment: Patient appears in no apparent distress at this time. Patient and/or zb family updated on plan of care and expected duration. Pain level reassessed. Patient is alert, oriented x 3, equal unlabored respirations, skin warm/dry/pink. ECP at bedside. 15:40 Reassessment: Pt's care will be continued by me at this time. Pt moved from ER room 13 aa5 to ER room 5. . 15:45 General: Appears uncomfortable, slender, Behavior is calm, cooperative. Pain: Complains aa5 of pain in neck Pain began is chronic Is continuous. Neuro: Level of Consciousness is awake, alert, obeys commands, Oriented to person, place, time, situation. Cardiovascular: Heart tones S1 S2 present Rhythm is sinus rhythm. Respiratory: Airway is patent Respiratory effort is even, unlabored, relaxed, Respiratory pattern is regular, symmetrical. GI: Abdomen is round Bowel sounds present X 4 quads. Abd is soft and non tender X 4 quads. Patient currently denies bloody stool, diarrhea, vomiting. : No signs and/or symptoms were reported regarding the genitourinary system. EENT: Sclera/Cornea is yellow. Derm: Skin is dry, Skin is jaundiced, Skin temperature is warm. Musculoskeletal: Range of motion: intact in all extremities. 16:30 Reassessment: Consent for RBCs and FFP signed by patient. aa5 17:00 Reassessment: Pt c/o nausea, MD was notified. . aa5 17:30 Reassessment: RBC unit started at 50cc/hr at 1715, lungs CTA, no adverse reaction aa5 noted, currently infusing at 250cc/hr and pt tolerating well. . 17:40 Reassessment: Pt sitting up in bed eating clear liquid diet per MD.. aa5 17:45 Reassessment: Awaiting 1 unit of RBC and 1 unit of FFP to complete before transfer to [address] as requested by [facility]. . 18:00 Reassessment: Pt c/o chronic neck pain and requesting pain medication at this time, MD childers was notified (see MAR). 18:15 Reassessment: Pt reports nausea has improved and pain has improved, states feeling aa5 better. . 18:30 Reassessment: RBC unit completed, lungs CTA, pt states no complaints at this time. aa5 Requested FFP unit from lab. . 18:30 General: Appears comfortable. Neuro: Level of Consciousness is awake, alert, obeys aa5 commands, Oriented to person, place, time, situation. Respiratory: Airway is patent Respiratory effort is even, unlabored, relaxed, Respiratory pattern is regular, symmetrical. Derm: Skin is dry, Skin is jaundiced, Skin temperature is warm. 18:30 Reassessment: Patient states feeling better. Reports SOB and weakness has improved aa5 after RBC infusion. . 18:50 Reassessment: FFP unit started at free flow, pt tolerating well, lungs CTA. . aa5 19:12 Reassessment: FFP infusion complete. Pt denies any complaints at this time. Pt now aa5 resting with eyes closed. . 21:26 Reassessment: Patient and/or family updated on plan of care and expected duration. Pain ea level reassessed. Patient is alert, oriented x 3, equal unlabored respirations, skin warm/dry/pink. EMS at facility for transfer. Pt alert and oriented x 3. Respirations even and unlabored. Pt skin warm, dry and jaundiced. Pt left ED via stretcher per EMS. Vital Signs: 12:32 BP 105 / 53; Pulse 87; Resp 16 S; Temp 98.1(TE); Pulse Ox 100% on R/A; Weight 47.17 kg jd3 (R); Height 5 ft. 4 in. (162.56 cm) (R); Pain 5/10; 13:00 BP 99 / 40; Pulse 79; Resp 16; Pulse Ox 98% on R/A; zb 14:00 BP 97 / 45; Pulse 78; Resp 18; Pulse Ox 99% on R/A; zb 15:45 BP 102 / 46; Pulse 83; Resp 16 S; Pulse Ox 100% on R/A; aa5 17:00 BP 93 / 39; Pulse 73; Resp 15 S; Temp 98.2(O); Pulse Ox 100% on R/A; aa5 18:40 BP 104 / 52; Pulse 74; Resp 16 S; Temp 98.4(O); Pulse Ox 100% on R/A; aa5 19:05 BP 98 / 42; Pulse 74; Resp 15 S; Temp 98.1(O); Pulse Ox 100% on R/A; aa5 19:05 aa5 21:25 BP 105 / 61; Pulse 79; Resp 16; Pulse Ox 98% ; rr5 12:32 Body Mass Index 17.85 (47.17 kg, 162.56 cm) jd3 19:05 See blood transfusion record for more information and for more VS. aa5 ED Course: 12:19 Patient arrived in ED. rg4 12:32 Triage completed. jd3 12:33 Arm band placed on. jd3 13:00 Tessie Tanner RN is Primary Nurse. zb 13:01 Chaparro Mast MD is Attending Physician. kayley 13:19 Patient has correct armband on for positive identification. Bed in low position. Call zb light in reach. Side rails up X 1. highballer on. Pulse ox on. NIBP on. Door closed. Noise minimized. 14:02 XRAY Chest (1 view) In Process Unspecified. EDMS 15:32 Inserted saline lock: 20 gauge in right antecubital area, using aseptic technique. dh4 Blood collected. Inserted saline lock: 20 gauge in left antecubital area, using aseptic technique. 16:40 Inserted saline lock: 20 gauge in right forearm, using aseptic technique. aa5 16:48 initiated transfer to [facility]. bd 16:49 Occult Blood--Ancillary Sent. sv 16:49 Urine Dipstick--Ancillary (enter results) Sent. sv 16:49 Bb Add On Sent. sv 17:21 pt accepted in transfer to [facility] by Dr Adair, admin approval given by barbie Gerber. 19:20 Report given to POP Bernard and POP Romero. aa5 21:25 No provider procedures requiring assistance completed. Patient transferred, IV remains rr5 in place. intact, No redness/swelling at site. Administered Medications: 15:20 Drug: Rocephin 1 grams Route: IV; Rate: per protocol; Site: right antecubital; zb 19:00 Follow up: Response: No adverse reaction; IV Status: Completed infusion ea 15:21 Drug: Pepcid 20 mg Route: IVP; Site: right antecubital; zb 16:50 Follow up: Response: No adverse reaction sv 15:21 Drug: NS 0.9% 1000 ml Route: IV; Rate: 75 ml/hr; Site: right antecubital; zb 21:03 Follow up: Response: No adverse reaction; IV Status: Infusion continued upon transfer ea 16:00 Drug: Vitamin K1 10 mg Route: Sub-Q; Site: right lower abdomen; aa5 16:49 Follow up: Response: No adverse reaction sv 16:00 Drug: ProTONIX 80 mg Route: IVP; Site: right antecubital; aa5 16:49 Follow up: Response: No adverse reaction sv 16:45 Drug: Tylenol 650 mg Route: PO; aa5 17:15 Follow up: Response: No adverse reaction aa5 16:45 Drug: Benadryl 12.5 mg Route: IVP; Site: right antecubital; aa5 17:00 Follow up: Response: No adverse reaction aa5 17:03 Drug: Zofran (Ondansetron) 4 mg Route: IVP; Site: right antecubital; aa5 17:10 Follow up: Response: No adverse reaction aa5 17:45 Drug: ProTONIX 8 mg/hr Route: IV; Rate: 25 ml/hr; Site: right antecubital; aa5 21:03 Follow up: IV Status: Infusion continued upon transfer ea 17:45 Drug: SandoSTATIN 50 mcg Route: IV; Rate: per protocol; Site: left antecubital; aa5 21:00 Follow up: Response: No adverse reaction; IV Status: Completed infusion ea 17:45 Drug: SandoSTATIN 25 mcg/h Route: IV; Rate: calculated rate; Site: left antecubital; aa5 21:00 Follow up: IV Status: Infusion continued upon transfer ea 18:00 Drug: fentaNYL (PF) 25 mcg Route: IVP; Site: right antecubital; aa5 18:15 Follow up: Response: No adverse reaction; Pain is decreased aa5 18:29 CANCELLED (Duplicate Order): Benadryl 25 mg IVP once; Order received at 1630 aa5 Outcome: 14:07 ER care complete, transfer ordered by MD. zaldivar 21:25 Transferred by ground EMS to [facility], Transfer form completed. rr5 21:25 Condition: stable 21:25 Instructed on the need for transfer. 21:26 Patient left the ED. ea Signatures: Dispatcher [employer] EDMS Morenita Baptiste Stephanie RN Chaparro Palomino MD MD cha Calderon, Audri RN RN christina5 Larissa Lind Elena, RN RN ea Davies, Jonathon, RN RN jd3 Roque, Raymond, RN RN felicia5 Sadiq Vizcarra Tessie John RN RN zb Corrections: (The following items were deleted from the chart) 13:19 13:14 GI: Abdomen is round non-distended, zb zb 18:42 12:34 PSHx: waitlist for liver transplant; [place] aa5 21:26 21:00 Reassessment: Patient and/or family updated on plan of care and expected ea duration. Pain level reassessed. Patient is alert, oriented x 3, equal unlabored respirations, skin warm/dry/pink. EMS at facility for transfer. Pt alert and oriented x 3. Respirations even and unlabored. Pt skin warm, dry and jaundiced. Pt left ED via stretcher per EMS ea
--- NOTE | 2020-05-27 14:08 | EDPHYS ---
Physician Documentation [facility] Name: Yokasta Winter Age: 75 yrs Sex: Female : 1945 Arrival Date: 05/27/2020 Time: 12:19 Bed 5 Private MD: Chaparro Carrion HPI: 05/27 13:52 This 75 yrs old Female presents to ER via Wheelchair with complaints of kayley Weakness. Historical: - Allergies: 12:34 No Known Allergies; jd3 - Home Meds: 17:00 Hydroxyzine Oral [Active]; Spironolactone Oral [Active]; Lasix Oral [Active]; Trazodone aa5 Oral [Active]; rifampin Oral [Active]; Zofran Oral [Active]; ursodiol Oral [Active]; vicodin [Active]; - PMHx: 17:00 Liver transplant waiting list; aa5 - PSHx: 12:34 Cholecystectomy; Tonsillectomy; jd3 - Immunization history:: Adult Immunizations up to date. - Social history:: Smoking status: Patient denies any tobacco usage or history of. - Family history:: not pertinent. ROS: 13:52 Eyes: Negative for injury, pain, redness, and discharge. kayley 13:52 Constitutional: Positive for fatigue, malaise. 13:58 Cardiovascular: Negative for chest pain, palpitations, and edema, Respiratory: Negative kayley for shortness of breath, cough, wheezing, and pleuritic chest pain, Abdomen/GI: Negative for abdominal pain, nausea, vomiting, diarrhea, and constipation, Back: Negative for injury and pain, : Negative for injury, bleeding, discharge, and swelling, Neuro: Negative for headache, weakness, numbness, tingling, and seizure. 13:58 Eyes: Positive for icterus. 13:58 Skin: Positive for jaundice. Exam: 13:58 Head/Face: Normocephalic, atraumatic. ENT: Nares patent. No nasal discharge, no kayley septal abnormalities noted. Tympanic membranes are normal and external auditory canals are clear. Oropharynx with no redness, swelling, or masses, exudates, or evidence of obstruction, uvula midline. Mucous membranes moist. Neck: Trachea midline, no thyromegaly or masses palpated, and no cervical lymphadenopathy. Supple, full range of motion without nuchal rigidity, or vertebral point tenderness. No Meningismus. Chest/axilla: Normal chest wall appearance and motion. Nontender with no deformity. No lesions are appreciated. Cardiovascular: Regular rate and rhythm with a normal S1 and S2. No gallops, murmurs, or rubs. Normal PMI, no JVD. No pulse deficits. Respiratory: Lungs have equal breath sounds bilaterally, clear to auscultation and percussion. No rales, rhonchi or wheezes noted. No increased work of breathing, no retractions or nasal flaring. Abdomen/GI: Soft, non-tender, with normal bowel sounds. No distension or tympany. No guarding or rebound. No evidence of tenderness throughout. Back: No spinal tenderness. No costovertebral tenderness. Full range of motion. Female : Normal external genitalia. MS/ Extremity: Pulses equal, no cyanosis. Neurovascular intact. Full, normal range of motion. Psych: Awake, alert, with orientation to person, place and time. Behavior, mood, and affect are within normal limits. 13:58 Constitutional: The patient appears frail. 13:58 Eyes: Sclera: icterus. 13:58 Skin: Appearance: Color: jaundiced, Temperature: normal temperature, Moisture: normal moisture, petechiae, not noted, Turgor: is good. 14:07 ECG was reviewed by the Attending Physician. kayley 15:44 Abdomen/GI: Inspection: distension, that is mild, Bowel sounds: normal, Palpation: [facility] abdomen is soft and non-tender, Rectal exam: Stool: guaiac positive, hemorrhoid(s), are not appreciated, mass, is not appreciated, swelling, is not appreciated, tenderness, is not appreciated, fecal impaction, is not appreciated, Liver: no appreciated palpable abnormalities, Hernia: not appreciated. Vital Signs: 12:32 BP 105 / 53; Pulse 87; Resp 16 S; Temp 98.1(TE); Pulse Ox 100% on R/A; Weight 47.17 kg jd3 (R); Height 5 ft. 4 in. (162.56 cm) (R); Pain 5/10; 13:00 BP 99 / 40; Pulse 79; Resp 16; Pulse Ox 98% on R/A; zb 14:00 BP 97 / 45; Pulse 78; Resp 18; Pulse Ox 99% on R/A; zb 15:45 BP 102 / 46; Pulse 83; Resp 16 S; Pulse Ox 100% on R/A; aa5 17:00 BP 93 / 39; Pulse 73; Resp 15 S; Temp 98.2(O); Pulse Ox 100% on R/A; aa5 18:40 BP 104 / 52; Pulse 74; Resp 16 S; Temp 98.4(O); Pulse Ox 100% on R/A; aa5 19:05 BP 98 / 42; Pulse 74; Resp 15 S; Temp 98.1(O); Pulse Ox 100% on R/A; aa5 19:05 aa5 21:25 BP 105 / 61; Pulse 79; Resp 16; Pulse Ox 98% ; rr5 12:32 Body Mass Index 17.85 (47.17 kg, 162.56 cm) jd3 19:05 See blood transfusion record for more information and for more VS. aa5 MDM: 13:01 Patient medically screened. kayley 13:58 Differential Diagnosis sepsis. Data reviewed: vital signs, nurses notes, lab test kayley result(s), EKG, radiologic studies, plain films. Data interpreted: shelter monitor: rate is 87 beats/min, rhythm is regular, Pulse oximetry: on room air is 100 %. Test interpretation: by ED physician or midlevel provider: ECG, plain radiologic studies. Counseling: I had a detailed discussion with the patient and/or guardian regarding: the historical points, exam findings, and any diagnostic results supporting the discharge/admit diagnosis, the presence of at least one elevated blood pressure reading (>120/80) during this emergency department visit, lab results, radiology results, the need for outpatient follow up. Medical screen evaluation completed. EMTALA emergency medical condition absent. Medical screen evaluation completed. EMTALA emergency medical condition absent. Medical screen evaluation completed. [facility]. 05/27 13:36 Order name: Basic Metabolic Panel; Complete Time: 15:35 iw 05/27 13:36 Order name: CBC with Diff iw 05/27 13:36 Order name: LFT's; Complete Time: 15:35 iw 05/27 13:36 Order name: Magnesium; Complete Time: 15:35 iw 05/27 13:36 Order name: NT PRO-BNP; Complete Time: 15:35 iw 05/27 13:36 Order name: PT-INR; Complete Time: 15:17 05/27 13:36 Order name: Troponin (emerg Dept Use Only); Complete Time: 15:35 05/27 13:36 Order name: Lipase; Complete Time: 15:35 05/27 13:50 Order name: AMMONIA; Complete Time: 15:17 [facility] 05/27 13:50 Order name: Blood Culture Adult (2) [facility] 05/27 13:50 Order name: Urine Culture [facility] 05/27 13:50 Order name: Type And Screen [facility] 05/27 15:03 Order name: Urine Dipstick--Ancillary (enter results) 05/27 13:36 Order name: XRAY Chest (1 view) 05/27 15:04 Order name: Urine Dipstick-Ancillary; Complete Time: 15:35 [facility] 05/27 15:24 Order name: Bb Add On 05/27 15:37 Order name: Fresh Frozen Plasma [facility] 05/27 15:37 Order name: Packed RBC Leukored [facility] 05/27 15:45 Order name: Occult Blood--Ancillary 05/27 15:46 Order name: Occult Blood--Ancillary [facility] 05/27 17:47 Order name: SARS-COV-2 RT PCR [facility] 05/27 18:36 Order name: CBC Smear Scan [facility] 05/27 13:36 Order name: EKG; Complete Time: 13:37 05/27 13:36 Order name: Cardiac monitoring; Complete Time: 13:39 05/27 13:36 Order name: EKG - Nurse/Tech; Complete Time: 13:39 05/27 13:36 Order name: IV Saline Lock; Complete Time: 14:58 05/27 13:36 Order name: Labs collected and sent; Complete Time: 14:58 05/27 13:36 Order name: O2 Per Protocol; Complete Time: 13:39 05/27 13:36 Order name: O2 Sat Monitoring; Complete Time: 13:39 05/27 13:50 Order name: Urine Dipstick-Ancillary (obtain specimen); Complete Time: 14:58 [facility] 05/27 15:19 Order name: Transfuse; Complete Time: 18:22 [facility] 05/27 15:38 Order name: IV Saline Lock - Large Bore; Complete Time: 15:42 [facility] 05/27 16:04 Order name: Diet Clear Liquid; Complete Time: 16:05 iw EC:07 Rate is 79 beats/min. Rhythm is regular. QRS [place] is Normal. MS interval is normal. QRS kayley interval is normal. QT interval is normal. No Q waves. T waves are Normal. No ST changes noted. Clinical impression: NSR w/ Non-specific ST/T Changes and No evidence of ischemia. Interpreted by me. Reviewed by me. Administered Medications: 15:20 Drug: Rocephin 1 grams Route: IV; Rate: per protocol; Site: right antecubital; zb 19:00 Follow up: Response: No adverse reaction; IV Status: Completed infusion ea 15:21 Drug: Pepcid 20 mg Route: IVP; Site: right antecubital; zb 16:50 Follow up: Response: No adverse reaction sv 15:21 Drug: NS 0.9% 1000 ml Route: IV; Rate: 75 ml/hr; Site: right antecubital; zb 21:03 Follow up: Response: No adverse reaction; IV Status: Infusion continued upon transfer ea 16:00 Drug: Vitamin K1 10 mg Route: Sub-Q; Site: right lower abdomen; aa5 16:49 Follow up: Response: No adverse reaction sv 16:00 Drug: ProTONIX 80 mg Route: IVP; Site: right antecubital; aa5 16:49 Follow up: Response: No adverse reaction sv 16:45 Drug: Tylenol 650 mg Route: PO; aa5 17:15 Follow up: Response: No adverse reaction aa5 16:45 Drug: Benadryl 12.5 mg Route: IVP; Site: right antecubital; aa5 17:00 Follow up: Response: No adverse reaction aa5 17:03 Drug: Zofran (Ondansetron) 4 mg Route: IVP; Site: right antecubital; aa5 17:10 Follow up: Response: No adverse reaction aa5 17:45 Drug: ProTONIX 8 mg/hr Route: IV; Rate: 25 ml/hr; Site: right antecubital; aa5 21:03 Follow up: IV Status: Infusion continued upon transfer ea 17:45 Drug: SandoSTATIN 50 mcg Route: IV; Rate: per protocol; Site: left antecubital; aa5 21:00 Follow up: Response: No adverse reaction; IV Status: Completed infusion ea 17:45 Drug: SandoSTATIN 25 mcg/h Route: IV; Rate: calculated rate; Site: left antecubital; aa5 21:00 Follow up: IV Status: Infusion continued upon transfer ea 18:00 Drug: fentaNYL (PF) 25 mcg Route: IVP; Site: right antecubital; aa5 18:15 Follow up: Response: No adverse reaction; Pain is decreased aa5 18:29 CANCELLED (Duplicate Order): Benadryl 25 mg IVP once; Order received at 1630 aa5 Disposition: 05/27/20 14:07 Transfer ordered to [facility]. Diagnosis are Weakness, Unspecified cirrhosis of liver - PCS, Biliary cirrhosis, unspecified, Anemia, unspecified, Gastrointestinal hemorrhage, unspecified, Coagulation defect, unspecified - LIVER FAILURE. - Reason for transfer: Higher level of care. - Accepting physician is cristel lai. - Condition is Serious. - Problem is new. - Symptoms have improved. Signatures: Dispatcher [employer] EDMS Chaparro Mast MD MD cha Williams, Irene, RN RN iw Calderon, Audri RN RN aa5 Chaparro Chance PA PA cp Antunez, Elena, RN RN ea Davies, Jonathon, RN RN jd3 Brown, Zipporah, RN RN zb Verde, Stephanie RN sv Corrections: (The following items were deleted from the chart) 15:22 14:07 05/27/2020 14:07 Transfer ordered to [facility]. kayley Diagnosis is Weakness; Unspecified cirrhosis of liver - PCS; Biliary cirrhosis, unspecified. Reason for transfer: Higher level of care. Accepting physician is cristel lai. Condition is Serious. Problem is new. Symptoms have improved. kayley 15:43 15:22 05/27/2020 14:07 Transfer ordered to [facility]. kayley Diagnosis is Weakness; Unspecified cirrhosis of liver - PCS; Biliary cirrhosis, unspecified; Anemia, unspecified. Reason for transfer: Higher level of care. Accepting physician is cristel lai. Condition is Serious. Problem is new. Symptoms have improved. kayley 16:56 13:59 CORONAVIRUS+MR.LAB.BRZ ordered. EDAZ EDAZ 18:29 18:28 Benadryl 25 mg IVP once; Order received at 1630 ordered. aa5 aa5 18:42 12:34 PSHx: waitlist for liver transplant; jd3 aa5 21:26 15:43 05/27/2020 14:07 Transfer ordered to [facility]. ea Diagnosis is Weakness; Unspecified cirrhosis of liver - PCS; Biliary cirrhosis, unspecified; Anemia, unspecified; Gastrointestinal hemorrhage, unspecified; Coagulation defect, unspecified - LIVER FAILURE. Reason for transfer: Higher level of care. Accepting physician is cristel lai. Condition is Serious. Problem is new. Symptoms have improved. kayley
[2020-05-27 14:49] LABS: Protime INR 2.03
[2020-05-27 14:56] LABS: Absolute Lymphocytes (CBC) 1.1 K/uL (0.7-4.9); Basophils % 0.4 % (0-1.3); RBC Red Blood Cell Count 1.21 M/uL (3.86-4.86)
[2020-05-27 15:01] LABS: Lymphocytes % 9.9 % (15.3-44.8)
[2020-05-27 15:24] LABS: Albumin 2.1 g/dL (3.4-5.0); BUN Blood Urea Nitrogen 36 mg/dL (7-18); Bicarbonate 20 mmol/L (21-32); Bilirubin Direct 9.9 mg/dL (0-0.2); Glucose Level 113 mg/dL (74-106); Lipase 113 U/L (73-393); Magnesium 2.1 mg/dL (1.8-2.4); NT PRO-BNP 670 pg/mL (<450); Potassium 4.2 mmol/L (3.5-5.1); Sodium Level 129 mmol/L (136-145); Troponin (Emerg Dept Use Only) 0.04 ng/mL (0.0-0.045)
[2020-05-27 15:27] LABS: Alkaline Phosphatase 1021 U/L (45-117)
[2020-05-27 15:28] LABS: Urine Blood NEGATIVE (NEG); Urine Glucose NEGATIVE (NEG); Urine Protein NEGATIVE (NEG); Urine Specific Gravity 1.015 (1.005-1.030); Urine pH 5.5 (5.0-7.0)
[2020-05-27] MEDS ORDERED: CEFTRIAXONE/SWI 1gm 1 GM/10 ML SYR ONE (15:28)
[2020-05-27] MEDS ORDERED: NA CHLORIDE 0.9% 1,000 ML ONE (15:28)
[2020-05-27] MEDS ORDERED: FAMOTIDINE 20 MG/2 ML VIAL IV ONE (15:28)
[2020-05-27 15:29] LABS: AST/SGOT 573 U/L (15-37)
[2020-05-27 15:30] LABS: ALT/SGPT 432 U/L (12-78); Bilirubin Total 11.8 mg/dL (0.2-1.0)
[2020-05-27] MEDS ORDERED: PANTOPRAZOLE 40 MG INJ ONE (16:06)
[2020-05-27] MEDS ORDERED: VITAMIN K (ADULT) 10 MG/ML ONE (16:06)
[2020-05-27] MEDS ORDERED: DIPHENHYDRAMINE 50 MG/ML VIAL ONE (16:41)
[2020-05-27] MEDS ORDERED: ACETAMINOPHEN 325 MG TABLET ONE (16:41)
[2020-05-27] MEDS ORDERED: NA CHLORIDE 0.9% 250 ML ONE (16:54)
[2020-05-27] MEDS ORDERED: PANTOPRAZOLE INJ 80 MG in NA CHLORIDE 0.9% 250 ML IV SCH (17:00)
[2020-05-27] MEDS ORDERED: OCTREOTIDE 500 MCG in NA CHLORIDE 0.9% 500 ML IV SCH ×6 (17:00)
[2020-05-27] MEDS ORDERED: OCTREOTIDE ACETATE 100 MCG/ML IV ONE (17:00)
[2020-05-27] MEDS ORDERED: ONDANSETRON 4 MG/2 ML VIAL ONE (17:02)
[2020-05-27] MEDS ORDERED: OCTREOTIDE ACETATE 100 MCG/ML ONE (17:46)
[2020-05-27] MEDS ORDERED: FENTANYL CITR 100 MCG/2 ML ONE (17:59)
[2020-05-27 18:37] LABS: Anisocytosis 1+; Blood Morphology Comment NOTED (NOT SEEN); Hypochromasia 1+; Macrocytosis 1+; Platelet Estimate ADEQ; White Blood Cell Scan OK (OK)
[2020-05-27] MEDS ORDERED: NA CHLORIDE 0.9% 100 ML ONE (19:04)
[2020-05-27 22:01] VITALS: TEMP 98.1
[2020-05-27 22:02] VITALS: BP 105/61; O2SAT 98
--- NOTE | 2020-05-28 14:39 | EKG ---
Test Date: 2020-05-27 Test Time: 13:23:36 [employer] Diver: WM MEASUREMENT RESULTS: Intervals: Rate: 79 CO: 150 QRSD: 76 QT: 382 QTc: 438 [place]: P: 38 CO: 150 QRS: 6 T: 45 INTERPRETIVE STATEMENTS: Normal sinus rhythm Normal ECG Compared to ECG 11/23/2019 12:25:01 No significant changes Electronically Signed On 05-28-20 14:37:35 [employer] SCI[employer] by Jackson Mendosa
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
== END 2020-05-27 21:26 | disposition short-term general hospital (02) ==
LOC: ER 12:15
DX: D64.9 Anemia, unspecified (principal); K74.60 Unspecified cirrhosis of liver; K92.2 Gastrointestinal hemorrhage, unspecified; K74.5 Biliary cirrhosis, unspecified; R53.1 Weakness; D68.9 Coagulation defect, unspecified; K72.90 Hepatic failure, unspecified without coma; Z20.822 Contact with and (suspected) exposure to COVID-19
CPT/HCPCS: 93005; 87040 ×2; 87088; 85025; 87086; 80048; 36415; 82140; 86900; 83735; 86850; 85610; 86901; 80076; 81003; 84484; 83690; 83880; 71045; 96372; 99285; U0003; J3430; J1200; J2354 ×3; C9113; J3010; J0696; P9016; P9059; J7050; J7040 ×2; J7030; J2405; 36430